=== PATIENT | female | born 1940 | race Caucasian/White ===

== ENCOUNTER 2016-05-30 06:49 | Day surgery (SDC) | payer MEDICARE ==
[~2016-05-30] VITALS: Ht 157.5 cm; Wt 60.9 kg
[2016-05-30] VITALS (8 sets, daily range): BP systolic 18–179; BP diastolic 43–92; PULSE 53–98; RESP 16–20; TEMP 97.6; O2SAT 95–99
[~2016-05-30 06:49] MED LIST: ALBU8I INH; ALPR.25 PO; ASPI81TA11 PO; ATOR20TA PO; CALCCHW25 PO; CLOB-50 TOP; E-20CAP PO; FISH100020 PO; LORTA5 PO; PERF20NE IN; TRIA.1%T TOP; UMEC1INH
[2016-05-30] MEDS ORDERED: MIDAZOLAM HCL 5 MG/5 ML VIAL ONE (07:30)
[2016-05-30] MEDS ORDERED: fentaNYL CITRATE 250 MCG/5 ML AMP ONE (07:30)
[2016-05-30] MEDS ORDERED: ASPI81CH CHEW (07:40)
[2016-05-30] MEDS ORDERED: FISHCAP4 PO (07:40)
[2016-05-30] MEDS ORDERED: CHOL1CHW5 CHEW (07:40)
[2016-05-30] MEDS ORDERED: UMEC1INH INH (07:40)
[2016-05-30] MEDS ORDERED: ATOR20TA15 PO (07:40)
[2016-05-30] MEDS ORDERED: CALC600T25 (07:40)
[2016-05-30] MEDS ORDERED: BUDE0.5S NEB (07:40)
[2016-05-30] MEDS ORDERED: CLOB0.77 TOPICAL (07:40)
[2016-05-30] MEDS ORDERED: TRIAPOW (07:40)
[2016-05-30] MEDS ORDERED: SYMB160A INH (07:40)
[2016-05-30] MEDS ORDERED: VENTAER INH (07:40)
[2016-05-30] MEDS ORDERED: VITA400C2 PO (07:40)
[2016-05-30] MEDS ORDERED: SODIUM CHLOR 0.9% 1000 ML IV SCH (07:45)
[2016-05-30] MEDS ORDERED: LIDOCAINE 1%/EPINEPHrine 1:100,000 SOLN 20 ML VIAL ONE (07:45)
--- NOTE | 2016-05-30 12:49 | RADRPT ---
EXAM DATE/TIME: 05/30/2016 10:56 [facility] COMPARISON: CHEST EXPIRATION ONLY, October 28, 2015, 10:14. INDICATIONS : Evaluate for pneumothorax post mediastinal biopsy MEDICAL HISTORY : Chronic obstructive pulmonary disease. Emphysema. SURGICAL HISTORY : Thoracotomy ENCOUNTER: Initial ACUITY: 1 day PAIN SCORE: 0/10 LOCATION: chest FINDINGS: A single frontal expiratory view of the chest was performed. The lungs are symmetrically aerated and clear. No evidence of pneumothorax. Mediastinal structures are in the midline. The cardio-mediastinal contours and bronchopulmonary markings are unremarkable for an expiratory exam . Osseous structures are intact. CONCLUSION: There is no pneumothorax. Minimal parenchymal changes are present in the left base.. Kenroy Quiñonez MD FACR on May 30, 2016 at 12:47 Board Certified Radiologist. This report was verified electronically.
--- NOTE | 2016-05-30 15:23 | RADRPT ---
EXAM DATE/TIME: 05/30/2016 08:32 [facility] COMPARISON: No previous studies available for comparison. INDICATIONS : Anterior mediastinal mass. SEDATION TIME: 40 minutes BIOPSY SITE: Left anterior chest. MEDICATION(S): 1.) 1 mg midazolam (Versed) IV 2.) 50 mcg fentanyl (Sublimaze) IV DEVICE(S): 1.) 18 gauge Barry blunt needle 2.) 20 gauge Temno core biopsy needle MEDICAL HISTORY : Carcinoma, lung. Chronic obstructive pulmonary disease. SURGICAL HISTORY : Lobectomy. ENCOUNTER: Initial ACUITY: 1 day PAIN SCORE: 0/10 LOCATION: Left anteriorchest. A total of four core specimen(s) were obtained and sent to the laboratory for pathologic evaluation. 1. CT guided mediastinal biopsy. Prior to the procedure informed consent was obtained. Any appropriate prior imaging studies were rev iewed. Using automated exposure control and adjustment of the mA and/or kV according to patient size, radiat ion dose was kept as low as reasonably achievable to obtain optimal diagnostic quality images. The site was prepped in a sterile fashion. Full sterile technique was used, including cap, mask, patti rile gloves and gown and a large sterile sheet. Hand hygiene and 2% chlorhexidine and/or betadine/al cohol prep was utilized per protocol for cutaneous antisepsis. The skin and subcutaneous tissues wer e infiltrated with local anesthetic solution. Under CT guidance an 18 gauge blunt needle was placed into the anterior mediastinal mass and 3 cores obtained and submitted for pathologic evaluation. Follow-up CT scan reveals no hemorrhage. The patient tolerated the procedure well and there were no complications. The patient was returned to the Radiology Outpatient Unit in stable condition. CONCLUSION: Uncomplicated CT guided biopsy. Preliminary pathology interpretation is a cellular specimen. Kenroy Quiñonez MD FACR on May 30, 2016 at 15:21 Board Certified Radiologist. This report was verified electronically.
== END 2016-05-30 13:05 | disposition home or self-care (01) ==
LOC: HRAD 06:49 → HRIP 06:53 → HRAD 13:05
PROVIDERS: ATTEND Internal Medicine Hematology & Oncology
DX: C34.32 Malignant neoplasm of lower lobe, left bronchus or lung (principal); J44.9 Chronic obstructive pulmonary disease, unspecified
CPT/HCPCS: 32405; 71010; 77012; 88305; 88333; J2250; J3010; J7030

== ENCOUNTER 2016-06-13 06:40 | Day surgery (SDC) | payer MEDICARE ==
[~2016-06-13] VITALS: Ht 157.5 cm; Wt 60.0 kg
[2016-06-13] VITALS (7 sets, daily range): BP systolic 120–153; BP diastolic 59–81; PULSE 56–65; RESP 16–20; TEMP 97.5–97.8; O2SAT 94–95
[~2016-06-13 06:40] MED LIST changes: +ASPI81CH CHEW; +ATOR20TA15 PO; +BUDE0.5S NEB; +CALC600T25; -CALCCHW25 PO; +CHOL1CHW5 CHEW; -CLOB-50 TOP; +CLOB0.77 TOPICAL; -E-20CAP PO; -FISH100020 PO; +FISHCAP4 PO; -LORTA5 PO; -PERF20NE IN; +SYMB160A INH; -TRIA.1%T TOP; +TRIAPOW; -UMEC1INH; +UMEC1INH INH; +VENTAER INH; +VITA400C2 PO
[2016-06-13] MEDS ORDERED: POVIDONE IODINE 5% (ANTISEPSIS KIT) 4 APPLICATIONS EACH NARE SCH (08:15)
[2016-06-13] MEDS ORDERED: CHLORHEXIDINE GLUCONATE 2 % 1 PACK (2 CLOTHS) TOPICAL SCH (08:15)
[2016-06-13] MEDS ORDERED: MUPIROCIN 2% OINT 1 APPLIC/GM SYR EACH NARE SCH (08:15)
[2016-06-13] MEDS ORDERED: SODIUM CHLORIDE 0.9% 1000 ML IV SCH (08:15)
[2016-06-13] MEDS ORDERED: ceFAZolin 2 GM PREMIX 50 ML - implanted port/tunneled catheter insertion IV SCH (08:15)
[2016-06-13] MEDS ORDERED: VANCOMYCIN 1000 MG/NS 250 ML - implanted port/tunneled catheter IV SCH ×2 (08:15)
[2016-06-13] MEDS ORDERED: MIDAZOLAM HCL 5 MG/5 ML VIAL ONE (08:23)
[2016-06-13] MEDS ORDERED: fentaNYL CITRATE 250 MCG/5 ML AMP ONE (08:23)
[2016-06-13] MEDS ORDERED: LIDOCAINE 1%/EPINEPHrine 1:100,000 SOLN 20 ML VIAL ONE (08:35)
--- NOTE | 2016-06-13 09:21 | PD.RAD ---
Post Procedure Progress Note Pre Procedure Diagnosis: (1) Lung cancer Post Procedure Diagnosis: (1) Lung cancer Procedure Date: Jun 13, 2016 Supervising Radiologist: Rick Gonzales JR Proceduralist/Assist: Yazmin Webb, RT(R)(), Yehuda Cuevas RT(R)() Anesthesia: Conscious Sedation Plan of Activity Patient to Unit: ROPU Patient Condition: Good See PACS Report for procedural detail/treatment Central Venous Access Device Procedure 1 Right Internal Jugular Infusaport Placement single lumen Greenlandic: 8 Findings: Port in good position and functions well. OK to use. Plan F/U with IR in 10-14 days Jr. Christian,Rick Velez MD Jun 13, 2016 09:21
[2016-06-13] MEDS ORDERED: SODIUM CHLORIDE 0.9% FLUSH 10 ML FLUSH IVF PRN (09:30)
--- NOTE | 2016-06-13 13:47 | RADRPT ---
EXAM DATE/TIME: 06/13/2016 08:17 [facility] COMPARISON: No previous studies available for comparison. INDICATIONS : Patient with lung cancer in need of port placement for treatment. 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 Basal cell carcinoma of the skin COPD/Emphysema Pneumonia 5 or 6 times Hyperlipidemia Former smoker SURGICAL HISTORY : CT guided biopsy of left upper lobe Multiple skin biopsies Robot assisted JAH lobectomy in [address] bx in 2015 Colonoscopy in 2015 Cataract removal in 2009 ENCOUNTER: Subsequent ACUITY: 4-6 months PAIN SCORE: 0/10 FLUORO TIME: 0.4 minutes IMAGE SERIES: 1 SEDATION TIME: 30 minutes ACCESS: Right internal jugular vein SEDATION: 1.) 1 mg midazolam (Versed) IV 2.) 50 mcg fentanyl (Sublimaze) IV Prophylactic antibiotics were administered with appropriate pre-procedure timing. Vancomycin within 2 hours of procedure, Ancef (or alternative) within 1 hour of procedure. DEVICE: 1. 8 Luxembourger single lumen [id number] PROCEDURE : 1. Continuous pulse oximetry and EKG monitoring. 2. Intravenous conscious sedation. 3. Ultrasound guidance for venous access. 4. Fluoroscopic guided implantable central venous port placement. The patient was placed supine. The neck was prepped in sterile fashion. Full sterile technique was u sed, including cap, mask, sterile gloves and gown, and a large sterile sheet. Hand hygiene and 2% ch lorhexidine Betadine was utilized per protocol for cutaneous antisepsis with appropriate dry time for site. The skin and subcutaneous tissues were infiltrated with local anesthetic solution. Under direct ultrasound guidance, central venous access was accomplished in the targeted vessel. The ultrasound images depicting access guidance were stored and saved to PACS for permanent record. A s ubcutaneous pocket was created using blunt dissection. The port was introduced to the pocket. The c atheter tubing was fed through a subcutaneous tunnel to the venotomy site. The catheter tubing was c ut to a suitable length and then was introduced through a valved Peel-Away sheath and positioned with catheter tubing tip at the cavo-atrial junction level. The pocket incision was closed with subcutic ular Vicryl suture. Steri-Strips were applied. The port was flushed and locked with heparin solutio n per protocol. Sterile dressing was applied to the site. The patient tolerated the procedure well. Conscious sedation was performed with the prescribed dosages and duration as above in the presence of an independent trained radiology nurse to assist in the monitoring of the patient. EKG and oximetry remained stable throughout the procedure. The patient tolerated the procedure well and there were no complications. The patient was sent to post anesthesia recovery in stable condition. CONCLUSION: Uncomplicated ultrasound and fluoroscopic guided implanted central venous port catheter placement as described in detail above. An 8 Luxembourger Power port was placed. Rick Gonzales Jr., MD on June 13, 2016 at 13:45 Board Certified Radiologist. This report was verified electronically.
== END 2016-06-13 11:35 | disposition home or self-care (01) ==
LOC: HROP 06:40 → HRIP 06:47 → HROP 11:35
PROVIDERS: ATTEND Internal Medicine Hematology & Oncology
DX: Z45.2 Encounter for adjustment and management of vascular access device (principal); C34.12 Malignant neoplasm of upper lobe, left bronchus or lung; J44.9 Chronic obstructive pulmonary disease, unspecified; E78.5 Hyperlipidemia, unspecified; Z85.828 Personal history of other malignant neoplasm of skin
CPT/HCPCS: 36561; 76937; 77001; 99152; 99153; C1788; J0690; J1642; J2250; J3010; J3370; J7030; J7050

== ENCOUNTER 2016-08-10 11:00 | Inpatient (IN) | payer MEDICARE ==
[~2016-08-10] VITALS: Ht 160 cm; Wt 59.1 kg
[2016-08-10] VITALS (16 sets, daily range): BP systolic 116–162; BP diastolic 62–74; PULSE 100–120; RESP 21–28; TEMP 98.1–100.4; O2SAT 96–100
[~2016-08-10 11:00] MED LIST changes: -ALBU8I INH; -ALPR.25 PO; -ASPI81TA11 PO; -ATOR20TA PO; -ATOR20TA15 PO
[2016-08-10] MEDS ORDERED: SODIUM CHLOR 0.9% 1000 ML INJ 1,000 ML IV ONE (11:13)
--- NOTE | 2016-08-10 11:13 | PD ---
HPI Chief Complaint: AMS Time Seen by Provider: 11:08 Travel History International Travel<30 days: No Contact w/Intl Traveler<30days: No History of Present Illness HPI This report is in ERROR Please disregard this report and all prior copies ! This report is in ERROR Please disregard this report and all prior copies ! This report is in ERROR Please disregard this report and all prior copies ! 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) Neurologic: No Psychiatric: No Reproductive: No Respiratory: Yes (lung ca copd) Immunizations Current: Yes Migraines: No Radiation Therapy: No Renal Failure: No Seizures: No Sleep Apnea: No Thyroid Disease: No Ulcer: No Menopausal: No Past Surgical History Abdominal Surgery: No AICD: No Arteriovenous Shunt: No Cardiac Surgery: No Ear Surgery: No Endocrine Surgery: No Eye Surgery: Yes (CATARACTS) Genitourinary Surgery: No Gynecologic Surgery: No Insulin Pump: No Joint Replacement: No Oral Surgery: No Pacemaker: No Thoracic Surgery: Yes (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) Other Surgery: Yes Social History Alcohol Use: Yes (2 DRINKS PER MONTH, WINE/LIQUOR) Tobacco Use: Yes (quit 09/2012) Substance Use: No Allergies-Medications (Allergen,Severity, Reaction): Coded Allergies: Shellfish (Verified Allergy, Unknown, Hives, 06/13/16) Reported Meds & Prescriptions Reported Meds & Active Scripts Active Reported Atorvastatin (Atorvastatin Calcium) 20 Mg Tab 20 Mg PO MOWE Take 1 tablet (20mg) daily on Saturday,Saturday and Saturday Magic Mouthwash Adult Liq (Multi-Ingredient Mouthwash/Gargle) 120 Ml Susp 5 Ml SWISH-SWAL ACHS Each 5mL contains: Nystatin 200,000units, Diphenhydramine 4.25mg, Viscous Lidocaine 10mg, Cole syrup 0.8 mL Hydrocodone-Acetaminophen Liq 7.5-325 Mg/15 Ml Soln 10 Ml PO QID PRN Cymbalta DR (Duloxetine HCl) 20 Mg Capdr 40 Mg PO DAILY Clobetasol Topical (Clobetasol Propionate) 0.05% Cream 1 Applic TOPICAL BID Aspirin 81 Mg Chew 81 Mg CHEW DAILY Vitamin D3 (Cholecalciferol) 2,000 Unit Chew 2,000 Units CHEW DAILY Fish Oil + D3 (Fish Oil-Cholecalciferol) 1,200-1,000 Mg-Unit Cap 1 Cap PO DAILY Vitamin E 400 Unit Cap 400 Units PO DAILY Ventolin Hfa 18 GM Inh (Albuterol Sulfate) 90 Mcg/Act Aer 2 Puff INH Q4-6H PRN Symbicort Inh (Budesonide/Formoterol Fumarate) 160-4.5 Mcg/Act Aero 1 Puff INH Q12HR Budesonide Neb 0.5 Mg/2 Ml Neb 0.5 Mg NEB DAILY NEB Incruse Ellipta Inh (Umeclidinium La[place]y Inh) 0.0625 Mg/Act Inh 1 Puff INH DAILY Physical Exam Narrative This report is in ERROR Please disregard this report and all prior copies ! This report is in ERROR Please disregard this report and all prior copies ! This report is in ERROR Please disregard this report and all prior copies ! Data Data Last Documented VS Vital Signs Date Time Temp Pulse Resp B/P Pulse Ox O2 Delivery O2 Flow Rate FiO2 08/10/16 12:12 103 24 162/65 100 Nasal Cannula 2 08/10/16 11:14 98.1 Orders Diet Npo (08/10/16 Lunch) Activity Bed Rest (08/10/16 ) Electrocardiogram (08/10/16 ) I-Stat Creatinine (08/10/16 11:13) I-Stat Profile (08/10/16 11:13) Prothrombin Time / Inr (Pt) (08/10/16 11:13) Act Partial Throm Time (Ptt) (08/10/16 11:13) Complete Blood Count With Diff (08/10/16 11:13) Fibrinogen (08/10/16 11:13) Creatine Kinase (Cpk) (08/10/16 11:13) Troponin I (08/10/16 11:13) Ua Includes Microscopic (08/10/16 11:13) Drug Screen, Random Urine (08/10/16 11:13) Type And Screen (08/10/16 11:13) Ct Brain W/O Iv Contrast(Rout) (08/10/16 ) Cta Brain W Iv Contrast W 3d (08/10/16 11:13) Cta Neck W Iv Contrast W 3d (08/10/16 11:13) Beta Hcg (Quant/Titer) (08/10/16 11:13) Consult Neurology (08/10/16 ) Blood Glucose (08/10/16 11:13) Ecg Monitoring (08/10/16 11:13) Neuro Checks Q2HX12,Q4H (08/10/16 11:13) Nursing Bedside Swallow Assess .ONCE (08/10/16 11:13) Iv Access Insert/Monitor (08/10/16 11:13) NPO (08/10/16 11:13) Oximetry (08/10/16 11:13) Oxygen Administration (08/10/16 11:13) Sodium Chlor 0.9% 1000 Ml Inj (Ns 1000 M (08/10/16 11:13) Resp Oxygen [place] C Titrat 1-4 L (08/10/16 11:13) Cath For Specimen (08/10/16 11:13) ^ Call Pharmacy (08/10/16 11:58) Nih Stroke Scale - Nihss .ONCE (08/10/16 11:58) Urinary Catheter Management DENNIS.Q8H (08/10/16 11:58) Urinary Catheter Insert/Apply (08/10/16 11:58) Anticoagulant Alert (08/10/16 11:58) ^ Post Infusion Restrictions (08/10/16 11:58) ^ Medication Alert (08/10/16 11:58) Vital Signs (Adult) .As directed (08/10/16 11:58) Notify Dr: Blood Pressure (08/10/16 11:58) ^ Medication Alert (08/10/16 11:58) Alteplase Bolus (Activase Bolus) (08/10/16 12:00) Alteplase Drip (Activase Drip) (08/10/16 12:00) Sodium Chloride 0.9% Inj (Ns Inj) (08/10/16 12:00) Misc Nursing Information (08/10/16 12:00) Resp Oxygen [place] C Titrat 1-4 L (08/10/16 ) Ct Brain W/O Iv Contrast(Rout) (08/11/16 ) Iohexol 350 Inj (Omnipaque 350 Inj) (08/10/16 12:08) Admit Order (Ed Use Only) (08/10/16 12:11) Thyroid Stimulating Hormone (08/10/16 12:10) Free Thyroxine (T4) (08/10/16 12:10) Vitamin B12 (08/10/16 12:10) Urinalysis - C+S If Indicated (08/10/16 12:10) Mri Brain W&W/O Contrast (08/10/16 12:10) Eeg Study (08/10/16 12:10) Echo 2d Comp With Doppler (08/10/16 12:10) Holter Monitor Recording (08/10/16 12:10) [place] (08/10/16 12:10) Sodium Chlor 0.9% 1000 Ml Inj (Ns 1000 M (08/10/16 13:00) Scd&Teds Bilateral/Knee High DENNIS.QSHIFT (08/10/16 12:10) Labs Laboratory Tests Test 08/10/16 11:20 White Blood Count 3.1 TH/MM3 Red Blood Count 3.92 MIL/MM3 Hemoglobin 11.8 GM/DL Bedside Hemoglobin 10.9 G/DL Hematocrit 33.2 % Bedside Hematocrit 32.0 % Mean Corpuscular Volume 84.6 FL Mean Corpuscular Hemoglobin 30.0 PG Mean Corpuscular Hemoglobin 35.5 % Concent Red Cell Distribution Width 13.1 % Platelet Count 136 TH/MM3 Mean Platelet Volume 8.4 FL Neutrophils (%) (Auto) 84.4 % Lymphocytes (%) (Auto) 7.6 % Monocytes (%) (Auto) 7.2 % Eosinophils (%) (Auto) 0.3 % Basophils (%) (Auto) 0.5 % Neutrophils # (Auto) 2.6 TH/MM3 Lymphocytes # (Auto) 0.2 TH/MM3 Monocytes # (Auto) 0.2 TH/MM3 Eosinophils # (Auto) 0.0 TH/MM3 Basophils # (Auto) 0.0 TH/MM3 CBC Comment DIFF FINAL Differential Comment Prothrombin Time 10.6 SEC Prothromb Time International 1.0 RATIO Ratio Activated Partial 27.4 SEC Thromboplast Time Fibrinogen 486 mg/dL Bedside Sodium 135 MMOL/L Bedside Potassium 3.8 MMOL/L Bedside Chloride 101 MMOL/L Bedside Blood Urea Nitrogen 17 MG/DL Bedside Creatinine 0.7 MG/DL Bedside Glucose 107 MG/DL Total Creatine Kinase 58 U/L Troponin I LESS THAN 0.02 NG/ML Vitamin B12 Level 424 PG/ML Free Thyroxine 1.67 NG/DL Thyroid Stimulating Hormone 1.510 uIU/ML 3rd Gen Human Chorionic Gonadotropin, 5 MIU/ML Quant Blood Type O POSITIVE Antibody Screen NEGATIVE MDM Medical Decision Making Medical Screen Exam Complete: Yes Emergency Medical Condition: Yes Differential Diagnosis This report is in ERROR Please disregard this report and all prior copies ! This report is in ERROR Please disregard this report and all prior copies ! This report is in ERROR Please disregard this report and all prior copies ! Narrative Course This report is in ERROR Please disregard this report and all prior copies ! This report is in ERROR Please disregard this report and all prior copies ! This report is in ERROR Please disregard this report and all prior copies ! Jairo Mendiola MD August 10, 2016 11:13
--- NOTE | 2016-08-10 11:26 | PD ---
HPI Chief Complaint: Respiratory Symptoms Time Seen by Provider: 11:08 Travel History International Travel<30 days: No Contact w/Intl Traveler<30days: No Traveled to known affect area: No History of Present Illness HPI 75-year-old female arrives to the ER following an emergency response team activation at the [facility] where she was undergoing chemotherapy infusion. EMS reports the patient is quite dyspneic on scene and improved with albuterol. No focal neurologic deficit could be observed according to EMS. On my exam the patient is unable to state the date or where she lives. She is unable to name a stethoscope and name her sandals as such. She could repeat tip-top and 50-50. EMS reports sinus tachycardia at approx 110 with BGL of 111 and BP of 113/70. PFSH Past Medical History Arthritis: Yes Asthma: No Autoimmune Disease: No Anxiety: No Depression: No Heart Rhythm Problems: No Cancer: Yes (LUNG CA?) Cardiovascular Problems: No High Cholesterol: No Chemotherapy: Yes Chest Pain: No Congestive Heart Failure: No COPD: Yes Cerebrovascular Accident: No Diabetes: No Diminished Hearing: No Endocrine: No GERD: No Glaucoma: No Genitourinary: No Hepatitis: No Hiatal Hernia: No Hypertension: Yes Immune Disorder: No Kidney Stones: No Musculoskeletal: Yes (OA IN HANDS) Neurologic: No Psychiatric: No Reproductive: No Respiratory: Yes (lung ca copd) Immunizations Current: Yes Migraines: No Radiation Therapy: No Renal Failure: No Seizures: No Sleep Apnea: No Thyroid Disease: No Ulcer: No Menopausal: No Past Surgical History Abdominal Surgery: No AICD: No Arteriovenous Shunt: No Cardiac Surgery: No Ear Surgery: No Endocrine Surgery: No Eye Surgery: Yes (CATARACTS) Genitourinary Surgery: No Gynecologic Surgery: No Insulin Pump: No Joint Replacement: No Oral Surgery: No Pacemaker: No Thoracic Surgery: Yes (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) Other Surgery: Yes Social History Alcohol Use: Yes (2 DRINKS PER MONTH, WINE/LIQUOR) Tobacco Use: Yes (quit 09/2012) Substance Use: No Allergies-Medications (Allergen,Severity, Reaction): Coded Allergies: Shellfish (Verified Allergy, Unknown, Hives, 06/13/16) Reported Meds & Prescriptions Reported Meds & Active Scripts Active Reported Atorvastatin (Atorvastatin Calcium) 20 Mg Tab 20 Mg PO MOWEFR Take 1 tablet (20mg) daily on Saturday,Saturday and Saturday Magic Mouthwash Adult Liq (Multi-Ingredient Mouthwash/Gargle) 120 Ml Susp 5 Ml SWISH-SWAL ACHS Each 5mL contains: Nystatin 200,000units, Diphenhydramine 4.25mg, Viscous Lidocaine 10mg, Cole syrup 0.8 mL Hydrocodone-Acetaminophen Liq 7.5-325 Mg/15 Ml Soln 10 Ml PO QID PRN Cymbalta DR (Duloxetine HCl) 20 Mg Capdr 40 Mg PO DAILY Clobetasol Topical (Clobetasol Propionate) 0.05% Cream 1 Applic TOPICAL BID Aspirin 81 Mg Chew 81 Mg CHEW DAILY Vitamin D3 (Cholecalciferol) 2,000 Unit Chew 2,000 Units CHEW DAILY Fish Oil + D3 (Fish Oil-Cholecalciferol) 1,200-1,000 Mg-Unit Cap 1 Cap PO DAILY Vitamin E 400 Unit Cap 400 Units PO DAILY Ventolin Hfa 18 GM Inh (Albuterol Sulfate) 90 Mcg/Act Aer 2 Puff INH Q4-6H PRN Symbicort Inh (Budesonide/Formoterol Fumarate) 160-4.5 Mcg/Act Aero 1 Puff INH Q12HR Budesonide Neb 0.5 Mg/2 Ml Neb 0.5 Mg NEB DAILY NEB Incruse Ellipta Inh (Umeclidinium Omega Inh) 0.0625 Mg/Act Inh 1 Puff INH DAILY Review of Systems ROS Limitations: Clinical Condition Physical Exam Narrative GENERAL: 75-year-old female, well-nourished well-developed SKIN: Warm and dry. HEAD: Atraumatic. Normocephalic. EYES: Pupils equal and round. No scleral icterus. No injection or drainage. ENT: No nasal bleeding or discharge. Mucous membranes pink and moist. NECK: Trachea midline. No JVD. CARDIOVASCULAR: Regular rate and rhythm. RESPIRATORY: No accessory muscle use. Clear to auscultation. Breath sounds equal bilaterally. GASTROINTESTINAL: Abdomen soft, non-tender, nondistended. Hepatic and splenic margins not palpable. MUSCULOSKELETAL: Extremities without clubbing, cyanosis, or edema. No obvious deformities. NEUROLOGICAL: Alert and oriented times her name. The cranial nerves III through XII appear normal. Motor function of the upper and lower extremities is normal. There is no pronator drift. The patient can repeat single phrases. The patient cannot identify basic objects. PSYCHIATRIC: Appropriate mood and affect; insight and judgment normal. Data Data Last Documented VS Vital Signs Date Time Temp Pulse Resp B/P Pulse Ox O2 Delivery O2 Flow Rate FiO2 08/10/16 12:12 103 24 162/65 100 Nasal Cannula 2 08/10/16 11:14 98.1 VS reviewed Orders Diet Npo (08/10/16 Lunch) Activity Bed Rest (08/10/16 ) Electrocardiogram (08/10/16 ) I-Stat Creatinine (08/10/16 11:13) I-Stat Profile (08/10/16 11:13) Prothrombin Time / Inr (Pt) (08/10/16 11:13) Act Partial Throm Time (Ptt) (08/10/16 11:13) Complete Blood Count With Diff (08/10/16 11:13) Fibrinogen (08/10/16 11:13) Creatine Kinase (Cpk) (08/10/16 11:13) Troponin I (08/10/16 11:13) Ua Includes Microscopic (08/10/16 11:13) Drug Screen, Random Urine (08/10/16 11:13) Type And Screen (08/10/16 11:13) Ct Brain W/O Iv Contrast(Rout) (08/10/16 ) Cta Brain W Iv Contrast W 3d (08/10/16 11:13) Cta Neck W Iv Contrast W 3d (08/10/16 11:13) Beta Hcg (Quant/Titer) (08/10/16 11:13) Consult Neurology (08/10/16 ) Blood Glucose (08/10/16 11:13) Ecg Monitoring (08/10/16 11:13) Neuro Checks Q2HX12,Q4H (08/10/16 11:13) Nursing Bedside Swallow Assess .ONCE (08/10/16 11:13) Iv Access Insert/Monitor (08/10/16 11:13) NPO (08/10/16 11:13) Oximetry (08/10/16 11:13) Oxygen Administration (08/10/16 11:13) Sodium Chlor 0.9% 1000 Ml Inj (Ns 1000 M (08/10/16 11:13) Resp Oxygen [place] C Titrat 1-4 L (08/10/16 11:13) Cath For Specimen (08/10/16 11:13) ^ Call Pharmacy (08/10/16 11:58) Nih Stroke Scale - Nihss .ONCE (08/10/16 11:58) Urinary Catheter Management DENNIS.Q8H (08/10/16 11:58) Urinary Catheter Insert/Apply (08/10/16 11:58) Anticoagulant Alert (08/10/16 11:58) ^ Post Infusion Restrictions (08/10/16 11:58) ^ Medication Alert (08/10/16 11:58) Vital Signs (Adult) .As directed (08/10/16 11:58) Notify Dr: Blood Pressure (08/10/16 11:58) ^ Medication Alert (08/10/16 11:58) Alteplase Bolus (Activase Bolus) (08/10/16 12:00) Alteplase Drip (Activase Drip) (08/10/16 12:00) Sodium Chloride 0.9% Inj (Ns Inj) (08/10/16 12:00) Misc Nursing Information (08/10/16 12:00) Resp Oxygen [place]aan C Titrat 1-4 L (08/10/16 ) Ct Brain W/O Iv Contrast(Rout) (08/11/16 ) Iohexol 350 Inj (Omnipaque 350 Inj) (08/10/16 12:08) Admit Order (Ed Use Only) (08/10/16 12:11) Thyroid Stimulating Hormone (08/10/16 12:10) Free Thyroxine (T4) (08/10/16 12:10) Vitamin B12 (08/10/16 12:10) Urinalysis - C+S If Indicated (08/10/16 12:10) Mri Brain W&W/O Contrast (08/10/16 12:10) Eeg Study (08/10/16 12:10) Echo 2d Comp With Doppler (08/10/16 12:10) Holter Monitor Recording (08/10/16 12:10) [place] (08/10/16 12:10) Sodium Chlor 0.9% 1000 Ml Inj (Ns 1000 M (08/10/16 13:00) Scd&Teds Bilateral/Knee High DENNIS.QSHIFT (08/10/16 12:10) Labs Laboratory Tests Test 08/10/16 11:20 White Blood Count 3.1 TH/MM3 Red Blood Count 3.92 MIL/MM3 Hemoglobin 11.8 GM/DL Bedside Hemoglobin 10.9 G/DL Hematocrit 33.2 % Bedside Hematocrit 32.0 % Mean Corpuscular Volume 84.6 FL Mean Corpuscular Hemoglobin 30.0 PG Mean Corpuscular Hemoglobin 35.5 % Concent Red Cell Distribution Width 13.1 % Platelet Count 136 TH/MM3 Mean Platelet Volume 8.4 FL Neutrophils (%) (Auto) 84.4 % Lymphocytes (%) (Auto) 7.6 % Monocytes (%) (Auto) 7.2 % Eosinophils (%) (Auto) 0.3 % Basophils (%) (Auto) 0.5 % Neutrophils # (Auto) 2.6 TH/MM3 Lymphocytes # (Auto) 0.2 TH/MM3 Monocytes # (Auto) 0.2 TH/MM3 Eosinophils # (Auto) 0.0 TH/MM3 Basophils # (Auto) 0.0 TH/MM3 CBC Comment DIFF FINAL Differential Comment Prothrombin Time 10.6 SEC Prothromb Time International 1.0 RATIO Ratio Activated Partial 27.4 SEC Thromboplast Time Fibrinogen 486 mg/dL Bedside Sodium 135 MMOL/L Bedside Potassium 3.8 MMOL/L Bedside Chloride 101 MMOL/L Bedside Blood Urea Nitrogen 17 MG/DL Bedside Creatinine 0.7 MG/DL Bedside Glucose 107 MG/DL Total Creatine Kinase 58 U/L Troponin I LESS THAN 0.02 NG/ML Human Chorionic Gonadotropin, 5 MIU/ML Quant Blood Type O POSITIVE Antibody Screen NEGATIVE MDM Medical Screen Exam Complete: Yes Emergency Medical Condition: Yes Differential Diagnosis CVA, TIA, altered mental status secondary to infection, altered mental status secondary to metabolic disorder, altered mental status secondary to polypharmacy Narrative Course CBC & BMP Diagram 08/10/16 11:20 Tn < 0.02 Coags normal Fibrinogen 486 Last 24 hours Impressions Head CTA 08/10/16 1113 Signed Impressions: Service Date/Time: Wednesday, August 10, 2016 11:25 - CONCLUSION: 1. No major vessel occlusion. 2. Normal variants as described above. Aubrey Quarles MD Head CT 08/10/16 0000 Signed Impressions: Service Date/Time: Wednesday, August 10, 2016 11:25 - CONCLUSION: 1. No acute findings. Incidental small left basal ganglia calcification. Incidental cavum septum pellucidum. Oziel Rdz MD Pt received Alteplase. discussed with next of kin, pt's niece, Ramon, who stated Alteplase would likely be in keeping with patient's preferences. Please review neurology note by Dr Mariah Cohen d/w Dr Perez Critical Care Narrative Aggregate critical care time was 70 minutes. Time to perform other separately billable procedures was not included in the critical care time. My time did not include minutes spent treating any other patients simultaneously or on activities that did not directly contribute to the patient's treatment. The services I provided to this patient were to treat and/or prevent clinically significant deterioration that could result in: Permanent neurologic injury, intracranial hemorrhage I provided critical care services requiring my management, as noted below: Chart data review, documentation time, medication orders and management, vital sign assessments/reviewing monitor data, ordering and reviewing lab tests, ordering and interpreting/reviewing x-rays and diagnostic studies, care of the patient and discussion of the patient with the admitting physicians. Stroke Alert NIHSS NIH Stroke Scale Result: 6 NIHSS Time Completed: 11:15 Diagnosis Diagnosis: Primary Impression: CVA (cerebral vascular accident) Qualified Code: I63.9 - Cerebrovascular accident (CVA), unspecified mechanism Additional Impression: COPD (chronic obstructive pulmonary disease) Qualified Code: J44.9 - Chronic obstructive pulmonary disease, unspecified COPD type Admitting Physician Requests: Jairo Erazo MD August 10, 2016 11:26
[2016-08-10 11:30] LABS: I-STAT POTASSIUM 3.8 MMOL/L (3.5-4.9); I-STAT SODIUM 135 MMOL/L (138-146)
[2016-08-10 11:31] LABS: AUTOMATED NEUTROPHIL # 2.6 TH/MM3 (1.8-7.7); BASOPHIL % 0.5 % (0.0-2.0); EOSINOPHIL % 0.3 % (0.0-4.0); HEMATOCRIT 33.2 % (35.0-46.0); HEMO FLAGS DIFF FINAL; LYMPH % 7.6 % (9.0-44.0); LYMPHOCYTE # 0.2 TH/MM3 (1.0-4.8); MEAN CELL VOLUME 84.6 FL (80.0-100.0); MEAN CORPUSCULAR HGB CONC 35.5 % (32.0-36.0); MONO % 7.2 % (0.0-8.0); NEUT % 84.4 % (16.0-70.0); PLATELET COUNT 136 TH/MM3 (150-450); RED BLOOD COUNT 3.92 MIL/MM3 (4.00-5.30); RED CELL DISTRIBUTION WIDTH 13.1 % (11.6-17.2); WHITE BLOOD COUNT 3.1 TH/MM3 (4.0-11.0)
--- NOTE | 2016-08-10 11:40 | RADRPT ---
EXAM DATE/TIME: 08/10/2016 11:25 [facility] COMPARISON: No previous studies available for comparison. INDICATIONS : Stroke alert, aphasia. RADIATION DOSE: 29.31 CTDIvol (mGy) This report was called by Dr. Rdz to Dr. Mendiola at 11: 38 AM MEDICAL HISTORY : Non-responsive. SURGICAL HISTORY : Non-responsive. ENCOUNTER: Initial ACUITY: 1 day PAIN SCALE: Non-responsive LOCATION: cranial TECHNIQUE: Multiple contiguous axial images were obtained of the head. Using automated exposure control and adj ustment of the mA and/or kV according to patient size, radiation dose was kept as low as reasonably a chievable to obtain optimal diagnostic quality images. FINDINGS: CEREBRUM: The ventricles are normal for age. No evidence of midline shift, mass lesion, hemorrhage or acute in farction. No extra-axial fluid collections are seen. POSTERIOR FOSSA: The cerebellum and brainstem are intact. The 4th ventricle is midline. The cerebellopontine angle i s unremarkable. EXTRACRANIAL: The visualized portion of the orbits is intact. SKULL: The calvaria is intact. No evidence of skull fracture. CONCLUSION: 1. No acute findings. Incidental small left basal ganglia calcification. Incidental cavum septum lucien ucidum. Oziel Rdz MD on August 10, 2016 at 11:34 Board Certified Radiologist. This report was verified electronically.
[2016-08-10 11:50] LABS: APTT (PATIENT) 27.4 SEC (24.3-30.1); PROTHROMBIN TIME - PATIENT 10.6 SEC (9.8-11.6)
[2016-08-10 11:54] LABS: BETA HCG QUANT 5 MIU/ML (0-5)
[2016-08-10 11:59] LABS: CREATINE KINASE 58 U/L (26-192)
[2016-08-10] MEDS ORDERED: SODIUM CHLORIDE 0.9% 50 ML BAG IVF ONE (12:00)
[2016-08-10] MEDS ORDERED: ALTEPLASE BOLUS 9 MG/9 ML SYR IV ONE (12:00)
[2016-08-10] MEDS ORDERED: MISCELLANEOUS NURSING INFORMATION XX PRN (12:00)
[2016-08-10] MEDS ORDERED: ALTEPLASE DRIP IV ONE (12:00)
[2016-08-10] MEDS ORDERED: IOHEXOL 350 MG/ML 10 ML VIAL (for RAD DIAG) IV ONE (12:08)
[2016-08-10] MEDS ORDERED: HYDR1SOL3 PO (12:31)
[2016-08-10] MEDS ORDERED: DULO20 PO (12:31)
[2016-08-10] MEDS ORDERED: CLOB0.055 TOPICAL (12:31)
[2016-08-10] MEDS ORDERED: MAGICADU2 SWISH-SWAL (12:31)
[2016-08-10] MEDS ORDERED: ATOR20TA15 PO (12:33)
--- NOTE | 2016-08-10 12:47 | MB ---
cc: AUGUSTA BLEVINS DATE OF CONSULTATION 08/10/2016 REASON FOR CONSULTATION The patient is a 75-year-old woman with a history of lung cancer was over getting chemo today when suddenly they thought she was short of breath approximately 70 minutes ago. When she came in the ER, the ER doctor noted that she had difficulty talking and a stroke alert was called. MEDICATIONS Medications at home are: 1. Aspirin 2. Vitamin D 3. Fish oil 4. Vitamin E 5. Ventolin 6. Symbicort 7. Nebulizers REVIEW OF SYSTEMS Unable to obtain. SOCIAL HISTORY Two drinks a month. She quit smoking about four years ago. No substance abuse. PAST MEDICAL HISTORY 1. Lung cancer getting radiation/ 2. She has had chemotherapy in the past. 3. COPD 4. Hypertension 5. Osteoarthritis 6. She had a needle biopsy in May uncomplicated to the lung. 7. 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 December 2015, new soft tissue mass anterior mediastinum. PHYSICAL EXAM On exam, she is sinus rhythm afebrile, blood pressure 118/74, 22, pulse of 109. NECK: There are no carotid bruits. There is a radiated murmur to the left carotid. HEART: Regular rhythm with a 1/6 systolic ejection murmur. NEUROLOGIC: Pupils are equal. It is hard to tell about the visual mackenzie. They appear full, maybe a little bit better threat to the left than the right. Face is symmetric. Moves all her extremities well. Feels discomfort throughout. Toes are downgoing bilaterally. She has an expressive and receptive aphasia hyperventilating slightly. Unable to repeat. She is awake and alert, however. NIH stroke scale of six due to her aphasia. LABS CBC today, white count is 3.1, hematocrit 33, platelet count 136. Basic metabolic profile today normal. CPK and troponin are negative. HCG 5. Coags are normal today. CT scan of the brain incidental small left basal ganglionic calcification, otherwise normal. CTA of the neck and [place] preliminary normal. IMPRESSION Left MCA infarct. She is a tPA candidate. We will go ahead and give tPA. MD JUDY Hamilton/SHIALA /12:08 PM /12:23 PM
--- NOTE | 2016-08-10 12:49 | HHI.HP ---
HPI Service Critical Care Medicine Primary Care Physician Amaya Cabello MD Admission Diagnosis Acute Ischemic CVA Diagnosis: Chief Complaint: aphasia Travel History International Travel<30 Days: No Contact w/Intl Traveler <30 Da: No Traveled to Known Affected Are: No History of Present Illness This is a 8-year-old female who arrived to the emergency department from the infusion clinic where she was undergoing chemotherapy infusion. Her chief complaint was shortness of breath initially. However, when she arrived emergency department, she was unable to speak was found to have both expressive and receptive aphasia. At that time a stat head CT was negative for acute hemorrhage and a stroke alert was called. Last seen normal was approximately 70 minutes prior to arrival in the emergency department her NIH stroke scale was 6. She was given TPA. I evaluated the patient emergency department soon after she was receiving TPA. I again noted her expressive and receptive aphasia , which limits her ability to give a history. 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 Unlikely to be contributory to her acute illness. Social History 2 drinks per month, prior tobacco use quit in 09/2012 Physical Exam Vital Signs Vital Signs Date Time Temp Pulse Resp B/P Pulse Ox O2 Delivery O2 Flow Rate FiO2 08/10/16 12:17 106 22 162/65 100 Nasal Cannula 08/10/16 12:12 103 24 162/65 100 Nasal Cannula 2 08/10/16 11:45 100 22 146/70 100 Nasal Cannula 2 08/10/16 11:18 100 2.00 08/10/16 11:18 100 Nasal Cannula 2.00 08/10/16 11:17 96 Nasal Cannula 2 08/10/16 11:17 22 96 2 08/10/16 11:17 112 22 96 Nasal Cannula 2 08/10/16 11:14 98.1 110 22 118/74 96 Physical Exam GENERAL: Elderly female, lying in best, moderate distress due to her aphasia HEENT: Normocephalic. Atraumatic. Pupils 2 mm, equal, round, reactive. Mucous membranes are moist. NECK: No JVD. Trachea midline. CHEST: Mildly tachypneic. Unlabored. Equal chest rise. CARDIOVASCULAR: Cardiac rate, regular rhythm. Sinus by telemetry. ABDOMEN: Soft, nontender, nondistended. No guarding. MUSCULOSKELETAL: Pulses 2+. No peripheral edema. NEUROLOGICAL: RASS 0. Receptive and expressive aphasia. Moves all 4 extremity spontaneously. Does not follow commands, most likely due to her aphasia. Briskly purposeful. Localizes. Withdrawals. Laboratory Laboratory Tests Test 08/10/16 11:20 White Blood Count 3.1 Red Blood Count 3.92 Hemoglobin 11.8 Bedside Hemoglobin 10.9 Hematocrit 33.2 Bedside Hematocrit 32.0 Mean Corpuscular Volume 84.6 Mean Corpuscular Hemoglobin 30.0 Mean Corpuscular Hemoglobin 35.5 Concent Red Cell Distribution Width 13.1 Platelet Count 136 Mean Platelet Volume 8.4 Neutrophils (%) (Auto) 84.4 Lymphocytes (%) (Auto) 7.6 Monocytes (%) (Auto) 7.2 Eosinophils (%) (Auto) 0.3 Basophils (%) (Auto) 0.5 Neutrophils # (Auto) 2.6 Lymphocytes # (Auto) 0.2 Monocytes # (Auto) 0.2 Eosinophils # (Auto) 0.0 Basophils # (Auto) 0.0 CBC Comment DIFF FINAL Differential Comment Prothrombin Time 10.6 Prothromb Time International 1.0 Ratio Activated Partial 27.4 Thromboplast Time Fibrinogen 486 Bedside Sodium 135 Bedside Potassium 3.8 Bedside Chloride 101 Bedside Blood Urea Nitrogen 17 Bedside Creatinine 0.7 Bedside Glucose 107 Total Creatine Kinase 58 Troponin I LESS THAN 0.02 Human Chorionic Gonadotropin, 5 Quant Blood Type O POSITIVE Antibody Screen NEGATIVE Result Diagram: 08/10/16 1120 Imaging Last Impressions Brain MRI 08/10/16 1210 Signed Impressions: Service Date/Time: Wednesday, August 10, 2016 14:51 - CONCLUSION: 1. No acute infarction. 2. Cortical atrophy. 3. Nonspecific white matter changes. Aubrey Quarles MD Neck CTA 08/10/16 1113 Signed Impressions: Service Date/Time: Wednesday, August 10, 2016 11:25 - CONCLUSION: 50%% left carotid bifurcation stenosis. 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 Larry Salvador MD Head CTA 08/10/16 1113 Signed Impressions: Service Date/Time: Wednesday, August 10, 2016 11:25 - CONCLUSION: 1. No major vessel occlusion. 2. Normal variants as described above. Aubrey Quarles MD Head CT 08/10/16 0000 Signed Impressions: Service Date/Time: Wednesday, August 10, 2016 11:25 - CONCLUSION: 1. No acute findings. Incidental small left basal ganglia calcification. Incidental cavum septum pellucidum. Oziel Rdz MD Assessment and Plan Assessment and Plan Assessment: 75-year-old female with lung cancer and ongoing radiation chemotherapy who presents with acute change in mentation and what appears to be receptive and expressive aphasia. She is now status post TPA. We will admit her to the ICU and watch her she is very high risk for rebleeding decompensation. She remains critically ill. We will plan on repeat interval head CT in 24 hours. Permissive hypertension. Frequent neurochecks. Plan: 1. Cerebrovascular Accident -- f/u MRI -- CT brain 08/10 negative for hemorrhage -- s/p TPA -- frequent neuro checks -- repeat interval head CT -- permissive hypertension, goal SBP < 180 -- nursing bedside swallow eval and advance diet as tolerated -- 2d echo -- lipid panel -- continue home statin -- restart home ASA tomorrow morning (24h after TPA) --continue home meds. -- SCDs. pharmacologic DVT prophylaxis on hold due to TPA today. would plan to restart 24h after TPA. Dispo: admit to ICU. if she remains stable and her interval head CT is unchanged , could transfer to floor tomorrow. This patient remains critically ill with one or more organ systems which are or may become a threat to life. I have spent in excess of 32 minutes discontinuously in the care and management of this patient. This time is exclusive of procedures, and includes, but is not limited to, evaluation of the patient, review of the medical record, discussions with family, consultants, nursing staff, or respiratory therapy, and documentation in the medical record. Code Status Full code Discussed Condition With Dr. Perry, Home Crawley MD August 10, 2016 12:49
[2016-08-10] MEDS ORDERED: POTASSIUM CHLOR 20 MEQ PREMIX 100 ML IV PRN ×2 (13:00)
[2016-08-10] MEDS ORDERED: MAGNESIUM SULFATE INJ 2 GM in SODIUM CHLORIDE 0.9% INJ 96 ML IV PRN (13:00)
[2016-08-10] MEDS ORDERED: MAGNESIUM OXIDE 400 MG TAB PO PRN (13:00)
[2016-08-10] MEDS ORDERED: SODIUM PHOSPHATE INJ 30 MMOL in SODIUM CHLOR 0.9% 250 ML INJ 240 ML IV PRN (13:00)
[2016-08-10] MEDS ORDERED: MAGNESIUM SULFATE INJ 4 GM in SODIUM CHLORIDE 0.9% INJ 92 ML IV PRN (13:00)
[2016-08-10] MEDS ORDERED: POTASSIUM PHOSPHATE MONOBASIC 500 MG TAB PO/TUBE PRN (13:00)
[2016-08-10] MEDS ORDERED: POTASSIUM CHLOR 40 MEQ PREMIX 100 ML IV PRN ×2 (13:00)
[2016-08-10] MEDS ORDERED: POTASSIUM PHOSPHATE MONOBASIC 500 MG TAB PO PRN (13:00)
--- NOTE | 2016-08-10 13:00 | RADRPT ---
EXAM DATE/TIME: 08/10/2016 11:25 [facility] COMPARISON: No previous studies available for comparison. INDICATIONS : Stroke alert, aphasia. IV CONTRAST: 100 cc Omnipaque 350 (iohexol) IV ; Cumulative dose for multiple exams. RADIATION DOSE: 25.52 CTDIvol (mGy) ; Combined studies MEDICAL HISTORY : Non-responsive. SURGICAL HISTORY : Non-responsive. ENCOUNTER: Initial ACUITY: 1 day PAIN SCALE: Non-responsive LOCATION: cranial TECHNIQUE: Volumetric scanning was performed using a multi-row detector CT scanner. The data was post processed with a variety of visualization algorithms including full volume maximum intensity projection, multi -planar sliding thin slab reformation, curved planar reformation, and surface rendering techniques. Using automated exposure control and adjustment of the mA and/or kV according to patient size, radiat ion dose was kept as low as reasonably achievable to obtain optimal diagnostic quality images. FINDINGS: There is excellent visualization of the major intracranial arteries out to the second-order branch ve ssels. There is no evidence for aneurysm, vessel truncation or stenosis, and no evidence for vascula r malformation. Anterior and posterior communicating arteries. No stenosis or aneurysm. No major vessel occlusion. CONCLUSION: 1. No major vessel occlusion. 2. Normal variants as described above. Aubrey Quarles MD on August 10, 2016 at 12:55 Board Certified Radiologist. This report was verified electronically.
[2016-08-10 13:35] LABS: FREE T4 1.67 NG/DL (0.76-1.46)
[2016-08-10] MEDS: SODIUM CHLOR 0.9% 1000 ML INJ 1,000 ML IV SCH (13:43)
--- NOTE | 2016-08-10 13:52 | RADRPT ---
EXAM DATE/TIME: 08/10/2016 11:25 [facility] COMPARISON: No previous studies available for comparison. INDICATIONS : Stroke alert, aphasia. IV CONTRAST: 100 cc Omnipaque 350 (iohexol) IV ; Cumulative dose for multiple exams. RADIATION DOSE: 25.52 CTDIvol (mGy) ; Combined studies MEDICAL HISTORY : Non-responsive. SURGICAL HISTORY : Non-responsive. ENCOUNTER: Initial ACUITY: 1 day PAIN SCALE: Non-responsive LOCATION: neck Elevated flow velocities and ICA/CCA ratios have been found to correlate with increased degrees of vessel stenosis, calculated as percentage of diameter relative to a normal segment of distal ICA/CCA. TECHNIQUE: Volumetric scanning was performed using a multirow detector CT scanner. The data was post processed with a variety of visualization algorithms including full-volume maximum intensity projection, multip lanar sliding thin-slab reformation, curved-planar reformation, and surface-rendering techniques. Us ing automated exposure control and adjustment of the mA and/or kV according to patient size, radiatio n dose was kept as low as reasonably achievable to obtain optimal diagnostic quality images. FINDINGS: AORTIC ARCH: 3 vessel arch anatomy is identified. There is significant calcific plaquing at the origin of the left common carotid artery and the left subclavian artery and significant motion artifact obscured visual ization of the vessel ostia. There is moderate eccentric stenosis of the left subclavian artery a cou ple of centimeters beyond the vessel origin with eccentric plaque producing close to 50% stenotic suleiman rowing. The common carotid vessels appear otherwise widely patent to the bifurcation level RIGHT CAROTID: Mild eccentric calcific plaquing involving the bulb and proximal ICA with a minimal degree of associa ottoniel stenotic narrowing. LEFT CAROTID: Dense concentric and eccentric atherosclerotic plaquing at the bulb and ICA origin with about 50% lum inal narrowing. Beyond this proximal disease, the left ICA regains normal caliber and appearance and is widely patent to the skull base. VERTEBRALS: The vertebral arteries have a symmetric diameter. No stenotic lesions are seen. CONCLUSION: 50% left carotid bifurcation stenosis. 40-50% left subclavian artery stenosis. Larry Salvador MD on August 10, 2016 at 13:44 Board Certified Radiologist. This report was verified electronically.
--- NOTE | 2016-08-10 15:40 | RADRPT ---
EXAM DATE/TIME: 08/10/2016 14:51 [facility] COMPARISON: CT BRAIN W/O CONTRAST, August 10, 2016, 11:25. INDICATIONS : Aphasia. CONTRAST: 10 cc Omniscan (gadodiamide) IV MEDICAL HISTORY : Carcinoma, lung. SURGICAL HISTORY : Breast/Lung biopsies. ENCOUNTER: Initial ACUITY: 1 day PAIN SCORE: 0/10 LOCATION: head TECHNIQUE: Multiplanar, multisequence MRI of the brain was performed both prior to and following the administrat ion of paramagnetic contrast. FINDINGS: CEREBRUM: Cortical atrophy. The ventricles are normal for age. No evidence of midline shift, mass lesion, hemo rrhage or acute infarction. No extraaxial fluid collections are seen. The pituitary gland and supra sellar cistern are normal in configuration. Cavum septum pellucidum. WHITE MATTER: Scattered high T2 signal abnormalities are seen in the white matter. POSTERIOR FOSSA: The cerebellum and brainstem are intact. The 4th ventricle is midline. The cerebellopontine angle is unremarkable. The cerebellar tonsils are normal in position. DIFFUSION IMAGING: No focal areas of restricted diffusion are seen. No evidence of acute infarction. EXTRACRANIAL: The visualized portions of the orbits and paranasal sinuses are unremarkable. POST-CONTRAST: No abnormal areas of parenchymal or dural enhancement. No evidence of blood-brain barrier breakdown. CONCLUSION: 1. No acute infarction. 2. Cortical atrophy. 3. Nonspecific white matter changes. Aubrey Quarles MD on August 10, 2016 at 15:37 Board Certified Radiologist. This report was verified electronically.
[2016-08-10] MEDS ORDERED: GADODIAMIDE PF 287 MG/ML 10 ML VIAL (for RAD MRI) IV ONE (16:11)
--- NOTE | 2016-08-10 17:53 | EC ---
Study Study Date:08/10/2016 STUDY CONCLUSIONS SUMMARY - Procedure narrative: Transthoracic echocardiography. Image quality was fair. Scanning was performed from the parasternal, apical, and subcostal acoustic windows. - Left ventricle: The cavity size was normal. Wall thickness was normal. Systolic function was normal. The estimated ejection fraction was in the range of 55% to 60%. No definite wall motion abnormalities. - Aortic valve: Mild regurgitation. - Mitral valve: Trace to mild regurgitation. - Tricuspid valve: Trace regurgitation. If LV function is below 40, please consider prescribing an ACEI or ARB or document rationale for non-use. PROCEDURE DATA STUDY STATUS: Elective. Procedure: Transthoracic echocardiography. Image quality was fair. Scanning was performed from the parasternal, apical, and subcostal acoustic windows. Study completion: The patient tolerated the procedure well. Transthoracic echocardiography. M-mode, complete 2D, complete spectral Doppler, and color Doppler. Height: Height: 63in. Weight: Weight: 130.7lb. Body mass index: BMI: 23.2kg/m^2. Body surface area: BSA: 1.62m^2. Patient status: Inpatient. CARDIAC ANATOMY LEFT VENTRICLE: The cavity size was normal. Wall thickness was normal. Systolic function was normal. The estimated ejection fraction was in the range of 55% to 60%. No definite wall motion abnormalities. AORTIC VALVE: Trileaflet; normal thickness leaflets. Doppler: Transvalvular velocity was within the normal range. There was no stenosis. Mild regurgitation. Indexed valve area: 0.93cm^2/m^2 (VTI). Indexed valve area: 1.02cm^2/m^2 (Vmax). Mean gradient: 4mm Hg (S). AORTA: Aortic root: The aortic root was normal in size. MITRAL VALVE: Structurally normal valve. Doppler: Transvalvular velocity was within the normal range. There was no evidence for stenosis. Trace to mild regurgitation. Peak gradient: 4mm Hg (D). LEFT ATRIUM: The atrium was normal in size. RIGHT VENTRICLE: The cavity size was normal. Wall thickness was normal. PULMONIC VALVE: Doppler: Transvalvular velocity was within the normal range. There was no evidence for stenosis. No regurgitation. TRICUSPID VALVE: Structurally normal valve. Doppler: Transvalvular velocity was within the normal range. Trace regurgitation. PULMONARY ARTERY: The main pulmonary artery was normal-sized. Systolic pressure was within the normal range. RIGHT ATRIUM: The atrium was normal in size. PERICARDIUM: There was no pericardial effusion. SYSTEMIC VEINS: Inferior vena cava: The vessel was normal in size. Patient weight: 130.7lb _Ejection fraction:_ 65-75% _Fractional shortening:_ 32% up to 5Kg 5-11.5Kg 11.6-22.9Kg 23-45Kg 45-57Kg Aortic Root 7-13 <17 13-22 17-27 17-27 LA diam 6-13 <23 24-38 33-47 37-40 RVID 10-17 7-15 7-15 7-18 8-17 LVIDd 12-22 <32 24-38 33-47 37-40 LVPW 2-4 3-6 5-7 6-8 7-8 IVS 2-4 3-6 5-7 6-8 7-8 BASIC MEASUREMENTS ADULT NORMAL Left ventricle LV internal dimension, ED, chordal *52.6 mm 43-52 level, PLAX LV internal dimension, ES, chordal *40.9 mm 23-38 level, PLAX Fractional shortening, chordal level, *22 % >29 PLAX LV posterior wall thickness, ED 8.63 mm IVS/LVPW ratio, ED 1.01 <1.3 Ventricular septum Septal thickness, ED 8.69 mm Aortic valve Leaflet separation 17 mm 15-26 Aorta Root diameter, ED 25 mm Left atrium Anterior-posterior dimension 27 mm Anterior-posterior dimension index 1.67 cm/m^2 <2.2 BASIC MEASUREMENTS ADULT NORMAL Aortic valve Leaflet separation 17 mm 15-26 DOPPLER MEASUREMENTS ADULT NORMAL Aortic valve Peak velocity, S 139 cm/s Mean velocity, S 91.2 cm/s VTI, S 18.4 cm Mean gradient, S 4 mm Hg Valve area index, VTI 0.93 cm^2/m^2 Valve area index, Vmax 1.02 cm^2/m^2 Regurgitant velocity, ED 423 cm/s Regurgitant deceleration 2980 cm/s^2 Regurgitant pressure half-time 416 ms Regurgitant gradient, ED 72 mm Hg Mitral valve Peak E-wave velocity 95.8 cm/s Peak A-wave velocity 27.6 cm/s Deceleration time *148 ms 150-230 Peak gradient, D 4 mm Hg Peak E/A ratio 3.5 Pulmonic valve Peak velocity, S 76.7 cm/s LEGEND: Mean values are shown as u=mean value. Asterisk (*) sanchez values outside specified normal range. Prepared and signed by Walker Chappell [id number]
[2016-08-10] MEDS ORDERED: CHLORHEXIDINE GLUCONATE 2 % 1 PACK (2 CLOTHS) TOP PRN (20:45)
[2016-08-10] MEDS ORDERED: MISCELLANEOUS NURSING INFORMATION XX SCH (20:45)
[2016-08-10] MEDS ORDERED: ONDANSETRON HCL 4 MG/2 ML VIAL IV PRN (20:45)
[2016-08-10] MEDS ORDERED: ACETAMINOPHEN 325 MG TAB PO PRN (20:45)
[2016-08-10] MEDS ORDERED: RESP: ALBUTEROL 2.5 MG/IPRATROPIUM 0.5 MG NEB (PRN) INH (20:45)
[2016-08-10] MEDS: BUDESONIDE-FORMOTEROL 160/4.5 MCG INHALER INH SCH (21:00)
[2016-08-10] MEDS ORDERED: METOPROLOL TARTRATE 5 MG/5 ML VIAL IV PUSH PRN (21:00)
[2016-08-10] MEDS: ATORVASTATIN 20 MG TAB PO SCH (23:02)
[2016-08-10] MEDS: DOCUSATE SODIUM 50 MG/SENNA 8.6 MG TAB PO SCH (23:03)
[2016-08-11] VITALS (17 sets, daily range): BP systolic 109–147; BP diastolic 57–74; PULSE 73–126; RESP 18–24; TEMP 96.3–100.2; O2SAT 21–100
[2016-08-11] MEDS: SODIUM CHLOR 0.9% 1000 ML INJ 1,000 ML IV SCH ×3 (01:19→23:55)
[2016-08-11] MEDS: CHLORHEXIDINE GLUCONATE 2 % 1 PACK (2 CLOTHS) TOP SCH (03:03)
--- NOTE | 2016-08-11 06:40 | RADRPT ---
EXAM DATE/TIME: 08/11/2016 05:57 [facility] COMPARISON: CT BRAIN W/O CONTRAST, August 10, 2016, 11:25. INDICATIONS : Slurred speach. RADIATION DOSE: 56.35 CTDIvol (mGy) MEDICAL HISTORY : Carcinoma, lung. SURGICAL HISTORY : None. ENCOUNTER: Initial ACUITY: 1 day PAIN SCALE: 0/10 LOCATION: cranial TECHNIQUE: Multiple contiguous axial images were obtained of the head. Using automated exposure control and adj ustment of the mA and/or kV according to patient size, radiation dose was kept as low as reasonably a chievable to obtain optimal diagnostic quality images. FINDINGS: CEREBRUM: The ventricles are normal for age. No evidence of midline shift, mass lesion, hemorrhage or acute in farction. No extra-axial fluid collections are seen. POSTERIOR FOSSA: The cerebellum and brainstem are intact. The 4th ventricle is midline. The cerebellopontine angle i s unremarkable. EXTRACRANIAL: The visualized portion of the orbits is intact. SKULL: The calvaria is intact. No evidence of skull fracture. CONCLUSION: Normal examination. Incidental cavum septum pellucidum. Diffuse atrophy, unchanged. Jimmy Robbins MD on August 11, 2016 at 6:37 Board Certified Radiologist. This report was verified electronically.
[2016-08-11] MEDS: ASPIRIN 81 MG CHEW TAB CHEW SCH (08:10)
[2016-08-11] MEDS: DOCUSATE SODIUM 50 MG/SENNA 8.6 MG TAB PO SCH ×2 (08:10→20:34)
[2016-08-11] MEDS: PANTOPRAZOLE SOD 40 MG DELAYED RELEASE TAB PO SCH (08:10)
[2016-08-11] MEDS: DULoxetine HCl DR 20 MG CAP PO SCH (08:10)
[2016-08-11] MEDS: BUDESONIDE-FORMOTEROL 160/4.5 MCG INHALER INH SCH ×2 (08:10→20:34)
[2016-08-11] MEDS ORDERED: PT:INCRUSE ELLIPTA INH SCH (09:00)
[2016-08-11] MEDS ORDERED: UMECLIDINIUM BROMIDE INH SCH (09:00)
[2016-08-11] MEDS ORDERED: NON-FORMULARY DRUG (Fish Oil-Cholecalciferol (Fish Oil + D3) 1 CAP) PO SCH (09:00)
[2016-08-11] MEDS ORDERED: INFLUENZA VIRUS VACCINE (QUADRIVALENT) 0.5 ML SYR IM ONE (10:00)
[2016-08-11] MEDS ORDERED: PNEUMOCOCCAL POLYVALENT INJ 25 MCG/0.5 ML SYR IM ONE (10:00)
--- NOTE | 2016-08-11 10:44 | HHI.PR ---
Subjective Remarks sr all better Objective Vital Signs Date Time Temp Pulse Resp B/P Pulse Ox O2 Delivery O2 Flow Rate FiO2 08/11/16 08:00 79 08/11/16 08:00 98.4 74 22 139/65 99 08/11/16 07:00 99 Nasal Cannula 2.00 08/11/16 07:00 98.4 74 22 139/65 99 08/11/16 06:00 101 08/11/16 06:00 98.6 101 20 118/63 99 08/11/16 05:00 99.1 91 23 127/67 98 08/11/16 04:00 99.1 75 23 135/64 100 08/11/16 04:00 75 08/11/16 03:00 99.5 76 23 128/64 99 08/11/16 02:00 99.7 84 22 132/65 98 08/11/16 02:00 84 08/11/16 01:00 100.0 120 19 139/74 96 08/11/16 00:00 103 08/11/16 00:00 100.2 103 24 118/65 97 08/10/16 23:00 100.4 120 28 116/66 97 08/10/16 23:00 106 08/10/16 22:00 99.0 103 24 116/62 98 08/10/16 21:25 99 Nasal Cannula 2.00 08/10/16 21:00 99.5 116 21 129/67 98 08/10/16 20:00 99.5 106 26 133/65 100 08/10/16 20:00 106 08/10/16 19:00 98 Nasal Cannula 2.00 08/10/16 18:00 111 08/10/16 16:00 112 08/10/16 16:00 98.6 112 23 162/72 100 08/10/16 15:20 102 08/10/16 15:20 98.6 108 24 146/68 100 08/10/16 13:12 107 24 153/69 100 Nasal Cannula 2 08/10/16 12:17 106 22 162/65 100 Nasal Cannula 08/10/16 12:12 103 24 162/65 100 Nasal Cannula 2 08/10/16 11:45 100 22 146/70 100 Nasal Cannula 2 08/10/16 11:18 100 2.00 08/10/16 11:18 100 Nasal Cannula 2.00 08/10/16 11:17 96 Nasal Cannula 2 08/10/16 11:17 22 96 2 08/10/16 11:17 112 22 96 Nasal Cannula 2 08/10/16 11:14 98.1 110 22 118/74 96 I/O 08/10/16 08/10/16 08/10/16 08/11/16 08/11/16 08/11/16 07:00 15:00 23:00 07:00 15:00 23:00 Intake Total 643 ml 234 ml Output Total 0 ml 750 ml Balance 643 ml -516 ml Intake Oral 0 ml 25 ml IV Total 643 ml 209 ml Output Urine Total 0 ml 750 ml Result Diagram: 08/10/16 1120 Other Results mri neg cva or mets cta neck lot of ca++ 50% cta cow ok echo nl ldl pend Objective Remarks nl speech vff face sym can calc repet name one off yr knows month 07/20 Assessment and Plan Assessment and Plan imp check us carotid for left velocity ldl check oob ok on asa so plavix now fu holter and eeg tia most likely vs sz less likely Arnoldo Lemus MD August 11, 2016 10:44
--- NOTE | 2016-08-11 11:45 | MG ---
cc: AUGUSTA BLEVINS Lab No: [id number] Date: Age: Sex: F Race: Some difficulty with speech. She was a stroke alert. Question seizure. DESCRIPTION OF THE RECORDING: A lot of movement artifact is noted. Photic stimulation was performed without significant posterior driving. At the beginning of the recording, diffuse 5 to 7 Hz rhythm is noted. I do not see any left temporal abnormalities, although sometimes it is obscured somewhat by the muscle artifact. The patient herself was almost continuously hyperventilating at baseline. No focal abnormalities are noted. No seizure activity is seen. IMPRESSION: Diffuse theta slowing consistent with a mild diffuse encephalopathy but no focal abnormalities were noted. No seizure activity was seen. MD JUDY Hamilton/CLAUDIA /11:25 AM /11:42 AM
--- NOTE | 2016-08-11 13:05 | RADRPT ---
EXAM DATE/TIME: 08/11/2016 11:44 [facility] COMPARISON: CTA CAROTID ARTERIES W 3D RECON, August 10, 2016, 11:25. INDICATIONS : Cerebrovascular accident. MEDICAL HISTORY : Carcinoma, lung. Chronic obstructive pulmonary disease. Renal disease. Chemotherapy. Radiation. SURGICAL HISTORY : Right breast surgery. ENCOUNTER: Initial ACUITY: 1 day PAIN SCORE: 0/10 LOCATION: Bilateral neck PEAK SYSTOLIC VELOCITIES (cm/sec): ICA/CCA RATIO: Right: 1.4 Left: 4.48 ICA: Right: 128 Left: 313 CCA: Right: 89 Left: 69.8 ECA: Right: 287 Left: 318 VERTEBRAL: Right: 48 antegrade Left: 74 antegrade Elevated flow velocities and ICA/CCA ratios have been found to correlate with increased degrees of vessel stenosis, calculated as percentage of diameter relative to a normal segment of distal ICA/CCA FINDINGS: RIGHT CAROTID: There is mild to moderate calcified plaque in the distal common carotid artery, carotid bulb, and pro ximal internal carotid artery. LEFT CAROTID: There is moderate distal common carotid artery calcified and noncalcified plaque and severe calcified plaque at the carotid bulb and proximal internal carotid artery. VERTEBRAL ARTERIES: Antegrade flow is seen in both vertebral arteries. MISCELLANEOUS: None. CONCLUSION: 1. Severe left carotid bulb and proximal left internal carotid artery atherosclerotic calcified plaqu e. Velocity measurements on this examination suggest greater than 70% stenosis. However, yesterday's carotid CTA examination demonstrated 65% stenosis of the proximal internal carotid artery based on NA SCET criteria. 2. Mild to moderate atherosclerotic plaque in the right carotid bulb and proximal internal carotid ar terrance. The ostium measurements on this examination suggest between 50-69% stenosis. However, yesterday 's CT examination demonstrated approximately 20% stenosis based on NASCET criteria. The carotid CTA i s the definitive examination. Larry Flores MD on August 11, 2016 at 12:57 Board Certified Radiologist. This report was verified electronically.
[2016-08-11 15:04] LABS: HEMATOCRIT 28.6 % (35.0-46.0); MEAN CELL VOLUME 84.8 FL (80.0-100.0); MEAN CORPUSCULAR HEMOGLOBIN 29.9 PG (27.0-34.0); MEAN CORPUSCULAR HGB CONC 35.2 % (32.0-36.0); PLATELET COUNT 113 TH/MM3 (150-450); RED BLOOD COUNT 3.38 MIL/MM3 (4.00-5.30); RED CELL DISTRIBUTION WIDTH 13.4 % (11.6-17.2); REVIEW FLAG FINAL; WHITE BLOOD COUNT 2.7 TH/MM3 (4.0-11.0)
[2016-08-11 15:31] LABS: BICARBONATE 25.3 MEQ/L (21.0-32.0)
[2016-08-11 15:35] LABS: HDL CHOLESTEROL 50.4 MG/DL (40.0-60.0)
[2016-08-11] MEDS: CLOPIDOGREL 75 MG TAB PO SCH (15:55)
--- NOTE | 2016-08-11 16:00 | HHI.PR ---
Subjective Remarks Presented to the ER with receptive/expressive aphasia. No new complaints. No c/o focal weakness. denies difficulties swallowing. denies difficulties with speech. Objective Vitals Vital Signs Date Time Temp Pulse Resp B/P Pulse Ox O2 Delivery O2 Flow Rate FiO2 08/11/16 12:00 96.3 102 18 147/60 96 08/11/16 10:00 73 08/11/16 08:20 98 Nasal Cannula 2.00 08/11/16 08:00 79 08/11/16 08:00 98.4 74 22 139/65 99 08/11/16 07:00 99 Nasal Cannula 2.00 08/11/16 07:00 98.4 74 22 139/65 99 08/11/16 06:00 101 08/11/16 06:00 98.6 101 20 118/63 99 08/11/16 05:00 99.1 91 23 127/67 98 08/11/16 04:00 99.1 75 23 135/64 100 08/11/16 04:00 75 08/11/16 03:00 99.5 76 23 128/64 99 08/11/16 02:00 99.7 84 22 132/65 98 08/11/16 02:00 84 08/11/16 01:00 100.0 120 19 139/74 96 08/11/16 00:00 103 08/11/16 00:00 100.2 103 24 118/65 97 08/10/16 23:00 100.4 120 28 116/66 97 08/10/16 23:00 106 08/10/16 22:00 99.0 103 24 116/62 98 08/10/16 21:25 99 Nasal Cannula 2.00 08/10/16 21:00 99.5 116 21 129/67 98 08/10/16 20:00 99.5 106 26 133/65 100 08/10/16 20:00 106 08/10/16 19:00 98 Nasal Cannula 2.00 08/10/16 18:00 111 08/10/16 16:00 112 08/10/16 16:00 98.6 112 23 162/72 100 08/10/16 08/10/16 08/11/16 15:00 23:00 07:00 Intake Total 643 ml 234 ml Output Total 0 ml 750 ml Balance 643 ml -516 ml Intake Oral 0 ml 25 ml IV Total 643 ml 209 ml Output Urine Total 0 ml 750 ml Result Diagram: 08/11/16 1446 08/11/16 1446 Imaging Last Impressions Carotid Artery Ultrasound 08/11/16 1035 Signed Impressions: Service Date/Time: Thursday, August 11, 2016 11:44 - CONCLUSION: 1. Severe left carotid bulb and proximal left internal carotid artery atherosclerotic calcified plaque. Velocity measurements on this examination suggest greater than 70%% stenosis. However, yesterday's carotid CTA examination demonstrated 65%% stenosis of the proximal internal carotid artery based on NASCET criteria. 2. Mild to moderate atherosclerotic plaque in the right carotid bulb and proximal internal carotid artery. The ostium measurements on this examination suggest between 50-69%% stenosis. However, yesterday's CT examination demonstrated approximately 20%% stenosis based on NASCET criteria. The carotid CTA is the definitive examination. Larry Flores MD Head CT 08/11/16 0000 Signed Impressions: Service Date/Time: Thursday, August 11, 2016 05:57 - CONCLUSION: Normal examination. Incidental cavum septum pellucidum. Diffuse atrophy, unchanged. Jimmy Robbins MD Brain MRI 08/10/16 1210 Signed Impressions: Service Date/Time: Wednesday, August 10, 2016 14:51 - CONCLUSION: 1. No acute infarction. 2. Cortical atrophy. 3. Nonspecific white matter changes. Aubrey Quarles MD Neck CTA 08/10/16 1113 Signed Impressions: Service Date/Time: Wednesday, August 10, 2016 11:25 - CONCLUSION: 50%% left carotid bifurcation stenosis. 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 Larry Salvador MD Head CTA 08/10/16 1113 Signed Impressions: Service Date/Time: Wednesday, August 10, 2016 11:25 - CONCLUSION: 1. No major vessel occlusion. 2. Normal variants as described above. Aubrey Quarles MD Objective Remarks GENERAL: This is a well-nourished, well-developed patient, in no apparent distress. CARDIOVASCULAR: Regular rate and rhythm without murmurs, gallops, or rubs. RESPIRATORY: Clear to auscultation. Breath sounds equal bilaterally. No wheezes , rales, or rhonchi. GASTROINTESTINAL: Abdomen soft, non-tender, nondistended. Normal active bowel sounds MUSCULOSKELETAL: Extremities without clubbing, cyanosis, or edema. NEURO: Alert & Oriented x4 to person, place, time, situation. Moves all ext x4 A/P Problem List: (1) CVA (cerebral vascular accident) Status: Acute Plan: - comgmt with Neurology, Dr. Lemus - pt received tPA - MRI (08/10/16) does NOT show acute infarction - Carotid CTA (08/10/16) --> 50% left carotid stenosis - ASA, plavix - lipitor - LDL (08/11/16) 52 - observe on telemetry - holter - ST/PT eval (2) COPD (chronic obstructive pulmonary disease) with acute bronchitis Status: Acute Plan: - h/o tobacco use - h/o fibrosis - symibort - duonebs prn (3) Lung cancer Status: Acute Plan: - squamous cell carcinoma - s/p lobectomy, [facility] [address] Mica Perdomo - pt follows with Dr. Bowden Problem Qualifiers (1) CVA (cerebral vascular accident): Qualified Code: I63.9 - Cerebrovascular accident (CVA), unspecified mechanism (2) Lung cancer: Qualified Code: C34.90 - Malignant neoplasm of lung, unspecified laterality, unspecified part of lung Kale Ahumada DO August 11, 2016 16:00
[2016-08-11] MEDS ORDERED: CALCIUM CARBONATE 500 MG CHEWABLE TAB CHEW PRN (16:15)
--- NOTE | 2016-08-11 16:55 | EKG ---
Date Performed: 08/10/2016 Time Performed: 11:53:38 PTAGE: 75 years EKG: SINUS TACHYCARDIA POSSIBLE LEFT ATRIAL ENLARGEMENT INCOMPLETE RIGHT BUNDLE BRANCH BLOCK SIN CE PREVIOUS TRACING , HEART RATE HAS INCREASED FROM 50 TO 108, OTHERWISE NO SIGNIFICANT CALL GE. ABNORMAL RHYTHM ECG INTERPRETATION BASED ON A DEFAULT AGE OF 41 YEARS PREVIOUS TRACIN 6 11.26 DOCTOR: Chase Fan Interpretating Date/Time 08/11/2016 16:54:08
--- NOTE | 2016-08-11 17:01 | EKG ---
Date Performed: 08/10/2016 Time Performed: 17:15:32 PTAGE: 75 years EKG: Sinus tachycardia. Incomplete RBBB Nonspecific ST T wave change. Since previous tracing 07/17, heart rate slightly faster, otherwise no significant change. Abnormal ECG PREVIOUS TRACING : 08/10/2016 11.53 DOCTOR: Chase Fan Interpretating Date/Time 08/11/2016 16:59:52
[2016-08-12] VITALS (8 sets, daily range): BP systolic 115–133; BP diastolic 58–68; PULSE 72–122; RESP 16–20; TEMP 96–98.7; O2SAT 96–98
[2016-08-12] MEDS: CHLORHEXIDINE GLUCONATE 2 % 1 PACK (2 CLOTHS) TOP SCH (04:00)
[2016-08-12] MEDS: DOCUSATE SODIUM 50 MG/SENNA 8.6 MG TAB PO SCH ×2 (08:50→21:00)
[2016-08-12] MEDS: PANTOPRAZOLE SOD 40 MG DELAYED RELEASE TAB PO SCH (08:50)
[2016-08-12] MEDS: DULoxetine HCl DR 20 MG CAP PO SCH (08:50)
[2016-08-12] MEDS: ASPIRIN 81 MG CHEW TAB CHEW SCH (08:50)
[2016-08-12] MEDS: CLOPIDOGREL 75 MG TAB PO SCH (08:50)
[2016-08-12] MEDS: BUDESONIDE-FORMOTEROL 160/4.5 MCG INHALER INH SCH ×2 (08:51→22:43)
--- NOTE | 2016-08-12 09:50 | HHI.PR ---
Subjective Remarks sr all better Objective Vital Signs Date Time Temp Pulse Resp B/P Pulse Ox O2 Delivery O2 Flow Rate FiO2 08/12/16 08:00 96.6 92 16 119/68 98 08/12/16 05:00 96.0 94 18 130/59 97 08/12/16 00:00 98.0 122 20 123/61 97 08/11/16 23:00 82 08/11/16 23:00 Room Air 08/11/16 22:21 98 08/11/16 19:30 97.6 126 20 119/73 95 08/11/16 18:25 98 21 08/11/16 16:00 96.7 94 18 109/57 98 08/11/16 12:00 96.3 102 18 147/60 96 08/11/16 10:00 73 I/O 08/11/16 08/11/16 08/11/16 08/12/16 08/12/16 08/12/16 07:00 15:00 23:00 07:00 15:00 23:00 Intake Total 234 ml 780 ml Output Total 750 ml 750 ml Balance -516 ml 30 ml Intake Oral 25 ml 780 ml IV Total 209 ml Output Urine Total 750 ml 750 ml # Voids 2 Result Diagram: 08/11/16 1446 08/11/16 1446 Objective Remarks nl speech vff face sym 07/20 nl gait Assessment and Plan Assessment and Plan imp check us carotid for left velocity markedly inc ldl nl echo nl on asa so plavix now fu holter eeg nl tia most likely left carotid likley sx needs left cea consult vasular surgery Arnoldo eLmus MD August 12, 2016 09:50
[2016-08-12] MEDS ORDERED: SODIUM CHLOR 0.9% 1000 ML INJ 1,000 ML IV SCH (10:09)
[2016-08-12] MEDS: SODIUM CHLOR 0.9% 1000 ML INJ 1,000 ML IV SCH ×2 (13:11→22:55)
--- NOTE | 2016-08-12 14:13 | PD.CAR.PN ---
CVT Progress Note Subjective/Hospital Course: Patient seen and evaluated Full consult dictated I agree with Dr. Lemus the patient should undergo left carotid endarterectomy at this admission and patient scheduled for surgery tomorrow Risks and benefits have been explained to the patient and family Thanks J Objective: Vital Signs Date Time Temp Pulse Resp B/P Pulse Ox O2 Delivery O2 Flow Rate FiO2 08/12/16 12:00 98.2 109 18 128/66 96 123/61 115/58 08/12/16 10:22 98 08/12/16 08:50 98 Room Air 08/12/16 08:50 72 08/12/16 08:00 96.6 92 16 119/68 98 08/12/16 05:00 96.0 94 18 130/59 97 08/12/16 00:00 98.0 122 20 123/61 97 08/11/16 23:00 82 08/11/16 23:00 Room Air 08/11/16 22:21 98 08/11/16 19:30 97.6 126 20 119/73 95 08/11/16 18:25 98 21 08/11/16 16:00 96.7 94 18 109/57 98 Result Diagram: 08/11/16 1446 08/11/16 1446 Trevon Dye MD August 12, 2016 14:13
[2016-08-12] MEDS ORDERED: ceFAZolin 2 GM PREMIX 50 ML IV SCH (14:15)
--- NOTE | 2016-08-12 15:38 | MB ---
cc: MD SUZE,[facility] DATE OF CONSULTATION: 08/12/2016. REASON FOR CONSULTATION: Acute TIA. Expressive aphasia. Left internal carotid artery stenosis. HISTORY OF PRESENT ILLNESS: This 75-year-old lady presented to the emergency department two days ago with sudden onset of aphasia. The patient was unable to speak and was diagnosed with acute stroke and placed on tPA based on her NIH stroke scale. Further workup did not reveal acute permanent brain damage or acute stroke, yet the expressive aphasia resolved and the patient is now awake and alert. Further workup reveals a CTA with about 70% left internal carotid artery stenosis and a lot of calcifications. An ultrasound was performed, which is consistent with the same; however the velocities would suggest probably an even higher level of stenosis; hence, the consultation. PAST MEDICAL HISTORY: Her past medical history is that of: 1. COPD. 2. Hypertension. 3. Cataracts. 4. 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 The patient is currently on chemotherapy and radiation therapy. PAST SURGICAL HISTORY: 1. Bilateral cataract surgery. 2. Some breast biopsies. MEDICATIONS: Medications can be found on the record. The patient is currently on chemotherapy. She has a right-sided Infusaport. SOCIAL HISTORY: The patient used to be a heavy smoker and quit about four years ago. PHYSICAL EXAMINATION: GENERAL: The physical examination reveals a pleasant 75-year lady awake, alert, oriented. The patient appears to be somewhat weak with some loss of weight but otherwise doing well. HEAD, EYES, EARS, NOSE, THROAT: Normocephalic. No trauma to the head. Pupils equal and reactive. Extraocular muscles are intact. Due to chemotherapy, the patient has lost her hair temporarily. NECK: Bilateral carotid pulses and actually bilateral faint bruits but no difference from side to side. CHEST: Bilateral breath sounds decreased over both lung mackenzie. The patient has a moderate to severe degree of COPD with some pulmonary cachexia chest wall musculature loss. There is a right pectoral Infusaport. HEART: Regular rhythm. ABDOMEN: The abdomen is soft. Active bowel sounds. No rebound or guarding. No masses. EXTREMITIES: The patient has palpable femoral, Dopplerable popliteal and then palpable dorsalis pedis and posterior tibial pulses. No signs of acute vascular insufficiency. BACK: Her back is normal. NEUROLOGIC: Monique Coma Score is 15. The transient aphasia that the patient had has resolved. Motor strength is equal bilaterally. There is no lateralization noted. Deep tendon reflexes are normal. IMPRESSION AND RECOMMENDATIONS: I reviewed laboratory and diagnostic procedures. CT of the brain and MRI of the brain do not reveal an acute stroke. The CTA of the carotids is consistent with about 65% left internal carotid artery stenosis with a lot of calcifications. I discussed this with Dr. Lemus. Ultrasound confirms the same and velocities on the left side in the internal carotid artery extremely high signifying probably an even higher degree of stenosis. Either way, this patient has significant left internal carotid artery stenosis and a recent TIA resulting in aphasia. All things equal, this is attributable to the carotid artery disease and therefore should be treated. I completely agree with Dr. Lemus. The patient requires left internal carotid endarterectomy. The patient will be taken to the operating room tomorrow. I have discussed with the patient and her family the risks and benefits of the same and probably a somewhat increased risk of infection considering her chemotherapy and radiation therapy process; however, the risk of delaying surgery is obviously higher. The patient will be taken to the operating room tomorrow. Thank you very much for the referral. CRITICAL CARE TIME: Forty (40) minutes. Trevon JIMENES /2:05 PM /3:27 PM
--- NOTE | 2016-08-12 16:41 | HM ---
Date Performed: 08/10/2016 Time Performed: 20:09:00 HOOKUP DATE: 08/10/16 08:09:00 PM Fri ANALYSIS START TIME: 08/10/2016 8:14:00 PM ANALYSIS END TIME: 08/11/2016 8:17:59 PM PATIENT AGE: 75 PATIENT HEIGHT PATIENT WEIGHT DRUG LIST PATIENT DIAGNOSIS: poss stroke TEST NARRATIVE: The patient's average heart rate was 92 BPM. Heart rates greater than 120 B PM were noted 13% of the time. No episodes of bradycardia were noted. No pauses exceeding 2.0 se conds were noted. 3079 ventricular ectopics, which represented 2% of the total beat count, were n oted. The highest ventricular ectopic frequency occurred from 07:00 PM to 08:00 PM Sat. During this time 396 VE(s) occurred. Ventricular ectopics were observed as 2807 isolated beat(s) and as 136 cou plet(s). No runs were noted. Some of the ventricular beats occurred in bigeminal cycles. No sup raventricular ectopics were noted. No episodes of ST depression (defined as -1.0 mm or more) were noted in channel 1. No episodes of ST depression (defined as -1.0 mm or more) were noted in channel 2. In channel 3, a single episode of ST depression (defined as -1.0 mm or more) occurred at 06:55:2 6 PM Sat with a maximum depression of -2.6 mm. TEST INTERPRETATION: 24 Hour Holter Monitor - Dr. Chase Fan There was no atrial ectopy seen . Ventricular ectopic beats are infrequent, but present with rare couplets. There were no pauses pres ent. There was no patient diary included. Overall this fairly benign appearing Holter monitor with s ome ventricular ectopy with rare couplets, but no atrial ectopy at all. Signed by : Chase Fan
--- NOTE | 2016-08-12 17:18 | HHI.PR ---
Subjective Remarks No new complaints. Objective Vitals Vital Signs Date Time Temp Pulse Resp B/P Pulse Ox O2 Delivery O2 Flow Rate FiO2 08/12/16 16:00 98.2 113 19 133/59 97 122/65 115/68 08/12/16 12:00 98.2 109 18 128/66 96 123/61 115/58 08/12/16 10:22 98 08/12/16 08:50 98 Room Air 08/12/16 08:50 72 08/12/16 08:00 96.6 92 16 119/68 98 08/12/16 05:00 96.0 94 18 130/59 97 08/12/16 00:00 98.0 122 20 123/61 97 08/11/16 23:00 82 08/11/16 23:00 Room Air 08/11/16 22:21 98 08/11/16 19:30 97.6 126 20 119/73 95 08/11/16 18:25 98 21 08/11/16 08/11/16 08/12/16 15:00 23:00 07:00 Intake Total 780 ml Output Total 750 ml Balance 30 ml Intake Oral 780 ml Output Urine Total 750 ml # Voids 2 Result Diagram: 08/11/16 1446 08/11/16 1446 Imaging Last Impressions Carotid Artery Ultrasound 08/11/16 1035 Signed Impressions: Service Date/Time: Thursday, August 11, 2016 11:44 - CONCLUSION: 1. Severe left carotid bulb and proximal left internal carotid artery atherosclerotic calcified plaque. Velocity measurements on this examination suggest greater than 70%% stenosis. However, yesterday's carotid CTA examination demonstrated 65%% stenosis of the proximal internal carotid artery based on NASCET criteria. 2. Mild to moderate atherosclerotic plaque in the right carotid bulb and proximal internal carotid artery. The ostium measurements on this examination suggest between 50-69%% stenosis. However, yesterday's CT examination demonstrated approximately 20%% stenosis based on NASCET criteria. The carotid CTA is the definitive examination. Larry Flores MD Head CT 08/11/16 0000 Signed Impressions: Service Date/Time: Thursday, August 11, 2016 05:57 - CONCLUSION: Normal examination. Incidental cavum septum pellucidum. Diffuse atrophy, unchanged. Jimmy Robbins MD Brain MRI 08/10/16 1210 Signed Impressions: Service Date/Time: Wednesday, August 10, 2016 14:51 - CONCLUSION: 1. No acute infarction. 2. Cortical atrophy. 3. Nonspecific white matter changes. Aubrey Quarles MD Neck CTA 08/10/16 1113 Signed Impressions: Service Date/Time: Wednesday, August 10, 2016 11:25 - CONCLUSION: 50%% left carotid bifurcation stenosis. 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 Larry Salvador MD Head CTA 08/10/16 1113 Signed Impressions: Service Date/Time: Wednesday, August 10, 2016 11:25 - CONCLUSION: 1. No major vessel occlusion. 2. Normal variants as described above. Aubrey Quarles MD Objective Remarks GENERAL: This is a well-nourished, well-developed patient, in no apparent distress. CARDIOVASCULAR: Regular rate and rhythm without murmurs, gallops, or rubs. RESPIRATORY: Clear to auscultation. Breath sounds equal bilaterally. No wheezes , rales, or rhonchi. GASTROINTESTINAL: Abdomen soft, non-tender, nondistended. Normal active bowel sounds MUSCULOSKELETAL: Extremities without clubbing, cyanosis, or edema. NEURO: Alert & Oriented x4 to person, place, time, situation. Moves all ext x4 A/P Problem List: (1) CVA (cerebral vascular accident) Status: Acute Plan: - comgmt with Neurology, Dr. Lemus, Dr. Dye - pt received tPA - MRI (08/10/16) does NOT show acute infarction - Carotid CTA (08/10/16) --> 50% left carotid stenosis - ASA, plavix - lipitor - LDL (08/11/16) 52 - observe on telemetry - holter --> pending - PT - pt evaluated by Vascular Surgery - Left carotid felt to be source of CVA - Left CEA 08/13 (2) Left-sided carotid artery disease Status: Acute Plan: - see above (3) COPD (chronic obstructive pulmonary disease) with acute bronchitis Status: Acute Plan: - h/o tobacco use - h/o fibrosis - symibort - duonebs prn (4) Lung cancer Status: Acute Plan: - squamous cell carcinoma - s/p lobectomy, [facility] [address] Sohit Leanne - pt follows with Dr. Dennise Problem Qualifiers (1) CVA (cerebral vascular accident): Qualified Code: I63.9 - Cerebrovascular accident (CVA), unspecified mechanism (2) Lung cancer: Qualified Code: C34.90 - Malignant neoplasm of lung, unspecified laterality, unspecified part of lung Kale Ahumada DO August 12, 2016 17:18
[2016-08-13] VITALS (11 sets, daily range): BP systolic 108–147; BP diastolic 56–77; PULSE 75–97; RESP 16–20; TEMP 96–98.4; O2SAT 95–99
[2016-08-13] MEDS: CHLORHEXIDINE GLUCONATE 2 % 1 PACK (2 CLOTHS) TOP SCH (03:30)
[2016-08-13 07:13] LABS: HEMATOCRIT 25.1 % (35.0-46.0); MEAN CELL VOLUME 85.6 FL (80.0-100.0); MEAN CORPUSCULAR HEMOGLOBIN 29.8 PG (27.0-34.0); MEAN CORPUSCULAR HGB CONC 34.8 % (32.0-36.0); PLATELET COUNT 105 TH/MM3 (150-450); RED BLOOD COUNT 2.93 MIL/MM3 (4.00-5.30); WHITE BLOOD COUNT 1.8 TH/MM3 (4.0-11.0)
[2016-08-13 07:15] LABS: REVIEW FLAG FINAL
[2016-08-13] MEDS ORDERED: LIDOCAINE HCL 1% 50 ML VIAL ONE (07:31)
[2016-08-13 07:36] LABS: BICARBONATE 25.6 MEQ/L (21.0-32.0); POTASSIUM 3.6 MEQ/L (3.5-5.1)
[2016-08-13] MEDS ORDERED: HEPARIN SODIUM - IV 10,000 UNITS/10 ML VIAL ONE (08:34)
[2016-08-13] MEDS: DULoxetine HCl DR 20 MG CAP PO SCH (08:34)
[2016-08-13] MEDS: BUDESONIDE-FORMOTEROL 160/4.5 MCG INHALER INH SCH ×2 (08:34→20:59)
[2016-08-13] MEDS: CLOPIDOGREL 75 MG TAB PO SCH (08:35)
[2016-08-13] MEDS ORDERED: PROTAMINE SULFATE 50 MG/5 ML VIAL ONE (08:35)
[2016-08-13] MEDS: DOCUSATE SODIUM 50 MG/SENNA 8.6 MG TAB PO SCH ×2 (08:35→20:59)
[2016-08-13] MEDS: ASPIRIN 81 MG CHEW TAB CHEW SCH (08:35)
[2016-08-13] MEDS: PANTOPRAZOLE SOD 40 MG DELAYED RELEASE TAB PO SCH (08:35)
[2016-08-13] MEDS ORDERED: ACETAMINOPHEN 1000 MG/100 ML VIAL IV ONE (10:01)
[2016-08-13] MEDS ORDERED: HEPARIN SODIUM - IV 10,000 UNITS/10 ML VIAL IV ONE (11:03)
[2016-08-13 11:40] LABS: BICARBONATE 24.7 MEQ/L (21.0-32.0); MAGNESIUM 1.6 MG/DL (1.5-2.5); POTASSIUM 3.6 MEQ/L (3.5-5.1)
[2016-08-13] MEDS ORDERED: MAGNESIUM SULFATE 1 GM PREMIX 100 ML ONE (11:51)
[2016-08-13] MEDS ORDERED: POTASSIUM CHLOR 40 MEQ PREMIX 100 ML ONE (11:51)
[2016-08-13] MEDS ORDERED: PHENYLEPH/NS 1000 MCG/10 ML SYR IV ONE (12:00)
[2016-08-13] MEDS ORDERED: LACTATED RINGER'S 1000 ML INJ 1,000 ML IV ONE (12:00)
[2016-08-13] MEDS ORDERED: PROPOFOL 200 MG/20 ML AMP IV ONE (12:00)
[2016-08-13] MEDS ORDERED: SODIUM CHLORID 0.9% 500 ML INJ 500 ML IV ONE (12:00)
[2016-08-13] MEDS ORDERED: fentaNYL CITRATE 250 MCG/5 ML AMP IV ONE (12:00)
[2016-08-13] MEDS ORDERED: ONDANSETRON HCL 4 MG/2 ML VIAL IV PUSH ONE (12:00)
[2016-08-13] MEDS: SODIUM CHLOR 0.9% 1000 ML INJ 1,000 ML IV SCH (12:45)
[2016-08-13] MEDS ORDERED: DO NOT ADM ANY ANTICOAGULANT DRUGS PRN (13:00)
[2016-08-13] MEDS ORDERED: NITROGLYCERIN/DEXTROSE 5% 250 ML for chest pain IV SCH (13:15)
[2016-08-13] MEDS: MORPHINE SULFATE 4 MG/ML INJ IV PRN (14:07)
[2016-08-13] MEDS: oxyCODONE/ACETAMINOPHEN 5 MG/325 MG TAB PO PRN ×2 (15:09→20:59)
[2016-08-13] MEDS: ATORVASTATIN 20 MG TAB PO SCH (21:00)
--- NOTE | 2016-08-13 21:08 | HHI.PR ---
Subjective Remarks DOING OK POST OP Objective Vitals neck left neck bandaged. lawanda drain heart reg lung cta abd s/nt ext no edema Vital Signs Date Time Temp Pulse Resp B/P Pulse Ox O2 Delivery O2 Flow Rate FiO2 08/13/16 15:11 98 Nasal Cannula 2.00 08/13/16 15:11 96.8 79 16 137/77 98 147/68 08/13/16 15:00 77 08/13/16 13:31 97.7 76 16 123/70 99 135/62 08/13/16 13:31 99 Nasal Cannula 2.00 08/13/16 13:20 76 08/13/16 13:00 98.4 72 14 119/63 96 Nasal Cannula 2 124/60 08/13/16 12:45 74 14 103/78 100 Nasal Cannula 2 115/51 08/13/16 12:39 98.0 73 14 100/53 99 Nasal Cannula 2 107/47 08/13/16 09:10 98.4 88 18 100 08/13/16 09:04 95 Room Air 08/13/16 09:04 75 08/13/16 08:37 97.8 97 18 139/65 95 08/13/16 04:00 96.0 79 20 108/56 98 08/13/16 00:00 97.1 83 20 128/62 95 08/12/16 08/12/16 08/13/16 15:00 23:00 07:00 Intake Total 480 ml 240 ml Balance 480 ml 240 ml Intake Oral 480 ml 240 ml # Voids 4 1 1 # Bowel Movements 1 0 0 Result Diagram: 08/13/16 0640 08/13/16 1110 Imaging Last Impressions Carotid Artery Ultrasound 08/11/16 1035 Signed Impressions: Service Date/Time: Thursday, August 11, 2016 11:44 - CONCLUSION: 1. Severe left carotid bulb and proximal left internal carotid artery atherosclerotic calcified plaque. Velocity measurements on this examination suggest greater than 70%% stenosis. However, yesterday's carotid CTA examination demonstrated 65%% stenosis of the proximal internal carotid artery based on NASCET criteria. 2. Mild to moderate atherosclerotic plaque in the right carotid bulb and proximal internal carotid artery. The ostium measurements on this examination suggest between 50-69%% stenosis. However, yesterday's CT examination demonstrated approximately 20%% stenosis based on NASCET criteria. The carotid CTA is the definitive examination. Larry Flores MD Head CT 08/11/16 0000 Signed Impressions: Service Date/Time: Thursday, August 11, 2016 05:57 - CONCLUSION: Normal examination. Incidental cavum septum pellucidum. Diffuse atrophy, unchanged. Jimmy Robbins MD Brain MRI 08/10/16 1210 Signed Impressions: Service Date/Time: Wednesday, August 10, 2016 14:51 - CONCLUSION: 1. No acute infarction. 2. Cortical atrophy. 3. Nonspecific white matter changes. Aubrey Qurales MD Neck CTA 08/10/16 1113 Signed Impressions: Service Date/Time: Wednesday, August 10, 2016 11:25 - CONCLUSION: 50%% left carotid bifurcation stenosis. 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 Larry Salvador MD Head CTA 08/10/16 1113 Signed Impressions: Service Date/Time: Wednesday, August 10, 2016 11:25 - CONCLUSION: 1. No major vessel occlusion. 2. Normal variants as described above. Aubrey Quarles MD A/P Problem List: (1) CVA (cerebral vascular accident) Status: Acute Plan: s/p tia with aphasia resolved. Left CEA 08/13 Pt s/p chemo with carboplatin/paclitaxel 1 week ago ...now with worsening pancytopenia will discuss with her oncologist Dr Bowden tomorrow - comgmt with Neurology, Dr. Lemus, Dr. Dye - pt received tPA - MRI (08/10/16) does NOT show acute infarction - ASA, plavix, lipitor Pt planning for d/c to home once stable. (2) Left-sided carotid artery disease Status: Acute Plan: - see above (3) COPD (chronic obstructive pulmonary disease) with acute bronchitis Status: Acute Plan: - h/o tobacco use - h/o fibrosis - symibort - duonebs prn (4) Lung cancer Status: Acute Plan: - squamous cell carcinoma. recurrence in mediastinum -last chemo 1 week ago. - s/p lobectomy, [facility] [address] Mica Perdomo - pt follows with Dr. Bowden Problem Qualifiers (1) CVA (cerebral vascular accident): Qualified Code: I63.9 - Cerebrovascular accident (CVA), unspecified mechanism (2) Lung cancer: Qualified Code: C34.90 - Malignant neoplasm of lung, unspecified laterality, unspecified part of lung Chase Chun MD August 13, 2016 21:08
[2016-08-14] VITALS (7 sets, daily range): BP systolic 112–158; BP diastolic 56–75; PULSE 79–109; RESP 16–20; TEMP 97–98.3; O2SAT 96–99
[2016-08-14] MEDS: oxyCODONE/ACETAMINOPHEN 5 MG/325 MG TAB PO PRN ×3 (02:58→22:07)
[2016-08-14] MEDS: MORPHINE SULFATE 4 MG/ML INJ IV PRN (02:59)
[2016-08-14] MEDS: CHLORHEXIDINE GLUCONATE 2 % 1 PACK (2 CLOTHS) TOP SCH (04:00)
[2016-08-14] MEDS: SODIUM CHLOR 0.9% 1000 ML INJ 1,000 ML IV SCH (05:15)
[2016-08-14 05:28] LABS: HEMATOCRIT 21.1 % (35.0-46.0); MEAN CELL VOLUME 85.9 FL (80.0-100.0); MEAN CORPUSCULAR HEMOGLOBIN 30.8 PG (27.0-34.0); MEAN CORPUSCULAR HGB CONC 35.8 % (32.0-36.0); PLATELET COUNT 90 TH/MM3 (150-450); RED BLOOD COUNT 2.45 MIL/MM3 (4.00-5.30); WHITE BLOOD COUNT 1.4 TH/MM3 (4.0-11.0)
[2016-08-14 05:34] LABS: BICARBONATE 26.6 MEQ/L (21.0-32.0); POTASSIUM 4.1 MEQ/L (3.5-5.1)
[2016-08-14 05:38] LABS: REVIEW FLAG FINAL
[2016-08-14] MEDS ORDERED: FILGRASTIM 480 MCG/1.6 ML VIAL SQ ONE (07:45)
--- NOTE | 2016-08-14 08:20 | HHI.PR ---
Subjective Remarks doing ok. Objective Vitals nad left neck wound/lawanda heart reg lungc ta abd s/nt ext no edema Vital Signs Date Time Temp Pulse Resp B/P Pulse Ox O2 Delivery O2 Flow Rate FiO2 08/14/16 07:25 99 Nasal Cannula 2.00 08/14/16 07:00 99 Nasal Cannula 2.00 08/14/16 07:00 98.3 79 16 154/75 98 158/59 08/14/16 07:00 79 08/14/16 03:00 96 08/14/16 03:00 98.1 81 20 144/58 97 08/14/16 03:00 98 Nasal Cannula 2.00 08/13/16 23:00 97.8 77 16 140/70 98 139/56 08/13/16 23:00 98 Nasal Cannula 2.00 08/13/16 23:00 91 08/13/16 22:04 97 2.00 08/13/16 19:00 98 Nasal Cannula 2.00 08/13/16 19:00 81 08/13/16 19:00 98.0 84 16 138/69 98 141/65 08/13/16 15:11 98 Nasal Cannula 2.00 08/13/16 15:11 96.8 79 16 137/77 98 147/68 08/13/16 15:00 77 08/13/16 13:31 97.7 76 16 123/70 99 135/62 08/13/16 13:31 99 Nasal Cannula 2.00 08/13/16 13:20 76 08/13/16 13:00 98.4 72 14 119/63 96 Nasal Cannula 2 124/60 08/13/16 12:45 74 14 103/78 100 Nasal Cannula 2 115/51 08/13/16 12:39 98.0 73 14 100/53 99 Nasal Cannula 2 107/47 08/13/16 09:10 98.4 88 18 100 08/13/16 09:04 95 Room Air 08/13/16 09:04 75 08/13/16 08:37 97.8 97 18 139/65 95 08/13/16 08/13/16 08/14/16 15:00 23:00 07:00 Intake Total 1400 ml 505 ml 1166 ml Output Total 500 ml 795 ml 1400 ml Balance 900 ml -290 ml -234 ml Intake Oral 100 ml 240 ml IV Total 405 ml 926 ml Other 1400 ml Output Urine Total 775 ml 1400 ml Drainage Total 20 ml Estimated Blood Loss 100 ml Other 400 ml # Bowel Movements 0 0 Result Diagram: 08/14/160 08/14/16 0440 Imaging Last Impressions Carotid Artery Ultrasound 08/11/16 1035 Signed Impressions: Service Date/Time: Thursday, August 11, 2016 11:44 - CONCLUSION: 1. Severe left carotid bulb and proximal left internal carotid artery atherosclerotic calcified plaque. Velocity measurements on this examination suggest greater than 70%% stenosis. However, yesterday's carotid CTA examination demonstrated 65%% stenosis of the proximal internal carotid artery based on NASCET criteria. 2. Mild to moderate atherosclerotic plaque in the right carotid bulb and proximal internal carotid artery. The ostium measurements on this examination suggest between 50-69%% stenosis. However, yesterday's CT examination demonstrated approximately 20%% stenosis based on NASCET criteria. The carotid CTA is the definitive examination. Larry Flores MD Head CT 08/11/16 0000 Signed Impressions: Service Date/Time: Thursday, August 11, 2016 05:57 - CONCLUSION: Normal examination. Incidental cavum septum pellucidum. Diffuse atrophy, unchanged. Jimmy Robbins MD Brain MRI 08/10/16 1210 Signed Impressions: Service Date/Time: Wednesday, August 10, 2016 14:51 - CONCLUSION: 1. No acute infarction. 2. Cortical atrophy. 3. Nonspecific white matter changes. Aubrey Quarles MD Neck CTA 08/10/16 1113 Signed Impressions: Service Date/Time: Wednesday, August 10, 2016 11:25 - CONCLUSION: 50%% left carotid bifurcation stenosis. 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 Larry Salvador MD Head CTA 08/10/16 1113 Signed Impressions: Service Date/Time: Wednesday, August 10, 2016 11:25 - CONCLUSION: 1. No major vessel occlusion. 2. Normal variants as described above. Aubrey Quarles MD A/P Problem List: (1) CVA (cerebral vascular accident) Status: Acute Plan: s/p tia with aphasia resolved. Left CEA 08/13 Pt s/p chemo with carboplatin/paclitaxel 1 week ago ...now with worsening pancytopenia - pt received tPA - MRI (08/10/16) does NOT show acute infarction - ASA, plavix, lipitor discussed with Dr Bowden. neupogen now...ok to d/c with labwork at oncology clinic this week. d/c once ok with Dr Robertson (2) Left-sided carotid artery disease Status: Acute Plan: - see above (3) COPD (chronic obstructive pulmonary disease) with acute bronchitis Status: Acute Plan: - h/o tobacco use - h/o fibrosis - symibort - duonebs prn (4) Lung cancer Status: Acute Plan: - squamous cell carcinoma. recurrence in mediastinum -last chemo 1 week ago. - s/p lobectomy, [facility] [address] Mica Perdomo - pt follows with Dr. Bowden Problem Qualifiers (1) CVA (cerebral vascular accident): Qualified Code: I63.9 - Cerebrovascular accident (CVA), unspecified mechanism (2) Lung cancer: Qualified Code: C34.90 - Malignant neoplasm of lung, unspecified laterality, unspecified part of lung Chase Chun MD August 14, 2016 08:20
--- NOTE | 2016-08-14 08:42 | MB ---
cc: SHAHAB PEÑA MD, CARMEN A. M.D. JAZAREVIC, SLOBODAN DATE OF CONSULTATION 08/14/2016 DATE OF 1940 REFERRING PHYSICIAN Hospitalist service PRIMARY CARE PHYSICIAN Dr. 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 CHIEF COMPLAINT The patient had difficulty speaking and loss of consciousness on SaturdayAugust 10. She was at radiation at that time. She was referred to the emergency department and was found to have had a TIA versus ischemic stroke. Subjectively, at the present time Ms. Alberto denies acute complaints. She does report having some discomfort along the left side of her neck where she underwent a carotid endarterectomy on 08/13/2016. HISTORY OF PRESENT ILLNESS Ms. Alberto is a 75-year-old female with a personal history of heavy tobaccoism. Ms. Alberto was diagnosed in October of 2015 with a 2 cm mass involving the left upper lobe of the lung. Her lungs indicated radiographic evidence of pulmonary fibrosis. A needle guided biopsy of the primary lesion indicated findings consistent with squamous cell carcinoma. She underwent a left upper lobectomy with robot assistance in mid December and prior to that did undergo a mediastinoscopy for mediastinal lymph node sampling. She was noted to have a T1b, N0 disease. She was subsequently recommended surveillance. In the early part of 2016, she was noted to have enlarging soft tissue masses involving the left upper mediastinum. She underwent needle biopsy. Pathologic findings were consistent with recurrent squamous cell carcinoma. She was therefore recommended concurrent chemoradiotherapy which was started in late June of 2016 with weekly carboplatin and Taxol. She had received four weeks of radiation up until the time of this dictation. Ms. Alberto developed what was described as difficulty speaking, she also had altered mentation. Upon presentation to the emergency department, she underwent imaging studies of the brain which revealed no acute abnormalities. She did undergo CT angiogram of the neck and head and was noted to have plaque formation involving the left carotid artery with greater than 70% stenosis. She was recommended carotid endarterectomy. Prior to undergoing the carotid endarterectomy, I would like to add she was treated with t-PA infusion at the time of admission to the emergency department. She is recovering well. Her difficulty speaking has completely resolved and she is able to speak as she was at baseline. The hematology service has been asked to see the patient because she now has progressive cytopenias which are thought to be related to her previous chemotherapy infusions. PAST MEDICAL HISTORY 1. Squamous cell carcinoma of the left upper lobe of the lung. 2. Personal history of tobaccoism. 3. Pulmonary fibrosis 4. COPD/emphysema 5. Basal cell carcinomas of the skin. 6. Peripheral arterial disease PAST SURGICAL HISTORY 1. Colonoscopy 2. Cataract surgery 3. CT guided biopsy of left upper lobe lung mass. 4. CT guided biopsy of the anterior mediastinal mass on the left side involving the AP window. 5. Mediastinoscopy with paratracheal lymph node biopsies. 6. Multiple skin biopsies. 7. Robot assisted left upper lobectomy. GYNECOLOGIC HISTORY 0, para 0. FAMILY HISTORY Mother had ovarian cancer at the age of 83. Maternal grandmother had breast cancer. Paternal grandfather had liver cancer. Maternal grandfather had heart disease. At last check, father was alive at 102. ALLERGIES NO KNOWN DRUG ALLERGIES. CURRENT INPATIENT MEDICATIONS 1. Nitroglycerin IV titration per protocol 2. Tylenol 650 mg p.o. q.6 h as needed for fevers 3. DuoNebs one ampule q.2 h as needed for wheezing 4. Atorvastatin 20 mg p.o. three times a week 5. Symbicort 1 puff q.12 h 6. Calcium carbonate 500 mg p.o. q.2 h as needed for dyspepsia 7. Plavix 70 mg p.o. daily. 8. Duloxetine 40 mg p.o. daily 9. Neupogen 480 mcg subcu x1 10. Zofran 4 mg IV q.6 h as needed for nausea and vomiting 11. Oxycodone/acetaminophen 5/225 one tablet p.o. q.4 h needed for pain 12. Pantoprazole 40 mcg p.o. daily REVIEW OF SYSTEMS A 13-point review of systems are obtained the following are the pertinent positives and negatives: CONSTITUTIONAL: The patient reports fatigue, weakness, she denies fevers, chills, night sweats. Her appetite is poor. HEENT: Denies headaches, soreness in the throat, she does report pain along the left side of her neck at the site of her surgery. RESPIRATORY: Reports exertional dyspnea, denies cough or hemoptysis, denies pleuritic chest pain. CARDIOVASCULAR: Denies angina-like chest pain, PND, orthopnea, lower extremities edema. GI: Denies nausea, vomiting, diarrhea, hematochezia or melena. : No complaints. MUSCULOSKELETAL: No complaints other than chronic knee and hip pain. All other review of systems were negative. PHYSICAL EXAMINATION VITAL SIGNS: Temperature 98.1 degrees Fahrenheit, heart rate 96 beats a minute, respiratory rate 16 to 20 breaths per minute, blood pressure is 144/58, as noted on arterial line monitor. O2 saturation: 99% on two liters nasal cannula. GENERAL PHYSICAL APPEARANCE: Ms. Alberto is an elderly lady, she is laying in bed, she appears to be in no acute distress. She has alopecia of chemotherapy. She is awake and alert and responsive. HEENT: Head is atraumatic, normocephalic, conjunctive are pale. Sclerae are anicteric, EOMI, PERRLA, oral exam no pharyngeal erythema. NECK: No palpable cervical or supraclavicular lymphadenopathy on the right side, left side, she has a surgical drain which appears to be clean all the way from the angle of the jaw down to her supraclavicular area. There is a RUPESH drain as well which has a scant amount of serosanguineous liquid. RESPIRATORY: On anterior exam, she has prolonged expiratory phase, good air movement bilaterally, scattered fine crepitus. CARDIOVASCULAR: Regular rate and rhythm, S1-S2. No obvious murmurs, rubs or gallops. ABDOMEN: Thin belly, soft, nontender, nondistended. No palpable organ enlargement. EXTREMITIES: Lower extremities have no pretibial edema or calf tenderness. ROAD BOSS: No focal sensory or motor deficits. LABORATORY FINDINGS Blood work dated 08/14/2016: Sodium 140, potassium 4.1, chloride 106, bicarb 26.6, BUN 6, creatinine 0.5, random glucose 83, calcium 8.3. Hematologic: CBC dated 08/14/2016: WBC count 1.4, hemoglobin 7.6 gm/dl, hematocrit 21.7%, platelet count 90,000. ERS 65. IMAGING STUDIES MRI of the brain dated 08/10/2016. No acute infarction, cortical atrophy, nonspecific white matter changes. CTA of the neck dated 08/10/2016: 50% left carotid bifurcation stenosis, 40-50% left subclavian artery stenosis. Carotid artery ultrasound dated 08/11/2016: Severe left carotid bulb and proximal left internal carotid artery atherosclerotic calcified plaque. Velocity measures on this examination suggest greater than 70% stenosis. Mild to moderate atherosclerotic plaque in the right carotid bulb and the proximal internal carotid artery. However on today's CT examination, there was an approximate 20% stenosis based on the NASCET criteria. The carotid CTA is a definitive examination in this circumstance. ASSESSMENT Ms. Alberto is a 75-year-old female with an extensive past history of tobaccoism, she has advanced COPD with pulmonary fibrosis. In October of 2015, she was diagnosed with a left upper lobe squamous cell carcinoma. The patient was noted on staging imaging to have hypermetabolic mediastinal lymph nodes. Prior to undergoing definitive surgery, she underwent a mediastinoscopy with sampling of mediastinal lymph nodes which were noted to be negative. In mid December, she underwent robot assisted left upper lobectomy and hilar/mediastinal lymph node sampling. She is noted to have T1b, N0, M0 at that time. She subsequently underwent surveillance scans and by April of 2016 she was displaying signs of disease progression with enlarging left AP window soft tissue mass. The patient underwent needle biopsy of the soft tissue mass in the AP window which was found to be consistent with squamous cell carcinoma. She subsequently was initiated on concurrent chemoradiotherapy with carboplatin and radiation. She had completed approximately four weeks of this, two additional weeks were planned. However on 08/10/2016, the patient developed changes in her mentation, slurred speech and this occurred while she was receiving radiation at the oncology center. She was referred to the emergency department and was assessed to have had a stroke. She was treated with tPA, then was started on a heparin drip. She underwent evaluation of her vascular structures in the head and neck region and was noted to have high-grade stenosis in the left carotid bulb. She therefore on 08/13/2016 underwent a carotid endarterectomy on the left side. She is now being prepared for discharge home. From a clinical standpoint, she has recovered her speech, her altered mental status is completely resolved and she has no measurable neurologic or sensory deficits (motor or sensory). From a hematologic issue, her major issue is progressive cytopenias which is likely due to chemotherapy related myelosuppression. From an oncologic standpoint, the question is when to resume radiation and chemotherapy. In my estimation, chemotherapy and radiation will not be resumed until she has fully recovered from her surgery and her incisions are fully healed. RECOMMENDATIONS 1. Locally advanced adenocarcinoma of the lung: Chemotherapy will remain on hold until after she is fully healed from her carotid endarterectomy. 2. Progressive neutropenia: I would like to dose her with Neupogen x1 today. She is okay for discharge from an oncologic standpoint. I have scheduled followup with me on 08/16/2016 with CBC and CMP. I have also request approval for outpatient Neupogen delivery. 3. The patient is presently on Plavix and is mildly thrombocytopenic at this time. In my opinion at this point, Plavix should be safe to continue with the current level of thrombocytopenia. MD GLEN Chand/SHAILA /7:43 AM /8:06 AM MTDEn
--- NOTE | 2016-08-14 09:04 | HHI.PR ---
Subjective Remarks sr all better Objective Vital Signs Date Time Temp Pulse Resp B/P Pulse Ox O2 Delivery O2 Flow Rate FiO2 08/14/16 07:25 99 Nasal Cannula 2.00 08/14/16 07:00 99 Nasal Cannula 2.00 08/14/16 07:00 98.3 79 16 154/75 98 158/59 08/14/16 07:00 79 08/14/16 03:00 96 08/14/16 03:00 98.1 81 20 144/58 97 08/14/16 03:00 98 Nasal Cannula 2.00 08/13/16 23:00 97.8 77 16 140/70 98 139/56 08/13/16 23:00 98 Nasal Cannula 2.00 08/13/16 23:00 91 08/13/16 22:04 97 2.00 08/13/16 19:00 98 Nasal Cannula 2.00 08/13/16 19:00 81 08/13/16 19:00 98.0 84 16 138/69 98 141/65 08/13/16 15:11 98 Nasal Cannula 2.00 08/13/16 15:11 96.8 79 16 137/77 98 147/68 08/13/16 15:00 77 08/13/16 13:31 97.7 76 16 123/70 99 135/62 08/13/16 13:31 99 Nasal Cannula 2.00 08/13/16 13:20 76 08/13/16 13:00 98.4 72 14 119/63 96 Nasal Cannula 2 124/60 08/13/16 12:45 74 14 103/78 100 Nasal Cannula 2 115/51 08/13/16 12:39 98.0 73 14 100/53 99 Nasal Cannula 2 107/47 08/13/16 09:10 98.4 88 18 100 08/13/16 09:04 95 Room Air 08/13/16 09:04 75 I/O 08/13/16 08/13/16 08/13/16 08/14/16 08/14/16 08/14/16 07:00 15:00 23:00 07:00 15:00 23:00 Intake Total 1400 ml 505 ml 1166 ml Output Total 500 ml 795 ml 1400 ml Balance 900 ml -290 ml -234 ml Intake Oral 100 ml 240 ml IV Total 405 ml 926 ml Other 1400 ml Output Urine Total 775 ml 1400 ml Drainage Total 20 ml Estimated Blood Loss 100 ml Other 400 ml # Voids 1 # Bowel Movements 0 0 0 Result Diagram: 08/14/160 08/14/160 Objective Remarks nl speech vff face sym tongue midline 07/20 nl Assessment and Plan Assessment and Plan imp check us carotid for left velocity markedly inc ldl nl echo nl on asa so plavix now fu holter eeg nl tia most likely left carotid likley sx needs left cea consult vasular surgery 08/14/16 looks well post left cea ok dc neurowise on asa vs plavix i defer to vascular surgery holter neg Arnoldo Lemus MD August 14, 2016 09:04
[2016-08-14] MEDS: PANTOPRAZOLE SOD 40 MG DELAYED RELEASE TAB PO SCH (09:09)
[2016-08-14] MEDS: CLOPIDOGREL 75 MG TAB PO SCH (09:09)
[2016-08-14] MEDS: DOCUSATE SODIUM 50 MG/SENNA 8.6 MG TAB PO SCH ×2 (09:09→20:12)
[2016-08-14] MEDS: BUDESONIDE-FORMOTEROL 160/4.5 MCG INHALER INH SCH ×2 (09:11→20:13)
[2016-08-14] MEDS: DULoxetine HCl DR 20 MG CAP PO SCH (09:36)
--- NOTE | 2016-08-14 12:43 | PD.CAR.PN ---
CVT Progress Note Subjective/Hospital Course: Patient seen and evaluated Full consult dictated I agree with Dr. Lemus the patient should undergo left carotid endarterectomy at this admission and patient scheduled for surgery tomorrow Risks and benefits have been explained to the patient and family Thanks J Patient well post LICAE pancytopenia in face of chemo/xrt DC RUPESH Incision clean/dry Neurologically fully intact DC patient tomorow Objective: Vital Signs Date Time Temp Pulse Resp B/P Pulse Ox O2 Delivery O2 Flow Rate FiO2 08/14/16 11:15 99 Nasal Cannula 2.00 08/14/16 11:15 97.9 88 16 112/56 98 Arterial Line 08/14/16 11:15 88 08/14/16 07:25 99 Nasal Cannula 2.00 08/14/16 07:00 99 Nasal Cannula 2.00 08/14/16 07:00 98.3 79 16 154/75 98 158/59 08/14/16 07:00 79 08/14/16 03:00 96 08/14/16 03:00 98.1 81 20 144/58 97 08/14/16 03:00 98 Nasal Cannula 2.00 08/13/16 23:00 97.8 77 16 140/70 98 139/56 08/13/16 23:00 98 Nasal Cannula 2.00 08/13/16 23:00 98 Nasal Cannula 2.00 08/13/16 23:00 91 08/13/16 22:04 97 2.00 08/13/16 19:00 98 Nasal Cannula 2.00 08/13/16 19:00 81 08/13/16 19:00 98.0 84 16 138/69 98 141/65 08/13/16 15:11 98 Nasal Cannula 2.00 08/13/16 15:11 96.8 79 16 137/77 98 147/68 08/13/16 15:00 77 08/13/16 13:31 97.7 76 16 123/70 99 135/62 08/13/16 13:31 98 Nasal Cannula 2.00 08/13/16 13:31 99 Nasal Cannula 2.00 08/13/16 13:20 76 08/13/16 13:00 98.4 72 14 119/63 96 Nasal Cannula 2 124/60 08/13/16 12:45 74 14 103/78 100 Nasal Cannula 2 115/51 Labs: Laboratory Tests Test 08/14/16 04:40 White Blood Count 1.4 TH/MM3 (4.0-11.0) Red Blood Count 2.45 MIL/MM3 (4.00-5.30) Hemoglobin 7.6 GM/DL (11.6-15.3) Hematocrit 21.1 % (35.0-46.0) Mean Corpuscular Volume 85.9 FL (80.0-100.0) Mean Corpuscular Hemoglobin 30.8 PG (27.0-34.0) Mean Corpuscular Hemoglobin 35.8 % Concent (32.0-36.0) Red Cell Distribution Width 13.0 % (11.6-17.2) Platelet Count 90 TH/MM3 (150-450) Mean Platelet Volume 8.2 FL (7.0-11.0) Sodium Level 140 MEQ/L (136-145) Potassium Level 4.1 MEQ/L (3.5-5.1) Chloride Level 106 MEQ/L (98-107) Carbon Dioxide Level 26.6 MEQ/L (21.0-32.0) Anion Gap 7 MEQ/L (5-15) Blood Urea Nitrogen 6 MG/DL (7-18) Creatinine 0.50 MG/DL (0.50-1.00) Estimat Glomerular Filtration 121 ML/MIN Rate (>89) Random Glucose 83 MG/DL (74-106) Calcium Level 8.2 MG/DL (8.5-10.1) Result Diagram: 08/14/16 0440 08/14/16 0440 Trevon Dye MD August 14, 2016 12:43
[2016-08-14] MEDS: CEPHALEXIN MONOHYDRATE 500 MG CAP PO SCH ×2 (15:34→22:07)
--- NOTE | 2016-08-15 00:02 | MP ---
cc: TREVON ARCINIEGA RE-DICTATION DATE OF SURGERY: 08/13/2016 PREOPERATIVE DIAGNOSIS: Tight left internal carotid artery stenosis, TIAs, and aphasia. POSTOPERATIVE DIAGNOSIS: Tight left internal carotid artery stenosis, TIAs, and aphasia. OPERATIVE PROCEDURE Left carotid endarterectomy, patch angioplasty. SURGEON: Dr. Arciniega ANESTHESIA: General. ESTIMATED BLOOD LOSS: 100 cc. DESCRIPTION OF PROCEDURE: The patient was prepped and draped in the usual fashion. A left sternocleidomastoid incision made, deepened down through the platysma to the level of the carotid sheath, common carotid. Internal, external carotid arteries are isolated very carefully with sharp and blunt dissection, and then umbilical tape on the Rumel retractor placed around each respectively. The hypoglossal nerve is carefully identified and preserved. The patient is given 5000 units of heparin and vessels were clamped in the usual fashion. The external carotid is cinched down, the internal carotid is clamped with curved bulldog and common carotid with that the DeBakey clamp. Vessels opened longitudinally using Ba scissors. Immediately argyle shunt is inserted and blood flow reestablished. It is apparent that the patient has a huge plaque which is very calcified and very stuck to the vessel. This plaque starts in the common carotid artery and extends about 1/2 inch into the internal carotid artery. The plaque is very short but it is very bulky and very hard. This one is dissected in media plane using Gooding dissector and removed in one piece, submitted for pathology. The intima is now observed. Heparinized saline with excels are used to peel off the intima pieces and all the debris. The internal carotid artery is now checked. Intima is peeled off fairly okay but there is a slight tendency to elevate it. Therefore, two 7-0 Prolene horizontal mattress sutures are placed to tack down the intima. The proximal and common carotid is checked and this was clear. An 8 millimeter Bovine patch is now chosen and sewn in with running 6-0 Prolene. Prior to completion of the arteriotomy closure, the argyle shunt is removed. Repair completed and blood flow established in the usual order and fashion preventing distal embolization. The area is irrigated with copious amounts of saline. Meticulous hemostasis assured. A 7 flat RUPESH laid over the vessel and incision closed with running 2-0 Vicryl in layers and 4-0 Monocryl. Benzoin and Steri-Strips applied. The patient tolerated the procedure well. At the end of the procedure, the patient is fully neurologically intact, awake and alert, moving all four extremities. Trevon JIMENEZ /3:36 PM /11:53 PM
[2016-08-15 00:11] VITALS: BP 102/47; PULSE 109; RESP 17; TEMP 97.3; O2SAT 97
[2016-08-15] MEDS: CHLORHEXIDINE GLUCONATE 2 % 1 PACK (2 CLOTHS) TOP SCH (03:48)
[2016-08-15 04:20] VITALS: BP 95/53; PULSE 99; RESP 17; TEMP 97.6; O2SAT 97
[2016-08-15] MEDS: oxyCODONE/ACETAMINOPHEN 5 MG/325 MG TAB PO PRN ×2 (05:48→10:12)
[2016-08-15] MEDS: CEPHALEXIN MONOHYDRATE 500 MG CAP PO SCH ×2 (05:48→14:22)
--- NOTE | 2016-08-15 07:43 | HHI.PR ---
Subjective Remarks sr all better Objective Vital Signs Date Time Temp Pulse Resp B/P Pulse Ox O2 Delivery O2 Flow Rate FiO2 08/15/16 04:20 97.6 99 17 95/53 97 08/15/16 00:11 97.3 109 17 102/47 97 08/14/16 20:20 97.0 106 18 126/71 96 08/14/16 20:00 96 Room Air 08/14/16 15:59 97.1 109 18 138/66 96 08/14/16 15:18 97.9 102 18 129/66 98 08/14/16 15:18 102 08/14/16 15:18 97 08/14/16 11:15 99 Nasal Cannula 2.00 08/14/16 11:15 97.9 88 16 112/56 98 Arterial Line 08/14/16 11:15 88 I/O 08/14/16 08/14/16 08/14/16 08/15/16 08/15/16 08/15/16 07:00 15:00 23:00 07:00 15:00 23:00 Intake Total 1166 ml 1480 ml 120 ml Output Total 1400 ml 1250 ml Balance -234 ml 230 ml 120 ml Intake Oral 240 ml 520 ml 120 ml IV Total 926 ml 960 ml Output Urine Total 1400 ml 1250 ml # Voids 1 1 # Bowel Movements 0 0 Result Diagram: 08/14/16 0440 08/14/16 0440 Objective Remarks nl speech vff face sym tongue midline 07/20 nl still Assessment and Plan Assessment and Plan imp check us carotid for left velocity markedly inc ldl nl echo nl on asa so plavix now fu holter eeg nl tia most likely left carotid likley sx needs left cea consult vasular surgery 08/14/16 looks well post left cea ok dc neurowise on asa vs plavix i defer to vascular surgery holter neg 08/15/16 nl exam ok dc neurowise i will sign off on plavix Arnoldo Lemus MD August 15, 2016 07:43
[2016-08-15 08:00] VITALS: BP 111/61; PULSE 104; RESP 17; TEMP 98.2; O2SAT 95
[2016-08-15 08:32] LABS: AUTOMATED NEUTROPHIL # 2.3 TH/MM3 (1.8-7.7); BASOPHIL % 0.3 % (0.0-2.0); EOSINOPHIL % 0.9 % (0.0-4.0); HEMATOCRIT 23.4 % (35.0-46.0); HEMO FLAGS DIFF FINAL; LYMPH % 7.9 % (9.0-44.0); LYMPHOCYTE # 0.2 TH/MM3 (1.0-4.8); MEAN CELL VOLUME 87.3 FL (80.0-100.0); MEAN CORPUSCULAR HEMOGLOBIN 29.7 PG (27.0-34.0); MEAN CORPUSCULAR HGB CONC 34.1 % (32.0-36.0); MONO % 12.4 % (0.0-8.0); NEUT % 78.5 % (16.0-70.0); PLATELET COUNT 104 TH/MM3 (150-450); RED BLOOD COUNT 2.68 MIL/MM3 (4.00-5.30); RED CELL DISTRIBUTION WIDTH 13.2 % (11.6-17.2); WHITE BLOOD COUNT 2.9 TH/MM3 (4.0-11.0)
[2016-08-15] MEDS: BUDESONIDE-FORMOTEROL 160/4.5 MCG INHALER INH SCH (09:00)
--- NOTE | 2016-08-15 10:04 | HHI.PR ---
Subjective Remarks doing well. Objective Vitals heent neg heart reg lung cta abd s/nt ext no edema left cea scar. lawanda out. Vital Signs Date Time Temp Pulse Resp B/P Pulse Ox O2 Delivery O2 Flow Rate FiO2 08/15/16 08:00 98.2 104 17 111/61 95 08/15/16 04:20 97.6 99 17 95/53 97 08/15/16 00:11 97.3 109 17 102/47 97 08/14/16 20:20 97.0 106 18 126/71 96 08/14/16 20:00 96 Room Air 08/14/16 15:59 97.1 109 18 138/66 96 08/14/16 15:18 97.9 102 18 129/66 98 08/14/16 15:18 102 08/14/16 15:18 97 08/14/16 11:15 99 Nasal Cannula 2.00 08/14/16 11:15 97.9 88 16 112/56 98 Arterial Line 08/14/16 11:15 88 08/14/16 08/14/16 08/15/16 15:00 23:00 07:00 Intake Total 1480 ml 120 ml Output Total 1250 ml Balance 230 ml 120 ml Intake Oral 520 ml 120 ml IV Total 960 ml Output Urine Total 1250 ml # Voids 1 1 # Bowel Movements 0 Result Diagram: 08/15/16 0718 08/14/16 0440 Imaging Last Impressions Carotid Artery Ultrasound 08/11/16 1035 Signed Impressions: Service Date/Time: Thursday, August 11, 2016 11:44 - CONCLUSION: 1. Severe left carotid bulb and proximal left internal carotid artery atherosclerotic calcified plaque. Velocity measurements on this examination suggest greater than 70%% stenosis. However, yesterday's carotid CTA examination demonstrated 65%% stenosis of the proximal internal carotid artery based on NASCET criteria. 2. Mild to moderate atherosclerotic plaque in the right carotid bulb and proximal internal carotid artery. The ostium measurements on this examination suggest between 50-69%% stenosis. However, yesterday's CT examination demonstrated approximately 20%% stenosis based on NASCET criteria. The carotid CTA is the definitive examination. Larry Flores MD Head CT 08/11/16 0000 Signed Impressions: Service Date/Time: Thursday, August 11, 2016 05:57 - CONCLUSION: Normal examination. Incidental cavum septum pellucidum. Diffuse atrophy, unchanged. Jimmy Robbins MD Brain MRI 08/10/16 1210 Signed Impressions: Service Date/Time: Wednesday, August 10, 2016 14:51 - CONCLUSION: 1. No acute infarction. 2. Cortical atrophy. 3. Nonspecific white matter changes. Aubrey Quarles MD Neck CTA 08/10/16 1113 Signed Impressions: Service Date/Time: Wednesday, August 10, 2016 11:25 - CONCLUSION: 50%% left carotid bifurcation stenosis. 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 Larry Salvador MD Head CTA 08/10/16 1113 Signed Impressions: Service Date/Time: Wednesday, August 10, 2016 11:25 - CONCLUSION: 1. No major vessel occlusion. 2. Normal variants as described above. Aubrey Quarles MD A/P Problem List: (1) CVA (cerebral vascular accident) Status: Acute Plan: s/p tia with aphasia resolved. Left CEA 08/13 Pt s/p chemo with carboplatin/paclitaxel 1 week ago ...now with worsening pancytopenia - pt received tPA - MRI (08/10/16) does NOT show acute infarction - ASA, plavix, lipitor pancytopenia better. f/u oncology d/c home and f/u vascular. (2) Left-sided carotid artery disease Status: Acute Plan: - see above (3) COPD (chronic obstructive pulmonary disease) with acute bronchitis Status: Acute Plan: - h/o tobacco use - h/o fibrosis - symibort - duonebs prn (4) Lung cancer Status: Acute Plan: - squamous cell carcinoma. recurrence in mediastinum -last chemo 1 week ago. - s/p lobectomy, [facility] [address] Mica Perdomo - pt follows with Dr. Bowden Problem Qualifiers (1) CVA (cerebral vascular accident): Qualified Code: I63.9 - Cerebrovascular accident (CVA), unspecified mechanism (2) Lung cancer: Qualified Code: C34.90 - Malignant neoplasm of lung, unspecified laterality, unspecified part of lung Chase Chun MD August 15, 2016 10:04
[2016-08-15] MEDS: DULoxetine HCl DR 20 MG CAP PO SCH (10:05)
[2016-08-15] MEDS: ATORVASTATIN 20 MG TAB PO SCH (10:05)
[2016-08-15] MEDS: PANTOPRAZOLE SOD 40 MG DELAYED RELEASE TAB PO SCH (10:05)
[2016-08-15] MEDS: CLOPIDOGREL 75 MG TAB PO SCH (10:06)
[2016-08-15] MEDS: DOCUSATE SODIUM 50 MG/SENNA 8.6 MG TAB PO SCH (10:06)
[2016-08-15] MEDS ORDERED: OXYC1TAB63 PO (10:06)
[2016-08-15] MEDS ORDERED: CEPH500C PO (10:08)
--- NOTE | 2016-08-15 10:08 | HHI.DCPOC ---
Discharge Care Plan Diagnosis: (1) Left-sided carotid artery disease (2) TIA (transient ischemic attack) (3) COPD (chronic obstructive pulmonary disease) with acute bronchitis (4) Lung cancer Goals to Promote Your Health * To prevent worsening of your condition and complications * To maintain your health at the optimal level Directions to Meet Your Goals Take your medications as prescribed Follow your dietary instruction Follow activity as directed Keep your appointments as scheduled Take your immunizations and boosters as scheduled If your symptoms worsen call your PCP, if no PCP go to Urgent Care Center or Emergency Room Smoking is Dangerous to Your Health. Avoid second hand smoke Call the 24-hour hour crisis hotline for domestic abuse at Chase Chun MD August 15, 2016 10:08
[2016-08-15] MEDS ORDERED: PLAV75TA29 PO (10:12)
[2016-08-15 10:21] LABS: BICARBONATE 30.1 MEQ/L (21.0-32.0); POTASSIUM 3.7 MEQ/L (3.5-5.1)
[2016-08-15 12:00] VITALS: BP 102/58; PULSE 107; RESP 17; TEMP 97.1; O2SAT 95
--- NOTE | 2016-08-15 13:21 | PD.ONC.PN ---
Subjective Subjective Remarks Afebrile overnight. Patient resting comfortably in bed in nad. Some shortness of breath with exertion, "but that's typical for me." She feels eager and ready to go home. Objective Data Date Time Temp Pulse Resp B/P Pulse Ox O2 Delivery O2 Flow Rate FiO2 08/15/16 12:00 97.1 107 17 102/58 95 08/15/16 08:00 98.2 104 17 111/61 95 08/15/16 04:20 97.6 99 17 95/53 97 08/15/16 00:11 97.3 109 17 102/47 97 08/14/16 20:20 97.0 106 18 126/71 96 08/14/16 20:00 96 Room Air 08/14/16 15:59 97.1 109 18 138/66 96 08/14/16 15:18 97.9 102 18 129/66 98 08/14/16 15:18 102 08/14/16 15:18 97 08/15/16 08/15/16 08/15/16 07:00 15:00 23:00 Intake Total 120 ml Balance 120 ml Result Diagram: 08/15/1618 08/15/1618 Laboratory Results Laboratory Tests Test 08/15/16 07:18 White Blood Count 2.9 TH/MM3 Red Blood Count 2.68 MIL/MM3 Hemoglobin 8.0 GM/DL Hematocrit 23.4 % Mean Corpuscular Volume 87.3 FL Mean Corpuscular Hemoglobin 29.7 PG Mean Corpuscular Hemoglobin 34.1 % Concent Red Cell Distribution Width 13.2 % Platelet Count 104 TH/MM3 Mean Platelet Volume 8.4 FL Neutrophils (%) (Auto) 78.5 % Lymphocytes (%) (Auto) 7.9 % Monocytes (%) (Auto) 12.4 % Eosinophils (%) (Auto) 0.9 % Basophils (%) (Auto) 0.3 % Neutrophils # (Auto) 2.3 TH/MM3 Lymphocytes # (Auto) 0.2 TH/MM3 Monocytes # (Auto) 0.4 TH/MM3 Eosinophils # (Auto) 0.0 TH/MM3 Basophils # (Auto) 0.0 TH/MM3 CBC Comment DIFF FINAL Differential Comment Sodium Level 138 MEQ/L Potassium Level 3.7 MEQ/L Chloride Level 103 MEQ/L Carbon Dioxide Level 30.1 MEQ/L Anion Gap 5 MEQ/L Blood Urea Nitrogen 8 MG/DL Creatinine 0.66 MG/DL Estimat Glomerular Filtration 88 ML/MIN Rate Random Glucose 98 MG/DL Calcium Level 8.4 MG/DL Administered Medications Medications (Trade) Dose Ordered Sig/Yael Route PRN Reason Start Time Stop Time Status Last Admin Dose Admin Acetaminophen (Tylenol) 650 mg Q6H PRN PO PAIN 1-10 AND/OR FEVER >101F 08/10/16 20:45 08/12/16 22:42 Pantoprazole Sodium (Protonix) 40 mg DAILY PO 08/11/16 09:00 08/15/16 10:05 Miscellaneous Information 1 Q361D XX 08/10/16 20:45 08/10/16 20:45 Chlorhexidine Gluconate (Chlorhexidine 2% Cloth) 3 pack Taper DAILY@04 TOP 08/11/16 04:00 08/07/17 03:59 08/14/16 04:00 Senna/Docusate Sodium (Marycruz-Colace) 1 tab BID PO 08/10/16 21:00 08/15/16 10:06 Atorvastatin Calcium (Lipitor) 20 mg MOWEFR PO 08/10/16 21:00 08/15/16 10:05 Budesonide/ Formoterol Fumarate (Symbicort 160-4.5 Inh) 1 puff Q12HR INH 08/10/16 21:00 08/15/16 09:00 Duloxetine HCl (Cymbalta Dr) 40 mg DAILY PO 08/11/16 09:00 08/15/16 10:05 Clopidogrel Bisulfate (Plavix) 75 mg DAILY PO 08/11/16 14:00 08/15/16 10:06 Oxycodone/ Acetaminophen (Percocet 5-325 Mg) 1 tab Q4H PRN PO PAIN 3-5 08/13/16 13:15 08/15/16 10:12 Morphine Sulfate (Morphine Inj) 4 mg Q2H PRN IV PAIN 6-10 08/13/16 13:15 08/14/16 02:59 Cephalexin Monohydrate (Keflex) 500 mg Q8HR PO 08/14/16 14:00 08/16/16 06:00 08/15/16 05:48 Objective Remarks GENERAL: This is a pleasant but chronically ill appearing female, with alopecia , sitting up in bed eating lunch. she appears comfortable. SKIN: Warm and dry. HEAD: Normocephalic. EYES: No injection or drainage. NECK: Supple, trachea midline. CARDIOVASCULAR: +S1/S2 RESPIRATORY: diminished at bases. prolonged expiratory phase. scattered wheeze GASTROINTESTINAL: Abdomen soft, non-tender, nondistended. EXTREMITIES: No cyanosis, or edema. MUSCULOSKELETAL: Adequate muscle tone. NEUROLOGICAL: No obvious focal deficit. Awake, alert, and oriented x3. 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 --on weekly carboplatin and Taxol. --COPD/emphysema --Basal cell carcinomas of the skin. --Peripheral arterial disease Plan 1. pancytopenia: likely d/t chemotherapy. counts improving. s/p Neupogen x1 on 08/14. continue Plavix despite mild thrombocytopenia 2. Lung cancer: follow up in clinic upon discharge (appointment 08/16 @11:45AM [facility] with Dr. Bowden) chemo/XRT To remain on hold until fully recovered from surgery/hospitalization Aicha Kinney August 15, 2016 13:21
--- NOTE | 2016-08-18 13:32 | HHI.DS ---
Discharge Summary Admission Date August 10, 2016 at 12:12 Discharge Date: August 15, 2016 Admitting Diagnosis Acute Ischemic CVA (1) CVA (cerebral vascular accident) Diagnosis: Principal (2) Left-sided carotid artery disease Diagnosis: Principal (3) COPD (chronic obstructive pulmonary disease) with acute bronchitis Diagnosis: Secondary (4) Lung cancer Diagnosis: Secondary CBC/BMP: 08/15/16 0718 08/15/16 0718 Hospital Course s/p tia with aphasia resolved. Pt s/p chemo with carboplatin/paclitaxel 1 week ago ...now with worsening pancytopenia - pt received tPA - MRI (08/10/16) does NOT show acute infarction -Left CEA 08/13 - ASA, plavix, lipitor -pancytopenia better. f/u oncology. Pt seen here by Dr Bowden d/c home and f/u vascular. Pt Condition on Discharge: Stable Discharge Disposition: Discharge Home Discharge Instructions DIET: Follow Instructions for: As Tolerated, No Restrictions Activities you can perform: Regular-No Restrictions Follow up Referrals: Oncology - [address]OWDEN Vascular Surgery - 1 Week with Trevon Dye MD New Medications: Cephalexin (Cephalexin) 500 Mg Cap 500 MG PO Q8HR Infection Days 3 CAP Clopidogrel (Plavix) 75 Mg Tab 75 MG PO DAILY TIA #30 Ref 3 TAB Oxycodone-Acetaminophen (Oxycodone-Acetaminophen) 5-325 mg Tab 1 TAB PO Q4H PRN pain #30 TAB Continued Medications: Albuterol 18 GM Inh (Ventolin Hfa 18 GM Inh) 90 Mcg/Act Aer 2 PUFF INH Q4-6H PRN SHORTNESS OF BREATH #1 Ref 0 INHALER Aspirin (Aspirin) 81 Mg Chew 81 MG CHEW DAILY Ref 0 TAB Atorvastatin (Atorvastatin) 20 Mg Tab 20 MG PO MOWEFR Take 1 tablet (20mg) daily on Saturday,Saturday and Saturday Cholesterol Management #30 Ref 0 TAB Budesonide Neb (Budesonide Neb) 0.5 Mg/2 Ml Neb 0.5 MG NEB DAILY NEB Breathing Treatment #30 Ref 0 NEBULE Budesonide-Formoterol Inh (Symbicort Inh) 160-4.5 Mcg/Act Aero 1 PUFF INH Q12HR #1 Ref 0 INHALER Cholecalciferol (Vitamin D3) 2,000 Unit Chew 2000 UNITS CHEW DAILY #1 BOTTLE Clobetasol Topical (Clobetasol Topical) 0.05% Cream 1 APPLIC TOPICAL BID #[address] (Cymbalta DR) 20 Mg Capdr 40 MG PO DAILY #30 Ref 0 CAP Fish Oil-Cholecalciferol (Fish Oil + D3) 1,200-1,000 Mg-Unit Cap 1 CAP PO DAILY Nutritional Supplement #30 Ref 0 CAP Xffesevc-Xbncohkkxypdiax-Amqazeugf Liq (Magic Mouthwash Adult Liq) 120 Ml Susp 5 ML SWISH-SWAL ACHS Each 5mL contains: Nystatin 200,000units, Diphenhydramine 4.25mg, Viscous Lidocaine 10mg, Cole syrup 0.8 mL Mouth sores #120 Ref 0 ML Umeclidinium [place] Inh (Incruse Ellipta Inh) 0.0625 Mg/Act Inh 1 PUFF INH DAILY Treat COPD #1 Ref 0 INHALER Vitamin E (Vitamin E) 400 Unit Cap 400 UNITS PO DAILY Nutritional Supplement Ref 0 CAP Discontinued Medications: Hydrocodone-Acetaminophen Liq (Hydrocodone-Acetaminophen Liq) 7.5-325 Mg/15 Ml Soln 10 ML PO QID PRN PAIN Ref 0 ML Chase Chun MD Aug 18, 2016 13:32
== END 2016-08-15 15:40 | disposition home or self-care (01) | DRG 37 ==
LOC: NEPE 11:00 → NEDA 12:12 → N03A 15:21 → N03B 20:33 → N05B 08-11 11:39 → HCPC 08-13 10:12 → HCVR 08-13 13:27 → N05A 08-14 15:50
PROVIDERS: ADMIT Internal Medicine Critical Care Medicine; ATTEND Internal Medicine Critical Care Medicine
PROC: 3E03317 Introduction of Other Thrombolytic into Peripheral Vein, Percutaneous Approach (ICD-10-PCS; 2016-08-10)
PROC: 03UL0KZ Supplement Left Internal Carotid Artery with Nonautologous Tissue Substitute, Open Approach (ICD-10-PCS; 2016-08-13)
PROC: 03CL0ZZ Extirpation of Matter from Left Internal Carotid Artery, Open Approach (ICD-10-PCS; principal; 2016-08-13 10:00)
DX: I65.22 Occlusion and stenosis of left carotid artery (principal); D61.810 Antineoplastic chemotherapy induced pancytopenia; C78.1 Secondary malignant neoplasm of mediastinum; J44.0 Chronic obstructive pulmonary disease with (acute) lower respiratory infection; C34.12 Malignant neoplasm of upper lobe, left bronchus or lung; J84.10 Pulmonary fibrosis, unspecified; R47.01 Aphasia; I10 Essential (primary) hypertension; R00.0 Tachycardia, unspecified; I73.9 Peripheral vascular disease, unspecified; I70.8 Atherosclerosis of other arteries; J20.9 Acute bronchitis, unspecified; E78.5 Hyperlipidemia, unspecified; K21.9 Gastro-esophageal reflux disease without esophagitis; M19.90 Unspecified osteoarthritis, unspecified site; T45.1X5A Adverse effect of antineoplastic and immunosuppressive drugs, initial encounter; Z80.0 Family history of malignant neoplasm of digestive organs; Z80.3 Family history of malignant neoplasm of breast; Z80.41 Family history of malignant neoplasm of ovary; Z85.118 Personal history of other malignant neoplasm of bronchus and lung; Z87.891 Personal history of nicotine dependence; Z90.2 Acquired absence of lung [part of]; Z91.013 Allergy to seafood
CPT/HCPCS: 70450; 70496; 70498; 70553; 77014; 77336; 77386; 77427; 80048; 80061; 82435; 82550; 82565; 82607; 82947; 83735; 83921; 84132; 84295; 84425; 84439; 84443; 84484; 84520; 84702; 85025; 85027; 85384; 85610; 85652; 85730; 86038; 86850; 86900; 86901; 86920; 87641; 88304; 88311; 93005; 93225; 93226; 93306; 93880; 94150; 94640; 94667; 95819; A9579; C1768; J0131; J0690; J1442; J1642; J1644; J2270; J2370; J2405; J2720; J2997; J3010; J3475; J3480; J7030; J7040; J7120; Q9967

== ENCOUNTER 2017-04-15 07:52 | Day surgery (SDC) | payer MEDICARE ==
[~2017-04-15 07:52] MED LIST changes: +ASPI-516 CHEW; -ASPI81CH CHEW; +ATOR20TA15 PO; -CALC600T25; +CEPH500C PO; +CLOB0.055 TOPICAL; -CLOB0.77 TOPICAL; +DULO20 PO; +MAGICADU2 SWISH-SWAL; +OXYC1TAB63 PO; +PLAV75TA29 PO; -TRIAPOW
[2017-04-15 08:08] VITALS: BP 110/77; PULSE 90; RESP 20; TEMP 97.7; O2SAT 90
== END 2017-04-15 08:30 | disposition home or self-care (01) ==
LOC: HRAD 07:52 → HRIP 07:56 → HRAD 08:30
PROVIDERS: ATTEND Internal Medicine Hematology & Oncology
DX: R91.8 Other nonspecific abnormal finding of lung field (principal); Z53.09 Procedure and treatment not carried out because of other contraindication

== ENCOUNTER 2017-04-24 06:12 | Day surgery (SDC) | payer MEDICARE ==
[2017-04-24] VITALS (12 sets, daily range): BP systolic 120–145; BP diastolic 61–80; PULSE 78–116; RESP 16–20; TEMP 97.5–98.2; O2SAT 90–99
[~2017-04-24] VITALS: Ht 157.5 cm; Wt 54.1 kg
[2017-04-24] MEDS ORDERED: SODIUM CHLORIDE 2 ML FLUSH PRN IV FLUSH (07:00)
[2017-04-24] MEDS ORDERED: IMPLANTED VASCULAR ACCESS DEVICE/PORT - SODIUM CHLORIDE FLUSH PRN IV FLUSH (07:00)
[2017-04-24] MEDS ORDERED: IMPLANTED VASCULAR ACCESS DEVICE/PORT - SODIUM CHLORIDE FLUSH IV FLUSH SCH (07:00)
[2017-04-24] MEDS ORDERED: SODIUM CHLOR 0.9% 1000 ML IV SCH (07:00)
[2017-04-24 07:32] LABS: PROTHROMBIN TIME - PATIENT 10.6 SEC (9.8-11.6)
[2017-04-24] MEDS ORDERED: LIDOCAINE HCL 1% 20 ML VIAL ONE (08:07)
[2017-04-24] MEDS ORDERED: MIDAZOLAM HCL 2 MG/2 ML VIAL ONE ×2 (08:29→08:30)
[2017-04-24] MEDS ORDERED: SODIUM CHLORIDE 2 ML FLUSH BID IV FLUSH SCH (09:00)
--- NOTE | 2017-04-24 09:23 | RADRPT ---
EXAM DATE/TIME: 04/24/2017 08:39 [facility] COMPARISON: No previous studies available for comparison. INDICATIONS : Right lung mass. SEDATION TIME: 30 minutes BIOPSY SITE: Right MEDICATION(S): 1.) 1.5 mg midazolam (Versed) IV 2.) 75 mcg fentanyl (Sublimaze) IV DEVICE(S): 1.) 20 gauge Temno core biopsy needle MEDICAL HISTORY : Cerebrovascular disease. Chronic obstructive pulmonary disease. SURGICAL HISTORY : Lobectomy. ENCOUNTER: Initial ACUITY: 1 day PAIN SCORE: 0/10 LOCATION: Right chest A total of one core specimen(s) were obtained and sent to the laboratory for pathologic evaluation. PROCEDURE: 1. CT guided lung biopsy. 2. Conscious sedation with continuous EKG and oximetry monitoring. 3. EKG and oximetry remained stable throughout the procedure. Prior to the procedure informed consent was obtained. Any appropriate prior imaging studies were rev iewed. Using automated exposure control and adjustment of the mA and/or kV according to patient size, radiation dose was kept as low as reasonably achievable to obtain optimal diagnostic quality images. DICOM format image data is available electronically for review and comparison. The site was prepped in a sterile fashion. Full sterile technique was used, including cap, mask, patti rile gloves and gown and a large sterile sheet. Hand hygiene and 2% chlorhexidine and/or betadine/al cohol prep was utilized per protocol for cutaneous antisepsis. The skin and subcutaneous tissues wer e infiltrated with local anesthetic solution. With CT guidance the previously identified target was localized. Biopsy was performed using the presc ribed needle as above. Adequate hemostasis was obtained with compression at the puncture site. Follow-up CT scan reveals a tiny pneumothorax. Conscious sedation was performed with the prescribed dosages and duration as above in the presence of an independent trained radiology nurse to assist in the monitoring of the patient. EKG and oximetry remained stable throughout the procedure. The patient tolerated the procedure well and there were no complications. The patient was sent to Radiology Outpatient Unit in stable condition. CONCLUSION: Successful CT guided biopsy with tiny postbiopsy pneumothorax noted. Jorge Saunders MD on April 24, 2017 at 9:19 Board Certified Radiologist. This report was verified electronically.
--- NOTE | 2017-04-24 09:32 | RADRPT ---
EXAM DATE/TIME: 04/24/2017 09:08 [facility] COMPARISON: CT NEEDLE BIOPSY LUNG, RIGHT, April 24, 2017, 8:39. CHEST EXPIRATION ONLY, May 30, 2016, 10:56. INDICATIONS : Post right lung biopsy. MEDICAL HISTORY : Chronic obstructive pulmonary disease. Cerebrovascular disease. Carcinoma, lung. SURGICAL HISTORY : Right breast surgery, lobectomy, infusaport ENCOUNTER: Subsequent ACUITY: 1 day PAIN SCORE: 0/10 LOCATION: Right chest FINDINGS: The tiny right pneumothorax identified on the post biopsy CT scan is not well-visualized on the plain chest x-ray. Left basilar patchiness is noted consistent with infiltrate. Right upper lobe mass is n oted. Right internal jugular Ipahht-t-Pijm has its tip in the superior vena cava. CONCLUSION: 1. Tiny right pneumothorax identified on the post biopsy CT scan is not well-visualized on plain ches t x-ray and is likely insignificant at this time. 2. Left basilar patchiness consistent with infiltrate. 3. Stable right upper lobe mass. Jorge Saunders MD on April 24, 2017 at 9:27 Board Certified Radiologist. This report was verified electronically.
--- NOTE | 2017-04-24 11:24 | RADRPT ---
EXAM DATE/TIME: 04/24/2017 11:03 [facility] COMPARISON: CT NEEDLE BIOPSY LUNG, RIGHT, April 24, 2017, 8:39. CHEST EXPIRATION ONLY, April 24, 2017, 9:0 8. INDICATIONS : Post lung biopsy evaluate for pneumothorax. MEDICAL HISTORY : Carcinoma, lung. SURGICAL HISTORY : Lobectomy. ENCOUNTER: Subsequent ACUITY: 1 day PAIN SCORE: 0/10 LOCATION: Right chest FINDINGS: The tiny pneumothorax identified on the post biopsy scan is difficult to identify on plain chest x-ra y but stable. Patchy consolidation within the left lung base is again noted. Right lung mass is stabl e the heart is stable. CONCLUSION: Tiny right pneumothorax is difficult to visualize but stable. Jorge Saunders MD on April 24, 2017 at 11:20 Board Certified Radiologist. This report was verified electronically.
== END 2017-04-24 13:30 | disposition home or self-care (01) ==
LOC: HRAD 06:12 → HRIP 06:14 → HRAD 13:30
PROVIDERS: ATTEND Internal Medicine Hematology & Oncology
DX: C34.12 Malignant neoplasm of upper lobe, left bronchus or lung (principal); J44.9 Chronic obstructive pulmonary disease, unspecified; Z79.02 Long term (current) use of antithrombotics/antiplatelets
CPT/HCPCS: 32405; 71045; 77012; 85610; 85730; 88305; J2250; J3010

== ENCOUNTER 2017-06-05 13:34 | Observation (INO) | payer MEDICARE ==
[2017-06-05] VITALS (7 sets, daily range): BP systolic 121–168; BP diastolic 63–80; PULSE 98–132; RESP 14–18; TEMP 97.9–98.8; O2SAT 94–100
[~2017-06-05] VITALS: Ht 157.5 cm; Wt 51.8 kg
[~2017-06-05 13:34] MED LIST changes: -ASPI-516 CHEW; -CHOL1CHW5 CHEW; -CLOB0.055 TOPICAL; -FISHCAP4 PO; -MAGICADU2 SWISH-SWAL; -UMEC1INH INH; -VITA400C2 PO
[2017-06-05] MEDS ORDERED: IOHEXOL 350 MG/ML 10 ML VIAL (for RAD DIAG) IVCONTRAST ONE (13:35)
[2017-06-05] MEDS ORDERED: IODIXANOL 320 MG/ML 10 ML VIAL (for Rad CT) IVCONTRAST ONE (13:35)
[2017-06-05] MEDS ORDERED: UMEC1INH INH (14:22)
[2017-06-05] MEDS ORDERED: SYMBICORT (14:22)
[2017-06-05] MEDS ORDERED: HYDR-3580 PO (14:22)
[2017-06-05] MEDS ORDERED: NAPR220C22 PO (14:22)
[2017-06-05] MEDS ORDERED: SODIUM CHLOR 0.9% 1000 ML INJ 1,000 ML IV ONE (14:30)
[2017-06-05 15:04] LABS: AUTOMATED NEUTROPHIL # 8.8 TH/MM3 (1.8-7.7); BASOPHIL % 0.2 % (0.0-2.0); HEMATOCRIT 30.1 % (35.0-46.0); LYMPH % 4.6 % (9.0-44.0); LYMPHOCYTE # 0.5 TH/MM3 (1.0-4.8); MEAN CELL VOLUME 86.6 FL (80.0-100.0); MEAN CORPUSCULAR HEMOGLOBIN 28.7 PG (27.0-34.0); MEAN CORPUSCULAR HGB CONC 33.2 % (32.0-36.0); MONO % 6.9 % (0.0-8.0); MONOCYTE # 0.8 TH/MM3 (0-0.9); NEUT % 79.3 % (16.0-70.0); PLATELET COUNT 377 TH/MM3 (150-450); RED BLOOD COUNT 3.48 MIL/MM3 (4.00-5.30); RED CELL DISTRIBUTION WIDTH 16.2 % (11.6-17.2); WHITE BLOOD COUNT 11.1 TH/MM3 (4.0-11.0)
--- NOTE | 2017-06-05 15:06 | RADRPT ---
EXAM DATE/TIME: 06/05/2017 14:25 [facility] COMPARISON: CHEST EXPIRATION ONLY, April 24, 2017, 11:03. INDICATIONS : Short of breath for a few days. Patient sent to the emergency room for cardiac evaluation. MEDICAL HISTORY : Carcinoma, lung. SURGICAL HISTORY : Left lung lobectomy. Infusaport. ENCOUNTER: Initial ACUITY: 1 day PAIN SCORE: 2/10 LOCATION: Bilateral chest FINDINGS: Patchy coarse bilateral interstitial and alveolar infiltrates are present. There is persistent elevat ion of the left diaphragm. Visualized cardiac contours are grossly unchanged. Right chest port cathet er is present. CONCLUSION: Diffuse infiltrates. Larry Salvador MD on June 05, 2017 at 15:03 Board Certified Radiologist. This report was verified electronically.
--- NOTE | 2017-06-05 15:14 | PD ---
HPI Chief Complaint: Medical Clearance Time Seen by Provider: 14:05 Travel History International Travel<30 days: No Contact w/Intl Traveler<30days: No Traveled to known affect area: No History of Present Illness HPI 76-year-old female that presents to the ED for evaluation of hypotension. Patient has had hypotension today. Per patient she has a significant history of stage IV lung cancer. She is taking chemotherapy every 2 weeks. Per patient she lost her chemotherapy last week. She denies any changes in bowel movement or urinating. She denies any chest pain but she does have some chronic shortness of breath. She denies any injuries or falls. Per patient she went to the pain management today and then noticed that her blood pressure was low in the 80s systolic. She was brought here for evaluation. Per patient she does state that she has some dizziness with standing. She denies any urinary or bowel movement issues. She states that she does take a blood thinner. Allergy to shellfish. Has not seen anybody for this. Follows with her oncologist. Denies any surgeries to her chest. Per patient she's getting the chemotherapy for palliative care to prolong her life more than curative. She denies any other medical issues at this time. 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) Neurologic: No Psychiatric: No Reproductive: No Respiratory: Yes (LUNG CANCER, COPD) Immunizations Current: Yes Migraines: No Radiation Therapy: Yes Renal Failure: No Seizures: No Sleep Apnea: No Thyroid Disease: No Ulcer: No Tetanus Vaccination: > 5 Years Influenza Vaccination: No Menopausal: No Past Surgical History Abdominal Surgery: No AICD: No Arteriovenous Shunt: No Cardiac Surgery: No Ear Surgery: No Endocrine Surgery: No Eye Surgery: Yes (CATARACTS) Genitourinary Surgery: No Gynecologic Surgery: No Insulin Pump: No Joint Replacement: No Oral Surgery: No Pacemaker: No Thoracic Surgery: Yes (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) Other Surgery: Yes (R UPPER CHEST PORT) Social History Alcohol Use: Yes (2 DRINKS PER MONTH, WINE/LIQUOR) Tobacco Use: No (quit 09/2012) Substance Use: No Allergies-Medications (Allergen,Severity, Reaction): Coded Allergies: shellfish derived (Verified Allergy, Unknown, Hives, 04/24/17) Reported Meds & Prescriptions Reported Meds & Active Scripts Active Plavix (Clopidogrel Bisulfate) 75 Mg Tab 75 Mg PO DAILY Reported [Symbicort Neb] 3 Ml NEB BID Formoterol 12mcg/Budesonide 0.5mg/3ml Incruse Ellipta Inh (Umeclidinium [place] Inh) 0.0625 Mg/Act Inh 1 Puff INH DAILY Hydrocodone-Acetaminophen 7.5 Mg-325 Mg Tab 1 Tab PO BID PRN Aleve (Naproxen Sodium) 220 Mg Capsule 220 Mg PO BID Atorvastatin (Atorvastatin Calcium) 20 Mg Tab 20 Mg PO MOWEFR Take 1 tablet (20mg) at bedtime on Saturday,Saturday and Saturday Cymbalta DR (Duloxetine HCl) 20 Mg Capdr 40 Mg PO DAILY Ventolin Hfa 18 GM Inh (Albuterol Sulfate) 90 Mcg/Act Aer 1-2 Puff INH Q4-6H PRN Review of Systems Except as stated in HPI: all other systems reviewed are Neg Physical Exam Narrative GENERAL: SKIN: Warm and dry. Patient has a port noted on the right upper chest HEAD: Atraumatic. Normocephalic. EYES: Pupils equal and round. No scleral icterus. No injection or drainage. ENT: No nasal bleeding or discharge. Mucous membranes pink and moist. Tongue is midline. No uvula deviation. NECK: Trachea midline. No JVD. CARDIOVASCULAR: Regular rate and rhythm. No murmurs, S3, S4. RESPIRATORY: No accessory muscle use. Clear to auscultation. Breath sounds equal bilaterally. GASTROINTESTINAL: Abdomen soft, non-tender, nondistended. Hepatic and splenic margins not palpable. MUSCULOSKELETAL: Extremities without clubbing, cyanosis, or edema. No obvious deformities. Full range of motion of the upper and lower extremity is bilaterally. 2+ pulses bilaterally. NEUROLOGICAL: Awake and alert. No obvious cranial nerve deficits. Motor grossly within normal limits. Five out of 5 muscle strength in the arms and legs. Normal speech. PSYCHIATRIC: Appropriate mood and affect; insight and judgment normal. Data Data Last Documented VS Vital Signs Date Time Temp Pulse Resp B/P (MAP) Pulse Ox O2 Delivery O2 Flow Rate FiO2 06/05/17 17:59 96 Nasal Cannula 2.00 06/05/17 17:57 81 16 101 16 105 18 06/05/17 13:40 97.9 Orders Orders Complete Blood Count With Diff (06/05/17 13:44) Comprehensive Metabolic Panel (06/05/17 13:44) B-Type Natriuretic Peptide (06/05/17 13:44) Act Partial Throm Time (Ptt) (06/05/17 13:44) Prothrombin Time / Inr (Pt) (06/05/17 13:44) Magnesium (Mg) (06/05/17 13:44) Electrocardiogram (06/05/17 13:44) Chest, Pa & Lat (06/05/17 13:44) Troponin I (06/05/17 14:16) Urinalysis - C+S If Indicated (06/05/17 14:16) Thyroid Stimulating Hormone (06/05/17 14:16) Ct Brain W/O Iv Contrast(Rout) (06/05/17 14:16) Sodium Chlor 0.9% 1000 Ml Inj (Ns 1000 M (06/05/17 14:30) Ecg Monitoring (06/05/17 14:16) Oximetry (06/05/17 14:16) Orthostatic Vital Signs (06/05/17 14:19) Ct Pulmonary Angiogram (06/05/17 ) Iodixanol 320 Inj (Rad Ct) (Visipaque 32 (06/05/17 13:35) Furosemide Inj (Lasix Inj) (06/05/17 18:45) Admit Order (Ed Use Only) (06/05/17 18:32) Labs Laboratory Tests Test 06/05/17 14:27 06/05/17 16:40 White Blood Count 11.1 TH/MM3 Red Blood Count 3.48 MIL/MM3 Hemoglobin 10.0 GM/DL Hematocrit 30.1 % Mean Corpuscular Volume 86.6 FL Mean Corpuscular Hemoglobin 28.7 PG Mean Corpuscular Hemoglobin Concent 33.2 % Red Cell Distribution Width 16.2 % Platelet Count 377 TH/MM3 Mean Platelet Volume 8.0 FL Neutrophils (%) (Auto) 79.3 % Lymphocytes (%) (Auto) 4.6 % Monocytes (%) (Auto) 6.9 % Eosinophils (%) (Auto) 9.0 % Basophils (%) (Auto) 0.2 % Neutrophils # (Auto) 8.8 TH/MM3 Lymphocytes # (Auto) 0.5 TH/MM3 Monocytes # (Auto) 0.8 TH/MM3 Eosinophils # (Auto) 1.0 TH/MM3 Basophils # (Auto) 0.0 TH/MM3 CBC Comment DIFF FINAL Differential Comment Prothrombin Time 11.4 SEC Prothromb Time International Ratio 1.1 RATIO Activated Partial Thromboplast Time 29.3 SEC Blood Urea Nitrogen 26 MG/DL Creatinine 1.27 MG/DL Random Glucose 83 MG/DL Total Protein 7.8 GM/DL Albumin 2.9 GM/DL Calcium Level 9.1 MG/DL Magnesium Level 1.7 MG/DL Alkaline Phosphatase 111 U/L Aspartate Amino Transf (AST/SGOT) 19 U/L Alanine Aminotransferase (ALT/SGPT) 19 U/L Total Bilirubin 0.3 MG/DL Sodium Level 136 MEQ/L Potassium Level 4.2 MEQ/L Chloride Level 102 MEQ/L Carbon Dioxide Level 22.6 MEQ/L Anion Gap 11 MEQ/L Estimat Glomerular Filtration Rate 41 ML/MIN Troponin I LESS THAN 0.02 NG/ML B-Type Natriuretic Peptide 123 PG/ML Thyroid Stimulating Hormone 3rd Gen 3.300 uIU/ML Urine Color YELLOW Urine Turbidity CLEAR Urine pH 5.5 Urine Specific [place] 1.015 Urine Protein 30 mg/dL Urine Glucose (UA) NEG mg/dL Urine Ketones NEG mg/dL Urine Occult Blood NEG Urine Nitrite NEG Urine Bilirubin NEG Urine Urobilinogen LESS THAN 2.0 MG/DL Urine Leukocyte Esterase NEG Urine RBC 1 /hpf Urine WBC 1 /hpf Urine Hyaline Casts 10 /lpf Urine Mucus FEW /lpf Microscopic Urinalysis Comment CULT NOT INDICATED MDM Medical Decision Making Medical Screen Exam Complete: Yes Emergency Medical Condition: Yes Medical Record Reviewed: Yes Interpretation(s) CBC & BMP Diagram 06/05/17 14:27 Total Protein 7.8, Albumin 2.9 L, Calcium Level 9.1, Magnesium Level 1.7, Alkaline Phosphatase 111, Aspartate Amino Transf (AST/SGOT) 19, Alanine Aminotransferase (ALT/SGPT) 19, Total Bilirubin 0.[address] 06/05/17 1416 Signed Impressions: Service Date/Time: Monday, June 05, 2017 14:43 - CONCLUSION: Negative for an acute process. Kenroy Quiñonez MD FACR Chest X-Ray 06/05/17 1344 Signed Impressions: Service Date/Time: Monday, June 05, 2017 14:25 - CONCLUSION: Diffuse infiltrates. Larry Salvador MD CT Angiography 06/05/17 0000 Signed Impressions: Service Date/Time: Monday, June 05, 2017 17:12 - CONCLUSION: Coarse interstitial changes both lungs with minimal consolidation on the right. Moderate left pleural effusion. This probably represents congestive failure superimposed over chronic fibrosis. Patient with history of stem cell carcinoma of the lung. Negative for central pulmonary emboli Kenroy Quiñonez MD FACR BNP in the 100s EKG shows sinus rhythm with no sign of acute ischemia or arrythmia read by me and attending. troponin and CKMB negative Differential Diagnosis Hypotension versus sepsis versus lung cancer versus electron normality versus dizziness versus lightheadedness versus ACS versus lung mass versus chronic disease Narrative Course 76-year-old female that presents to the ED for evaluation of hypotension. Patient was properly examined and was found to have signs and symptoms consistent with hypotension. Here her blood pressure has been normal. Unclear if this is just an abnormal reemerges dehydration or something else. She does have significant disease. Labs and imaging were ordered. She was given IV fluids. Labs and imaging showed appears to be left chest pleural effusion. It was unremarkable. Patient's blood pressure here has been fine except she's been found to be very hypoxic on exam. Without oxygen she desatted in the late 80s early 90s. Patient was put on oxygen with improvement of saturation but still feels short of breath. Unclear as to the reason of the hypotension. Likely related to the cancer versus dehydration. Her blood work does not show severe the hydration if anything. He recommended admission for further eval. My attending Dr. Milner evaluated the patient and agrees with plan. Patient was admitted to [facility] after Dr Galicia agreed to admission. Diagnosis Primary Impression: Pulmonary edema Qualified Codes: J81.0 - Acute pulmonary edema Additional Impressions: Hypotension Qualified Codes: I95.9 - Hypotension, unspecified Hypoxia Lung cancer Qualified Codes: C34.80 - Malignant neoplasm of overlapping sites of unspecified bronchus and lung Admitting Information Admitting Physician Requests: Silvestre Ronquillo Jun 05, 2017 15:14
--- NOTE | 2017-06-05 15:21 | RADRPT ---
EXAM DATE/TIME: 06/05/2017 14:43 [facility] COMPARISON: CT BRAIN W/O CONTRAST, August 11, 2016, 5:57. INDICATIONS : Low blood pressure RADIATION DOSE: 56.35 CTDIvol (mGy) MEDICAL HISTORY : Carcinoma, lung. Emphysema. SURGICAL HISTORY : None. ENCOUNTER: Initial ACUITY: 1 day PAIN SCALE: 0/10 LOCATION: cranial TECHNIQUE: Multiple contiguous axial images were obtained of the head. Using automated exposure control and adj ustment of the mA and/or kV according to patient size, radiation dose was kept as low as reasonably a chievable to obtain optimal diagnostic quality images. DICOM format image data is available electro nically for review and comparison. FINDINGS: CEREBRUM: The ventricles are normal for age. No evidence of midline shift, mass lesion, hemorrhage or acute in farction. No extra-axial fluid collections are seen. POSTERIOR FOSSA: The cerebellum and brainstem are intact. The 4th ventricle is midline. The cerebellopontine angle i s unremarkable. EXTRACRANIAL: The visualized portion of the orbits is intact. SKULL: The calvaria is intact. No evidence of skull fracture. CONCLUSION: Negative for an acute process. Kenroy Quiñonez MD FACR on June 05, 2017 at 15:18 Board Certified Radiologist. This report was verified electronically.
[2017-06-05 15:26] LABS: TROPONIN I LESS THAN 0.02 NG/ML (0.02-0.05)
[2017-06-05 15:28] LABS: INTERNATIONAL NORMALIZED RATIO 1.1 RATIO; PROTHROMBIN TIME - PATIENT 11.4 SEC (9.8-11.6)
[2017-06-05 16:49] LABS: ALBUMIN 2.9 GM/DL (3.4-5.0); ALT (GPT) 19 U/L (10-53); AST (GOT) 19 U/L (15-37); BICARBONATE 22.6 MEQ/L (21.0-32.0); BLOOD UREA NITROGEN 26 MG/DL (7-18); CALCIUM 9.1 MG/DL (8.5-10.1); CHLORIDE 102 MEQ/L (98-107); CREATININE 1.27 MG/DL (0.50-1.00); GLOMERULAR FILTRATION RATE 41 ML/MIN (>89); GLUCOSE,RANDOM 83 MG/DL (74-106); MAGNESIUM 1.7 MG/DL (1.5-2.5); SODIUM (NA) 136 MEQ/L (136-145)
[2017-06-05 16:52] LABS: ALKALINE PHOSPHATASE 111 U/L (45-117); TOTAL BILIRUBIN ADULT 0.3 MG/DL (0.2-1.0); TOTAL PROTEIN 7.8 GM/DL (6.4-8.2)
[2017-06-05 17:20] LABS: BILIRUBIN, URINE NEG (NEG); BLOOD, URINE NEG (NEG); GLUCOSE,URINE NEG (NEG); HYALINE CAST, URINE 10 /lpf (RARE); KETONE, URINE NEG (NEG); MUCUS URINE FEW /lpf (OCC); NITRITE,URINE NEG (NEG); PH, URINE 5.5 (5.0-8.5); URINE COLOR YELLOW (YELLW/STRAW); URINE LEUKOCYTE ESTERASE NEG (NEG)
--- NOTE | 2017-06-05 17:37 | RADRPT ---
EXAM DATE/TIME: 06/05/2017 17:12 [place] COMPARISON: No previous studies available for comparison. INDICATIONS : Low blood pressure and cough IV CONTRAST: 65 cc Visipaque (iodixanol) IV RADIATION DOSE: 6.10 CTDIvol (mGy) MEDICAL HISTORY : Chronic obstructive pulmonary disease. Carcinoma, lung. SURGICAL HISTORY : None. ENCOUNTER: Initial ACUITY: 1 day PAIN SCALE: 0/10 LOCATION: chest TECHNIQUE: Volumetric scanning of the chest was performed using a pulmonary embolism protocol MIP images were re constructed. Using automated exposure control and adjustment of the mA and/or kV according to patien t size, radiation dose was kept as low as reasonably achievable to obtain optimal diagnostic quality images. DICOM format image data is available electronically for review and comparison. Follow-up recommendations for detected pulmonary nodules are based at a minimum on nodule size and pa tient risk factors according to Fleischner Society Guidelines. FINDINGS: Course interstitial changes are seen throughout both lungs with moderate left pleural effusion. Ther e is no axillary adenopathy. Moderate mediastinal adenopathy is present. There is no central pulmon isabella emboli. Moderate coronary calcifications are noted. Trace pericardial effusion is evident. Deg enerative changes are present thoracic spine. CONCLUSION: Coarse interstitial changes both lungs with minimal consolidation on the right. Moderate left pleural effusion. This probably represents congestive failure superimposed over chronic fibrosis. Patient with history of stem cell carcinoma of the lung. Negative for central pulmonary emboli Kenroy Quiñonez MD FACR on June 05, 2017 at 17:32 Board Certified Radiologist. This report was verified electronically.
--- NOTE | 2017-06-05 17:57 | PD ---
Physical Exam Narrative I, Dr. Milner, have reviewed the advance practice practitioner's documentation and am in agreement, met with the patient face to face, made the diagnosis, and the medical decision making was done by me. *My assessment and Findings: Patient is a 76 year old female with history of stage IV lung cancer who comes in from pain management due to hypoxia and hypotension. She does not wear oxygen at home, but is requiring it today. She says she is short of breath, but she has been short of breath since being diagnosed with the cancer. She denies any chest pain. Exam shows crackles to the right lung. Data Data Last Documented VS Vital Signs Date Time Temp Pulse Resp B/P (MAP) Pulse Ox O2 Delivery O2 Flow Rate FiO2 06/05/17 16:11 98 18 121/65 (83) 100 Nasal Cannula 3.00 06/05/17 13:40 97.9 Orders Orders Complete Blood Count With Diff (06/05/17 13:44) Comprehensive Metabolic Panel (06/05/17 13:44) B-Type Natriuretic Peptide (06/05/17 13:44) Act Partial Throm Time (Ptt) (06/05/17 13:44) Prothrombin Time / Inr (Pt) (06/05/17 13:44) Magnesium (Mg) (06/05/17 13:44) Electrocardiogram (06/05/17 13:44) Chest, Pa & Lat (06/05/17 13:44) Troponin I (06/05/17 14:16) Urinalysis - C+S If Indicated (06/05/17 14:16) Thyroid Stimulating Hormone (06/05/17 14:16) Ct Brain W/O Iv Contrast(Rout) (06/05/17 14:16) Sodium Chlor 0.9% 1000 Ml Inj (Ns 1000 M (06/05/17 14:30) Ecg Monitoring (06/05/17 14:16) Oximetry (06/05/17 14:16) Orthostatic Vital Signs (06/05/17 14:19) Ct Pulmonary Angiogram (06/05/17 ) Iodixanol 320 Inj (Rad Ct) (Visipaque 32 (06/05/17 13:35) Labs Laboratory Tests Test 06/05/17 14:27 06/05/17 16:40 White Blood Count 11.1 TH/MM3 Red Blood Count 3.48 MIL/MM3 Hemoglobin 10.0 GM/DL Hematocrit 30.1 % Mean Corpuscular Volume 86.6 FL Mean Corpuscular Hemoglobin 28.7 PG Mean Corpuscular Hemoglobin Concent 33.2 % Red Cell Distribution Width 16.2 % Platelet Count 377 TH/MM3 Mean Platelet Volume 8.0 FL Neutrophils (%) (Auto) 79.3 % Lymphocytes (%) (Auto) 4.6 % Monocytes (%) (Auto) 6.9 % Eosinophils (%) (Auto) 9.0 % Basophils (%) (Auto) 0.2 % Neutrophils # (Auto) 8.8 TH/MM3 Lymphocytes # (Auto) 0.5 TH/MM3 Monocytes # (Auto) 0.8 TH/MM3 Eosinophils # (Auto) 1.0 TH/MM3 Basophils # (Auto) 0.0 TH/MM3 CBC Comment DIFF FINAL Differential Comment Prothrombin Time 11.4 SEC Prothromb Time International Ratio 1.1 RATIO Activated Partial Thromboplast Time 29.3 SEC Blood Urea Nitrogen 26 MG/DL Creatinine 1.27 MG/DL Random Glucose 83 MG/DL Total Protein 7.8 GM/DL Albumin 2.9 GM/DL Calcium Level 9.1 MG/DL Magnesium Level 1.7 MG/DL Alkaline Phosphatase 111 U/L Aspartate Amino Transf (AST/SGOT) 19 U/L Alanine Aminotransferase (ALT/SGPT) 19 U/L Total Bilirubin 0.3 MG/DL Sodium Level 136 MEQ/L Potassium Level 4.2 MEQ/L Chloride Level 102 MEQ/L Carbon Dioxide Level 22.6 MEQ/L Anion Gap 11 MEQ/L Estimat Glomerular Filtration Rate 41 ML/MIN Troponin I LESS THAN 0.02 NG/ML B-Type Natriuretic Peptide 123 PG/ML Thyroid Stimulating Hormone 3rd Gen 3.300 uIU/ML Urine Color YELLOW Urine Turbidity CLEAR Urine pH 5.5 Urine Specific [place] 1.015 Urine Protein 30 mg/dL Urine Glucose (UA) NEG mg/dL Urine Ketones NEG mg/dL Urine Occult Blood NEG Urine Nitrite NEG Urine Bilirubin NEG Urine Urobilinogen LESS THAN 2.0 MG/DL Urine Leukocyte Esterase NEG Urine RBC 1 /hpf Urine WBC 1 /hpf Urine Hyaline Casts 10 /lpf Urine Mucus FEW /lpf Microscopic Urinalysis Comment CULT NOT INDICATED MDM Supervised Visit with LAURY: Yes Narrative Course Labs sent show no acute abnormalities. CTA chest shows pulmonary edema, possible CHF. Last [address] 06/05/17 1416 Signed Impressions: Service Date/Time: Monday, June 05, 2017 14:43 - CONCLUSION: Negative for an acute process. Kenroy Quiñonez MD FACR Chest X-Ray 06/05/17 1344 Signed Impressions: Service Date/Time: Monday, June 05, 2017 14:25 - CONCLUSION: Diffuse infiltrates. Larry Salvador MD CT Angiography 06/05/17 0000 Signed Impressions: Service Date/Time: Monday, June 05, 2017 17:12 - CONCLUSION: Coarse interstitial changes both lungs with minimal consolidation on the right. Moderate left pleural effusion. This probably represents congestive failure superimposed over chronic fibrosis. Patient with history of stem cell carcinoma of the lung. Negative for central pulmonary emboli Kenroy Quiñonez MD FACR Patient will be admitted for further management, possible new onset CHF. Diagnosis Primary Impression: Pulmonary edema Qualified Codes: J81.0 - Acute pulmonary edema Admitting Information Admitting Physician Requests: Admit Ophelia Milner MD Jun 05, 2017 17:57
[2017-06-05] MEDS ORDERED: FUROSEMIDE 20 MG/2 ML VIAL IV PUSH ONE (18:45)
--- NOTE | 2017-06-05 19:28 | EKG ---
Date Performed: 06/05/2017 Time Performed: 14:18:13 PTAGE: 76 years EKG: Sinus rhythm POSSIBLE LEFT ATRIAL ENLARGEMENT BORDERLINE LEFT AXIS DEVIATION RIGHT BUNDLE BRANCH BLOCK ABNORMAL E CG No significant change from prior electrocardiogram. PREVIOUS TRACING : 08/10/2016 17.15 DOCTOR: Be Tam Interpretating Date/Time 06/05/2017 19:27:36
--- NOTE | 2017-06-05 21:45 | HHI.HP ---
HPI Service [facility] Hospitalists Primary Care Physician Amaya Cabello MD Admission Diagnosis left pleural effusion, hypoxia, hypotension, CHF? Chief Complaint: Dyspnea, low BP at pain mgmt office Travel History International Travel<30 Days: No Contact w/Intl Traveler <30 Da: No Traveled to Known Affected Are: No History of Present Illness 76-year-old female that presents to the ED for evaluation of hypotension. Patient has had hypotension today as noted at her pain management physicians office. Per patient she has a significant history of stage IV lung cancer. She is taking chemotherapy every 2 weeks. Per patient she lost her chemotherapy last week. She denies any changes in bowel movement or urinating. She denies any chest pain but she does have some chronic shortness of breath which has not significantly changed. She denies any injuries or falls. Per patient she went to the pain management today and then noticed that her blood pressure was low in the 80s systolically. Review of vitals from actual pain management visit demonstrated that her systolic pressure range from 74-94 and diastolic range from 48-69 with a heart rate in the 1 teens and her O2 saturation ranging from 78-93%. She was brought here for evaluation. Per patient she does state that she has some dizziness with standing from seated position. She states that she does take a blood thinner. Allergy to shellfish. Has not seen anybody for this. Follows with her oncologist regularly for her lung cancer. Denies any surgeries to her chest. Per patient she's getting the chemotherapy for palliative care to prolong her life more than curative. She denies any other medical issues at this time. She reports she actually feels better with the treatment she is received in the ER thus far. Review of Systems Constitutional: COMPLAINS OF: Fatigue, Weight loss Eyes: DENIES: Blurred vision, Diplopia, Eye inflammation, Eye pain, Vision loss , Photosensitivity, Double Vision Ears, nose, mouth, throat: DENIES: Tinnitus, Hearing loss, Vertigo, Nasal discharge, Oral lesions, Throat pain, Hoarseness, Ear Pain, Running Nose, Epistaxis, Sinus Pain, Toothache, Odynophagia Respiratory: COMPLAINS OF: Cough, Shortness of breath, DENIES: Apneas, Snoring , Wheezing, Hemoptysis, Sputum production Cardiovascular: DENIES: Chest pain, Palpitations, Syncope, Dyspnea on Exertion , PND, Lower Extremity Edema, Orthopnea, Claudication Gastrointestinal: DENIES: Abdominal pain, Black stools, Bloody stools, BRB per rectum, Constipation, Diarrhea, GERD, Nausea, Reflux, Vomiting, Difficulty Swallowing, Anorexia, See HPI Musculoskeletal: COMPLAINS OF: Joint pain, Back pain, DENIES: Muscle aches, Stiffness, Joint Swelling, Neck pain Hematologic/lymphatic: COMPLAINS OF: Bruising Neurologic: DENIES: Abnormal gait, Headache, Localized weakness, Paresthesias, Seizures, Speech Problems, Tremor, Poor Balance Psychiatric: COMPLAINS OF: Anxiety Past Family Social History Past Medical History Atherosclerosis of aorta Anxiety COPD 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 Hyperlipidemia Orthostatic dizziness Previous CVA Subclavian artery stenosis 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 with recurrence in March 2017 and noted lymphadenopathy and new right sided lung lesion Past Surgical History Fibroid tumor removed from right breast 1983 Left carotid endarterectomy 2017 Cataract surgery Robotic left lung upper lobectomy in 2015 Reported Medications Plavix (Clopidogrel Bisulfate) 75 Mg Tab 75 Mg PO DAILY [Symbicort Neb] 3 Ml NEB BID Formoterol 12mcg/Budesonide 0.5mg/3ml Incruse Ellipta Inh (Umeclidinium [place] Inh) 0.0625 Mg/Act Inh 1 Puff INH DAILY Hydrocodone-Acetaminophen 7.5 Mg-325 Mg Tab 1 Tab PO BID PRN Aleve (Naproxen Sodium) 220 Mg Capsule 220 Mg PO BID Atorvastatin (Atorvastatin Calcium) 20 Mg Tab 20 Mg PO MOWEFR Take 1 tablet (20mg) at bedtime on Saturday,Saturday and Saturday Cymbalta DR (Duloxetine HCl) 20 Mg Capdr 40 Mg PO DAILY Ventolin Hfa 18 GM Inh (Albuterol Sulfate) 90 Mcg/Act Aer 1-2 Puff INH Q4-6H PRN Allergies: Coded Allergies: shellfish derived (Verified Allergy, Unknown, Hives, 04/24/17) Family History nc Social History No tobacco in 1 year but prior to that smoked approximately 1 pack per day years Rarely drinks any alcohol Never and has no biological children Originally from [place] she moved to this area in 1988 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 Physical Exam Vital Signs Vital Signs Date Time Temp Pulse Resp B/P (MAP) Pulse Ox O2 Delivery O2 Flow Rate FiO2 3/21/18 17:59 96 Nasal Cannula 2.00 06/05/17 17:57 81 16 167/74 (105) 101 16 155/63 (93) 105 18 168/73 (104) 06/05/17 16:11 98 18 121/65 (83) 100 Nasal Cannula 3.00 06/05/17 13:40 97.9 107 18 129/69 (89) 94 Physical Exam GENERAL: This is a well-nourished, well-developed patient, in no apparent distress. Alert and oriented. SKIN: Cool and dry. Right upper chest with subcutaneous port noted. HEAD: Atraumatic. Normocephalic. No temporal or scalp tenderness. EYES: Pupils equal round and reactive. Extraocular motions intact. No scleral icterus. No injection or drainage. ENT: Nose without bleeding, purulent drainage or septal hematoma. Airway patent. NECK: Trachea midline. No JVD or lymphadenopathy. Supple, nontender, no meningeal signs. CARDIOVASCULAR: Regular rate and rhythm without murmurs, gallops, or rubs. RESPIRATORY: Slightly increased breath sounds left upper lobe. Diminished breath sounds left lower lobe. No wheezes, rales. Few fine crackles scattered throughout lung mackenzie. GASTROINTESTINAL: Abdomen soft, non-tender, nondistended. No hepato-splenomegaly , or palpable masses. No guarding. MUSCULOSKELETAL: Extremities without clubbing, cyanosis, or edema. No joint tenderness, effusion, or edema noted. No calf tenderness. NEUROLOGICAL: Awake and alert. Cranial nerves II through XII intact. Motor and sensory grossly within normal limits. Five out of 5 muscle strength in all muscle groups. Normal speech. Laboratory Laboratory Tests Test 06/05/17 14:27 06/05/17 16:40 White Blood Count 11.1 Red Blood Count 3.48 Hemoglobin 10.0 Hematocrit 30.1 Mean Corpuscular Volume 86.6 Mean Corpuscular Hemoglobin 28.7 Mean Corpuscular Hemoglobin Concent 33.2 Red Cell Distribution Width 16.2 Platelet Count 377 Mean Platelet Volume 8.0 Neutrophils (%) (Auto) 79.3 Lymphocytes (%) (Auto) 4.6 Monocytes (%) (Auto) 6.9 Eosinophils (%) (Auto) 9.0 Basophils (%) (Auto) 0.2 Neutrophils # (Auto) 8.8 Lymphocytes # (Auto) 0.5 Monocytes # (Auto) 0.8 Eosinophils # (Auto) 1.0 Basophils # (Auto) 0.0 CBC Comment DIFF FINAL Differential Comment Prothrombin Time 11.4 Prothromb Time International Ratio 1.1 Activated Partial Thromboplast Time 29.3 Blood Urea Nitrogen 26 Creatinine 1.27 Random Glucose 83 Total Protein 7.8 Albumin 2.9 Calcium Level 9.1 Magnesium Level 1.7 Alkaline Phosphatase 111 Aspartate Amino Transf (AST/SGOT) 19 Alanine Aminotransferase (ALT/SGPT) 19 Total Bilirubin 0.3 Sodium Level 136 Potassium Level 4.2 Chloride Level 102 Carbon Dioxide Level 22.6 Anion Gap 11 Estimat Glomerular Filtration Rate 41 Troponin I LESS THAN 0.02 B-Type Natriuretic Peptide 123 Thyroid Stimulating Hormone 3rd Gen 3.300 Urine Color YELLOW Urine Turbidity CLEAR Urine pH 5.5 Urine Specific [place] 1.015 Urine Protein 30 Urine Glucose (UA) NEG Urine Ketones NEG Urine Occult Blood NEG Urine Nitrite NEG Urine Bilirubin NEG Urine Urobilinogen LESS THAN 2.0 Urine Leukocyte Esterase NEG Urine RBC 1 Urine WBC 1 Urine Hyaline Casts 10 Urine Mucus FEW Microscopic Urinalysis Comment CULT NOT INDICATED Result Diagram: 06/05/17 1427 06/05/17 1427 Imaging Last [address] 06/05/17 1416 Signed Impressions: Service Date/Time: Monday, June 05, 2017 14:43 - CONCLUSION: Negative for an acute process. Kenroy Quiñonez MD FACR Chest X-Ray 06/05/17 1344 Signed Impressions: Service Date/Time: Monday, June 05, 2017 14:25 - CONCLUSION: Diffuse infiltrates. Larry Salvador MD CT Angiography 06/05/17 0000 Signed Impressions: Service Date/Time: Monday, June 05, 2017 17:12 - CONCLUSION: Coarse interstitial changes both lungs with minimal consolidation on the right. Moderate left pleural effusion. This probably represents congestive failure superimposed over chronic fibrosis. Patient with history of stem cell carcinoma of the lung. Negative for central pulmonary emboli Kenroy Quiñonez MD FACR Caprini VTE Risk Assessment Caprini VTE Risk Assessment: Mod/High Risk (score >= 2) Caprini Risk Assessment Model Point Value = 1 Point Value = 2 Point Value = 3 Point Value = 5 Age 41-60 Minor surgery BMI > 25 kg/m2 Swollen legs Varicose veins or History of unexplained or recurrent spontaneous Oral contraceptives or hormone replacement Sepsis (< 1 month) Serious lung disease, including pneumonia (< 1 month) Abnormal pulmonary function Acute myocardial infarction Congestive heart failure (< 1 month) History of inflammatory bowel disease Medical patient at bed rest Age 61-74 Arthroscopic surgery Major open surgery (> 45 min) Laparoscopic surgery (> 45 min) Malignancy Confined to bed (> 72 hours) Immobilizing plaster cast Central venous access Age >= 75 History of VTE Family history of VTE Factor V Leiden Prothrombin [id number] Lupus anticoagulant Anticardiolipin antibodies Elevated serum homocysteine Heparin-induced thrombocytopenia Other congenital or acquired thrombophilia Stroke (< 1 month) Elective arthroplasty Hip, pelvis, or leg fracture Acute spinal cord injury (< 1 month) Prophylaxis Regimen Total Risk Factor Score Risk Level Prophylaxis Regimen 0-1 Low Early ambulation 2 Moderate Order ONE of the following: *Sequential Compression Device (SCD) *Heparin 5000 units SQ BID 3-4 Higher Order ONE of the following medications: *Heparin 5000 units SQ TID *Enoxaparin/Lovenox 40 mg SQ daily (WT < 150 kg, CrCl > 30 mL/min) *Enoxaparin/Lovenox 30 mg SQ daily (WT < 150 kg, CrCl > 10-29 mL/min) *Enoxaparin/Lovenox 30 mg SQ BID (WT < 150 kg, CrCl > 30 mL/min) AND/OR *Sequential Compression Device (SCD) 5 or more Highest Order ONE of the following medications: *Heparin 5000 units SQ TID (Preferred with Epidurals) *Enoxaparin/Lovenox 40 mg SQ daily (WT < 150 kg, CrCl > 30 mL/min) *Enoxaparin/Lovenox 30 mg SQ daily (WT < 150 kg, CrCl > 10-29 mL/min) *Enoxaparin/Lovenox 30 mg SQ BID (WT < 150 kg, CrCl > 30 mL/min) AND *Sequential Compression Device (SCD) Assessment and Plan Problem List: (1) Pleural effusion ICD Codes: J90 - Pleural effusion, not elsewhere classified Status: Acute Plan: Questionable etiology. She has no other findings of overt congestive heart failure. She has underlying lung cancer and this may represent a malignant effusion. She was somewhat hypoxic at pain management today and on arrival here. Her hypoxia is responded well to supplemental oxygen and she does have underlying COPD. No pulmonary embolus on CTA. We have provided a one -time dose of IV Lasix here to see if this may help with the effusion. If it does not she may need thoracentesis tomorrow. (2) COPD (chronic obstructive pulmonary disease) ICD Codes: J44.9 - Chronic obstructive pulmonary disease, unspecified Status: Chronic Plan: Relatively stable per patient report. We will continue home medications. Supplemental oxygen as needed. (3) Pulmonary edema ICD Codes: J81.1 - Chronic pulmonary edema Status: Acute Plan: As above. Questionable etiology. Echo from July 2016 demonstrates an EF of 55-60% with no wall motion abnormalities and only mild valve regurgitation noted. (4) Lung cancer ICD Codes: C34.90 - Malignant neoplasm of unspecified part of unspecified bronchus or lung Status: Acute Plan: Outpatient management per oncology. Involve them in the case if effusion does not resolve with low-dose Lasix. Code Status Full Discussed Condition With Patient and ER provider. Problem Qualifiers (1) Pulmonary edema: Qualified Codes: J81.0 - Acute pulmonary edema (2) Lung cancer: Qualified Codes: C34.80 - Malignant neoplasm of overlapping sites of unspecified bronchus and lung Pawan Galicia MD PhD Jun 05, 2017 21:45
[2017-06-05] MEDS ORDERED: RESP: ALBUTEROL 2.5 MG/IPRATROPIUM 0.5 MG NEB (PRN) NEB (22:00)
[2017-06-05] MEDS ORDERED: methylPREDNISolone SOD SUCC 40 MG/1 ML VIAL IV PUSH ONE (22:00)
[2017-06-05] MEDS ORDERED: PT:INCRUSE ELLIPTA INH SCH (22:15)
[2017-06-05] MEDS: ATORVASTATIN 20 MG TAB PO SCH (22:49)
[2017-06-05] MEDS: ACETAMINOPHEN/HYDROcodone 325 MG/7.5 MG TAB PO PRN (23:12)
[2017-06-06] VITALS (7 sets, daily range): BP systolic 98–121; BP diastolic 54–69; PULSE 81–101; RESP 16–20; TEMP 97.4–98.2; O2SAT 91–99
[2017-06-06 07:30] LABS: AUTOMATED NEUTROPHIL # 7.4 TH/MM3 (1.8-7.7); BASOPHIL % 0.2 % (0.0-2.0); EOSINOPHIL # 0.1 TH/MM3 (0-0.4); EOSINOPHIL % 0.9 % (0.0-4.0); HEMATOCRIT 28.2 % (35.0-46.0); HEMOGLOBIN 9.4 GM/DL (11.6-15.3); LYMPH % 5.3 % (9.0-44.0); LYMPHOCYTE # 0.4 TH/MM3 (1.0-4.8); MEAN CELL VOLUME 87.1 FL (80.0-100.0); MEAN CORPUSCULAR HGB CONC 33.2 % (32.0-36.0); MEAN PLATELET VOLUME 7.8 FL (7.0-11.0); MONO % 1.4 % (0.0-8.0); MONOCYTE # 0.1 TH/MM3 (0-0.9); NEUT % 92.2 % (16.0-70.0); PLATELET COUNT 320 TH/MM3 (150-450); RED BLOOD COUNT 3.24 MIL/MM3 (4.00-5.30); RED CELL DISTRIBUTION WIDTH 16.1 % (11.6-17.2); WHITE BLOOD COUNT 8.1 TH/MM3 (4.0-11.0)
[2017-06-06] MEDS: DULoxetine HCl DR 20 MG CAP PO SCH (09:53)
--- NOTE | 2017-06-06 10:52 | HHI.PR ---
Subjective Remarks Pt overall feels well today She has been walking to the bathroom without dizziness or difficulty She did urinate quite a bit since the Lasix last night but she is requiring supplemental O2 which she is not usually on at home. CXR for this morning is pending. Pt reports that she has been off her Plavix for 5 days because she often forgets to take it at home. Objective Vitals Vital Signs Date Time Temp Pulse Resp B/P (MAP) Pulse Ox O2 Delivery O2 Flow Rate FiO2 06/06/17 08:06 97.4 82 18 113/69 (84) 99 06/06/17 04:19 97.6 16 121/59 (79) 95 06/05/17 22:29 98.8 132 14 149/63 (91) 94 06/05/17 22:03 97 Nasal Cannula 2.00 06/05/17 21:00 117 18 146/80 (102) 97 Nasal Cannula 2.00 06/05/17 17:59 96 Nasal Cannula 2.00 06/05/17 17:57 81 16 167/74 (105) 101 16 155/63 (93) 105 18 168/73 (104) 06/05/17 16:11 98 18 121/65 (83) 100 Nasal Cannula 3.00 06/05/17 13:40 97.9 107 18 129/69 (89) 94 Result Diagram: 06/06/17 0638 06/05/17 1427 Other Results Laboratory Tests Test 06/05/17 14:27 06/05/17 16:40 06/06/17 06:38 White Blood Count 11.1 TH/MM3 8.1 TH/MM3 Red Blood Count 3.48 MIL/MM3 3.24 MIL/MM3 Hemoglobin 10.0 GM/DL 9.4 GM/DL Hematocrit 30.1 % 28.2 % Mean Corpuscular Volume 86.6 FL 87.1 FL Mean Corpuscular Hemoglobin 28.7 PG 29.0 PG Mean Corpuscular Hemoglobin Concent 33.2 % 33.2 % Red Cell Distribution Width 16.2 % 16.1 % Platelet Count 377 TH/MM3 320 TH/MM3 Mean Platelet Volume 8.0 FL 7.8 FL Neutrophils (%) (Auto) 79.3 % 92.2 % Lymphocytes (%) (Auto) 4.6 % 5.3 % Monocytes (%) (Auto) 6.9 % 1.4 % Eosinophils (%) (Auto) 9.0 % 0.9 % Basophils (%) (Auto) 0.2 % 0.2 % Neutrophils # (Auto) 8.8 TH/MM3 7.4 TH/MM3 Lymphocytes # (Auto) 0.5 TH/MM3 0.4 TH/MM3 Monocytes # (Auto) 0.8 TH/MM3 0.1 TH/MM3 Eosinophils # (Auto) 1.0 TH/MM3 0.1 TH/MM3 Basophils # (Auto) 0.0 TH/MM3 0.0 TH/MM3 CBC Comment DIFF FINAL DIFF FINAL Differential Comment Prothrombin Time 11.4 SEC Prothromb Time International Ratio 1.1 RATIO Activated Partial Thromboplast Time 29.3 SEC Blood Urea Nitrogen 26 MG/DL Creatinine 1.27 MG/DL Random Glucose 83 MG/DL Total Protein 7.8 GM/DL Albumin 2.9 GM/DL Calcium Level 9.1 MG/DL Magnesium Level 1.7 MG/DL Alkaline Phosphatase 111 U/L Aspartate Amino Transf (AST/SGOT) 19 U/L Alanine Aminotransferase (ALT/SGPT) 19 U/L Total Bilirubin 0.3 MG/DL Sodium Level 136 MEQ/L Potassium Level 4.2 MEQ/L Chloride Level 102 MEQ/L Carbon Dioxide Level 22.6 MEQ/L Anion Gap 11 MEQ/L Estimat Glomerular Filtration Rate 41 ML/MIN Troponin I LESS THAN 0.02 NG/ML B-Type Natriuretic Peptide 123 PG/ML Thyroid Stimulating Hormone 3rd Gen 3.300 uIU/ML Urine Color YELLOW Urine Turbidity CLEAR Urine pH 5.5 Urine Specific [place] 1.015 Urine Protein 30 mg/dL Urine Glucose (UA) NEG mg/dL Urine Ketones NEG mg/dL Urine Occult Blood NEG Urine Nitrite NEG Urine Bilirubin NEG Urine Urobilinogen LESS THAN 2.0 MG/DL Urine Leukocyte Esterase NEG Urine RBC 1 /hpf Urine WBC 1 /hpf Urine Hyaline Casts 10 /lpf Urine Mucus FEW /lpf Microscopic Urinalysis Comment CULT NOT INDICATED Imaging Last [address] 06/05/17 1416 Signed Impressions: Service Date/Time: Monday, June 05, 2017 14:43 - CONCLUSION: Negative for an acute process. Kenroy Quiñonez MD FACR Chest X-Ray 06/05/17 1344 Signed Impressions: Service Date/Time: Monday, June 05, 2017 14:25 - CONCLUSION: Diffuse infiltrates. Larry Salvador MD CT Angiography 06/05/17 0000 Signed Impressions: Service Date/Time: Monday, June 05, 2017 17:12 - CONCLUSION: Coarse interstitial changes both lungs with minimal consolidation on the right. Moderate left pleural effusion. This probably represents congestive failure superimposed over chronic fibrosis. Patient with history of stem cell carcinoma of the lung. Negative for central pulmonary emboli Kenroy Quiñonez MD FACR Objective Remarks General: NAD, AAOx3 Chest: Crackle on the right, decreased are movement at the left base Cardiac: Regular Abd: +BS, soft ND/NT Ext: No edema A/P Problem List: (1) Pleural effusion ICD Codes: J90 - Pleural effusion, not elsewhere classified Status: Acute Plan: - Pt is a 76 y/o female with stage IV SCC of the lung who presented to the ED on 06/05 for evaluation of hypotension and hypoxia. - CTA Chest (06/05) --> Coarse interstitial changes both lungs with minimal consolidation on the right. Moderate left pleural effusion. This probably represents congestive failure superimposed over chronic fibrosis. Patient with history of stem cell carcinoma of the lung. Negative for central pulmonary emboli - The exact cause for her pleural effusion is unclear. She has no other findings of overt congestive heart failure. She has underlying lung cancer and this may represent a malignant effusion. - Echo from July 2016 demonstrates an EF of 55-60% with no wall motion abnormalities and only mild valve regurgitation noted. - Her hypoxia is responded well to supplemental oxygen and she does have underlying COPD but is not typically on any supplemental O2 at home. - Pt was given a one-time dose of IV Lasix last night - Repeat CXR is ordered for this morning. - Pt may need thoracentesis. She has been off her Plavix for 5 days (2) COPD (chronic obstructive pulmonary disease) ICD Codes: J44.9 - Chronic obstructive pulmonary disease, unspecified Status: Chronic Plan: - Relatively stable per patient report. - We will continue home medications. - Pt was given a dose of Solu-Medrol in the ED - Supplemental oxygen as needed. (3) Pulmonary edema ICD Codes: J81.1 - Chronic pulmonary edema Status: Acute Plan: - As above. 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 Bowden as an outpt - She previously had JAH lobectomy in 2016, chemo (carboplatin and Taxol) in 2017 for local reoccurrence in the left UL - She was found to have metastatic disease to the right lung and was initiated on palliative immunotherapy with Nivolumab in April 2017, last dose was on 05/27/17 Assessment and Plan Patient examined. Assessment and plan formulated with Kristen Payton PA-C. I agree with the above. stage 4 lung ca. presents with sob/hypoxia felt related to malignant left pleural effusion chronic pulm fibrosis. discussed with her oncologist will proceed with therapeutic tap. if no better will try trial of steroids. Problem Qualifiers (1) Pulmonary edema: Qualified Codes: J81.0 - Acute pulmonary edema (2) Lung cancer: Qualified Codes: C34.80 - Malignant neoplasm of overlapping sites of unspecified bronchus and lung Kristen Payton Jun 06, 2017 10:52 Chase Chun MD Jun 06, 2017 15:42
--- NOTE | 2017-06-06 12:34 | RADRPT ---
EXAM DATE/TIME: 06/06/2017 12:06 [facility] COMPARISON: CT PULMONARY ANGIOGRAM, June 05, 2017, 17:12. INDICATIONS : Short of breath MEDICAL HISTORY : Carcinoma, lung. SURGICAL HISTORY : Lobectomy. Infusaport ENCOUNTER: Subsequent ACUITY: 2 days PAIN SCORE: 0/10 LOCATION: Bilateral chest FINDINGS: Decubitus views of the chest were performed. No layering right-sided pleural effusion is demonstrated . Possible small layering left sided effusion. No significant layering pleural effusions are demonstr ated either on the right or left side. There is scattered interstitial infiltrates bilaterally. There appears to be reduced volume of the left lung. CONCLUSION: 1. No right layering pleural effusion. 2. Possible small left layering effusion. Junior Medina MD on June 06, 2017 at 12:30 Board Certified Radiologist. This report was verified electronically.
[2017-06-06] MEDS: ACETAMINOPHEN/HYDROcodone 325 MG/7.5 MG TAB PO PRN ×2 (12:45→23:03)
[2017-06-07] VITALS (9 sets, daily range): BP systolic 83–115; BP diastolic 54–68; PULSE 68–103; RESP 14–20; TEMP 97.3–98.2; O2SAT 93–100
[2017-06-07] MEDS ORDERED: RESP: ALBUTEROL 2.5 MG/IPRATROPIUM 0.5 MG NEB (PRN) NEB (08:30)
[2017-06-07] MEDS: DULoxetine HCl DR 20 MG CAP PO SCH (08:45)
[2017-06-07] MEDS: ACETAMINOPHEN/HYDROcodone 325 MG/7.5 MG TAB PO PRN ×2 (08:45→22:40)
[2017-06-07] MEDS: RESP: ALBUTEROL 2.5 MG/IPRATROPIUM 0.5 MG NEB (SCH) NEB ×3 (08:55→19:29)
--- NOTE | 2017-06-07 09:06 | HHI.PR ---
Subjective Remarks Pt does not feel that her SOB is any worse. She is having wheezing this morning Pt did not sleep well last night. Objective Vitals Vital Signs Date Time Temp Pulse Resp B/P (MAP) Pulse Ox O2 Delivery O2 Flow Rate FiO2 06/07/17 08:06 97.9 90 20 98/56 (70) 96 06/07/17 03:07 97.4 88 16 109/62 (78) 96 06/06/17 23:47 18 06/06/17 23:06 97.7 101 20 108/65 (79) 91 06/06/17 20:40 95 Nasal Cannula 3.00 06/06/17 20:13 98.1 90 16 106/57 (73) 97 06/06/17 15:33 98.2 81 16 106/55 (72) 95 98/56 (70) 99/61 (74) 06/06/17 11:31 97.5 97 16 98/54 (69) 97 06/07/17 06/07/17 06/08/17 15:00 23:00 07:00 Intake Total 450 ml Balance 450 ml Intake Oral 150 ml IV Total 300 ml Result Diagram: 06/06/17 0638 06/05/17 1427 Other Results Laboratory Tests Test 06/05/17 14:27 06/05/17 16:40 06/06/17 06:38 White Blood Count 11.1 TH/MM3 8.1 TH/MM3 Red Blood Count 3.48 MIL/MM3 3.24 MIL/MM3 Hemoglobin 10.0 GM/DL 9.4 GM/DL Hematocrit 30.1 % 28.2 % Mean Corpuscular Volume 86.6 FL 87.1 FL Mean Corpuscular Hemoglobin 28.7 PG 29.0 PG Mean Corpuscular Hemoglobin Concent 33.2 % 33.2 % Red Cell Distribution Width 16.2 % 16.1 % Platelet Count 377 TH/MM3 320 TH/MM3 Mean Platelet Volume 8.0 FL 7.8 FL Neutrophils (%) (Auto) 79.3 % 92.2 % Lymphocytes (%) (Auto) 4.6 % 5.3 % Monocytes (%) (Auto) 6.9 % 1.4 % Eosinophils (%) (Auto) 9.0 % 0.9 % Basophils (%) (Auto) 0.2 % 0.2 % Neutrophils # (Auto) 8.8 TH/MM3 7.4 TH/MM3 Lymphocytes # (Auto) 0.5 TH/MM3 0.4 TH/MM3 Monocytes # (Auto) 0.8 TH/MM3 0.1 TH/MM3 Eosinophils # (Auto) 1.0 TH/MM3 0.1 TH/MM3 Basophils # (Auto) 0.0 TH/MM3 0.0 TH/MM3 CBC Comment DIFF FINAL DIFF FINAL Differential Comment Prothrombin Time 11.4 SEC Prothromb Time International Ratio 1.1 RATIO Activated Partial Thromboplast Time 29.3 SEC Blood Urea Nitrogen 26 MG/DL Creatinine 1.27 MG/DL Random Glucose 83 MG/DL Total Protein 7.8 GM/DL Albumin 2.9 GM/DL Calcium Level 9.1 MG/DL Magnesium Level 1.7 MG/DL Alkaline Phosphatase 111 U/L Aspartate Amino Transf (AST/SGOT) 19 U/L Alanine Aminotransferase (ALT/SGPT) 19 U/L Total Bilirubin 0.3 MG/DL Sodium Level 136 MEQ/L Potassium Level 4.2 MEQ/L Chloride Level 102 MEQ/L Carbon Dioxide Level 22.6 MEQ/L Anion Gap 11 MEQ/L Estimat Glomerular Filtration Rate 41 ML/MIN Troponin I LESS THAN 0.02 NG/ML B-Type Natriuretic Peptide 123 PG/ML Thyroid Stimulating Hormone 3rd Gen 3.300 uIU/ML Urine Color YELLOW Urine Turbidity CLEAR Urine pH 5.5 Urine Specific [place] 1.015 Urine Protein 30 mg/dL Urine Glucose (UA) NEG mg/dL Urine Ketones NEG mg/dL Urine Occult Blood NEG Urine Nitrite NEG Urine Bilirubin NEG Urine Urobilinogen LESS THAN 2.0 MG/DL Urine Leukocyte Esterase NEG Urine RBC 1 /hpf Urine WBC 1 /hpf Urine Hyaline Casts 10 /lpf Urine Mucus FEW /lpf Microscopic Urinalysis Comment CULT NOT INDICATED Imaging Last Impressions Chest X-Ray 06/06/17 0000 Signed Impressions: Service Date/Time: May 12:06 - CONCLUSION: 1. No right layering pleural effusion. 2. Possible small left layering effusion. Junior Medina MD Head CT 06/05/17 1416 Signed Impressions: Service Date/Time: Monday, June 05, 2017 14:43 - CONCLUSION: Negative for an acute process. Kenroy Quiñonez MD FACR CT Angiography 06/05/17 0000 Signed Impressions: Service Date/Time: Monday, June 05, 2017 17:12 - CONCLUSION: Coarse interstitial changes both lungs with minimal consolidation on the right. Moderate left pleural effusion. This probably represents congestive failure superimposed over chronic fibrosis. Patient with history of stem cell carcinoma of the lung. Negative for central pulmonary emboli Kenroy Quiñonez MD FACR Last [address] 06/05/17 1416 Signed Impressions: Service Date/Time: Monday, June 05, 2017 14:43 - CONCLUSION: Negative for an acute process. Kenroy Quiñonez MD FACR Chest X-Ray 06/05/17 1344 Signed Impressions: Service Date/Time: Monday, June 05, 2017 14:25 - CONCLUSION: Diffuse infiltrates. Larry Salvador MD CT Angiography 06/05/17 0000 Signed Impressions: Service Date/Time: Monday, June 05, 2017 17:12 - CONCLUSION: Coarse interstitial changes both lungs with minimal consolidation on the right. Moderate left pleural effusion. This probably represents congestive failure superimposed over chronic fibrosis. Patient with history of stem cell carcinoma of the lung. Negative for central pulmonary emboli Kenroy Quiñonez MD FACR Objective Remarks General: NAD, AAOx3 Chest: Crackle on the right, decreased are movement at the left base Cardiac: Regular Abd: +BS, soft ND/NT Ext: No edema A/P Problem List: (1) Pleural effusion ICD Codes: J90 - Pleural effusion, not elsewhere classified Status: Acute Plan: - Pt is a 76 y/o female with stage IV SCC of the lung who presented to the ED on 06/05 for evaluation of hypotension and hypoxia. - CTA Chest (06/05) --> Coarse interstitial changes both lungs with minimal consolidation on the right. Moderate left pleural effusion. This probably represents congestive failure superimposed over chronic fibrosis. Patient with history of stem cell carcinoma of the lung. Negative for central pulmonary emboli - The exact cause for her pleural effusion is unclear. She has no other findings of overt congestive heart failure. She has underlying lung cancer and this may represent a malignant effusion. - Echo from July 2016 demonstrates an EF of 55-60% with no wall motion abnormalities and only mild valve regurgitation noted. - Her hypoxia is responded well to supplemental oxygen and she does have underlying COPD but is not typically on any supplemental O2 at home. - Pt was given a one-time dose of IV Lasix last night - Repeat CXR (06/06) --> No right layering pleural effusion. Possible small left layering effusion. - US guided therapeutic thoracentesis is ordered for today. She has been off her Plavix for 5 days. (2) COPD (chronic obstructive pulmonary disease) ICD Codes: J44.9 - Chronic obstructive pulmonary disease, unspecified Status: Chronic Plan: - We will continue home medications. - Pt with some wheezing this morning - Duonebs Q6H WA and Q2H PRN - Pt was given a dose of Solu-Medrol in the ED and we will start some Solu- Medrol 60mg Q6H - Supplemental oxygen as needed. (3) Pulmonary edema ICD Codes: J81.1 - Chronic pulmonary edema Status: Acute Plan: - As above. 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 Bowden as an outpt - She previously had JAH lobectomy in 2015, chemo (carboplatin and Taxol) in 2017 for local reoccurrence in the left UL - She was found to have metastatic disease to the right lung and was initiated on palliative immunotherapy with Nivolumab in April 2017, last dose was on 05/27/17 Assessment and Plan Patient examined. Assessment and plan formulated with Kristen Payton PA-C. I agree with the above. lung ca stage 4. left pleural effusion. 400cc thoracentesis. no studies sent probably malignant copd exacerbation pulmonary fibrosis iv steroids/nebs. walk test in AM and plan for dc tomorrow. Problem Qualifiers (1) Pulmonary edema: Qualified Codes: J81.0 - Acute pulmonary edema (2) Lung cancer: Qualified Codes: C34.80 - Malignant neoplasm of overlapping sites of unspecified bronchus and lung Kristen Payton Jun 07, 2017 09:06 Chase Chun MD Jun 07, 2017 15:14
[2017-06-07] MEDS ORDERED: LIDOCAINE HCL 1% 20 ML VIAL ONE (10:16)
--- NOTE | 2017-06-07 10:47 | RADRPT ---
EXAM DATE/TIME: 06/07/2017 10:17 [facility] COMPARISON: CHEST BILATERAL DECUBITUS, June 06, 2017, 12:06. CHEST EXPIRATION ONLY, May 30, 2016, 10:56. DOUG ST EXPIRATION ONLY, April 24, 2017, 11:03. INDICATIONS : Post left side thoracentesis MEDICAL HISTORY : Carcinoma, lung. SURGICAL HISTORY : Lobectomy. infusport ENCOUNTER: Subsequent ACUITY: 3 days PAIN SCORE: 0/10 LOCATION: Left chest FINDINGS: A single portable frontal view the chest shows bilateral mixed interstitial and intra-alveolar infilt rates. This is most pronounced within the right upper lobe. These are unchanged. Volume loss involvin g the left hemithorax. No pneumothoraces. No effusions. Heart is normal in size. Port-A-Cath overlies the right chest. CONCLUSION: Unchanged bilateral pulmonary infiltrates. No pneumothorax. Rick Gonzales Jr., MD on June 07, 2017 at 10:42 Board Certified Radiologist. This report was verified electronically.
[2017-06-07] MEDS: methylPREDNISolone SOD SUCC 125 MG/2 ML VIAL IV PUSH SCH ×3 (12:21→22:40)
--- NOTE | 2017-06-07 14:36 | RADRPT ---
EXAM DATE/TIME: 06/07/2017 09:44 [facility] COMPARISON: No previous studies available for comparison. EXTERNAL COMPARISON: [facility], PET CT Tumor, Apr [address] Chest, 03/28/17 and 11/28/16. INDICATIONS : Left pleural effusion. MEDICAL HISTORY : Chronic obstructive pulmonary disease. Carcinoma, lung. SURGICAL HISTORY : None. ENCOUNTER: Subsequent ACUITY: 2 days PAIN SCORE: 4/10 LOCATION: Left chest FLUID: Total volume of 400 cc of clear, yellow fluid was removed. Fluid was discarded. Thoracentesis was therapeutic only. Post procedure scanning reveals no hematoma or other complication. TECHNIQUE: 1. Ultrasound guidance for thoracentesis. 2. Thoracentesis. The risks, benefits, and alternatives to ultrasound guided thoracentesis were explained to the patien t in lay simple terms, including the risk of bleeding and infection. Written and verbal informed con sent was obtained. Appropriate area for thoracentesis was marked under ultrasound guidance with the patient in the uprig ht position. Overlying skin was prepped and draped in the usual sterile fashion and with local anest hetic, a dermatotomy was made with an 11 blade scalpel. A 6 [place] thoracentesis catheter was placed in the pleural space and fluid was removed. Catheter was then removed and a sterile dressing applie d. There were no immediate complications. The patient tolerated the procedure well and the left the ultrasound suite in stable condition. Chest radiograph is to be obtained. CONCLUSION: Uncomplicated ultrasound guided thoracentesis. Aubrey Quarles MD on June 07, 2017 at 14:33 Board Certified Radiologist. This report was verified electronically.
[2017-06-07] MEDS: ATORVASTATIN 20 MG TAB PO SCH (22:41)
[2017-06-08] VITALS (7 sets, daily range): BP systolic 92–133; BP diastolic 52–69; PULSE 82–112; RESP 16–24; TEMP 97.9–98.4; O2SAT 90–97
[2017-06-08] MEDS: methylPREDNISolone SOD SUCC 125 MG/2 ML VIAL IV PUSH SCH ×3 (06:52→20:09)
[2017-06-08] MEDS: RESP: ALBUTEROL 2.5 MG/IPRATROPIUM 0.5 MG NEB (SCH) NEB ×3 (07:18→21:20)
[2017-06-08] MEDS ORDERED: ALBU0.08 NEB ×2 (07:55→08:00)
[2017-06-08] MEDS ORDERED: IPRA0.02 NEB ×2 (07:55→08:00)
[2017-06-08] MEDS ORDERED: PRED10 PO (08:00)
--- NOTE | 2017-06-08 08:02 | HHI.DCPOC ---
Discharge Care Plan Diagnosis: (1) Pleural effusion (2) Lung cancer (3) COPD (chronic obstructive pulmonary disease) (4) Hypotension Goals to Promote Your Health * To prevent worsening of your condition and complications * To maintain your health at the optimal level Directions to Meet Your Goals Take your medications as prescribed Follow your dietary instruction Follow activity as directed Keep your appointments as scheduled Take your immunizations and boosters as scheduled If your symptoms worsen call your PCP, if no PCP go to Urgent Care Center or Emergency Room Smoking is Dangerous to Your Health. Avoid second hand smoke Call the 24-hour hour crisis hotline for domestic abuse at Kristen Payton Jun 08, 2017 08:02
--- NOTE | 2017-06-08 08:02 | HHI.FF ---
Face to Face Verification Diagnosis: (1) COPD (chronic obstructive pulmonary disease) (2) Pleural effusion (3) Lung cancer (4) Hypotension (5) Hypoxia Home Health Nursing Order: Oxygen administration education Nursing assessment with vital signs I have seen patient Sowmya Alberto on 06/08/17. My clinical findings support the need for the requested home health care services because: Patient has SOB I certify that my clinical findings support that this patient is homebound because: Hx COPD- exertion dyspnea/weakness Kristen Payton Jun 08, 2017 08:02
--- NOTE | 2017-06-08 08:15 | HHI.DS ---
Discharge Summary Admission Date Jun 05, 2017 at 18:34 Discharge Date: Jun 08, 2017 Admitting Diagnosis left pleural effusion, hypoxia, hypotension, CHF? (1) Pleural effusion Diagnosis: Principal ICD Codes: J90 - Pleural effusion, not elsewhere classified Status: Acute (2) COPD (chronic obstructive pulmonary disease) Diagnosis: Secondary ICD Codes: J44.9 - Chronic obstructive pulmonary disease, unspecified Status: Chronic (3) Pulmonary edema Diagnosis: Principal ICD Codes: J81.1 - Chronic pulmonary edema Status: Acute (4) Lung cancer Diagnosis: Secondary ICD Codes: C34.90 - Malignant neoplasm of unspecified part of unspecified bronchus or lung Status: Chronic Brief History 76-year-old female that presents to the ED for evaluation of hypotension. Patient has had hypotension today as noted at her pain management physicians office. Per patient she has a significant history of stage IV lung cancer. She is taking chemotherapy every 2 weeks. Per patient she lost her chemotherapy last week. She denies any changes in bowel movement or urinating. She denies any chest pain but she does have some chronic shortness of breath which has not significantly changed. She denies any injuries or falls. Per patient she went to the pain management today and then noticed that her blood pressure was low in the 80s systolically. Review of vitals from actual pain management visit demonstrated that her systolic pressure range from 74-94 and diastolic range from 48-69 with a heart rate in the 1 teens and her O2 saturation ranging from 78-93%. She was brought here for evaluation. Per patient she does state that she has some dizziness with standing from seated position. She states that she does take a blood thinner. Allergy to shellfish. Has not seen anybody for this. Follows with her oncologist regularly for her lung cancer. Denies any surgeries to her chest. Per patient she's getting the chemotherapy for palliative care to prolong her life more than curative. She denies any other medical issues at this time. She reports she actually feels better with the treatment she is received in the ER thus far. CBC/BMP: 06/06/17 0638 06/05/17 1427 Significant Findings Laboratory Tests Test 06/05/17 14:27 06/05/17 16:40 06/06/17 06:38 White Blood Count 11.1 TH/MM3 (4.0-11.0) Red Blood Count 3.48 MIL/MM3 (4.00-5.30) 3.24 MIL/MM3 (4.00-5.30) Hemoglobin 10.0 GM/DL (11.6-15.3) 9.4 GM/DL (11.6-15.3) Hematocrit 30.1 % (35.0-46.0) 28.2 % (35.0-46.0) Neutrophils (%) (Auto) 79.3 % (16.0-70.0) 92.2 % (16.0-70.0) Lymphocytes (%) (Auto) 4.6 % (9.0-44.0) 5.3 % (9.0-44.0) Eosinophils (%) (Auto) 9.0 % (0.0-4.0) Neutrophils # (Auto) 8.8 TH/MM3 (1.8-7.7) Lymphocytes # (Auto) 0.5 TH/MM3 (1.0-4.8) 0.4 TH/MM3 (1.0-4.8) Eosinophils # (Auto) 1.0 TH/MM3 (0-0.4) Blood Urea Nitrogen 26 MG/DL (7-18) Creatinine 1.27 MG/DL (0.50-1.00) Albumin 2.9 GM/DL (3.4-5.0) Estimat Glomerular Filtration Rate 41 ML/MIN (>89) Troponin I LESS THAN 0.02 NG/ML B-Type Natriuretic Peptide 123 PG/ML (0-100) Urine Protein 30 mg/dL (NEG-TRACE) Urine Mucus FEW /lpf (OCC) Imaging Last Impressions Thoracentesis Ultrasound 06/07/17 0000 Signed Impressions: Service Date/Time: Wednesday, June 07, 2017 09:44 - CONCLUSION: Uncomplicated ultrasound guided thoracentesis. Aubrey Quarles MD Chest X-Ray 06/07/17 0000 Signed Impressions: Service Date/Time: Wednesday, June 07, 2017 10:17 - CONCLUSION: Unchanged bilateral pulmonary infiltrates. No pneumothorax. Rick Gonzales Jr., MD Head CT 06/05/17 1416 Signed Impressions: Service Date/Time: Monday, June 05, 2017 14:43 - CONCLUSION: Negative for an acute process. Kenroy Quiñonez MD FACR CT Angiography 06/05/17 0000 Signed Impressions: Service Date/Time: Monday, June 05, 2017 17:12 - CONCLUSION: Coarse interstitial changes both lungs with minimal consolidation on the right. Moderate left pleural effusion. This probably represents congestive failure superimposed over chronic fibrosis. Patient with history of stem cell carcinoma of the lung. Negative for central pulmonary emboli Kenroy Quiñonez MD FACR PE at Discharge General: NAD, AAOx3 Chest: Crackle on the right, decreased are movement at the left base Cardiac: Regular Abd: +BS, soft ND/NT Ext: No edema Hospital Course Pleural effusion Metastatic lung cancer Pt is a 76 y/o female with stage IV SCC of the lung who presented to the ED on for evaluation of hypotension and hypoxia. CTA Chest (06/05) --> Coarse interstitial changes both lungs with minimal consolidation on the right. Moderate left pleural effusion. This probably represents congestive failure superimposed over chronic fibrosis. Patient with history of stem cell carcinoma of the lung. Negative for central pulmonary emboli. The exact cause for her pleural effusion is unclear but likely malignant in the setting of her metastatic lung cancer. She has no other findings of overt congestive heart failure. Echo from July 2016 demonstrates an EF of 55-60% with no wall motion abnormalities and only mild valve regurgitation noted. Her hypoxia is responded well to supplemental oxygen and she does have underlying COPD but is not typically on any supplemental O2 at home. Pt was given a one-time dose of IV Lasix at admission. Repeat CXR (06/06) --> No right layering pleural effusion. Possible small left layering effusion. US guided therapeutic thoracentesis was performed on 06/07 with removal of 400mL of fluid, reportedly clear, yellow fluid. She follows with Dr. Bowden as an outpt and the case was discussed with him informally during this admission. He recommended the pt followup as an outpt and she has an appt next week already scheduled per the pt. COPD (chronic obstructive pulmonary disease) Pt was continued on her home medications at admission. She developed some wheezing on 06/07 and she was started on Duonebs Q6H WA and Q2H PRN and pt had been given a dose of Solu-Medrol in the ED and was started on Solu-Medrol 60mg Q6H on 06/07 with symptomatic improvement. Pt was still requiring supplemental O2 prior to discharge but has not needed this prior to this admission at home. We will have respiratory walk test performed this morning and arrange for home O2 if required. We will have the pt continue nebulizer treatements at home TID while awake for the next week and then can decrease back down to her normal BID regiment. We will taper Prednisone 20mg po BID x 2 days --> 20mg once daily x 3 days --> 10mg once daily x 3 days, then stop. She is to followup with her PCP in 1 week. We will arrange for HHC upon discharge. Hypotension Pt has had some longstanding issues with hypotension per the pt. She is not on any antihypertensives at home. Pt is on Plavix for her hx of CVA but reports that she does not take this daily as she forgets. Discussed with the pt transitioning positions slowly with a 10 count in between sitting up to standing. We recommended that she minimize pain medications as this can cause her BP to decrease as well. We will arrange for HHC to monitor her vitals. She will followup with her PCP in 1 week. Pt Condition on Discharge: Stable Discharge Instructions DIET: Follow Instructions for: Heart Healthy Diet Activities you can perform: Regular-No Restrictions Follow up Referrals: Oncology/Hematology - 2 Weeks with Broderick Bowden MD PCP Follow-up - [address] Cabello New Medications: Prednisone (Prednisone) 10 Mg Tab 10 MG PO DIRECTED for COPD, #15 TAB 0 Refills Take 20mg twice daily x 2 days, then decrease to 20mg once daily x 2 days, then decrease to 10mg once daily x 3 days then stop. Changed Medications: Albuterol Neb (Albuterol Neb) 2.5 Mg/3 Ml Neb 2.5 MG NEB TID NEB PRN for SHORTNESS OF BREATH, #60 NEBULE 0 Refills (Changed from: BID NEB) Ipratropium Neb (Ipratropium Neb) 0.5 Mg/2.5 Ml Amp 0.5 MG NEB TID NEB for Breathing Treatment, #60 NEBULE 0 Refills (Changed from: Q12HR NEB) Continued Medications: Albuterol 18 GM Inh (Ventolin Hfa 18 GM Inh) 90 Mcg/Act Aer 1-2 PUFF INH Q4-6H PRN for SHORTNESS OF BREATH, #1 INHALER 0 Refills Atorvastatin (Atorvastatin) 20 Mg Tab 20 MG PO MOWEFR for Cholesterol Management, #30 TAB 0 Refills Take 1 tablet (20mg) at bedtime on Saturday,Saturday and Saturday Clopidogrel (Plavix) 75 Mg Tab 75 MG PO DAILY for TIA, #30 TAB [address] (Cymbalta DR) 20 Mg Capdr 40 MG PO DAILY, #30 CAP 0 Refills Umeclidinium [place] Inh (Incruse Ellipta Inh) 0.0625 Mg/Act Inh 1 PUFF INH DAILY for Treat COPD, #1 INHALER 0 Refills [Symbicort Neb] () 3 ML NEB BID Formoterol 12mcg/Budesonide 0.5mg/3ml Discontinued Medications: Hydrocodone-Acetaminophen (Hydrocodone-Acetaminophen) 7.5 Mg-325 Mg Tab 1 TAB PO BID PRN for PAIN, TAB 0 Refills Naproxen Sodium (Aleve) 220 Mg Capsule 220 MG PO BID Kristen Payton Jun 08, 2017 08:15 Chase Chun MD Jun 08, 2017 12:40
[2017-06-08] MEDS: ACETAMINOPHEN/HYDROcodone 325 MG/7.5 MG TAB PO PRN ×2 (10:27→20:09)
[2017-06-08] MEDS: DULoxetine HCl DR 20 MG CAP PO SCH (10:27)
[2017-06-08] MEDS ORDERED: OXYGENDME NAS.CANULA (11:09)
[2017-06-09] MEDS: methylPREDNISolone SOD SUCC 125 MG/2 ML VIAL IV PUSH SCH ×2 (00:51→06:08)
[2017-06-09 03:34] VITALS: BP 132/64; PULSE 99; RESP 18; TEMP 98.2; O2SAT 96
[2017-06-09 07:32] VITALS: O2SAT 94
[2017-06-09] MEDS: RESP: ALBUTEROL 2.5 MG/IPRATROPIUM 0.5 MG NEB (SCH) NEB (07:32)
[2017-06-09 09:06] VITALS: BP 142/80; PULSE 98; RESP 18; TEMP 97.9; O2SAT 98
--- NOTE | 2017-06-09 09:27 | HHI.PR ---
Subjective Remarks Pt was discharged on 06/08 but O2 was unable to be delivered to her home yesterday so she remained here at [facility] Anticipate d/c home today once O2 is delivered Objective Vitals Vital Signs Date Time Temp Pulse Resp B/P (MAP) Pulse Ox O2 Delivery O2 Flow Rate FiO2 06/09/17 09:06 97.9 98 18 142/80 (100) 98 06/09/17 07:32 94 Nasal Cannula 2.00 06/09/17 03:34 98.2 99 18 132/64 (86) 96 06/08/17 21:22 96 Nasal Cannula 2.00 06/08/17 21:09 14 06/08/17 21:07 98.0 110 18 120/69 (86) 97 06/08/17 14:55 98.4 112 16 92/67 (75) 96 06/08/17 11:24 98.2 96 16 122/59 (80) 91 Result Diagram: 06/06/17 0638 06/05/17 1427 Imaging Last Impressions Chest X-Ray 06/06/17 0000 Signed Impressions: Service Date/Time: May 12:06 - CONCLUSION: 1. No right layering pleural effusion. 2. Possible small left layering effusion. Junior Medina MD Head CT 06/05/17 1416 Signed Impressions: Service Date/Time: Monday, June 05, 2017 14:43 - CONCLUSION: Negative for an acute process. Kenroy Quiñonez MD FACR CT Angiography 06/05/17 0000 Signed Impressions: Service Date/Time: Monday, June 05, 2017 17:12 - CONCLUSION: Coarse interstitial changes both lungs with minimal consolidation on the right. Moderate left pleural effusion. This probably represents congestive failure superimposed over chronic fibrosis. Patient with history of stem cell carcinoma of the lung. Negative for central pulmonary emboli Kenroy Quiñonez MD FACR Last [address] 06/05/17 1416 Signed Impressions: Service Date/Time: Monday, June 05, 2017 14:43 - CONCLUSION: Negative for an acute process. Kenroy Quiñonez MD FACR Chest X-Ray 06/05/17 1344 Signed Impressions: Service Date/Time: Monday, June 05, 2017 14:25 - CONCLUSION: Diffuse infiltrates. Larry Salvador MD CT Angiography 06/05/17 0000 Signed Impressions: Service Date/Time: Monday, June 05, 2017 17:12 - CONCLUSION: Coarse interstitial changes both lungs with minimal consolidation on the right. Moderate left pleural effusion. This probably represents congestive failure superimposed over chronic fibrosis. Patient with history of stem cell carcinoma of the lung. Negative for central pulmonary emboli Kenroy Quiñonez MD FACR A/P Problem List: (1) Pleural effusion ICD Codes: J90 - Pleural effusion, not elsewhere classified Status: Acute Plan: Pleural effusion Metastatic lung cancer Pt is a 76 y/o female with stage IV SCC of the lung who presented to the ED on for evaluation of hypotension and hypoxia. CTA Chest (06/05) --> Coarse interstitial changes both lungs with minimal consolidation on the right. Moderate left pleural effusion. This probably represents congestive failure superimposed over chronic fibrosis. Patient with history of stem cell carcinoma of the lung. Negative for central pulmonary emboli. The exact cause for her pleural effusion is unclear but likely malignant in the setting of her metastatic lung cancer. She has no other findings of overt congestive heart failure. Echo from July 2016 demonstrates an EF of 55-60% with no wall motion abnormalities and only mild valve regurgitation noted. Her hypoxia is responded well to supplemental oxygen and she does have underlying COPD but is not typically on any supplemental O2 at home. Pt was given a one-time dose of IV Lasix at admission. Repeat CXR (06/06) --> No right layering pleural effusion. Possible small left layering effusion. US guided therapeutic thoracentesis was performed on 06/07 with removal of 400mL of fluid, reportedly clear, yellow fluid. She follows with Dr. Bowden as an outpt and the case was discussed with him informally during this admission. He recommended the pt followup as an outpt and she has an appt next week already scheduled per the pt. COPD (chronic obstructive pulmonary disease) Pt was continued on her home medications at admission. She developed some wheezing on 06/07 and she was started on Duonebs Q6H WA and Q2H PRN and pt had been given a dose of Solu-Medrol in the ED and was started on Solu-Medrol 60mg Q6H on 06/07 with symptomatic improvement. Pt was still requiring supplemental O2 prior to discharge but has not needed this prior to this admission at home. We will have respiratory walk test performed this morning and arrange for home O2 if required. We will have the pt continue nebulizer treatements at home TID while awake for the next week and then can decrease back down to her normal BID regiment. We will taper Prednisone 20mg po BID x 2 days --> 20mg once daily x 3 days --> 10mg once daily x 3 days, then stop. She is to followup with her PCP in 1 week. We will arrange for HHC upon discharge. Discharge was held up on 06/08 due to O2 not being delivered to her home. Pt to be discharged once the home O2 is arranged. Hypotension Pt has had some longstanding issues with hypotension per the pt. She is not on any antihypertensives at home. Pt is on Plavix for her hx of CVA but reports that she does not take this daily as she forgets. Discussed with the pt transitioning positions slowly with a 10 count in between sitting up to standing. We recommended that she minimize pain medications as this can cause her BP to decrease as well. We will arrange for HHC to monitor her vitals. She will followup with her PCP in 1 week. (2) COPD (chronic obstructive pulmonary disease) ICD Codes: J44.9 - Chronic obstructive pulmonary disease, unspecified Status: Chronic (3) Pulmonary edema ICD Codes: J81.1 - Chronic pulmonary edema Status: Acute (4) Lung cancer ICD Codes: C34.90 - Malignant neoplasm of unspecified part of unspecified bronchus or lung Status: Chronic Assessment and Plan Patient examined. Assessment and plan formulated with Kristen Payton PA-C. I agree with the above. copd exacerbation acute pleural effusion. likely malignant stage 4 lung ca chronic pulmonary fibrosis her dc was delayed yesterday due to no oxygen delivery. Problem Qualifiers (1) COPD (chronic obstructive pulmonary disease): Qualified Codes: J44.9 - Chronic obstructive pulmonary disease, unspecified (2) Pulmonary edema: Qualified Codes: J81.0 - Acute pulmonary edema (3) Lung cancer: Qualified Codes: C34.80 - Malignant neoplasm of overlapping sites of unspecified bronchus and lung Kristen Payton Jun 09, 2017 09:27 Chase Chun MD Jun 09, 2017 13:24
[2017-06-09] MEDS: DULoxetine HCl DR 20 MG CAP PO SCH (10:24)
== END 2017-06-09 11:52 | disposition home or self-care (01) ==
LOC: NEDAMB 13:34 → NEDA 18:34 → NEDH 22:20 → NEPGCP 22:35
PROVIDERS: ADMIT Hospitalist; ATTEND Hospitalist
DX: J90 Pleural effusion, not elsewhere classified (principal); J44.9 Chronic obstructive pulmonary disease, unspecified; J81.1 Chronic pulmonary edema; J81.0 Acute pulmonary edema; R09.02 Hypoxemia; J84.10 Pulmonary fibrosis, unspecified; C34.80 Malignant neoplasm of overlapping sites of unspecified bronchus and lung; I95.9 Hypotension, unspecified; R42 Dizziness and giddiness; I10 Essential (primary) hypertension; I45.10 Unspecified right bundle-branch block; R94.31 Abnormal electrocardiogram [ECG] [EKG]; E78.5 Hyperlipidemia, unspecified; M50.30 Other cervical disc degeneration, unspecified cervical region; M51.34 Other intervertebral disc degeneration, thoracic region; M51.36 Other intervertebral disc degeneration, lumbar region; F41.9 Anxiety disorder, unspecified; M19.90 Unspecified osteoarthritis, unspecified site; Z86.73 Personal history of transient ischemic attack (TIA), and cerebral infarction without residual deficits; Z79.899 Other long term (current) drug therapy
CPT/HCPCS: 32555; 70450; 71045; 71046; 71275; 80053; 81001; 83735; 83880; 84443; 84484; 85025; 85610; 85730; 93005; 94618; 94640; 94664; 96361; 96374; 96375; 96376; 99285; C1729; G0378; J1940; J2920; J2930; J7030; Q9967

== ENCOUNTER 2017-06-10 13:10 | Inpatient (IN) | payer MEDICARE ==
[~2017-06-10] VITALS: Ht 157.5 cm; Wt 52.1 kg
[~2017-06-10 13:10] MED LIST changes: +ALBU0.08 NEB; -BUDE0.5S NEB; -CEPH500C PO; +IPRA0.02 NEB; -OXYC1TAB63 PO; +OXYGENDME NAS.CANULA; +PRED10 PO; -SYMB160A INH; +SYMBICORT; +UMEC1INH INH
[2017-06-10 13:53] VITALS: BP 104/67; PULSE 81; RESP 14; TEMP 97.6; O2SAT 98
--- NOTE | 2017-06-10 16:10 | RADRPT ---
EXAM DATE/TIME: 06/10/2017 15:39 [place] COMPARISON: CHEST PA & LAT, June 05, 2017, 14:25. INDICATIONS : Short of breath, vertigo today, recent thoracentesis MEDICAL HISTORY : Carcinoma, lung. SURGICAL HISTORY : Lobectomy. infusaport ENCOUNTER: Initial ACUITY: 1 day PAIN SCORE: 0/10 LOCATION: Bilateral chest FINDINGS: AP and lateral views of the chest obtained and again demonstrate elevation of left hemidiaphragm with apparent abnormal dense opacity at the left lung base. Coarse infiltrates remain in both upper lobes right greater than left. The heart size is within normal limits. There is volume loss in the left he mithorax. There are no new confluent infiltrates or effusions. Atherosclerotic changes are present in the aorta. There are postoperative changes with surgical clips in the left hilar region. The bony th orax is intact. CONCLUSION: 1. Surgical changes with volume loss left hemithorax and elevation of the left hemidiaphragm. 2. There is apparent focal denser opacity at the left lung base. 3. . Coarse bilateral infiltrates without significant change. Ramirez Oleary MD on June 10, 2017 at 16:06 Board Certified Radiologist. This report was verified electronically.
[2017-06-10 16:53] LABS: AUTOMATED NEUTROPHIL # 10.4 TH/MM3 (1.8-7.7); BASOPHIL % 0.1 % (0.0-2.0); EOSINOPHIL # 0.3 TH/MM3 (0-0.4); EOSINOPHIL % 2.4 % (0.0-4.0); HEMATOCRIT 30.3 % (35.0-46.0); LYMPH % 5.9 % (9.0-44.0); LYMPHOCYTE # 0.7 TH/MM3 (1.0-4.8); MEAN CELL VOLUME 86.8 FL (80.0-100.0); MEAN CORPUSCULAR HEMOGLOBIN 28.6 PG (27.0-34.0); MEAN PLATELET VOLUME 7.9 FL (7.0-11.0); MONO % 8.4 % (0.0-8.0); MONOCYTE # 1.1 TH/MM3 (0-0.9); NEUT % 83.2 % (16.0-70.0); PLATELET COUNT 347 TH/MM3 (150-450); RED BLOOD COUNT 3.49 MIL/MM3 (4.00-5.30); RED CELL DISTRIBUTION WIDTH 16.7 % (11.6-17.2); WHITE BLOOD COUNT 12.5 TH/MM3 (4.0-11.0)
[2017-06-10 17:22] LABS: ALT (GPT) 44 U/L (10-53); AST (GOT) 20 U/L (15-37); BICARBONATE 31.8 MEQ/L (21.0-32.0); BLOOD UREA NITROGEN 25 MG/DL (7-18); CALCIUM 9.4 MG/DL (8.5-10.1); CHLORIDE 95 MEQ/L (98-107); CREATININE 0.91 MG/DL (0.50-1.00); GLOMERULAR FILTRATION RATE 60 ML/MIN (>89); GLUCOSE,RANDOM 78 MG/DL (74-106); SODIUM (NA) 134 MEQ/L (136-145)
[2017-06-10 17:23] LABS: ALKALINE PHOSPHATASE 112 U/L (45-117); TOTAL BILIRUBIN ADULT 0.3 MG/DL (0.2-1.0); TOTAL PROTEIN 7.5 GM/DL (6.4-8.2)
[2017-06-10] MEDS ORDERED: cefTRIAXone INJ 1,000 MG in SODIUM CHLORIDE 0.9% INJ 100 ML IV ONE (17:45)
[2017-06-10] MEDS ORDERED: AZITHROMYCIN INJ 500 MG in SODIUM CHLOR 0.9% 250 ML INJ 250 ML IV ONE (17:45)
--- NOTE | 2017-06-10 17:54 | PD ---
HPI Chief Complaint: Respiratory Symptoms Time Seen by Provider: 15:20 Travel History International Travel<30 days: No Contact w/Intl Traveler<30days: No Traveled to known affect area: No History of Present Illness HPI Patient is a 76 year old female who comes in from her oncologist office due to shortness of breath. She has history of lung cancer, on chemo. She was discharged from the hospital a few days ago after having some fluid drained from her lung. She wears oxygen at home. She says she noticed her oxygen was off earlier today, but she turned it back on and continued to be hypoxic at the office. She denies fever or chills. She denies chest pain. Severity is mild to moderate. 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) Neurologic: Yes (STROKE 2017) Psychiatric: No Reproductive: No Respiratory: Yes (LUNG CANCER, COPD) Immunizations Current: Yes Migraines: No Radiation Therapy: Yes Renal Failure: No Seizures: No Sleep Apnea: No Thyroid Disease: No Ulcer: No Menopausal: No Past Surgical History Abdominal Surgery: No AICD: No Arteriovenous Shunt: No Cardiac Surgery: No Ear Surgery: No Endocrine Surgery: No Eye Surgery: Yes (CATARACTS) Genitourinary Surgery: No Gynecologic Surgery: No Insulin Pump: No Joint Replacement: No Oral Surgery: No Pacemaker: No Thoracic Surgery: Yes (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) Other Surgery: Yes (R UPPER CHEST PORT) Social History Alcohol Use: Yes (2 DRINKS PER MONTH, WINE/LIQUOR) Tobacco Use: No (quit 09/2012) Substance Use: No Allergies-Medications (Allergen,Severity, Reaction): Coded Allergies: shellfish derived (Verified Allergy, Unknown, Hives, 06/10/17) Reported Meds & Prescriptions Reported Meds & Active Scripts Active Oxygen (O2) Device Liter SD.CANULA CONTINUOUS Oxygen Concentrator Portable Gaseous 2 L/min via Nasal Canula Continuous For 99 months Prednisone 10 Mg Tab 10 Mg PO DIRECTED Take 20mg twice daily x 2 days, then decrease to 20mg once daily x 2 days, then decrease to 10mg once daily x 3 days then stop. Ipratropium Neb (Ipratropium [place]) 0.5 Mg/2.5 Ml Amp 0.5 Mg NEB TID NEB Albuterol Neb (Albuterol Sulfate) 2.5 Mg/3 Ml Neb 2.5 Mg NEB TID NEB PRN Plavix (Clopidogrel Bisulfate) 75 Mg Tab 75 Mg PO DAILY Reported [Symbicort Neb] 3 Ml NEB BID Formoterol 12mcg/Budesonide 0.5mg/3ml Incruse Ellipta Inh (Umeclidinium [place] Inh) 0.0625 Mg/Act Inh 1 Puff INH DAILY Atorvastatin (Atorvastatin Calcium) 20 Mg Tab 20 Mg PO MOWEFR Take 1 tablet (20mg) at bedtime on Saturday,Saturday and Saturday Cymbalta DR (Duloxetine HCl) 20 Mg Capdr 40 Mg PO DAILY Ventolin Hfa 18 GM Inh (Albuterol Sulfate) 90 Mcg/Act Aer 1-2 Puff INH Q4-6H PRN Review of Systems Except as stated in HPI: all other systems reviewed are Neg General / Constitutional: No: Fever, Chills HENT: No: Headaches, Lightheadedness Cardiovascular: No: Chest Pain or Discomfort Respiratory: Positive: Shortness of Breath Gastrointestinal: No: Nausea, Vomiting Musculoskeletal: No: Myalgias, Edema Skin: No Rash, No Change in Pigmentation Neurologic: No: Weakness, Syncope Physical Exam Narrative GENERAL: Awake and alert, in no acute distress. SKIN: Focused skin assessment warm/dry. HEAD: Atraumatic. Normocephalic. EYES: Pupils equal and round. No scleral icterus. ENT: Mucous membranes pink and moist. NECK: Trachea midline. No JVD. CARDIOVASCULAR: Regular rate and rhythm. No murmur appreciated. RESPIRATORY: No accessory muscle use. Decreased breath sounds, left lower lobe. Breath sounds equal bilaterally. GASTROINTESTINAL: Abdomen soft, non-tender, nondistended. MUSCULOSKELETAL: No obvious deformities. No clubbing. No cyanosis. No edema. NEUROLOGICAL: Awake and alert. No obvious cranial nerve deficits. Motor grossly within normal limits. Normal speech. PSYCHIATRIC: Appropriate mood and affect; insight and judgment normal. Data Data Last Documented VS Vital Signs Date Time Temp Pulse Resp B/P (MAP) Pulse Ox O2 Delivery O2 Flow Rate FiO2 06/10/17 13:53 97.6 81 14 104/67 (79) 98 Nasal Cannula 2.00 Orders Orders Complete Blood Count With Diff (06/10/17 15:20) Comprehensive Metabolic Panel (06/10/17 15:20) Chest, Pa & Lat (06/10/17 ) Ceftriaxone Inj (Rocephin Inj) (06/10/17 17:45) Azithromycin Inj (Zithromax Inj) (06/10/17 17:45) Admit Order (Ed Use Only) (06/10/17 ) Labs Laboratory Tests Test 06/10/17 15:50 White Blood Count 12.5 TH/MM3 Red Blood Count 3.49 MIL/MM3 Hemoglobin 10.0 GM/DL Hematocrit 30.3 % Mean Corpuscular Volume 86.8 FL Mean Corpuscular Hemoglobin 28.6 PG Mean Corpuscular Hemoglobin Concent 33.0 % Red Cell Distribution Width 16.7 % Platelet Count 347 TH/MM3 Mean Platelet Volume 7.9 FL Neutrophils (%) (Auto) 83.2 % Lymphocytes (%) (Auto) 5.9 % Monocytes (%) (Auto) 8.4 % Eosinophils (%) (Auto) 2.4 % Basophils (%) (Auto) 0.1 % Neutrophils # (Auto) 10.4 TH/MM3 Lymphocytes # (Auto) 0.7 TH/MM3 Monocytes # (Auto) 1.1 TH/MM3 Eosinophils # (Auto) 0.3 TH/MM3 Basophils # (Auto) 0.0 TH/MM3 CBC Comment DIFF FINAL Differential Comment Blood Urea Nitrogen 25 MG/DL Creatinine 0.91 MG/DL Random Glucose 78 MG/DL Total Protein 7.5 GM/DL Albumin 3.0 GM/DL Calcium Level 9.4 MG/DL Alkaline Phosphatase 112 U/L Aspartate Amino Transf (AST/SGOT) 20 U/L Alanine Aminotransferase (ALT/SGPT) 44 U/L Total Bilirubin 0.3 MG/DL Sodium Level 134 MEQ/L Potassium Level 4.3 MEQ/L Chloride Level 95 MEQ/L Carbon Dioxide Level 31.8 MEQ/L Anion Gap 7 MEQ/L Estimat Glomerular Filtration Rate 60 ML/MIN [facility] Medical Decision Making Medical Screen Exam Complete: Yes Emergency Medical Condition: Yes Medical Record Reviewed: Yes Differential Diagnosis Pneumonia versus pleural effusion versus hypoxia Narrative Course Patient is a 76-year-old female who comes in due to shortness of breath at her oncologist's office. She is resting comfortably now, says she is no longer short of breath. Exam does show some decreased breath sounds on the left. Chest x-ray shows a new opacity. White blood cell count is elevated. She will be given antibiotics and admitted for further management. Diagnosis Primary Impression: Pulmonary infiltrates Admitting Information Admitting Physician Requests: Admit Ophelia Milner MD Jun 10, 2017 17:54
[2017-06-10 19:21] VITALS: BP 137/60; PULSE 102; RESP 22; TEMP 97.7; O2SAT 97
[2017-06-10] MEDS ORDERED: BISACODYL 10 MG SUPP RECTAL PRN (20:15)
[2017-06-10] MEDS ORDERED: LACTULOSE SYRUP 20 GM/30 ML CUP PO PRN (20:15)
[2017-06-10] MEDS ORDERED: ACETAMINOPHEN 325 MG TAB PO PRN (20:15)
[2017-06-10] MEDS ORDERED: RESP: ALBUTEROL 2.5 MG/3 ML NEB (PRN) NEB (20:15)
[2017-06-10] MEDS ORDERED: SODIUM CHLORIDE 0.9% FLUSH 10 ML FLUSH IV FLUSH PRN (20:15)
[2017-06-10] MEDS ORDERED: NALOXONE HCL 0.4 MG/ML AMP IV PUSH PRN (20:15)
[2017-06-10] MEDS ORDERED: SENNOSIDES 8.6 MG TAB PO PRN (20:15)
[2017-06-10] MEDS ORDERED: ALBUTEROL SULFATE 90 MCG/ACT HFA 8 GM INHALER INH PRN (20:15)
[2017-06-10] MEDS ORDERED: MAGNESIUM HYDROXIDE SUSP 30 ML CUP PO PRN (20:15)
--- NOTE | 2017-06-10 20:28 | HHI.HP ---
HPI Service [facility] Hospitalists Primary Care Physician Amaya Cabello MD Admission Diagnosis pneumonia, hypoxia Chief Complaint: sent by oncology for hypoxia Travel History International Travel<30 Days: No Contact w/Intl Traveler <30 Da: No Traveled to Known Affected Are: No History of Present Illness Pt is a 76 y/o female with stage IV SCC of the lung who presented to the ED on for evaluation of hypotension and hypoxia. CTA Chest (06/05) --> Coarse interstitial changes both lungs with minimal consolidation on the right. Moderate left pleural effusion. This probably represents congestive failure superimposed over chronic fibrosis. Patient with history of stem cell carcinoma of the lung. Negative for central pulmonary emboli. The exact cause for her pleural effusion is unclear but likely malignant in the setting of her metastatic lung cancer. She has no other findings of overt congestive heart failure. Echo from July 2016 demonstrates an EF of 55-60% with no wall motion abnormalities and only mild valve regurgitation noted. Her hypoxia is responded well to supplemental oxygen and she does have underlying COPD but is not typically on any supplemental O2 at home. Pt was given a one-time dose of IV Lasix at admission. Repeat CXR (06/06) --> No right layering pleural effusion. Possible small left layering effusion. US guided therapeutic thoracentesis was performed on 06/07 with removal of 400mL of fluid, reportedly clear, yellow fluid. . She developed some wheezing on 06/07 and she was started on Duonebs Q6H WA and Q2H PRN and pt had been given a dose of Solu-Medrol in the ED and was started on Solu-Medrol 60mg Q6H on 06/07 with symptomatic improvement. Pt was still requiring supplemental O2 prior to discharge but has not needed this prior to this admission at home and now on 2 liters. We will have the pt continue nebulizer treatements at home TID while awake for the next week and then can decrease back down to her normal BID regiment. We will taper Prednisone 20mg po BID x 2 days --> 20mg once daily x 3 days --> 10mg once daily x 3 days, then stop. She was taking all meds and was to start chemo today but while ambulating was found to be hypoxic and sent to er chest xray suggest possible pneumonia and will be started on IV rocephin and zithromax. 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 Hyperlipidemia Orthostatic dizziness Previous CVA Subclavian artery stenosis 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 with recurrence in March 2017 and noted lymphadenopathy and new right sided lung lesion Past Surgical History Fibroid tumor removed from right breast 1984 Left carotid endarterectomy 2017 Cataract surgery Robotic left lung upper lobectomy in 2015 Reported Medications Oxygen (O2) Device Liter SD.CANULA CONTINUOUS Oxygen Concentrator Portable Gaseous 2 L/min via Nasal Canula Continuous For 99 months Prednisone 10 Mg Tab 10 Mg PO DIRECTED Take 20mg twice daily x 2 days, then decrease to 20mg once daily x 2 days, then decrease to 10mg once daily x 3 days then stop. Ipratropium Neb (Ipratropium [place]) 0.5 Mg/2.5 Ml Amp 0.5 Mg NEB TID NEB Albuterol Neb (Albuterol Sulfate) 2.5 Mg/3 Ml Neb 2.5 Mg NEB TID NEB PRN Plavix (Clopidogrel Bisulfate) 75 Mg Tab 75 Mg PO DAILY Reported [Symbicort Neb] 3 Ml NEB BID Formoterol 12mcg/Budesonide 0.5mg/3ml Incruse Ellipta Inh (Umeclidinium [place] Inh) 0.0625 Mg/Act Inh 1 Puff INH DAILY Atorvastatin (Atorvastatin Calcium) 20 Mg Tab 20 Mg PO MOWEFR Take 1 tablet (20mg) at bedtime on Saturday,Saturday and Saturday Cymbalta DR (Duloxetine HCl) 20 Mg Capdr 40 Mg PO DAILY Ventolin Hfa 18 GM Inh (Albuterol Sulfate) 90 Mcg/Act Aer 1-2 Puff INH Q4-6H IA Allergies: Coded Allergies: shellfish derived (Verified Allergy, Unknown, Hives, 04/24/17) Social History former smoker Physical Exam Vital Signs Vital Signs Date Time Temp Pulse Resp B/P (MAP) Pulse Ox O2 Delivery O2 Flow Rate FiO2 06/10/17 19:21 97.7 102 22 137/60 (85) 97 Nasal Cannula 2.50 06/10/17 13:53 97.6 81 14 104/67 (79) 98 Nasal Cannula 2.00 06/10/17 13:45 81 14 98 Nasal Cannula 2.00 Physical Exam GENERAL: This is a well-nourished, well-developed patient, in no apparent distress. SKIN: No rashes, ecchymoses or lesions. Cool and dry. HEAD: Atraumatic. Normocephalic. No temporal or scalp tenderness. EYES: Pupils equal round and reactive. Extraocular motions intact. No scleral icterus. No injection or drainage. ENT: Nose without bleeding, purulent drainage or septal hematoma. Throat without erythema, tonsillar hypertrophy or exudate. Uvula midline. Airway patent. NECK: Trachea midline. No JVD or lymphadenopathy. Supple, nontender, no meningeal signs. CARDIOVASCULAR: Regular rate and rhythm without murmurs, gallops, or rubs. RESPIRATORY: Decrease breath sounds bilateral with rhonchi bases GASTROINTESTINAL: Abdomen soft, non-tender, nondistended. No hepato-splenomegaly , or palpable masses. No guarding. MUSCULOSKELETAL: Extremities without clubbing, cyanosis, or edema. No joint tenderness, effusion, or edema noted. No calf tenderness. Negative Homans sign bilaterally. NEUROLOGICAL: Awake and alert. Cranial nerves II through XII intact. Motor and sensory grossly within normal limits. Five out of 5 muscle strength in all muscle groups. Normal speech. Laboratory Laboratory Tests Test 06/10/17 15:50 White Blood Count 12.5 Red Blood Count 3.49 Hemoglobin 10.0 Hematocrit 30.3 Mean Corpuscular Volume 86.8 Mean Corpuscular Hemoglobin 28.6 Mean Corpuscular Hemoglobin Concent 33.0 Red Cell Distribution Width 16.7 Platelet Count 347 Mean Platelet Volume 7.9 Neutrophils (%) (Auto) 83.2 Lymphocytes (%) (Auto) 5.9 Monocytes (%) (Auto) 8.4 Eosinophils (%) (Auto) 2.4 Basophils (%) (Auto) 0.1 Neutrophils # (Auto) 10.4 Lymphocytes # (Auto) 0.7 Monocytes # (Auto) 1.1 Eosinophils # (Auto) 0.3 Basophils # (Auto) 0.0 CBC Comment DIFF FINAL Differential Comment Blood Urea Nitrogen 25 Creatinine 0.91 Random Glucose 78 Total Protein 7.5 Albumin 3.0 Calcium Level 9.4 Alkaline Phosphatase 112 Aspartate Amino Transf (AST/SGOT) 20 Alanine Aminotransferase (ALT/SGPT) 44 Total Bilirubin 0.3 Sodium Level 134 Potassium Level 4.3 Chloride Level 95 Carbon Dioxide Level 31.8 Anion Gap 7 Estimat Glomerular Filtration Rate 60 Result Diagram: 06/10/17 1550 06/10/17 1550 Imaging chest xray bibasilar infiltrates Course in er started on iv rocephin oxygen and zithromax Caprini VTE Risk Assessment Caprini VTE Risk Assessment: Mod/High Risk (score >= 2) Caprini Risk Assessment Model Point Value = 1 Point Value = 2 Point Value = 3 Point Value = 5 Age 41-60 Minor surgery BMI > 25 kg/m2 Swollen legs Varicose veins or History of unexplained or recurrent spontaneous Oral contraceptives or hormone replacement Sepsis (< 1 month) Serious lung disease, including pneumonia (< 1 month) Abnormal pulmonary function Acute myocardial infarction Congestive heart failure (< 1 month) History of inflammatory bowel disease Medical patient at bed rest Age 61-74 Arthroscopic surgery Major open surgery (> 45 min) Laparoscopic surgery (> 45 min) Malignancy Confined to bed (> 72 hours) Immobilizing plaster cast Central venous access Age >= 75 History of VTE Family history of VTE Factor V Leiden Prothrombin [id number] Lupus anticoagulant Anticardiolipin antibodies Elevated serum homocysteine Heparin-induced thrombocytopenia Other congenital or acquired thrombophilia Stroke (< 1 month) Elective arthroplasty Hip, pelvis, or leg fracture Acute spinal cord injury (< 1 month) Prophylaxis Regimen Total Risk Factor Score Risk Level Prophylaxis Regimen 0-1 Low Early ambulation 2 Moderate Order ONE of the following: *Sequential Compression Device (SCD) *Heparin 5000 units SQ BID 3-4 Higher Order ONE of the following medications: *Heparin 5000 units SQ TID *Enoxaparin/Lovenox 40 mg SQ daily (WT < 150 kg, CrCl > 30 mL/min) *Enoxaparin/Lovenox 30 mg SQ daily (WT < 150 kg, CrCl > 10-29 mL/min) *Enoxaparin/Lovenox 30 mg SQ BID (WT < 150 kg, CrCl > 30 mL/min) AND/OR *Sequential Compression Device (SCD) 5 or more Highest Order ONE of the following medications: *Heparin 5000 units SQ TID (Preferred with Epidurals) *Enoxaparin/Lovenox 40 mg SQ daily (WT < 150 kg, CrCl > 30 mL/min) *Enoxaparin/Lovenox 30 mg SQ daily (WT < 150 kg, CrCl > 10-29 mL/min) *Enoxaparin/Lovenox 30 mg SQ BID (WT < 150 kg, CrCl > 30 mL/min) AND *Sequential Compression Device (SCD) Assessment and Plan Problem List: (1) Pulmonary infiltrates ICD Codes: R91.8 - Other nonspecific abnormal finding of lung field Plan: will start on rocephin and zithromax continue oxygen may need CT thorax as did have left pleural effusion last week (2) Lung cancer ICD Codes: C34.90 - Malignant neoplasm of unspecified part of unspecified bronchus or lung Status: Chronic Plan: on pallative chemotherapy (3) Hypoxia ICD Codes: R09.02 - Hypoxemia Status: Acute Plan: doing better on 2-3 liters NC Assessment and Plan further plan as case develops changed to solumedrol from po prednisone Code Status full Discussed Condition With patient Physician Certification 2 Midnight Certification Type: Admission for Inpatient Services Order for Inpatient Services The services are ordered in accordance with Medicare regulations or non- Medicare payer requirements, as applicable. In the case of services not specified as inpatient-only, they are appropriately provided as inpatient services in accordance with the 2-midnight benchmark. Estimated LOS (days): 3 3 days is the estimated time the patient will need to remain in the hospital, assuming treatment plan goals are met and no additional complications. Post-Hospital Plan: Not yet determined Khai Garcia MD Jun 10, 2017 20:28
[2017-06-10 20:30] VITALS: BP 144/66; PULSE 102; RESP 22; TEMP 97.7; O2SAT 100
[2017-06-10] MEDS: ATORVASTATIN 20 MG TAB PO SCH (21:00)
[2017-06-10] MEDS ORDERED: SYMBICORT SCH (21:00)
[2017-06-10] MEDS: DOCUSATE SODIUM 50 MG/SENNA 8.6 MG TAB PO SCH (21:00)
[2017-06-10] MEDS ORDERED: methylPREDNISolone SOD SUCC 40 MG/1 ML VIAL IV PUSH SCH (22:00)
[2017-06-10] MEDS: ACETAMINOPHEN/HYDROcodone 325 MG/7.5 MG TAB PO PRN (22:15)
[2017-06-10] MEDS: SODIUM CHLORIDE 0.9% FLUSH 10 ML FLUSH IV FLUSH SCH (23:00)
[2017-06-10] MEDS: methylPREDNISolone SOD SUCC 125 MG/2 ML VIAL IV PUSH SCH (23:00)
[2017-06-11] VITALS (8 sets, daily range): BP systolic 95–123; BP diastolic 55–70; PULSE 87–108; RESP 17–18; TEMP 96.6–97.5; O2SAT 97–99
[2017-06-11] MEDS: RESP: IPRATROPIUM 0.5 MG/2.5 ML NEB NEB SCH ×3 (07:26→19:28)
--- NOTE | 2017-06-11 08:21 | PD.CONS ---
History of Present Illness Service Medical Oncology Consult Requested By Hospitalist Service Reason for Consult Metastatic Squamous Cell carcinoma of lung primary. Pulmonary fibrosis Hypoxic respiratory failure. Left-sided pleural effusion Presently on palliative immunotherapy with Nivolumab. Primary Care Physician Amaya Cabello MD Diagnoses: (1) Lung cancer (2) Pleural effusion (3) COPD (chronic obstructive pulmonary disease) with acute bronchitis History of Present Illness Chief complaint: Progressive difficulty breathing and dizziness while walking. The patient had a near syncopal episode at my office on 06/10/2017, she was caught by one of our nurses before she fell. History of present illness: Ms. Alberto is a very pleasant 76-year-old female who is well-known to me from my outpatient practice. She was diagnosed in December 2015 with a squamous cell carcinoma of the left upper lobe of the lung, she presented with a left upper lobe peripheral nodule. She underwent initial surgical resection and was found to have stage I disease ([place] cell carcinoma). She was recommended observation. In the spring she was found to have a new AP window mass which was biopsy proven to be squamous cell carcinoma. For this she underwent concurrent chemoradiotherapy and was put on observation. Restaging imaging performed earlier this year indicated bilateral lung metastatic disease, this was biopsied and pathologic confirmation of metastatic squamous cell carcinoma established. She was initiated on palliative immunotherapy with Nivolumab in April 2016 and had thus far received 2 doses at 240 mg IV every 2 weeks. About a week and half ago she developed increasing difficulty breathing and was admitted to [facility], imaging studies revealed a left-sided pleural effusion, she underwent ultrasound-guided left-sided thoracentesis with minimal improvement and was then discharged home. She was scheduled to resume palliative immunotherapy on 06/10/2017 and presented to my clinic with complaints of difficulty breathing. She while walking into the treatment room developed lightheadedness and nearly collapsed. She had to be caught by one of the nurses and was helped to a chair. She was resuscitated with oxygen supplementation and IV fluids and was a valued by myself. I attempted to use have her ambulate with assistance and while ambulating her heart rate increased from 80 bpm at rest up to 155 beats per minute after walking approximately 20 feet. Her O2 saturations were noted to be less than 85% on room air with improvement to over 95% with oxygen supplementation. EMS was called and she was transferred to [facility] for further workup and evaluation. She underwent chest x-ray which revealed findings stable when compared to her previous stitch chest x-ray performed a week ago. I did review her CT angiogram dated 06/05/2017 and noted there to be increased prominence of interstitial markings in conjunction with her baseline pulmonary fibrosis (which is quite severe at baseline). She was initiated on corticosteroid therapy with methylprednisolone and was initiated on empiric IV antibiotics with ceftriaxone and azithromycin. Subjectively, this morning she feels her breathing is stable while she is laying in bed she tells me she becomes very rapidly short of breath when she ambulates even short distances such as going to the bathroom. She denies fevers or chills. Her other major complaint is that of pain involving her upper back. Review of Systems Constitutional: COMPLAINS OF: Fatigue, Weight loss, Dizziness, Change in appetite (decreased appetite), DENIES: Diaphoretic episodes, Fever, Weight gain , Chills, Night Sweats Endocrine: DENIES: Abnorml menstrual pattern, Heat/cold intolerance, Polydipsia , Polyuria, Polyphagia Eyes: DENIES: Blurred vision, Diplopia, Eye inflammation, Eye pain, Vision loss , Photosensitivity, Double Vision Ears, nose, mouth, throat: DENIES: Tinnitus, Hearing loss, Vertigo, Nasal discharge, Oral lesions, Throat pain, Hoarseness, Ear Pain, Running Nose, Epistaxis, Sinus Pain, Toothache, Odynophagia Respiratory: COMPLAINS OF: Cough, Sputum production, Shortness of breath, DENIES: Apneas, Snoring, Wheezing, Hemoptysis Cardiovascular: COMPLAINS OF: Palpitations, Syncope, Dyspnea on Exertion, DENIES: Chest pain, PND, Lower Extremity Edema, Orthopnea, Claudication Gastrointestinal: DENIES: Abdominal pain, Black stools, Bloody stools, Constipation, Diarrhea, Nausea, Vomiting, Difficulty Swallowing, Anorexia Genitourinary: DENIES: Abnormal vaginal bleeding, Dysmenorrhea, Dyspareunia, Sexual dysfunction, Urinary frequency, Urinary incontinence, Urgency, Hematuria , Dysuria, Nocturia, Vaginal discharge Musculoskeletal: DENIES: Joint pain, Muscle aches, Stiffness, Joint Swelling, Back pain, Neck pain Integumentary: DENIES: Abnormal pigmentation, Pruritus, Rash, Nail changes, Breast masses, Breast skin changes, Nipple discharge Hematologic/lymphatic: DENIES: Bruising, Lymphadenopathy Immunologic/allergic: DENIES: Eczema, Urticaria Neurologic: COMPLAINS OF: Poor Balance, DENIES: Abnormal gait, Headache, Localized weakness, Paresthesias, Seizures, Speech Problems, Tremor Psychiatric: COMPLAINS OF: Anxiety, DENIES: Confusion, Mood changes, Depression , Hallucinations, Agitation, Suicidal Ideation, Homicidal Ideation, Delusions Except as stated in HPI: all other systems reviewed are Neg Past Family Social History Allergies: Coded Allergies: shellfish derived (Verified Allergy, Unknown, Hives, 06/10/17) Past Medical History Metastatic squamous cell carcinoma of lung primary Pulmonary fibrosis Personal history of tobaccoism History of ischemic stroke Peripheral vascular disease Hyperlipidemia COPD/emphysema Basal cell carcinoma of the skin. Past Surgical History Past surgical history: CT had lung biopsy Mediastinoscopy with paratracheal lymph node biopsy Multiple skin biopsies Robot-assisted left upper lobectomy Colonoscopy Cataract surgery Carotid endarterectomy CT-guided biopsy of right lung mass Active Ordered Medications Current inpatient medications: Azithromycin 500 mg IV every 24 hours Ceftriaxone 1 g IV every 24 hours Half-normal saline 75 mL/h Hydrocodone/acetaminophen 7.5/325 every 4 hours as needed for pain Acetaminophen 650 mg by mouth every 4 hours needed for temperature greater than 140F Albuterol nebulizers 2.5 mg nebulized 3 times a day Atorvastatin 20 by mouth 3 times a week Dulcolax suppository 10 mg per rectum as needed for severe constipation Symbicort 1 puff every 12 hours Plavix 75 mg by mouth daily The Loxitane 40 MG by mouth daily Ipratropium nebulizer 0.5 mg nebulized every 8 hours Lactulose 30 mL by mouth daily as needed for severe constipation Methylprednisolone 60 MG IV every 12 hours Milk of magnesia 30 mL by mouth every 12 hours for constipation The Levoxyl 0.4 mg IV push as needed for oversedation Family History Family history: Mother had ovarian cancer she is next maternal grandmother had breast cancer Father had liver disease. Gynecologic history: 0 para 0. Postmenopausal. Social History Social history: Patient is single, she lives at home alone, she was a heavy smoker in the past. Approximately smoked half a pack a day for 60 years she quit several years ago. 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 Allergies: No known drug allergies. Physical Exam Vital Signs Vital Signs Date Time Temp Pulse Resp B/P (MAP) Pulse Ox O2 Delivery O2 Flow Rate FiO2 3/27/18 07:29 98 Nasal Cannula 3.00 06/11/17 05:38 97.3 89 17 123/70 (87) 97 06/11/17 00:24 97.5 108 17 95/55 (68) 97 06/10/17 21:56 Nasal Cannula 3.00 06/10/17 21:00 06/10/17 20:30 97.7 102 22 144/66 (92) 100 Nasal Cannula 2.50 06/10/17 19:21 97.7 102 22 137/60 (85) 97 Nasal Cannula 2.50 06/10/17 13:53 97.6 81 14 104/67 (79) 98 Nasal Cannula 2.00 06/10/17 13:45 81 14 98 Nasal Cannula 2.00 Physical Exam GENERAL: Elderly lady, laying in bed, she appears to be no acute distress. She specifically appears to be no respiratory distress. SKIN: No rashes, ecchymoses or lesions. Cool and dry. HEAD: Atraumatic. Normocephalic. No temporal or scalp tenderness. EYES: Pupils equal round and reactive. Extraocular motions intact. No scleral icterus. No injection or drainage. ENT: Nose without bleeding, purulent drainage or septal hematoma. Throat without erythema, tonsillar hypertrophy or exudate. Uvula midline. Airway patent. NECK: Trachea midline. No JVD or lymphadenopathy. Supple, nontender, no meningeal signs. CARDIOVASCULAR: Regular rate and rhythm without murmurs, gallops, or rubs. RESPIRATORY: Good air movement bilaterally for upper and middle lung zones with prolonged expiratory phase, she has decreased bibasilar breath sounds. Fine inspiratory crackles noted these are dispersed. GASTROINTESTINAL: Thin Abdomen soft, non-tender, nondistended. No hepato- splenomegaly, or palpable masses. No guarding. MUSCULOSKELETAL: Generally decreased muscle mass and tone. NEUROLOGICAL: Awake and alert. Cranial nerves II through XII intact. Motor and sensory grossly within normal limits. Five out of 5 muscle strength in all muscle groups. Normal speech. Laboratory Laboratory Tests Test 06/10/17 15:50 06/10/17 20:45 White Blood Count 12.5 Red Blood Count 3.49 Hemoglobin 10.0 Hematocrit 30.3 Mean Corpuscular Volume 86.8 Mean Corpuscular Hemoglobin 28.6 Mean Corpuscular Hemoglobin Concent 33.0 Red Cell Distribution Width 16.7 Platelet Count 347 Mean Platelet Volume 7.9 Neutrophils (%) (Auto) 83.2 Lymphocytes (%) (Auto) 5.9 Monocytes (%) (Auto) 8.4 Eosinophils (%) (Auto) 2.4 Basophils (%) (Auto) 0.1 Neutrophils # (Auto) 10.4 Lymphocytes # (Auto) 0.7 Monocytes # (Auto) 1.1 Eosinophils # (Auto) 0.3 Basophils # (Auto) 0.0 CBC Comment DIFF FINAL Differential Comment Blood Urea Nitrogen 25 Creatinine 0.91 Random Glucose 78 Total Protein 7.5 Albumin 3.0 Calcium Level 9.4 Alkaline Phosphatase 112 Aspartate Amino Transf (AST/SGOT) 20 Alanine Aminotransferase (ALT/SGPT) 44 Total Bilirubin 0.3 Sodium Level 134 Potassium Level 4.3 Chloride Level 95 Carbon Dioxide Level 31.8 Anion Gap 7 Estimat Glomerular Filtration Rate 60 Lactic Acid Level 0.8 Date/Time Source Procedure Growth Status 06/10/17 19:52 Blood Other Aerobic Blood Culture Pending Received 06/10/17 19:52 Blood Other Anaerobic Blood Culture Pending Received Result Diagram: 06/10/17 1550 06/10/17 1550 Imaging Chest x-ray dated 06/10/2017 indicates findings of Surgical changes with volume loss of the left hemithorax with elevation of the left hemidiaphragm. There is apparent focal density at the left base. Coarse bilateral infiltrates without significant changes noted. Assessment and Plan Assessment and Plan Mr. Alberto is a 76-year-old lady with an extensive past history of tobaccoism, she has extensive pulmonary fibrosis and peripheral arterial disease. The patient from an oncologic standpoint has a diagnosis of a squamous cell carcinoma (poorly differentiated) which initially presented as a left upper lobe lung mass in the fall of 2015. Initial staging studies revealed hypermetabolic activity involving mediastinal lymph nodes, she underwent preoperative mediastinoscopy with sampling of the pretracheal mediastinal lymph nodes which were noted to be without evidence of malignancy. She subsequently underwent a left upper lobectomy and was found to have a T1 N0; stage I lung cancer. She was recommended observation. 4 months thereafter she presented with progressive disease with an AP window mass in the left hemithorax, this was biopsied and found to be consistent with recurrent squamous cell carcinoma. Because this lesion was not resectable due to its adherence to the mediastinum she underwent concurrent chemoradiotherapy with weekly carboplatin and Taxol followed by [facility] plus carboplatin. She had good local control however in the early part of 2018 she presented with metastatic disease to the contralateral lung. This was confirmed with a biopsy. She has since then been initiated on palliative immunotherapy with Nivolumab, between late April and now she has received 2 doses, her third dose was scheduled for 06/10/2017. She presented to my clinic complaining of difficulty breathing and dizziness. She was noted to be hypoxic and tachycardic and we were unable to resuscitate her with IV fluids and oxygen supplementation. She was therefore transferred to [facility] for further workup and management. Of note the patient was admitted to this facility about a week and half ago with similar symptoms. Imaging studies including CT angiogram revealed a left- sided pleural effusion and increased prominence of pulmonary fibrosis. Plan: 1. Pulmonary fibrosis with increased prominence of interstitial markings as noted on CT anterior gram dated 06/05/2017 performed at [facility] emergency Department: This may represent an atypical pneumonia versus immunotherapy associated pneumonitis versus lymphangitic progression of disease. I've empirically initiated her on corticosteroid therapy in case she may have immunotherapy mediated pneumonitis. Continue oxygen supplementation. Obtain pulmonology consultation to determine if this patient may benefit from bronchioloalveolar lavage to obtain cytology. 2. Continue empiric antibiotics. 3. Metastatic squamous cell carcinoma of lung primary: Immunotherapy is currently on hold pending results of the workup. Broderick Bowden MD Jun 11, 2017 08:21
[2017-06-11] MEDS ORDERED: PT:INCRUSE ELLIPTA INH SCH (09:00)
[2017-06-11] MEDS ORDERED: UMECLIDINIUM BROMIDE INH SCH (09:00)
[2017-06-11] MEDS: DULoxetine HCl DR 20 MG CAP PO SCH (09:27)
[2017-06-11] MEDS: methylPREDNISolone SOD SUCC 125 MG/2 ML VIAL IV PUSH SCH ×2 (09:27→21:00)
[2017-06-11] MEDS: DOCUSATE SODIUM 50 MG/SENNA 8.6 MG TAB PO SCH ×2 (09:27→21:00)
[2017-06-11] MEDS: CLOPIDOGREL 75 MG TAB PO SCH (09:27)
[2017-06-11 09:29] LABS: AUTOMATED NEUTROPHIL # 9.3 TH/MM3 (1.8-7.7); BASOPHIL % 0.1 % (0.0-2.0); EOSINOPHIL % 0.1 % (0.0-4.0); HEMATOCRIT 29.4 % (35.0-46.0); HEMOGLOBIN 9.7 GM/DL (11.6-15.3); LYMPH % 3.3 % (9.0-44.0); LYMPHOCYTE # 0.3 TH/MM3 (1.0-4.8); MEAN CELL VOLUME 87.3 FL (80.0-100.0); MEAN CORPUSCULAR HEMOGLOBIN 28.8 PG (27.0-34.0); MEAN PLATELET VOLUME 7.8 FL (7.0-11.0); MONO % 1.5 % (0.0-8.0); MONOCYTE # 0.1 TH/MM3 (0-0.9); PLATELET COUNT 302 TH/MM3 (150-450); RED BLOOD COUNT 3.36 MIL/MM3 (4.00-5.30); RED CELL DISTRIBUTION WIDTH 16.7 % (11.6-17.2); WHITE BLOOD COUNT 9.8 TH/MM3 (4.0-11.0)
[2017-06-11] MEDS: SODIUM CHLOR 0.45% 1000 ML INJ 1,000 ML IV SCH ×3 (09:29→23:40)
[2017-06-11] MEDS: SODIUM CHLORIDE 0.9% FLUSH 10 ML FLUSH IV FLUSH SCH ×2 (09:29→21:00)
[2017-06-11] MEDS: ACETAMINOPHEN/HYDROcodone 325 MG/7.5 MG TAB PO PRN ×3 (09:40→21:30)
[2017-06-11] MEDS: BUDESONIDE-FORMOTEROL 160/4.5 MCG INHALER INH SCH ×2 (09:40→21:00)
[2017-06-11 09:53] LABS: ALBUMIN 2.7 GM/DL (3.4-5.0); AST (GOT) 11 U/L (15-37); BICARBONATE 30.7 MEQ/L (21.0-32.0); BLOOD UREA NITROGEN 24 MG/DL (7-18); CALCIUM 9.1 MG/DL (8.5-10.1); CHLORIDE 99 MEQ/L (98-107); CREATININE 0.87 MG/DL (0.50-1.00); GLOMERULAR FILTRATION RATE 63 ML/MIN (>89); GLUCOSE,RANDOM 113 MG/DL (74-106); SODIUM (NA) 136 MEQ/L (136-145)
[2017-06-11 09:55] LABS: ALT (GPT) 34 U/L (10-53)
[2017-06-11 09:56] LABS: ALKALINE PHOSPHATASE 104 U/L (45-117); TOTAL BILIRUBIN ADULT 0.3 MG/DL (0.2-1.0)
--- NOTE | 2017-06-11 18:33 | HHI.PR ---
Subjective Remarks Pt is on 3L of supplemental O2 No new complaints Requesting sleeping pill Objective Vitals Vital Signs Date Time Temp Pulse Resp B/P (MAP) Pulse Ox O2 Delivery O2 Flow Rate FiO2 06/11/17 16:00 97.4 94 18 110/56 (74) 99 06/11/17 12:00 96.7 95 18 106/58 (74) 99 06/11/17 11:00 20 06/11/17 08:00 96.6 87 18 123/67 (85) 98 06/11/17 07:29 98 Nasal Cannula 3.00 06/11/17 05:38 97.3 89 17 123/70 (87) 97 06/11/17 00:24 97.5 108 17 95/55 (68) 97 06/10/17 21:56 Nasal Cannula 3.00 06/10/17 21:00 06/10/17 20:30 97.7 102 22 144/66 (92) 100 Nasal Cannula 2.50 06/10/17 19:21 97.7 102 22 137/60 (85) 97 Nasal Cannula 2.50 Result Diagram: 06/11/17 0830 06/11/17 0830 Other Results Laboratory Tests Test 06/10/17 15:50 06/10/17 20:45 06/11/17 08:30 White Blood Count 12.5 TH/MM3 9.8 TH/MM3 Red Blood Count 3.49 MIL/MM3 3.36 MIL/MM3 Hemoglobin 10.0 GM/DL 9.7 GM/DL Hematocrit 30.3 % 29.4 % Mean Corpuscular Volume 86.8 FL 87.3 FL Mean Corpuscular Hemoglobin 28.6 PG 28.8 PG Mean Corpuscular Hemoglobin Concent 33.0 % 33.0 % Red Cell Distribution Width 16.7 % 16.7 % Platelet Count 347 TH/MM3 302 TH/MM3 Mean Platelet Volume 7.9 FL 7.8 FL Neutrophils (%) (Auto) 83.2 % 95.0 % Lymphocytes (%) (Auto) 5.9 % 3.3 % Monocytes (%) (Auto) 8.4 % 1.5 % Eosinophils (%) (Auto) 2.4 % 0.1 % Basophils (%) (Auto) 0.1 % 0.1 % Neutrophils # (Auto) 10.4 TH/MM3 9.3 TH/MM3 Lymphocytes # (Auto) 0.7 TH/MM3 0.3 TH/MM3 Monocytes # (Auto) 1.1 TH/MM3 0.1 TH/MM3 Eosinophils # (Auto) 0.3 TH/MM3 0.0 TH/MM3 Basophils # (Auto) 0.0 TH/MM3 0.0 TH/MM3 CBC Comment DIFF FINAL DIFF FINAL Differential Comment Blood Urea Nitrogen 25 MG/DL 24 MG/DL Creatinine 0.91 MG/DL 0.87 MG/DL Random Glucose 78 MG/DL 113 MG/DL Total Protein 7.5 GM/DL 7.0 GM/DL Albumin 3.0 GM/DL 2.7 GM/DL Calcium Level 9.4 MG/DL 9.1 MG/DL Alkaline Phosphatase 112 U/L 104 U/L Aspartate Amino Transf (AST/SGOT) 20 U/L 11 U/L Alanine Aminotransferase (ALT/SGPT) 44 U/L 34 U/L Total Bilirubin 0.3 MG/DL 0.3 MG/DL Sodium Level 134 MEQ/L 136 MEQ/L Potassium Level 4.3 MEQ/L 5.1 MEQ/L Chloride Level 95 MEQ/L 99 MEQ/L Carbon Dioxide Level 31.8 MEQ/L 30.7 MEQ/L Anion Gap 7 MEQ/L 6 MEQ/L Estimat Glomerular Filtration Rate 60 ML/MIN 63 ML/MIN Lactic Acid Level 0.8 mmol/L Imaging Last Impressions Chest X-Ray 06/10/17 0000 Signed Impressions: Service Date/Time: Saturday, June 10, 2017 15:39 - CONCLUSION: 1. Surgical changes with volume loss left hemithorax and elevation of the left hemidiaphragm. 2. There is apparent focal denser opacity at the left lung base. 3. . Coarse bilateral infiltrates without significant change. Ramirez Oleary MD Objective Remarks General: NAD, AAOx3 Chest: Diminished at the left base Cardiac: Regular Abd: +BS, soft ND/NT Ext: No edema A/P Problem List: (1) Pulmonary infiltrates ICD Codes: R91.8 - Other nonspecific abnormal finding of lung field Plan: Hypoxia Metastatic lung cancer Hx of pleural effusion COPD (chronic obstructive pulmonary disease) Pulmonary fibrosis - Pt is a 76 y/o female with stage IV SCC of the lung who was previously admitted from 06/05/17 to 06/09/17 for hypotension and hypoxia. - She had a CTA Chest (06/05) --> Coarse interstitial changes both lungs with minimal consolidation on the right. Moderate left pleural effusion. This probably represents congestive failure superimposed over chronic fibrosis. Negative for central pulmonary emboli. - The exact cause for her pleural effusion is unclear but felt to likely be malignant in the setting of her metastatic lung cancer. - There were no other findings at that time overt congestive heart failure. Echo from July 2016 demonstrates an EF of 55-60% with no wall motion abnormalities and only mild valve regurgitation noted. - Pt underwent US guided therapeutic thoracentesis on 06/07 with removal of 400mL of fluid, reportedly clear, yellow fluid. - During her recent admission she developed some wheezing on 06/07 and she was started on Duonebs Q6H WA and Q2H PRN and pt was continued on Solu-Medrol with symptomatic improvement. - She was discharged home on supplemental O2, Duoneb nebulizer treatments TID and a prednisone taper - She presented to Dr. Bowden's office on 06/10 for palliative immunotherapy and with complaints of difficulty breathing and developed lightheadedness and nearly collapsed. Her O2 saturations were noted to be less than 85% on room air with improvement to over 95% with oxygen supplementation. EMS was called and she was transferred to the ED for further workup and evaluation. - CXR (06/10) --> Surgical changes with volume loss left hemithorax and elevation of the left hemidiaphragm, apparent focal dense opacity at the left lung base and coarse bilateral infiltrates without significant change - Her WBC count was 12 at admission. Pt has been afebrile - Pt was started on IV Rocephin and Azithromycin, Atrovent nebs TID, Solu- Medrol 60mg Q6H - She is saturating well on 2-3L of supplemental O2 - Pulmonary medicine has been consulted for possible Bronch/lavage - Repeat Chest CT, may consider repeat thoracentesis depending on results. - Supportive care Hypotension - Pt has had some longstanding issues with hypotension per the pt. She is not on any antihypertensives at home. (2) Lung cancer ICD Codes: C34.90 - Malignant neoplasm of unspecified part of unspecified bronchus or lung Status: Chronic (3) Hypoxia ICD Codes: R09.02 - Hypoxemia Status: Acute Assessment and Plan Patient examined. Assessment and plan formulated with Kristen Fito PA-C. I agree with the above. Obtain repeat CT thorax. Any further drainable pelural effusion Continue IV solumedrol, IV antibiotics. Kristen Payton Jun 11, 2017 18:33 Kale Ahumada DO Jun 12, 2017 02:58
[2017-06-11] MEDS: AZITHROMYCIN INJ 500 MG in SODIUM CHLOR 0.9% 250 ML INJ 250 ML IV SCH (20:00)
[2017-06-11] MEDS: cefTRIAXone INJ 1,000 MG in SODIUM CHLORIDE 0.9% INJ 100 ML IV SCH (20:00)
--- NOTE | 2017-06-11 20:05 | MB ---
cc: Mich Rivas MD DATE: 06/11/2017 REQUESTING PHYSICIAN: Broderick Bowden MD REASON FOR CONSULTATION: Pulmonary evaluation of lung infiltrate. HISTORY OF PRESENT ILLNESS: Ms. Alberto is a pleasant 76-year-old female with history of squamous cell carcinoma of the left upper lobe, status post left upper lobectomy. The patient was found to have cancer in the right lung. The patient was found to have metastatic disease. She was taking immunotherapy . The patient was recently admitted in the hospital with episode of hypotension, feeling weak and dizzy. She was discharged on home oxygen therapy. The patient was at Dr. Bowden's office and she became weak, dizzy and almost passed out. She was also found to be hypoxic. She was given IV fluid and oxygen, and she was sent to the ER for further evaluation. She recently had a CT scan of the chest done, which did not show any pulmonary embolism. It did show that she has coarse interstitial changes in both lungs with minimal consolidation on the right lung. She has moderate left pleural effusion. She had a thoracentesis done on 06/07 and 400 mL of fluid was removed. She feels her breathing is better. Now, she is on supplemental oxygen. She has no cough or sputum. There is no fever, chills. No night sweats. PAST MEDICAL HISTORY: Significant for history of stage IV cancer of the right lung. She also had left lung cancer and status post lobectomy, COPD, basal cell carcinoma of the skin, pulmonary fibrosis, history of carotid endarterectomy. MEDICATIONS: She is currently taking Rocephin 1 gm a day, Zithromax 500 mg, temazepam 7.5 mg at night, Plavix 75 mg a day, duloxetine 40 mg a day, Symbicort 160/4.5 q 12 hours, Lortab for pain, Solu-Medrol 60 mg q. 12 hours, Lipitor 20 mg a day, albuterol sulfate nebulizer treatment. ALLERGIES: SHE IS ALLERGIC TO SHELLFISH. SOCIAL HISTORY: She has a long history of smoking. She quit 1 year ago. Drinks socially. 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 FAMILY HISTORY: She is single, never , no children. REVIEW OF SYSTEMS: Normally, she is up around and active. Weight is stable. No DVT or pulmonary embolism. No seizure or epilepsy. PHYSICAL EXAMINATION: GENERAL: Elderly female, mildly short of breath, not in acute distress. VITAL SIGNS: Blood pressure 110/56, heart rate 94, respirations 18, temperature 97.4, saturation 99%. HEENT: Unremarkable. NECK: Supple. JVD not raised. CHEST: She has inspiratory rales and decreased breath sounds at the left base. CARDIOVASCULAR: S1, S2 normal. ABDOMEN: Benign. EXTREMITIES: No edema. IMPRESSION: 1. Pulmonary fibrosis with increased interstitial marking, possibility of immunotherapy-induced lung disease is not ruled out. 2. Left pleural effusion. 3. Metastatic carcinoma of the lung. 4. Chronic obstructive pulmonary disease. PLAN: I discussed with the patient. She will be given IV Solu-Medrol. Continue antibiotics, supplemental oxygen. I will discuss with Dr. Broderick Bowden for bronchoscopy. If she needs bronchoscopy, she will need to hold her Plavix for 5 days. In the meantime, we will continue antibiotic and supplemental oxygen. After discussion with Dr. Bowden, I will decide about the bronchoscopy. Further treatment will depend on the course in the hospital. Thank you, Dr. Bowden, for this consult. MD JENIFFER Guadarrama/RONNIE , 07:30 PM , 08:04 PM KAROL
[2017-06-11] MEDS: TEMAZEPAM 7.5 MG CAP PO PRN (22:00)
--- NOTE | 2017-06-11 22:26 | RADRPT ---
EXAM DATE/TIME: 06/11/2017 21:48 [facility] COMPARISON: CT PULMONARY ANGIOGRAM, June 05, 2017, 17:12. CHEST PA & LAT, June 10, 2017, 15:39. INDICATIONS : Short of breath. RADIATION DOSE: 3.77 CTDIvol (mGy) MEDICAL HISTORY : Stroke. Cardiovascular disease Carcinoma, lung. SURGICAL HISTORY : None. ENCOUNTER: Initial ACUITY: 1 day PAIN SCALE: 0/10 LOCATION: Bilateral chest TECHNIQUE: Volumetric scanning of the chest was performed. Using automated exposure control and adjustment of t he mA and/or kV according to patient size, radiation dose was kept as low as reasonably achievable to obtain optimal diagnostic quality images. DICOM format image data is available electronically for r eview and comparison. Follow-up recommendations for detected pulmonary nodules are based at a minimum on nodule size and pa tient risk factors according to Fleischner Society Guidelines. FINDINGS: LUNGS: There is emphysematous change being worse in the upper lungs. There is chronic interstitial disease b eing worse in the upper lungs. There several masses seen in the lungs bilaterally. The largest mass m easures 1.8 cm and is in the superior medial left upper lung. There are subcentimeter masses in the r ight middle lobe and right lower lobes. There is a larger focal consolidation or mass seen in the lat eral right upper lobe measuring 3.5 cm. PLEURAE: There is mild left pleural effusion. There is elevation left hemidiaphragm. MEDIASTINUM: There is increased soft tissue density in the prevascular region potentially related to adenopathy. T here appears be a prominent lymph node in the precarinal area measuring 1.9 cm. AXILLAE: Within normal limits. No lymphadenopathy. MUSCULOSKELETAL: Within normal limits for patient age. MISCELLANEOUS: The visualized upper abdominal organs demonstrate no acute abnormality. CONCLUSION: 1. 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 2. Several focal masses including a 1.9 some irregular mass in the superior-medial left upper lung. T here are subcentimeter masses in the right middle lobe and right lower lobe. 3. Chronic area of focal consolidation or mass measuring up to 3.5 cm in the lateral right upper lobe . Neoplasm cannot be excluded in any of these nodules. 4. Mild left pleural effusion. 5. Prominent lymph node in the precarinal region and possibly in the prevascular region. Larry Steele MD on June 11, 2017 at 22:18 Board Certified Radiologist. This report was verified electronically.
[2017-06-12] VITALS (7 sets, daily range): BP systolic 133–155; BP diastolic 63–73; PULSE 83–102; RESP 18–20; TEMP 96.8–98.1; O2SAT 95–99
--- NOTE | 2017-06-12 07:39 | PD.ONC.PN ---
Subjective Subjective Remarks Patient seen and examined, vital signs, labs, medications and regional engagement consultant notes reviewed. Patient reports her breathing is stable, she feels generally weak and tells me she needs help to get up out of bed to go to the bathroom. She tells me overall when she is laying in bed her breathing is stable. She has a cough and scant phlegm is expectorated, she has no hemoptysis or hematemesis. She tells me she has had difficulty sleeping at nighttime due to the constant screaming of one of the patients in one of the neighboring rooms. Objective Data Date Time Temp Pulse Resp B/P (MAP) Pulse Ox O2 Delivery O2 Flow Rate FiO2 06/12/17 04:00 97.5 90 18 144/63 (90) 99 06/12/17 00:00 97.0 88 18 145/72 (96) 99 06/11/17 20:00 97.1 98 18 117/58 (77) 99 06/11/17 19:30 98 Nasal Cannula 3.00 06/11/17 16:00 97.4 94 18 110/56 (74) 99 06/11/17 12:00 96.7 95 18 106/58 (74) 99 06/11/17 11:00 20 06/11/17 08:00 96.6 87 18 123/67 (85) 98 06/12/17 06/12/17 06/12/17 06:59 14:59 22:59 Intake Total 220 ml Output Total 400 ml Balance -180 ml Result Diagram: 06/11/17 0830 06/11/17 0830 Laboratory Results Laboratory Tests Test 06/11/17 08:30 White Blood Count 9.8 TH/MM3 Red Blood Count 3.36 MIL/MM3 Hemoglobin 9.7 GM/DL Hematocrit 29.4 % Mean Corpuscular Volume 87.3 FL Mean Corpuscular Hemoglobin 28.8 PG Mean Corpuscular Hemoglobin Concent 33.0 % Red Cell Distribution Width 16.7 % Platelet Count 302 TH/MM3 Mean Platelet Volume 7.8 FL Neutrophils (%) (Auto) 95.0 % Lymphocytes (%) (Auto) 3.3 % Monocytes (%) (Auto) 1.5 % Eosinophils (%) (Auto) 0.1 % Basophils (%) (Auto) 0.1 % Neutrophils # (Auto) 9.3 TH/MM3 Lymphocytes # (Auto) 0.3 TH/MM3 Monocytes # (Auto) 0.1 TH/MM3 Eosinophils # (Auto) 0.0 TH/MM3 Basophils # (Auto) 0.0 TH/MM3 CBC Comment DIFF FINAL Differential Comment Blood Urea Nitrogen 24 MG/DL Creatinine 0.87 MG/DL Random Glucose 113 MG/DL Total Protein 7.0 GM/DL Albumin 2.7 GM/DL Calcium Level 9.1 MG/DL Alkaline Phosphatase 104 U/L Aspartate Amino Transf (AST/SGOT) 11 U/L Alanine Aminotransferase (ALT/SGPT) 34 U/L Total Bilirubin 0.3 MG/DL Sodium Level 136 MEQ/L Potassium Level 5.1 MEQ/L Chloride Level 99 MEQ/L Carbon Dioxide Level 30.7 MEQ/L Anion Gap 6 MEQ/L Estimat Glomerular Filtration Rate 63 ML/MIN Culture Results Microbiology Date/Time Source Procedure Growth Status 06/10/17 19:52 Blood Other Aerobic Blood Culture - Preliminary NO GROWTH IN 1 DAY Resulted 06/10/17 19:52 Blood Other Anaerobic Blood Culture - Preliminary NO GROWTH IN 1 DAY Resulted 06/10/17 19:46 Blood Other Aerobic Blood Culture - Preliminary NO GROWTH IN 1 DAY Resulted 06/10/17 19:46 Blood Other Anaerobic Blood Culture - Preliminary NO GROWTH IN 1 DAY Resulted Administered Medications Medications (Trade) Dose Ordered Sig/Yael Route PRN Reason Start Time Stop Time Status Last Admin Dose Admin Methylprednisolone Sodium Succinate (SoluMEDROL INJ) 60 mg Q12HR IV PUSH 06/10/17 21:00 06/11/17 21:00 Atorvastatin Calcium (Lipitor) 20 mg MOWEFR PO 06/10/17 21:00 06/10/17 21:00 Clopidogrel Bisulfate (Plavix) 75 mg DAILY PO 06/11/17 09:00 06/11/17 09:27 Duloxetine HCl (Cymbalta Dr) 40 mg DAILY PO 06/11/17 09:00 06/11/17 09:27 Ipratropium [place] (Atrovent Neb) 0.5 mg TID NEB NEB 06/11/17 08:00 06/11/17 19:28 Ceftriaxone Sodium 1000 mg/ Sodium Chloride 100 ml @ 200 mls/hr Q24H IV 06/11/17 20:00 06/11/17 20:00 Azithromycin 500 mg/Sodium Chloride 250 ml @ 250 mls/hr Q24H IV 06/11/17 20:00 06/11/17 20:00 Sodium Chloride 1,000 ml @ 75 mls/hr [id number] IV 06/10/17 21:00 06/11/17 23:40 Sodium Chloride (NS Flush) 2 ml BID IV FLUSH 06/10/17 21:00 06/11/17 21:00 Senna/Docusate Sodium (Marycruz-Colace) 1 tab BID PO 06/10/17 21:00 06/11/17 21:00 Acetaminophen/ Hydrocodone Bitart ([place] 7.5-325 Mg) 2 tab Q4H PRN PO PAIN SCALE 6 TO 10 06/10/17 22:15 06/11/17 21:30 Budesonide/ Formoterol Fumarate (Symbicort 160-4.5 Mcg Inh) 1 puff Q12HR INH 06/11/17 09:00 06/11/17 21:00 Temazepam (Restoril) 7.5 mg HS PRN PO insomnia 06/11/17 19:00 06/11/17 22:00 Objective Remarks GENERAL: Elderly lady, laying in bed, she appears to be no acute distress. She specifically appears to be no respiratory distress. SKIN: No rashes, ecchymoses or lesions. Cool and dry. HEAD: Atraumatic. Normocephalic. No temporal or scalp tenderness. EYES: Pupils equal round and reactive. Extraocular motions intact. No scleral icterus. No injection or drainage. ENT: Nose without bleeding, purulent drainage or septal hematoma. Throat without erythema, tonsillar hypertrophy or exudate. Uvula midline. Airway patent. NECK: Trachea midline. No JVD or lymphadenopathy. Supple, nontender, no meningeal signs. CARDIOVASCULAR: Regular rate and rhythm without murmurs, gallops, or rubs. RESPIRATORY: Good air movement bilaterally for upper and middle lung zones with prolonged expiratory phase, she has decreased bibasilar breath sounds. Fine inspiratory crackles noted these are dispersed. GASTROINTESTINAL: Thin Abdomen soft, non-tender, nondistended. No hepato- splenomegaly, or palpable masses. No guarding. MUSCULOSKELETAL: Generally decreased muscle mass and tone. NEUROLOGICAL: Awake and alert. Cranial nerves II through XII intact. Motor and sensory grossly within normal limits. Five out of 5 muscle strength in all muscle groups. Normal speech. Assessment/Plan Assessment Ms. Alberto is a 76-year-old lady with an extensive past history of tobaccoism, she has extensive pulmonary fibrosis and peripheral arterial disease. The patient from an oncologic standpoint has a diagnosis of a squamous cell carcinoma (poorly differentiated) which initially presented as a left upper lobe lung mass in the fall of 2015. Initial staging studies revealed hypermetabolic activity involving mediastinal lymph nodes, she underwent preoperative mediastinoscopy with sampling of the pretracheal mediastinal lymph nodes which were noted to be without evidence of malignancy. She subsequently underwent a left upper lobectomy and was found to have a T1 N0; stage I lung cancer. She was recommended observation. 4 months thereafter she presented with progressive disease with an AP window mass in the left hemithorax, this was biopsied and found to be consistent with recurrent squamous cell carcinoma. Because this lesion was not resectable due to its adherence to the mediastinum she underwent concurrent chemoradiotherapy with weekly carboplatin and Taxol followed by [facility] plus carboplatin. She had good local control however in the early part of 2017 she presented with metastatic disease to the contralateral lung. This was confirmed with a biopsy. She has since then been initiated on palliative immunotherapy with Nivolumab, between late April and now she has received 2 doses, her third dose was scheduled for 06/10/2017. She presented to my clinic complaining of difficulty breathing and dizziness. She was noted to be hypoxic and tachycardic and we were unable to resuscitate her with IV fluids and oxygen supplementation. She was therefore transferred to [facility] for further workup and management. Of note the patient was admitted to this facility about a week and half ago with similar symptoms. Imaging studies including CT angiogram revealed a left- sided pleural effusion and increased prominence of pulmonary fibrosis. Plan 1. Metastatic squamous cell carcinoma of the lung: She had been on palliative immunotherapy with Nivolumab, her disease had prior to this progressed on carboplatin and Taxol, surgical resection and radiation. Currently systemic therapy is on hold. 2. Pulmonary fibrosis associated with worsening hypoxia. She seems to respond well toxin supplementation, she is on empiric antibiotic therapy and is also on corticosteroid therapy because Nivolumab associated pneumonitis is in the differential diagnosis. 3. History of ischemic stroke secondary to carotid artery plaque formation; status post carotid endarterectomy which was performed in the summer of 2016. She remains on Plavix, this will need to be put on hold if any invasive procedures are planned. Disposition: Overall she does feel somewhat improved. Physical therapy is been ordered. Pulmonology input appreciated, I will try to reach out to Dr. Rivas to discuss the possibility for bronchoscopy at some point today. Broderick Bowden MD Jun 12, 2017 07:39
[2017-06-12] MEDS: ACETAMINOPHEN/HYDROcodone 325 MG/7.5 MG TAB PO PRN ×3 (08:30→20:34)
[2017-06-12] MEDS: CLOPIDOGREL 75 MG TAB PO SCH (08:31)
[2017-06-12] MEDS: DULoxetine HCl DR 20 MG CAP PO SCH (08:31)
[2017-06-12] MEDS: DOCUSATE SODIUM 50 MG/SENNA 8.6 MG TAB PO SCH ×2 (08:31→20:34)
[2017-06-12] MEDS: SODIUM CHLORIDE 0.9% FLUSH 10 ML FLUSH IV FLUSH SCH ×2 (08:32→20:36)
[2017-06-12] MEDS: methylPREDNISolone SOD SUCC 125 MG/2 ML VIAL IV PUSH SCH ×2 (08:32→20:36)
[2017-06-12] MEDS: BUDESONIDE-FORMOTEROL 160/4.5 MCG INHALER INH SCH ×2 (08:32→20:37)
[2017-06-12] MEDS: RESP: IPRATROPIUM 0.5 MG/2.5 ML NEB NEB SCH ×3 (08:47→21:15)
[2017-06-12] MEDS: SODIUM CHLOR 0.45% 1000 ML INJ 1,000 ML IV SCH (13:46)
--- NOTE | 2017-06-12 17:53 | HHI.PR ---
Subjective Remarks No new concerns, reports breathing better today Objective Vitals Vital Signs Date Time Temp Pulse Resp B/P (MAP) Pulse Ox O2 Delivery O2 Flow Rate FiO2 06/12/17 16:00 98.1 89 19 142/67 (92) 96 06/12/17 12:00 96.8 102 19 133/64 (87) 96 06/12/17 08:49 99 Nasal Cannula 3.00 06/12/17 08:00 97.7 83 19 155/71 (99) 95 06/12/17 04:00 97.5 90 18 144/63 (90) 99 06/12/17 00:00 97.0 88 18 145/72 (96) 99 06/11/17 20:00 97.1 98 18 117/58 (77) 99 06/11/17 19:30 98 Nasal Cannula 3.00 Result Diagram: 06/11/17 0830 06/11/17 0830 Other Results Laboratory Tests Test 06/10/17 15:50 06/10/17 20:45 06/11/17 08:30 White Blood Count 12.5 TH/MM3 9.8 TH/MM3 Red Blood Count 3.49 MIL/MM3 3.36 MIL/MM3 Hemoglobin 10.0 GM/DL 9.7 GM/DL Hematocrit 30.3 % 29.4 % Mean Corpuscular Volume 86.8 FL 87.3 FL Mean Corpuscular Hemoglobin 28.6 PG 28.8 PG Mean Corpuscular Hemoglobin Concent 33.0 % 33.0 % Red Cell Distribution Width 16.7 % 16.7 % Platelet Count 347 TH/MM3 302 TH/MM3 Mean Platelet Volume 7.9 FL 7.8 FL Neutrophils (%) (Auto) 83.2 % 95.0 % Lymphocytes (%) (Auto) 5.9 % 3.3 % Monocytes (%) (Auto) 8.4 % 1.5 % Eosinophils (%) (Auto) 2.4 % 0.1 % Basophils (%) (Auto) 0.1 % 0.1 % Neutrophils # (Auto) 10.4 TH/MM3 9.3 TH/MM3 Lymphocytes # (Auto) 0.7 TH/MM3 0.3 TH/MM3 Monocytes # (Auto) 1.1 TH/MM3 0.1 TH/MM3 Eosinophils # (Auto) 0.3 TH/MM3 0.0 TH/MM3 Basophils # (Auto) 0.0 TH/MM3 0.0 TH/MM3 CBC Comment DIFF FINAL DIFF FINAL Differential Comment Blood Urea Nitrogen 25 MG/DL 24 MG/DL Creatinine 0.91 MG/DL 0.87 MG/DL Random Glucose 78 MG/DL 113 MG/DL Total Protein 7.5 GM/DL 7.0 GM/DL Albumin 3.0 GM/DL 2.7 GM/DL Calcium Level 9.4 MG/DL 9.1 MG/DL Alkaline Phosphatase 112 U/L 104 U/L Aspartate Amino Transf (AST/SGOT) 20 U/L 11 U/L Alanine Aminotransferase (ALT/SGPT) 44 U/L 34 U/L Total Bilirubin 0.3 MG/DL 0.3 MG/DL Sodium Level 134 MEQ/L 136 MEQ/L Potassium Level 4.3 MEQ/L 5.1 MEQ/L Chloride Level 95 MEQ/L 99 MEQ/L Carbon Dioxide Level 31.8 MEQ/L 30.7 MEQ/L Anion Gap 7 MEQ/L 6 MEQ/L Estimat Glomerular Filtration Rate 60 ML/MIN 63 ML/MIN Lactic Acid Level 0.8 mmol/L Imaging Last Impressions Chest X-Ray 06/10/17 0000 Signed Impressions: Service Date/Time: Saturday, June 10, 2017 15:39 - CONCLUSION: 1. Surgical changes with volume loss left hemithorax and elevation of the left hemidiaphragm. 2. There is apparent focal denser opacity at the left lung base. 3. . Coarse bilateral infiltrates without significant change. Ramirez Oleary MD Objective Remarks General: NAD, AAOx3 Chest: CTA Cardiac: Regular Abd: +BS, soft ND/NT Ext: No edema A/P Problem List: (1) Pulmonary infiltrates ICD Codes: R91.8 - Other nonspecific abnormal finding of lung field Plan: Hypoxia Metastatic lung cancer Hx of pleural effusion COPD (chronic obstructive pulmonary disease) Pulmonary fibrosis - Pt is a 76 y/o female with stage IV SCC of the lung who was previously admitted from 06/05/17 to 06/09/17 for hypotension and hypoxia. - She had a CTA Chest (06/05) --> Coarse interstitial changes both lungs with minimal consolidation on the right. Moderate left pleural effusion. This probably represents congestive failure superimposed over chronic fibrosis. Negative for central pulmonary emboli. - The exact cause for her pleural effusion is unclear but felt to likely be malignant in the setting of her metastatic lung cancer. - There were no other findings at that time overt congestive heart failure. Echo from July 2016 demonstrates an EF of 55-60% with no wall motion abnormalities and only mild valve regurgitation noted. - Pt underwent US guided therapeutic thoracentesis on 06/07 with removal of 400mL of fluid, reportedly clear, yellow fluid. - During her recent admission she developed some wheezing on 06/07 and she was started on Duonebs Q6H WA and Q2H PRN and pt was continued on Solu-Medrol with symptomatic improvement. - She was discharged home on supplemental O2, Duoneb nebulizer treatments TID and a prednisone taper - She presented to Dr. Bowden's office on 06/10 for palliative immunotherapy and with complaints of difficulty breathing and developed lightheadedness and nearly collapsed. Her O2 saturations were noted to be less than 85% on room air with improvement to over 95% with oxygen supplementation. EMS was called and she was transferred to the ED for further workup and evaluation. - CXR (06/10) --> Surgical changes with volume loss left hemithorax and elevation of the left hemidiaphragm, apparent focal dense opacity at the left lung base and coarse bilateral infiltrates without significant change - Her WBC count was 12 at admission. 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 Several focal masses including a 1.9 irregular mass in the superior-medial left upper lung. There are subcentimeter masses in the right middle lobe and right lower lobe. Chronic area of focal consolidation or mass measuring up to 3.5 cm in the lateral right upper lobe. Neoplasm cannot be excluded in any of these nodules. Mild left pleural effusion. Prominent lymph node in the precarinal region and possibly in the prevascular region. - Pulmonary consulted, Dr. Rivas following. Patient had possible CVA with left CEA 07/[address] Rojas. discussed the case with Dr. Robertson Now that patient is more than 6 months post surgery may DC Plavix. Will DC Plavix in anticipation of Bronchoscopy. - Oncology also following, Dr. Bowden - Supportive care Hypotension - Pt has had some longstanding issues with hypotension per the pt. She is not on any antihypertensives at home. (2) Lung cancer ICD Codes: C34.90 - Malignant neoplasm of unspecified part of unspecified bronchus or lung Status: Chronic (3) Hypoxia ICD Codes: R09.02 - Hypoxemia Status: Acute Assessment and Plan Patient examined. Assessment and plan formulated with Shalini Davey PA-C. I agree with the above. Shalini Davey Jun 12, 2017 17:53 Kale Ahumada DO Jun 18, 2017 13:42
[2017-06-12] MEDS: cefTRIAXone INJ 1,000 MG in SODIUM CHLORIDE 0.9% INJ 100 ML IV SCH (20:38)
[2017-06-12] MEDS: AZITHROMYCIN INJ 500 MG in SODIUM CHLOR 0.9% 250 ML INJ 250 ML IV SCH (20:43)
[2017-06-12] MEDS: ATORVASTATIN 20 MG TAB PO SCH (20:49)
[2017-06-12] MEDS: TEMAZEPAM 7.5 MG CAP PO PRN (20:49)
--- NOTE | 2017-06-12 21:42 | HHI.PR ---
Subjective Remarks 76 YOWF with metastatic ca, PF, bilat lung infilt On Steroids Feels little better Objective Vital Signs Vital Signs Date Time Temp Pulse Resp B/P (MAP) Pulse Ox O2 Delivery O2 Flow Rate FiO2 06/12/17 16:00 98.1 89 19 142/67 (92) 96 06/12/17 12:00 96.8 102 19 133/64 (87) 96 06/12/17 08:49 99 Nasal Cannula 3.00 06/12/17 08:00 97.7 83 19 155/71 (99) 95 06/12/17 04:00 97.5 90 18 144/63 (90) 99 06/12/17 00:00 97.0 88 18 145/72 (96) 99 I/O 06/11/17 06/11/17 06/11/17 06/12/17 06/12/17 06/12/17 07:00 15:00 23:00 07:00 15:00 23:00 Intake Total 120 ml 480 ml 220 ml 1200 ml Output Total 400 ml Balance 120 ml 480 ml -180 ml 1200 ml Intake Oral 120 ml 480 ml 220 ml 1200 ml Output Urine Total 400 ml # Voids 2 2 5 # Bowel Movements 0 Result Diagram: 06/11/17 0830 06/11/17 0830 Objective Remarks GENERAL: MBMN WF, mild sob SKIN: Warm and dry. HEAD: Normocephalic. EYES: No scleral icterus. No injection or drainage. NECK: Supple, trachea midline. No JVD or lymphadenopathy. CARDIOVASCULAR: Regular rate and rhythm without murmurs, gallops, or rubs. RESPIRATORY: Breath sounds equal bilaterally. No accessory muscle use Insp rales GASTROINTESTINAL: Abdomen soft, non-tender, nondistended. MUSCULOSKELETAL: No cyanosis, or edema. BACK: Nontender without obvious deformity. No CVA tenderness. A/P Assessment and Plan IMPRESSION: 1. Pulmonary fibrosis with increased interstitial marking, possibility of immunotherapy-induced lung disease is not ruled out. 2. Left pleural effusion. 3. Metastatic carcinoma of the lung. 4. Chronic obstructive pulmonary disease. PLAN: CURT Bowden Pt on Plavix Will cont steroids and see response If not better, will consider bronch Cont Abx Aerosol nebs Supplement 02 Mich Rivas MD Jun 12, 2017 21:41
[2017-06-13] VITALS (7 sets, daily range): BP systolic 122–151; BP diastolic 58–79; PULSE 83–93; RESP 15–20; TEMP 96.4–98.3; O2SAT 95–99
[2017-06-13] MEDS: ACETAMINOPHEN/HYDROcodone 325 MG/7.5 MG TAB PO PRN ×4 (02:51→23:17)
[2017-06-13] MEDS: RESP: IPRATROPIUM 0.5 MG/2.5 ML NEB NEB SCH ×3 (07:52→20:04)
[2017-06-13 09:00] LABS: BICARBONATE 27.6 MEQ/L (21.0-32.0); CALCIUM 8.8 MG/DL (8.5-10.1); CREATININE 0.74 MG/DL (0.50-1.00)
[2017-06-13] MEDS: DULoxetine HCl DR 20 MG CAP PO SCH (09:32)
[2017-06-13] MEDS: methylPREDNISolone SOD SUCC 125 MG/2 ML VIAL IV PUSH SCH ×2 (09:32→21:31)
[2017-06-13] MEDS: DOCUSATE SODIUM 50 MG/SENNA 8.6 MG TAB PO SCH ×2 (09:32→21:32)
[2017-06-13] MEDS: SODIUM CHLORIDE 0.9% FLUSH 10 ML FLUSH IV FLUSH SCH ×2 (09:33→21:32)
[2017-06-13] MEDS: BUDESONIDE-FORMOTEROL 160/4.5 MCG INHALER INH SCH ×2 (09:33→21:33)
--- NOTE | 2017-06-13 10:19 | HHI.PR ---
Subjective Remarks Patient reports breathing is better does still get SOB with minimal exertion on 2L oxygen via NC saturating b/t 96-99% Objective Vitals Vital Signs Date Time Temp Pulse Resp B/P (MAP) Pulse Ox O2 Delivery O2 Flow Rate FiO2 06/13/17 08:00 97.8 85 20 135/70 (91) 96 06/13/17 07:53 99 Nasal Cannula 3.00 06/13/17 04:00 96.4 83 20 125/58 (80) 99 06/13/17 03:51 18 06/12/17 20:00 96.9 89 20 155/73 (100) 97 06/12/17 16:00 98.1 89 19 142/67 (92) 96 06/12/17 12:00 96.8 102 19 133/64 (87) 96 Result Diagram: 06/11/17 0830 06/13/17 0547 Imaging Last Impressions Chest X-Ray 06/10/17 0000 Signed Impressions: Service Date/Time: Saturday, June 10, 2017 15:39 - CONCLUSION: 1. Surgical changes with volume loss left hemithorax and elevation of the left hemidiaphragm. 2. There is apparent focal denser opacity at the left lung base. 3. . Coarse bilateral infiltrates without significant change. Ramirez Oleary MD Objective Remarks General: NAD, AAOx3 Chest: LLB very diminished Cardiac: Regular Abd: +BS, soft ND/NT Ext: No edema A/P Problem List: (1) Pulmonary infiltrates ICD Codes: R91.8 - Other nonspecific abnormal finding of lung field Plan: Hypoxia Metastatic lung cancer Hx of pleural effusion COPD (chronic obstructive pulmonary disease) Pulmonary fibrosis - Pt is a 76 y/o female with stage IV SCC of the lung who was previously admitted from 06/05/17 to 06/09/17 for hypotension and hypoxia. - She had a CTA Chest (06/05) --> Coarse interstitial changes both lungs with minimal consolidation on the right. Moderate left pleural effusion. This probably represents congestive failure superimposed over chronic fibrosis. Negative for central pulmonary emboli. - The exact cause for her pleural effusion is unclear but felt to likely be malignant in the setting of her metastatic lung cancer. - There were no other findings at that time overt congestive heart failure. Echo from July 2016 demonstrates an EF of 55-60% with no wall motion abnormalities and only mild valve regurgitation noted. - Pt underwent US guided therapeutic thoracentesis on 06/07 with removal of 400mL of fluid, reportedly clear, yellow fluid. - During her recent admission she developed some wheezing on 06/07 and she was started on Duonebs Q6H WA and Q2H PRN and pt was continued on Solu-Medrol with symptomatic improvement. - She was discharged home on supplemental O2, Duoneb nebulizer treatments TID and a prednisone taper - She presented to Dr. Bowden's office on 06/10 for palliative immunotherapy and with complaints of difficulty breathing and developed lightheadedness and nearly collapsed. Her O2 saturations were noted to be less than 85% on room air with improvement to over 95% with oxygen supplementation. EMS was called and she was transferred to the ED for further workup and evaluation. - CXR (06/10) --> Surgical changes with volume loss left hemithorax and elevation of the left hemidiaphragm, apparent focal dense opacity at the left lung base and coarse bilateral infiltrates without significant change - Her WBC count was 12 at admission. 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 Several focal masses including a 1.9 irregular mass in the superior-medial left upper lung. There are subcentimeter masses in the right middle lobe and right lower lobe. Chronic area of focal consolidation or mass measuring up to 3.5 cm in the lateral right upper lobe. Neoplasm cannot be excluded in any of these nodules. Mild left pleural effusion. Prominent lymph node in the precarinal region and possibly in the prevascular region. - Pulmonary consulted, Dr. Rivas following. Patient had possible CVA with left CEA 07/[address] Rojas. discussed the case with Dr. Robertson Now that patient is more than 6 months post surgery may DC Plavix. DC Plavix in anticipation of possible Bronchoscopy. - Oncology also following, Dr. Bowden - Supportive care Hypotension - Pt has had some longstanding issues with hypotension per the pt. She is not on any antihypertensives at home. (2) Lung cancer ICD Codes: C34.90 - Malignant neoplasm of unspecified part of unspecified bronchus or lung Status: Chronic (3) Hypoxia ICD Codes: R09.02 - Hypoxemia Status: Acute Assessment and Plan Patient examined. Assessment and plan formulated with Shalini Davey PA-C. I agree with the above. Shalini Davey Jun 13, 2017 10:19 Kale Ahumada DO Jun 18, 2017 13:42
--- NOTE | 2017-06-13 13:37 | PD.ONC.PN ---
Subjective Subjective Remarks Afebrile overnight. patient resting in bed in nad. No complaints. states she is breathing better today. she still has exertional dyspnea, but states she feels improved at rest. Objective Data Date Time Temp Pulse Resp B/P (MAP) Pulse Ox O2 Delivery O2 Flow Rate FiO2 06/13/17 12:00 97.8 90 16 122/62 (82) 97 06/13/17 08:00 97.8 85 20 135/70 (91) 96 06/13/17 07:53 99 Nasal Cannula 3.00 06/13/17 04:00 96.4 83 20 125/58 (80) 99 06/13/17 03:51 18 06/12/17 20:00 96.9 89 20 155/73 (100) 97 06/12/17 16:00 98.1 89 19 142/67 (92) 96 Result Diagram: 06/11/17 0830 06/13/17 0547 Laboratory Results Laboratory Tests Test 06/13/17 05:47 Blood Urea Nitrogen 24 MG/DL Creatinine 0.74 MG/DL Random Glucose 93 MG/DL Calcium Level 8.8 MG/DL Sodium Level 137 MEQ/L Potassium Level 4.5 MEQ/L Chloride Level 102 MEQ/L Carbon Dioxide Level 27.6 MEQ/L Anion Gap 7 MEQ/L Estimat Glomerular Filtration Rate 77 ML/MIN Culture Results Microbiology Date/Time Source Procedure Growth Status 06/10/17 19:52 Blood Other Aerobic Blood Culture - Preliminary NO GROWTH IN 3 DAYS Resulted 06/10/17 19:52 Blood Other Anaerobic Blood Culture - Preliminary NO GROWTH IN 3 DAYS Resulted 06/10/17 19:46 Blood Other Aerobic Blood Culture - Preliminary NO GROWTH IN 3 DAYS Resulted 06/10/17 19:46 Blood Other Anaerobic Blood Culture - Preliminary NO GROWTH IN 3 DAYS Resulted Administered Medications Medications (Trade) Dose Ordered Sig/Yael Route PRN Reason Start Time Stop Time Status Last Admin Dose Admin Methylprednisolone Sodium Succinate (SoluMEDROL INJ) 60 mg Q12HR IV PUSH 06/10/17 21:00 06/13/17 09:32 Atorvastatin Calcium (Lipitor) 20 mg MOWEFR PO 06/10/17 21:00 06/12/17 20:49 Duloxetine HCl (Cymbalta Dr) 40 mg DAILY PO 06/11/17 09:00 06/13/17 09:32 Ipratropium [place] (Atrovent Neb) 0.5 mg TID NEB NEB 06/11/17 08:00 06/13/17 07:52 Sodium Chloride (NS Flush) 2 ml BID IV FLUSH 06/10/17 21:00 06/13/17 09:33 Senna/Docusate Sodium (Marycruz-Colace) 1 tab BID PO 06/10/17 21:00 06/13/17 09:32 Acetaminophen/ Hydrocodone Bitart ([place] 7.5-325 Mg) 2 tab Q4H PRN PO PAIN SCALE 6 TO 10 06/10/17 22:15 06/13/17 09:32 Budesonide/ Formoterol Fumarate (Symbicort 160-4.5 Mcg Inh) 1 puff Q12HR INH 06/11/17 09:00 06/13/17 09:33 Temazepam (Restoril) 7.5 mg HS PRN PO insomnia 06/11/17 19:00 06/12/17 20:49 Objective Remarks GENERAL: Pleasant elderly female, sitting up in bed, on O2 via NC SKIN: Warm and dry. HEAD: Normocephalic. EYES: No injection or drainage. NECK: Supple, trachea midline. CARDIOVASCULAR: Regular rate and rhythm RESPIRATORY: diminished at left base. scattered rhonchi heard in all lung mackenzie. On 3L O2 via NC GASTROINTESTINAL: Abdomen soft, non-tender, nondistended. EXTREMITIES: No cyanosis NEUROLOGICAL: awake and alert. normal speech. moving extremities. Assessment/Plan Assessment Ms. Alberto is a 76-year-old lady with an extensive past history of tobaccoism, she has extensive pulmonary fibrosis and peripheral arterial disease. The patient from an oncologic standpoint has a diagnosis of a squamous cell carcinoma (poorly differentiated) which initially presented as a left upper lobe lung mass in the fall of 2015. Initial staging studies revealed hypermetabolic activity involving mediastinal lymph nodes, she underwent preoperative mediastinoscopy with sampling of the pretracheal mediastinal lymph nodes which were noted to be without evidence of malignancy. She subsequently underwent a left upper lobectomy and was found to have a T1 N0; stage I lung cancer. She was recommended observation. 4 months thereafter she presented with progressive disease with an AP window mass in the left hemithorax, this was biopsied and found to be consistent with recurrent squamous cell carcinoma. Because this lesion was not resectable due to its adherence to the mediastinum she underwent concurrent chemoradiotherapy with weekly carboplatin and Taxol followed by [facility] plus carboplatin. She had good local control however in the early part of 2018 she presented with metastatic disease to the contralateral lung. This was confirmed with a biopsy. She has since then been initiated on palliative immunotherapy with Nivolumab, between late April and now she has received 2 doses, her third dose was scheduled for 06/10/2017. She presented to my clinic complaining of difficulty breathing and dizziness. She was noted to be hypoxic and tachycardic and we were unable to resuscitate her with IV fluids and oxygen supplementation. She was therefore transferred to [facility] for further workup and management. Of note the patient was admitted to this facility about a week and half ago with similar symptoms. Imaging studies including CT angiogram revealed a left- sided pleural effusion and increased prominence of pulmonary fibrosis. Plan 1. Metastatic squamous cell carcinoma of the lung: s/p surgical resection and xrt. --previously progressed on carbo/taxol. most recent treatment was her second cycle of Nivolumab. 2. Pulmonary fibrosis associated with worsening hypoxia. currently on 3L O2 via NC and maintaining saturations. continue solu-medrol 60mg IV q 12. 3. History of ischemic stroke secondary to carotid artery plaque formation; status post carotid endarterectomy which was performed in the summer of 2016. Plavix is currently on hold for the possibility of bronchoscopy. Aicha Kinney Jun 13, 2017 13:37
--- NOTE | 2017-06-13 20:14 | HHI.PR ---
Subjective Remarks 76 YOWF with metastatic ca, PF, bilat lung infilt On Steroids Feels little better comfortable at Rest Objective Vital Signs Vital Signs Date Time Temp Pulse Resp B/P (MAP) Pulse Ox O2 Delivery O2 Flow Rate FiO2 06/13/17 16:00 98.3 93 15 133/79 (97) 95 06/13/17 12:00 97.8 90 16 122/62 (82) 97 06/13/17 08:00 97.8 85 20 135/70 (91) 96 06/13/17 07:53 99 Nasal Cannula 3.00 06/13/17 04:00 96.4 83 20 125/58 (80) 99 06/13/17 03:51 18 I/O 06/12/17 06/12/17 06/12/17 06/13/17 06/13/17 06/13/17 07:00 15:00 23:00 07:00 15:00 23:00 Intake Total 220 ml 1200 ml 920 ml Output Total 400 ml Balance -180 ml 1200 ml 920 ml Intake Oral 220 ml 1200 ml 920 ml Output Urine Total 400 ml # Voids 5 3 # Bowel Movements 0 Result Diagram: 06/11/17 0830 06/13/17 0547 Objective Remarks GENERAL: MBMN WF, mild sob SKIN: Warm and dry. HEAD: Normocephalic. EYES: No scleral icterus. No injection or drainage. NECK: Supple, trachea midline. No JVD or lymphadenopathy. CARDIOVASCULAR: Regular rate and rhythm without murmurs, gallops, or rubs. RESPIRATORY: Breath sounds equal bilaterally. No accessory muscle use Insp rales GASTROINTESTINAL: Abdomen soft, non-tender, nondistended. MUSCULOSKELETAL: No cyanosis, or edema. BACK: Nontender without obvious deformity. No CVA tenderness. A/P Assessment and Plan IMPRESSION: 1. Pulmonary fibrosis with increased interstitial marking, possibility of immunotherapy-induced lung disease is not ruled out. 2. Left pleural effusion. 3. Metastatic carcinoma of the lung. 4. Chronic obstructive pulmonary disease. PLAN: CURT Melendez Pt on Plavix Will cont steroids and see response If not better, will consider bronch Cont Abx Aerosol nebs Supplement 02 Mich Rivas MD Jun 13, 2017 20:14
[2017-06-13] MEDS: TEMAZEPAM 7.5 MG CAP PO PRN (21:34)
[2017-06-14] VITALS (8 sets, daily range): BP systolic 105–156; BP diastolic 59–77; PULSE 94–111; RESP 16–20; TEMP 96.9–98.4; O2SAT 93–98
[2017-06-14] MEDS: RESP: IPRATROPIUM 0.5 MG/2.5 ML NEB NEB SCH ×3 (07:40→20:22)
[2017-06-14] MEDS: BUDESONIDE-FORMOTEROL 160/4.5 MCG INHALER INH SCH ×2 (09:38→21:57)
[2017-06-14] MEDS: methylPREDNISolone SOD SUCC 125 MG/2 ML VIAL IV PUSH SCH (09:38)
[2017-06-14] MEDS: DULoxetine HCl DR 20 MG CAP PO SCH (09:38)
[2017-06-14] MEDS: DOCUSATE SODIUM 50 MG/SENNA 8.6 MG TAB PO SCH ×2 (09:39→21:00)
[2017-06-14] MEDS: ACETAMINOPHEN/HYDROcodone 325 MG/7.5 MG TAB PO PRN ×3 (09:39→21:58)
[2017-06-14] MEDS: SODIUM CHLORIDE 0.9% FLUSH 10 ML FLUSH IV FLUSH SCH ×2 (09:40→21:57)
--- NOTE | 2017-06-14 13:24 | PD.ONC.PN ---
Subjective Subjective Remarks Ms. Alberto was seen and examined this morning, labs, medications and surgical product sales consultant notes reviewed. Subjectively; the patient reports her breathing is overall improved, she is moving more comfortably in her room. She remains on oxygen supplementation. She rarely has palpitations and tells me she is eating well. Objective Data Date Time Temp Pulse Resp B/P (MAP) Pulse Ox O2 Delivery O2 Flow Rate FiO2 06/14/17 08:00 96.9 94 16 156/77 (103) 94 06/14/17 07:35 96 Nasal Cannula 2.00 06/14/17 00:17 14 06/14/17 00:00 98.0 96 20 143/67 (92) 98 06/13/17 20:07 97.5 91 20 151/68 (95) 97 06/13/17 20:04 98 Nasal Cannula 2.00 06/13/17 16:00 98.3 93 15 133/79 (97) 95 06/14/17 06/14/17 06/14/17 07:00 15:00 23:00 Intake Total 240 ml Balance 240 ml Result Diagram: 06/11/17 0830 06/13/17 0547 Administered Medications Medications (Trade) Dose Ordered Sig/Yael Route PRN Reason Start Time Stop Time Status Last Admin Dose Admin Methylprednisolone Sodium Succinate (SoluMEDROL INJ) 60 mg Q12HR IV PUSH 06/10/17 21:00 06/14/17 09:38 Atorvastatin Calcium (Lipitor) 20 mg MOWEFR PO 06/10/17 21:00 06/12/17 20:49 Duloxetine HCl (Cymbalta Dr) 40 mg DAILY PO 06/11/17 09:00 06/14/17 09:38 Ipratropium [place] (Atrovent Neb) 0.5 mg TID NEB NEB 06/11/17 08:00 06/14/17 07:40 Sodium Chloride (NS Flush) 2 ml BID IV FLUSH 06/10/17 21:00 06/14/17 09:40 Senna/Docusate Sodium (Marycruz-Colace) 1 tab BID PO 06/10/17 21:00 06/14/17 09:39 Sennosides (Senokot) 17.2 mg Q12H PRN PO Moderate constipation 06/10/17 20:15 06/13/17 17:43 Acetaminophen/ Hydrocodone Bitart ([place] 7.5-325 Mg) 2 tab Q4H PRN PO PAIN SCALE 6 TO 10 06/10/17 22:15 06/14/17 09:39 Budesonide/ Formoterol Fumarate (Symbicort 160-4.5 Mcg Inh) 1 puff Q12HR INH 06/11/17 09:00 06/14/17 09:38 Temazepam (Restoril) 7.5 mg HS PRN PO insomnia 06/11/17 19:00 06/13/17 21:34 Objective Remarks GENERAL: Elderly lady, laying in bed, she appears to be no acute distress. She specifically appears to be no respiratory distress. SKIN: No rashes, ecchymoses or lesions. Cool and dry. HEAD: Atraumatic. Normocephalic. No temporal or scalp tenderness. EYES: Pupils equal round and reactive. Extraocular motions intact. No scleral icterus. No injection or drainage. ENT: Nose without bleeding, purulent drainage or septal hematoma. Throat without erythema, tonsillar hypertrophy or exudate. Uvula midline. Airway patent. NECK: Trachea midline. No JVD or lymphadenopathy. Supple, nontender, no meningeal signs. CARDIOVASCULAR: Regular rate and rhythm without murmurs, gallops, or rubs. RESPIRATORY: Good air movement bilaterally for upper and middle lung zones with prolonged expiratory phase, overall air movement is improved when compared to most recent exam 48 hours ago by myself. She has decreased rhonchi and expiratory wheezing. GASTROINTESTINAL: Thin Abdomen soft, non-tender, nondistended. No hepato- splenomegaly, or palpable masses. No guarding. MUSCULOSKELETAL: Generally decreased muscle mass and tone. NEUROLOGICAL: Awake and alert. Cranial nerves II through XII intact. Motor and sensory grossly within normal limits. Five out of 5 muscle strength in all muscle groups. Normal speech. Assessment/Plan Assessment Ms. Alberto is a 76-year-old lady with an extensive past history of tobaccoism, she has extensive pulmonary fibrosis and peripheral arterial disease. The patient from an oncologic standpoint has a diagnosis of a squamous cell carcinoma (poorly differentiated) which initially presented as a left upper lobe lung mass in the fall of 2016. Initial staging studies revealed hypermetabolic activity involving mediastinal lymph nodes, she underwent preoperative mediastinoscopy with sampling of the pretracheal mediastinal lymph nodes which were noted to be without evidence of malignancy. She subsequently underwent a left upper lobectomy and was found to have a T1 N0; stage I lung cancer. She was recommended observation. 4 months thereafter she presented with progressive disease with an AP window mass in the left hemithorax, this was biopsied and found to be consistent with recurrent squamous cell carcinoma. Because this lesion was not resectable due to its adherence to the mediastinum she underwent concurrent chemoradiotherapy with weekly carboplatin and Taxol followed by [facility] plus carboplatin. She had good local control however in the early part of 2017 she presented with metastatic disease to the contralateral lung. This was confirmed with a biopsy. She has since then been initiated on palliative immunotherapy with Nivolumab, between late April and now she has received 2 doses, her third dose was scheduled for 06/10/2017. She presented to my clinic complaining of difficulty breathing and dizziness. She was noted to be hypoxic and tachycardic and we were unable to resuscitate her with IV fluids and oxygen supplementation. She was therefore transferred to [facility] for further workup and management. Of note the patient was admitted to this facility about a week and half ago with similar symptoms. Imaging studies including CT angiogram revealed a left- sided pleural effusion and increased prominence of pulmonary fibrosis. Plan 1. Metastatic squamous cell carcinoma of the lung: s/p surgical resection and xrt. --previously progressed on carbo/taxol. most recent treatment was her second cycle of Nivolumab. 2. Pulmonary fibrosis associated with worsening hypoxia. currently on 3L O2 via NC and maintaining saturations. She seems to have responded well to Solu- Medrol, I will transition her to prednisone 60 MG once daily. I would like her to be discharged home on this dosing as well, I will gradually taper her off over the upcoming weeks. 3. History of ischemic stroke secondary to carotid artery plaque formation; status post carotid endarterectomy which was performed in the summer of 2016. Given her improvement in clinical status, the bronchoscopy may not be needed. She may therefore be resumed on Plavix at the time of discharge. Broderick Bowden MD Jun 14, 2017 13:24
--- NOTE | 2017-06-14 17:15 | HHI.PR ---
Subjective Remarks 76 YOWF with metastatic ca, PF, bilat lung infilt On Steroids Feels little better comfortable at Rest Ambulates Objective Vital Signs Vital Signs Date Time Temp Pulse Resp B/P (MAP) Pulse Ox O2 Delivery O2 Flow Rate FiO2 06/14/17 17:09 98.4 101 19 124/73 (90) 96 06/14/17 12:00 98.0 101 18 125/64 (84) 97 06/14/17 08:00 96.9 94 16 156/77 (103) 94 06/14/17 07:35 96 Nasal Cannula 2.00 06/14/17 00:17 14 06/14/17 00:00 98.0 96 20 143/67 (92) 98 06/13/17 20:07 97.5 91 20 151/68 (95) 97 06/13/17 20:04 98 Nasal Cannula 2.00 I/O 06/13/17 06/13/17 06/13/17 06/14/17 06/14/17 06/14/17 07:00 15:00 23:00 07:00 15:00 23:00 Intake Total 920 ml 240 ml Balance 920 ml 240 ml Intake Oral 920 ml 240 ml # Voids 3 2 Result Diagram: 06/11/17 0830 06/13/17 0547 Objective Remarks GENERAL: MBMN WF, mild sob SKIN: Warm and dry. HEAD: Normocephalic. EYES: No scleral icterus. No injection or drainage. NECK: Supple, trachea midline. No JVD or lymphadenopathy. CARDIOVASCULAR: Regular rate and rhythm without murmurs, gallops, or rubs. RESPIRATORY: Breath sounds equal bilaterally. No accessory muscle use Insp rales GASTROINTESTINAL: Abdomen soft, non-tender, nondistended. MUSCULOSKELETAL: No cyanosis, or edema. BACK: Nontender without obvious deformity. No CVA tenderness. A/P Assessment and Plan IMPRESSION: 1. Pulmonary fibrosis with increased interstitial marking, possibility of immunotherapy-induced lung disease is not ruled out. 2. Left pleural effusion. 3. Metastatic carcinoma of the lung. 4. Chronic obstructive pulmonary disease. PLAN: CURT Melendez Pt on Plavix Will cont steroids and see response Cont Abx Aerosol nebs Supplement 02 Stable from pulm standpoint Available prn over weekend. Mich Rivas MD Jun 14, 2017 17:15
[2017-06-14] MEDS ORDERED: PRED20 PO ×2 (18:28→19:31)
[2017-06-14] MEDS ORDERED: ASPI-516 CHEW (18:28)
--- NOTE | 2017-06-14 18:30 | HHI.DCPOC ---
Discharge Care Plan Diagnosis: (1) Hypotension (2) Hypoxia (3) Lung cancer Goals to Promote Your Health * To prevent worsening of your condition and complications * To maintain your health at the optimal level Directions to Meet Your Goals Take your medications as prescribed Follow your dietary instruction Follow activity as directed Keep your appointments as scheduled Take your immunizations and boosters as scheduled If your symptoms worsen call your PCP, if no PCP go to Urgent Care Center or Emergency Room Smoking is Dangerous to Your Health. Avoid second hand smoke Call the 24-hour hour crisis hotline for domestic abuse at Shalini Davey Jun 14, 2017 18:30 Kale Ahumada DO Jun 18, 2017 13:44
--- NOTE | 2017-06-14 18:34 | HHI.DS ---
Discharge Summary Admission Date Jun 10, 2017 at 17:35 Discharge Date: Jun 16, 2017 Admitting Diagnosis pneumonia, hypoxia (1) Pulmonary infiltrates Diagnosis: Principal ICD Codes: R91.8 - Other nonspecific abnormal finding of lung field (2) Lung cancer Diagnosis: Principal ICD Codes: C34.90 - Malignant neoplasm of unspecified part of unspecified bronchus or lung Status: Chronic (3) Hypoxia Diagnosis: Principal ICD Codes: R09.02 - Hypoxemia Status: Acute Consultants Dr. Bowden, Oncology Dr. Rivas, Pulmonology Procedures none Brief History Pt is a 76 y/o female with stage IV SCC of the lung who presented to the ED on for evaluation of hypotension and hypoxia. CTA Chest (06/05) --> Coarse interstitial changes both lungs with minimal consolidation on the right. Moderate left pleural effusion. This probably represents congestive failure superimposed over chronic fibrosis. Patient with history of stem cell carcinoma of the lung. Negative for central pulmonary emboli. The exact cause for her pleural effusion is unclear but likely malignant in the setting of her metastatic lung cancer. She has no other findings of overt congestive heart failure. Echo from July 2016 demonstrates an EF of 55-60% with no wall motion abnormalities and only mild valve regurgitation noted. Her hypoxia is responded well to supplemental oxygen and she does have underlying COPD but is not typically on any supplemental O2 at home. Pt was given a one-time dose of IV Lasix at admission. Repeat CXR (06/06) --> No right layering pleural effusion. Possible small left layering effusion. US guided therapeutic thoracentesis was performed on 06/07 with removal of 400mL of fluid, reportedly clear, yellow fluid. . She developed some wheezing on 06/07 and she was started on Duonebs Q6H WA and Q2H PRN and pt had been given a dose of Solu-Medrol in the ED and was started on Solu-Medrol 60mg Q6H on 06/07 with symptomatic improvement. Pt was still requiring supplemental O2 prior to discharge but has not needed this prior to this admission at home and now on 2 liters. We will have the pt continue nebulizer treatements at home TID while awake for the next week and then can decrease back down to her normal BID regiment. We will taper Prednisone 20mg po BID x 2 days --> 20mg once daily x 3 days --> 10mg once daily x 3 days, then stop. She was taking all meds and was to start chemo today but while ambulating was found to be hypoxic and sent to er chest xray suggest possible pneumonia and will be started on IV rocephin and zithromax. CBC/BMP: 06/11/17 0830 06/13/17 0547 Significant Findings Laboratory Tests Test 06/13/17 05:47 Blood Urea Nitrogen 24 MG/DL (7-18) Estimat Glomerular Filtration Rate 77 ML/MIN (>89) Imaging Last Impressions Chest CT 06/11/17 0000 Signed Impressions: Service Date/Time: Sunday, June 11, 2017 21:48 - CONCLUSION: 1. 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 2. Several focal masses including a 1.9 some irregular mass in the superior-medial left upper lung. There are subcentimeter masses in the right middle lobe and right lower lobe. 3. Chronic area of focal consolidation or mass measuring up to 3.5 cm in the lateral right upper lobe. Neoplasm cannot be excluded in any of these nodules. 4. Mild left pleural effusion. 5. Prominent lymph node in the precarinal region and possibly in the prevascular region. Larry Steele MD Chest X-Ray 06/10/17 0000 Signed Impressions: Service Date/Time: Saturday, June 10, 2017 15:39 - CONCLUSION: 1. Surgical changes with volume loss left hemithorax and elevation of the left hemidiaphragm. 2. There is apparent focal denser opacity at the left lung base. 3. . Coarse bilateral infiltrates without significant change. Ramirez Oleary MD PE at Discharge General: NAD, AAOx3 Chest: LLB very diminished Cardiac: Regular Abd: +BS, soft ND/NT Ext: No edema Hospital Course Hypoxia Metastatic lung cancer Hx of pleural effusion COPD (chronic obstructive pulmonary disease) Pulmonary fibrosis - Pt is a 76 y/o female with stage IV SCC of the lung who was previously admitted from 06/05/17 to 06/09/17 for hypotension and hypoxia. - She had a CTA Chest (06/05) --> Coarse interstitial changes both lungs with minimal consolidation on the right. Moderate left pleural effusion. This probably represents congestive failure superimposed over chronic fibrosis. Negative for central pulmonary emboli. - The exact cause for her pleural effusion is unclear but felt to likely be malignant in the setting of her metastatic lung cancer. - There were no other findings at that time overt congestive heart failure. Echo from July 2016 demonstrates an EF of 55-60% with no wall motion abnormalities and only mild valve regurgitation noted. - Pt underwent US guided therapeutic thoracentesis on 06/07 with removal of 400mL of fluid, reportedly clear, yellow fluid. - During her recent admission she developed some wheezing on 06/07 and she was started on Duonebs Q6H WA and Q2H PRN and pt was continued on Solu-Medrol with symptomatic improvement. - She was discharged home on supplemental O2, Duoneb nebulizer treatments TID and a prednisone taper - She presented to Dr. Bowden's office on 06/10 for palliative immunotherapy and with complaints of difficulty breathing and developed lightheadedness and nearly collapsed. Her O2 saturations were noted to be less than 85% on room air with improvement to over 95% with oxygen supplementation. EMS was called and she was transferred to the ED for further workup and evaluation. - CXR (06/10) --> Surgical changes with volume loss left hemithorax and elevation of the left hemidiaphragm, apparent focal dense opacity at the left lung base and coarse bilateral infiltrates without significant change - Her WBC count was 12 at admission. 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 Several focal masses including a 1.9 irregular mass in the superior-medial left upper lung. There are subcentimeter masses in the right middle lobe and right lower lobe. Chronic area of focal consolidation or mass measuring up to 3.5 cm in the lateral right upper lobe. Neoplasm cannot be excluded in any of these nodules. Mild left pleural effusion. Prominent lymph node in the precarinal region and possibly in the prevascular region. - Pulmonary consulted, Dr. Rivas following. Patient had possible CVA with left CEA 07/[address] Rojas. discussed the case with Dr. Rojas. Now that patient is more than 6 months post surgery may DC Plavix. DC Plavix in anticipation of possible Bronchoscopy. Patient has improved greatly on steroids. She may not need bronchoscopy. Will start patient on aspirin daily at time of DC for stroke prevention. - Oncology also following, Dr. Bowden - cleared for DC request patient be DC home on prednisone [address] Bowden will taper steroids. - Supportive care Hypotension - Pt has had some longstanding issues with hypotension per the pt. She is not on any antihypertensives at home. Fall - Patient had fall through the night. Patient reports that she tripped over her sock, which was too large. There was no LOC. Patient reports generalized, "aches and pains." offers no specific area of pain. Patient able to ambulate without complications. - BP low after Morphine was given for pain - Patient offered SNF/rehab at time of DC. Patient refused and would like to go home with [facility] - will monitor patient through the night and DC tomorrow AM with [facility] Pt Condition on Discharge: Stable Discharge Disposition: Disch w/ Home Health Serv Discharge Instructions DIET: Follow Instructions for: As Tolerated, No Restrictions Activities you can perform: Regular-No Restrictions Follow up Referrals: Oncology - [address] Hernandez PCP Follow-up - [address] Cabello Pulmonology - 2 Weeks with Mich Rivas MD New Medications: Aspirin (Aspirin) 81 Mg Chew 81 MG CHEW DAILY for Blood Clot Prevention for 30 Days, #30 TAB 0 Refills Prednisone (Prednisone) 20 Mg Tab 60 MG PO DAILY for steroids for 10 Days, #30 TAB Follow up with Dr. Bowden for steroid taper Continued Medications: Albuterol 18 GM Inh (Ventolin Hfa 18 GM Inh) 90 Mcg/Act Aer 1-2 PUFF INH Q4-6H PRN for SHORTNESS OF BREATH, #1 INHALER 0 Refills Albuterol Neb (Albuterol Neb) 2.5 Mg/3 Ml Neb 2.5 MG NEB TID NEB PRN for SHORTNESS OF BREATH, #60 NEBULE 0 Refills Atorvastatin (Atorvastatin) 20 Mg Tab 20 MG PO MOWEFR for Cholesterol Management, #30 TAB 0 Refills Take 1 tablet (20mg) at bedtime on Saturday,Saturday and Saturday Duloxetine DR (Cymbalta DR) 20 Mg Capdr 40 MG PO DAILY, #30 CAP 0 Refills Ipratropium Neb (Ipratropium Neb) 0.5 Mg/2.5 Ml Amp 0.5 MG NEB TID NEB for Breathing Treatment, #60 NEBULE 0 Refills Oxygen (O2) (Oxygen (O2)) Device LITER SD.CANULA CONTINUOUS for Prevent Hypoxemia, #2 Oxygen Concentrator Portable Gaseous 2 L/min via Nasal Canula Continuous For 99 months Umeclidinium [place] Inh (Incruse Ellipta Inh) 0.0625 Mg/Act Inh 1 PUFF INH DAILY for Treat COPD, #1 INHALER 0 Refills [Symbicort Neb] () 3 ML NEB BID Formoterol 12mcg/Budesonide 0.5mg/3ml Discontinued Medications: Clopidogrel (Plavix) 75 Mg Tab 75 MG PO DAILY for TIA, #30 TAB 3 Refills Prednisone (Prednisone) 10 Mg Tab 10 MG PO DIRECTED for COPD, #15 TAB 0 Refills Take 20mg twice daily x 2 days, then decrease to 20mg once daily x 2 days, then decrease to 10mg once daily x 3 days then stop. Additional Information Patient examined. Assessment and plan formulated with Shalini Davey PA-C. I agree with the above. Shalini Davey Jun 14, 2017 18:34 Kale Ahumada DO Jun 18, 2017 13:44
--- NOTE | 2017-06-14 19:33 | HHI.FF ---
Face to Face Verification Diagnosis: (1) Hypoxia (2) Lung cancer (3) COPD (chronic obstructive pulmonary disease) Home Health Nursing Order: Medical education Signs/symptoms of disease process Oxygen administration education Nursing assessment with vital signs I have seen patient Sowmya Alberto on 06/14/17. My clinical findings support the need for the requested home health care services because: Med compliance is questionable Limited ability to care for self I certify that my clinical findings support that this patient is homebound because: Hx COPD- exertion dyspnea/weakness Shalini Davey Jun 14, 2017 19:33 Kale Ahumada DO Jun 14, 2017 19:38
--- NOTE | 2017-06-14 19:35 | HHI.PR ---
Subjective Remarks Patient reports feeling much better no longer SOB Objective Vitals Vital Signs Date Time Temp Pulse Resp B/P (MAP) Pulse Ox O2 Delivery O2 Flow Rate FiO2 06/14/17 17:09 98.4 101 19 124/73 (90) 96 06/14/17 12:00 98.0 101 18 125/64 (84) 97 06/14/17 08:00 96.9 94 16 156/77 (103) 94 06/14/17 07:35 96 Nasal Cannula 2.00 06/14/17 00:17 14 06/14/17 00:00 98.0 96 20 143/67 (92) 98 06/13/17 20:07 97.5 91 20 151/68 (95) 97 06/13/17 20:04 98 Nasal Cannula 2.00 06/14/17 06/14/17 06/15/17 15:00 23:00 07:00 Intake Total 240 ml 720 ml Balance 240 ml 720 ml Intake Oral 240 ml 720 ml # Voids 2 Result Diagram: 06/11/17 0830 06/13/17 0547 Other Results Laboratory Tests Test 06/13/17 05:47 Blood Urea Nitrogen 24 MG/DL Creatinine 0.74 MG/DL Random Glucose 93 MG/DL Calcium Level 8.8 MG/DL Sodium Level 137 MEQ/L Potassium Level 4.5 MEQ/L Chloride Level 102 MEQ/L Carbon Dioxide Level 27.6 MEQ/L Anion Gap 7 MEQ/L Estimat Glomerular Filtration Rate 77 ML/MIN Imaging Last Impressions Chest X-Ray 06/10/17 0000 Signed Impressions: Service Date/Time: Saturday, June 10, 2017 15:39 - CONCLUSION: 1. Surgical changes with volume loss left hemithorax and elevation of the left hemidiaphragm. 2. There is apparent focal denser opacity at the left lung base. 3. . Coarse bilateral infiltrates without significant change. Ramirez Oleary MD Objective Remarks General: NAD, AAOx3 Chest: LLB very diminished Cardiac: Regular Abd: +BS, soft ND/NT Ext: No edema Procedures none A/P Problem List: (1) Pulmonary infiltrates ICD Codes: R91.8 - Other nonspecific abnormal finding of lung field Plan: Hospital Course Hypoxia Metastatic lung cancer Hx of pleural effusion COPD (chronic obstructive pulmonary disease) Pulmonary fibrosis - Pt is a 76 y/o female with stage IV SCC of the lung who was previously admitted from 06/05/17 to 06/09/17 for hypotension and hypoxia. - She had a CTA Chest (06/05) --> Coarse interstitial changes both lungs with minimal consolidation on the right. Moderate left pleural effusion. This probably represents congestive failure superimposed over chronic fibrosis. Negative for central pulmonary emboli. - The exact cause for her pleural effusion is unclear but felt to likely be malignant in the setting of her metastatic lung cancer. - There were no other findings at that time overt congestive heart failure. Echo from July 2016 demonstrates an EF of 55-60% with no wall motion abnormalities and only mild valve regurgitation noted. - Pt underwent US guided therapeutic thoracentesis on 06/07 with removal of 400mL of fluid, reportedly clear, yellow fluid. - During her recent admission she developed some wheezing on 06/07 and she was started on Duonebs Q6H WA and Q2H PRN and pt was continued on Solu-Medrol with symptomatic improvement. - She was discharged home on supplemental O2, Duoneb nebulizer treatments TID and a prednisone taper - She presented to Dr. Bowden's office on 06/10 for palliative immunotherapy and with complaints of difficulty breathing and developed lightheadedness and nearly collapsed. Her O2 saturations were noted to be less than 85% on room air with improvement to over 95% with oxygen supplementation. EMS was called and she was transferred to the ED for further workup and evaluation. - CXR (06/10) --> Surgical changes with volume loss left hemithorax and elevation of the left hemidiaphragm, apparent focal dense opacity at the left lung base and coarse bilateral infiltrates without significant change - Her WBC count was 12 at admission. 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 Several focal masses including a 1.9 irregular mass in the superior-medial left upper lung. There are subcentimeter masses in the right middle lobe and right lower lobe. Chronic area of focal consolidation or mass measuring up to 3.5 cm in the lateral right upper lobe. Neoplasm cannot be excluded in any of these nodules. Mild left pleural effusion. Prominent lymph node in the precarinal region and possibly in the prevascular region. - Pulmonary consulted, Dr. Rivas following. Patient had possible CVA with left CEA 07/[address] Rojas. discussed the case with Dr. Rojas. Now that patient is more than 6 months post surgery may DC Plavix. DC Plavix in anticipation of possible Bronchoscopy. Patient has improved greatly on steroids. She may not need bronchoscopy. Will start patient on aspirin daily at time of DC for stroke prevention. - Oncology also following, Dr. Bowden - cleared for DC request patient be DC home on prednisone [address] Bowden will taper steroids. - Supportive care Hypotension - Pt has had some longstanding issues with hypotension per the pt. She is not on any antihypertensives at home. DC tomorrow with home oxygen (2) Lung cancer ICD Codes: C34.90 - Malignant neoplasm of unspecified part of unspecified bronchus or lung Status: Chronic (3) Hypoxia ICD Codes: R09.02 - Hypoxemia Status: Acute Assessment and Plan Patient examined. Assessment and plan formulated with Shalini Davey PA-C. I agree with the above. Shalini Davey Jun 14, 2017 19:35 Kale Ahumada DO Jun 18, 2017 13:43
[2017-06-14] MEDS: ATORVASTATIN 20 MG TAB PO SCH (21:58)
[2017-06-14] MEDS: TEMAZEPAM 7.5 MG CAP PO PRN (23:42)
[2017-06-15] VITALS (8 sets, daily range): BP systolic 97–123; BP diastolic 53–70; PULSE 92–104; RESP 16–19; TEMP 97.2–98.1; O2SAT 92–98
[2017-06-15] MEDS: ACETAMINOPHEN/HYDROcodone 325 MG/7.5 MG TAB PO PRN ×5 (04:44→22:57)
[2017-06-15] MEDS: predniSONE 20 MG TAB PO SCH (08:31)
[2017-06-15] MEDS: SODIUM CHLORIDE 0.9% FLUSH 10 ML FLUSH IV FLUSH SCH ×2 (08:31→20:08)
[2017-06-15] MEDS: DULoxetine HCl DR 20 MG CAP PO SCH (08:31)
[2017-06-15] MEDS: BUDESONIDE-FORMOTEROL 160/4.5 MCG INHALER INH SCH ×2 (08:32→20:09)
[2017-06-15] MEDS: DOCUSATE SODIUM 50 MG/SENNA 8.6 MG TAB PO SCH ×2 (08:33→20:08)
[2017-06-15] MEDS: RESP: IPRATROPIUM 0.5 MG/2.5 ML NEB NEB SCH ×3 (08:48→20:55)
[2017-06-15] MEDS ORDERED: MORPHINE SULFATE 4 MG/ML INJ IV PUSH ONE (11:30)
--- NOTE | 2017-06-15 15:56 | HHI.PR ---
Subjective Remarks Patient had trip and fall last night, general aches and pain no specific location of pain No other concerns or complaints Objective Vitals Vital Signs Date Time Temp Pulse Resp B/P (MAP) Pulse Ox O2 Delivery O2 Flow Rate FiO2 06/15/17 12:00 98.0 93 17 97/53 (68) 95 06/15/17 08:51 97 Nasal Cannula 2.00 06/15/17 08:00 98.1 98 17 101/63 (76) 97 06/15/17 04:00 97.3 92 19 123/65 (84) 96 06/15/17 00:00 97.2 96 18 117/70 (86) 97 06/14/17 20:30 97.8 111 19 105/66 (79) 93 06/14/17 20:25 98 Nasal Cannula 2.00 06/14/17 20:00 97.4 100 18 120/59 (79) 97 06/14/17 17:09 98.4 101 19 124/73 (90) 96 Result Diagram: 06/11/17 0830 06/13/17 0547 Other Results Laboratory Tests Test 06/13/17 05:47 Blood Urea Nitrogen 24 MG/DL Creatinine 0.74 MG/DL Random Glucose 93 MG/DL Calcium Level 8.8 MG/DL Sodium Level 137 MEQ/L Potassium Level 4.5 MEQ/L Chloride Level 102 MEQ/L Carbon Dioxide Level 27.6 MEQ/L Anion Gap 7 MEQ/L Estimat Glomerular Filtration Rate 77 ML/MIN Imaging Last Impressions Chest X-Ray 06/10/17 0000 Signed Impressions: Service Date/Time: Saturday, June 10, 2017 15:39 - CONCLUSION: 1. Surgical changes with volume loss left hemithorax and elevation of the left hemidiaphragm. 2. There is apparent focal denser opacity at the left lung base. 3. . Coarse bilateral infiltrates without significant change. Ramirez Oleary MD Objective Remarks General: NAD, AAOx3 Chest: LLB very diminished Cardiac: Regular Abd: +BS, soft ND/NT Ext: No edema Procedures none A/P Problem List: (1) Pulmonary infiltrates ICD Codes: R91.8 - Other nonspecific abnormal finding of lung field Plan: Hypoxia Metastatic lung cancer Hx of pleural effusion COPD (chronic obstructive pulmonary disease) Pulmonary fibrosis - Pt is a 76 y/o female with stage IV SCC of the lung who was previously admitted from 06/05/17 to 06/09/17 for hypotension and hypoxia. - She had a CTA Chest (06/05) --> Coarse interstitial changes both lungs with minimal consolidation on the right. Moderate left pleural effusion. This probably represents congestive failure superimposed over chronic fibrosis. Negative for central pulmonary emboli. - The exact cause for her pleural effusion is unclear but felt to likely be malignant in the setting of her metastatic lung cancer. - There were no other findings at that time overt congestive heart failure. Echo from July 2016 demonstrates an EF of 55-60% with no wall motion abnormalities and only mild valve regurgitation noted. - Pt underwent US guided therapeutic thoracentesis on 06/07 with removal of 400mL of fluid, reportedly clear, yellow fluid. - During her recent admission she developed some wheezing on 06/07 and she was started on Duonebs Q6H WA and Q2H PRN and pt was continued on Solu-Medrol with symptomatic improvement. - She was discharged home on supplemental O2, Duoneb nebulizer treatments TID and a prednisone taper - She presented to Dr. Bowden's office on 06/10 for palliative immunotherapy and with complaints of difficulty breathing and developed lightheadedness and nearly collapsed. Her O2 saturations were noted to be less than 85% on room air with improvement to over 95% with oxygen supplementation. EMS was called and she was transferred to the ED for further workup and evaluation. - CXR (06/10) --> Surgical changes with volume loss left hemithorax and elevation of the left hemidiaphragm, apparent focal dense opacity at the left lung base and coarse bilateral infiltrates without significant change - Her WBC count was 12 at admission. 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 Several focal masses including a 1.9 irregular mass in the superior-medial left upper lung. There are subcentimeter masses in the right middle lobe and right lower lobe. Chronic area of focal consolidation or mass measuring up to 3.5 cm in the lateral right upper lobe. Neoplasm cannot be excluded in any of these nodules. Mild left pleural effusion. Prominent lymph node in the precarinal region and possibly in the prevascular region. - Pulmonary consulted, Dr. Rivas following. Patient had possible CVA with left CEA 07/[address] Rojas. discussed the case with Dr. Rojas. Now that patient is more than 6 months post surgery may DC Plavix. DC Plavix in anticipation of possible Bronchoscopy. Patient has improved greatly on steroids. She may not need bronchoscopy. Will start patient on aspirin daily at time of DC for stroke prevention. - Oncology also following, Dr. Bowden - cleared for DC request patient be DC home on prednisone [address] Bowden will taper steroids. - Supportive care Hypotension - Pt has had some longstanding issues with hypotension per the pt. She is not on any antihypertensives at home. Fall - Patient had fall through the night. Patient reports that she tripped over her sock, which was too large. There was no LOC. Patient reports generalized, "aches and pains." offers no specific area of pain. Patient able to ambulate without complications. - BP low after Morphine was given for pain - Patient offered SNF/rehab at time of DC. Patient refused and would like to go home with [facility] - will monitor patient through the night and DC tomorrow AM with [facility] (2) Lung cancer ICD Codes: C34.90 - Malignant neoplasm of unspecified part of unspecified bronchus or lung Status: Chronic (3) Hypoxia ICD Codes: R09.02 - Hypoxemia Status: Acute Assessment and Plan Patient examined. Assessment and plan formulated with Shalini Davey PA-C. I agree with the above. Shalini Davey Jun 15, 2017 15:56 Kale Ahumada DO Jun 18, 2017 13:43
[2017-06-15] MEDS: TEMAZEPAM 7.5 MG CAP PO PRN (22:57)
[2017-06-16] VITALS: BP 114/68; PULSE 101; RESP 16; TEMP 97.9; O2SAT 96
[2017-06-16] MEDS: ACETAMINOPHEN/HYDROcodone 325 MG/7.5 MG TAB PO PRN ×2 (05:13→10:34)
[2017-06-16] MEDS: RESP: IPRATROPIUM 0.5 MG/2.5 ML NEB NEB SCH (07:45)
[2017-06-16 07:47] VITALS: O2SAT 97
[2017-06-16 08:00] VITALS: BP 97/63; PULSE 95; RESP 16; TEMP 97.7; O2SAT 97
[2017-06-16] MEDS: BUDESONIDE-FORMOTEROL 160/4.5 MCG INHALER INH SCH (08:46)
[2017-06-16] MEDS: predniSONE 20 MG TAB PO SCH (08:46)
[2017-06-16] MEDS: DULoxetine HCl DR 20 MG CAP PO SCH (08:46)
[2017-06-16] MEDS: DOCUSATE SODIUM 50 MG/SENNA 8.6 MG TAB PO SCH (08:46)
[2017-06-16] MEDS: SODIUM CHLORIDE 0.9% FLUSH 10 ML FLUSH IV FLUSH SCH (08:47)
== END 2017-06-16 10:38 | disposition home health service (06) | DRG 205 ==
LOC: NEDAMB 13:10 → NEDA 17:35 → HOCA 21:15 → N07B 06-14 16:21
PROVIDERS: ADMIT Hospitalist; ATTEND Hospitalist
DX: J70.4 Drug-induced interstitial lung disorders, unspecified (principal); J96.91 Respiratory failure, unspecified with hypoxia; I11.0 Hypertensive heart disease with heart failure; C78.01 Secondary malignant neoplasm of right lung; I95.9 Hypotension, unspecified; J91.0 Malignant pleural effusion; I50.9 Heart failure, unspecified; C78.1 Secondary malignant neoplasm of mediastinum; C78.02 Secondary malignant neoplasm of left lung; Z99.81 Dependence on supplemental oxygen; M19.90 Unspecified osteoarthritis, unspecified site; N28.89 Other specified disorders of kidney and ureter; M19.042 Primary osteoarthritis, left hand; M19.041 Primary osteoarthritis, right hand; I70.0 Atherosclerosis of aorta; F41.9 Anxiety disorder, unspecified; E78.5 Hyperlipidemia, unspecified; M50.30 Other cervical disc degeneration, unspecified cervical region; M51.34 Other intervertebral disc degeneration, thoracic region; M51.36 Other intervertebral disc degeneration, lumbar region; I73.9 Peripheral vascular disease, unspecified; J43.9 Emphysema, unspecified; R52 Pain, unspecified; T45.1X5A Adverse effect of antineoplastic and immunosuppressive drugs, initial encounter; W01.0XXA Fall on same level from slipping, tripping and stumbling without subsequent striking against object, initial encounter; Y92.239 Unspecified place in hospital as the place of occurrence of the external cause; Z80.3 Family history of malignant neoplasm of breast; Z80.41 Family history of malignant neoplasm of ovary; Z85.828 Personal history of other malignant neoplasm of skin; Z86.73 Personal history of transient ischemic attack (TIA), and cerebral infarction without residual deficits; Z87.891 Personal history of nicotine dependence; Z90.2 Acquired absence of lung [part of]; Z92.3 Personal history of irradiation; Z91.013 Allergy to seafood
CPT/HCPCS: 71046; 71250; 76937; 80048; 80053; 83605; 85025; 87040; 94640; 94664; 94667; 94668; 99285; J0456; J0696; J2270; J2930; J7050; J7512; J7644

== ENCOUNTER 2017-07-24 08:59 | Inpatient (IN) | payer MEDICARE ==
[~2017-07-24] VITALS: Ht 157.5 cm; Wt 51.2 kg
[2017-07-24] VITALS (9 sets, daily range): BP systolic 81–134; BP diastolic 50–76; PULSE 105–127; RESP 19–22; TEMP 96.5–97.8; O2SAT 91–98
[~2017-07-24 08:59] MED LIST changes: +ASPI-516 CHEW; -PLAV75TA29 PO; -PRED10 PO; +PRED20 PO
[2017-07-24] MEDS ORDERED: SODIUM CHLOR 0.9% 1000 ML INJ 1,000 ML IV ONE ×3 (09:27→11:00)
[2017-07-24] MEDS ORDERED: SODIUM CHLORIDE 0.9% FLUSH 10 ML FLUSH IVF PRN (09:30)
--- NOTE | 2017-07-24 09:33 | PD ---
HPI Chief Complaint: General Weakness Time Seen by Provider: 09:15 Travel History International Travel<30 days: No Contact w/Intl Traveler<30days: No Traveled to known affect area: No History of Present Illness HPI 76-year-old female with a history of lung cancer with recent mets presents emergency department complaining of lightheadedness, spinning, weakness for approximately 1 day. Patient states that she was sitting at home she started feeling this way last night. She does not know any inciting events. Says he dizziness is worse with movement and activity. Somewhat decreases with rest but is otherwise constant. She denies fever, chills, chest pain, shortness of breath , abdominal pain, back pain. Says that she feels like she has been dragging her foot but otherwise denies numbness tingling of the extremities. Patient says that she has been complaining of neck pain for about 45 minutes. Says she has a history of neck pain but did not last very long. Says that the pain is worse with movement. Erickson sampson, a friend of hers expressed concern for the inability to take care of herself. He says that she has stage IV lung cancer and is noticed an inability to take care of herself approximately 1 month. Says that he she has had decreased mentation does not understand things that she normally does. There is a question whether or not she is on hospice. Says that yesterday he walked into her house and found that the oxygen tubing was kinked and likely not flowing properly. He says that patient is a DNR. Her primary care physician is Dr. Dominguez and her oncologist is Dr. Bowden. [facility] Past Medical History Arthritis: Yes Asthma: No Autoimmune Disease: No Blood Disorders: Yes (ANEMIA) Anxiety: No Depression: No Heart Rhythm Problems: No Cancer: Yes (LUNG CANCER) Cardiovascular Problems: Yes (CHOL) High Cholesterol: No Chemotherapy: Yes Chest Pain: No Congestive Heart Failure: No COPD: Yes Cerebrovascular Accident: No Diabetes: No Patient Takes Glucophage: No Diminished Hearing: No Endocrine: No Gastrointestinal Disorders: No GERD: No Glaucoma: No Genitourinary: Yes (HAS 3 KIDNEYS) Headaches: No Hepatitis: No Hiatal Hernia: No Hypertension: No Immune Disorder: No Implanted Vascular Access Dvce: Yes Kidney Stones: No Medical other: No Musculoskeletal: Yes (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) Neurologic: Yes (STROKE 2017) Psychiatric: No Reproductive: No Respiratory: Yes (LUNG CANCER, COPD) Immunizations Current: Yes Migraines: No Radiation Therapy: Yes Renal Failure: No Seizures: No Sleep Apnea: No Thyroid Disease: No Ulcer: No Tetanus Vaccination: Unknown ?: Not Menopausal: No Past Surgical History Abdominal Surgery: No AICD: No Arteriovenous Shunt: No Cardiac Surgery: No Ear Surgery: No Endocrine Surgery: No Eye Surgery: Yes (CATARACTS) Genitourinary Surgery: No Gynecologic Surgery: No Insulin Pump: No Joint Replacement: No Neurologic Surgery: No Oral Surgery: No Pacemaker: No Thoracic Surgery: Yes (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) Other Surgery: Yes (R UPPER CHEST PORT) Social History Alcohol Use: Yes (2 DRINKS PER MONTH, WINE/LIQUOR) Tobacco Use: No (quit 09/2012) Substance Use: No Allergies-Medications (Allergen,Severity, Reaction): Coded Allergies: shellfish derived (Verified Allergy, Unknown, Hives, 07/24/17) Reported Meds & Prescriptions Reported Meds & Active Scripts Active Oxygen (O2) Device Liter SD.CANULA CONTINUOUS Oxygen Concentrator Portable Gaseous 2 L/min via Nasal Canula Continuous For 99 months Albuterol Neb (Albuterol Sulfate) 2.5 Mg/3 Ml Neb 2.5 Mg NEB TID NEB PRN Reported Oxycodone (Oxycodone HCl) 15 Mg Tab 15 Mg PO Q4H PRN Morphine ER 24 HR (Morphine Sulfate) 10 Mg Caper 10 Mg PO BID Ventolin Hfa 18 GM Inh (Albuterol Sulfate) 90 Mcg/Act Aer 1-2 Puff INH Q4-6H PRN Review of Systems Except as stated in HPI: all other systems reviewed are Neg Physical Exam Narrative GENERAL: Well developed, well-nourished in no apparent distress SKIN: Focused skin assessment warm/dry. HEAD: Atraumatic. Normocephalic. EYES: Pupils equal and round. No scleral icterus. No injection or drainage. PERRLA ENT: No nasal bleeding or discharge. Mucous membranes pink and moist. NECK: Trachea midline. No JVD. CARDIOVASCULAR: Regular rate and rhythm. No murmur appreciated. RESPIRATORY: No accessory muscle use. Clear to auscultation. Breath sounds equal bilaterally. GASTROINTESTINAL: Abdomen soft, non-tender, nondistended. Hepatic and splenic margins not palpable. MUSCULOSKELETAL: No obvious deformities. No clubbing. No cyanosis. No edema. NEUROLOGICAL: Awake and alert. Cranial nerves II through XII intact. Motor and sensory grossly within normal limits. Five out of 5 muscle strength in all muscle groups. Normal speech. PSYCHIATRIC: Appropriate mood and affect; insight and judgment normal. Data Data Last Documented VS Vital Signs Date Time Temp Pulse Resp B/P (MAP) Pulse Ox O2 Delivery O2 Flow Rate FiO2 07/24/17 10:02 121 20 100/61 (74) 94 Nasal Cannula 3.00 07/24/17 09:14 97.8 Orders Orders Urinalysis - C+S If Indicated (07/24/17 09:03) Sepsis Workup Initiated (07/24/17 ) Electrocardiogram (07/24/17:27) Complete Blood Count With Diff (07/24/17:) Comprehensive Metabolic Panel (07/24/17:) Prothrombin Time / Inr (Pt) (07/24/17:) Act Partial Throm Time (Ptt) (07/24/17:) Lactic Acid Sepsis Protocol (07/24/17 09:27) Magnesium (Mg) (07/24/17:27) Ckmb (Isoenzyme) Profile (07/24/17:) Troponin I (07/24/17:) Blood Culture (07/24/17:) Chest, Single Ap (07/24/17:27) Blood Glucose (07/24/17:27) Ecg Monitoring (07/24/17:) Iv Access Insert/Monitor (07/24/17:) Oximetry (07/24/17:) Oxygen Administration (07/24/17:27) Sodium Chloride 0.9% Flush (Ns Flush) (07/24/17 09:30) Sodium Chlor 0.9% 1000 Ml Inj (Ns 1000 M (07/24/17 09:27) Hospice Consult (07/24/17 10:11) Piperacil-Tazo 4.5 Gm Premix (Zosyn 4.5 (07/24/17 10:34) Cefepime Inj (Maxipime Inj) (07/24/17 10:34) Azithromycin Inj (Zithromax Inj) (07/24/17 10:34) Sodium Chlor 0.9% 1000 Ml Inj (Ns 1000 M (07/24/17 10:45) Admit Order (Ed Use Only) (07/24/17 11:02) Code Status (07/24/17 11:02) Diet Regular Basic (07/24/17 Lunch) Labs Laboratory Tests Test 07/24/17 09:30 White Blood Count 20.0 TH/MM3 Red Blood Count 3.73 MIL/MM3 Hemoglobin 10.9 GM/DL Hematocrit 33.7 % Mean Corpuscular Volume 90.4 FL Mean Corpuscular Hemoglobin 29.3 PG Mean Corpuscular Hemoglobin Concent 32.4 % Red Cell Distribution Width 19.8 % Platelet Count 308 TH/MM3 Mean Platelet Volume 7.6 FL Neutrophils (%) (Auto) 86.8 % Lymphocytes (%) (Auto) 6.5 % Monocytes (%) (Auto) 3.7 % Eosinophils (%) (Auto) 1.2 % Basophils (%) (Auto) 1.8 % Neutrophils # (Auto) 17.4 TH/MM3 Lymphocytes # (Auto) 1.3 TH/MM3 Monocytes # (Auto) 0.7 TH/MM3 Eosinophils # (Auto) 0.2 TH/MM3 Basophils # (Auto) 0.4 TH/MM3 CBC Comment DIFF FINAL Differential Comment Prothrombin Time 11.2 SEC Prothromb Time International Ratio 1.1 RATIO Activated Partial Thromboplast Time 24.8 SEC Blood Urea Nitrogen 15 MG/DL Creatinine 1.20 MG/DL Random Glucose 119 MG/DL Total Protein 7.4 GM/DL Albumin 3.0 GM/DL Calcium Level 9.7 MG/DL Magnesium Level 1.6 MG/DL Alkaline Phosphatase 111 U/L Aspartate Amino Transf (AST/SGOT) 21 U/L Alanine Aminotransferase (ALT/SGPT) 19 U/L Total Bilirubin 1.0 MG/DL Sodium Level 138 MEQ/L Potassium Level 3.8 MEQ/L Chloride Level 99 MEQ/L Carbon Dioxide Level 25.6 MEQ/L Anion Gap 13 MEQ/L Estimat Glomerular Filtration Rate 44 ML/MIN Lactic Acid Level 6.3 mmol/L Total Creatine Kinase 42 U/L Troponin I 0.54 NG/ML MDM Medical Decision Making Medical Screen Exam Complete: Yes Emergency Medical Condition: Yes Differential Diagnosis Dehydration, sepsis, tumor lysis syndrome, generalized deconditioning Narrative Course 76-year-old female with a history of lung cancer with recent mets presents emergency department complaining of lightheadedness, spinning, weakness for approximately 1 day. Patient states that she was sitting at home she started feeling this way last night. She does not know any inciting events. Says he dizziness is worse with movement and activity. Somewhat decreases with rest but is otherwise constant. She denies fever, chills, chest pain, shortness of breath , abdominal pain, back pain. Says that she feels like she has been dragging her foot but otherwise denies numbness tingling of the extremities. Patient says that she has been complaining of neck pain for about 45 minutes. Says she has a history of neck pain but did not last very long. Says that the pain is worse with movement. Erickson sampson, a friend of hers expressed concern for the inability to take care of herself. He says that she has stage IV lung cancer and is noticed an inability to take care of herself approximately 1 month. Says that he she has had decreased mentation does not understand things that she normally does. There is a question whether or not she is on hospice. Says that yesterday he walked into her house and found that the oxygen tubing was kinked and likely not flowing properly. He says that patient is a DNR. Her primary care physician is Dr. Dominguez and her oncologist is Dr. Bowden. After further discussion, patient is actually on hospice with [facility], per her friend, Erickson. He says that Dr. Bowden, her oncologist stated that she has 3-4 months of life left, estimated. Erickson Durbin, her friend, advises me that her healthcare surrogate name is Ramon , the patient's niece. Her phone number is . She is apparently located in [place]. Erickson Durbin offered his number as well for any questions. . EKG shows sinus tachycardia at rate 127 without STEMI changes. Patient is hemodynamically unstable. Initial blood pressure systolic of 80, heart rate 140s. A total of 2 L IV fluid will be administered. There is some improvement in her blood pressure and heart rate after IV fluids were administered Labs and imaging studies ordered. Chest x-ray suggestive of a developing pneumonia on the right. Lactic 6.3. Leukocytosis present. Troponin elevated at 0.54. Fully initiated sepsis protocol. Ordered cefepime and azithromycin for pneumonia. Patient will be admitted for pneumonia, sepsis, elevated troponin. Please see Dr. Michaels's note for further information. Diagnosis Primary Impression: Sepsis Qualified Codes: A41.9 - Sepsis, unspecified organism Additional Impressions: Pneumonia Qualified Codes: J18.1 - Lobar pneumonia, unspecified organism Elevated troponin Admitting Information Admitting Physician Requests: Admit Condition: Stable Alejandrina Goddard July 24, 2017 09:33
[2017-07-24] MEDS ORDERED: MORP1CAP PO (09:34)
[2017-07-24] MEDS ORDERED: OXYC15TA PO (09:34)
[2017-07-24 09:50] LABS: AUTOMATED NEUTROPHIL # 17.4 TH/MM3 (1.8-7.7); BASOPHIL # 0.4 TH/MM3 (0-0.2); BASOPHIL % 1.8 % (0.0-2.0); EOSINOPHIL # 0.2 TH/MM3 (0-0.4); EOSINOPHIL % 1.2 % (0.0-4.0); HEMATOCRIT 33.7 % (35.0-46.0); HEMOGLOBIN 10.9 GM/DL (11.6-15.3); LYMPH % 6.5 % (9.0-44.0); LYMPHOCYTE # 1.3 TH/MM3 (1.0-4.8); MEAN CELL VOLUME 90.4 FL (80.0-100.0); MEAN CORPUSCULAR HEMOGLOBIN 29.3 PG (27.0-34.0); MEAN CORPUSCULAR HGB CONC 32.4 % (32.0-36.0); MEAN PLATELET VOLUME 7.6 FL (7.0-11.0); MONO % 3.7 % (0.0-8.0); MONOCYTE # 0.7 TH/MM3 (0-0.9); NEUT % 86.8 % (16.0-70.0); PLATELET COUNT 308 TH/MM3 (150-450); RED BLOOD COUNT 3.73 MIL/MM3 (4.00-5.30); RED CELL DISTRIBUTION WIDTH 19.8 % (11.6-17.2)
[2017-07-24 09:57] LABS: INTERNATIONAL NORMALIZED RATIO 1.1 RATIO; PROTHROMBIN TIME - PATIENT 11.2 SEC (9.8-11.6)
[2017-07-24 10:00] LABS: BICARBONATE 25.6 MEQ/L (21.0-32.0); CALCIUM 9.7 MG/DL (8.5-10.1)
[2017-07-24 10:01] LABS: CHLORIDE 99 MEQ/L (98-107); GLUCOSE,RANDOM 119 MG/DL (74-106); MAGNESIUM 1.6 MG/DL (1.5-2.5); SODIUM (NA) 138 MEQ/L (136-145)
[2017-07-24 10:03] LABS: ALT (GPT) 19 U/L (10-53); GLOMERULAR FILTRATION RATE 44 ML/MIN (>89)
[2017-07-24 10:04] LABS: BLOOD UREA NITROGEN 15 MG/DL (7-18)
[2017-07-24 10:05] LABS: TOTAL PROTEIN 7.4 GM/DL (6.4-8.2)
[2017-07-24 10:06] LABS: ALKALINE PHOSPHATASE 111 U/L (45-117)
[2017-07-24 10:08] LABS: TROPONIN I 0.54 NG/ML (0.02-0.05)
[2017-07-24 10:12] LABS: AST (GOT) 21 U/L (15-37)
--- NOTE | 2017-07-24 10:16 | RADRPT ---
EXAM DATE/TIME: 07/24/2017 09:54 [facility] COMPARISON: CHEST EXPIRATION ONLY, April 24, 2017, 9:08. CHEST SINGLE AP, January 07, 2016, 4:40. INDICATIONS : Short of breath. MEDICAL HISTORY : Stroke. Cardiovascular disease Carcinoma, lung.Chemotherapy. Radiation SURGICAL HISTORY : Left Lobectomy. infusaport ENCOUNTER: Initial ACUITY: 2 days PAIN SCORE: 0/10 LOCATION: Bilateral chest FINDINGS: [id number] in good position. Increasing interstitial changes right mid lung. Persistent consolidative changes left base Mild cardiomegaly. No pneumothorax. CONCLUSION: Increasing parenchymal changes on the right.. Kenroy Quiñonez MD FACR on July 24, 2017 at 10:12 Board Certified Radiologist. This report was verified electronically.
[2017-07-24 10:32] LABS: LACTIC ACID SEPSIS PROTOCOL 6.3 mmol/L (0.4-2.0)
[2017-07-24] MEDS ORDERED: CEFEPIME INJ 2,000 MG in SODIUM CHLORIDE 0.9% INJ 100 ML IV STA (10:34)
[2017-07-24] MEDS ORDERED: AZITHROMYCIN INJ 500 MG in SODIUM CHLOR 0.9% 250 ML INJ 250 ML IV STA (10:34)
[2017-07-24] MEDS ORDERED: PIPERACIL-TAZO 4.5 GM PREMIX 100 ML IV STA (10:34)
[2017-07-24] MEDS: SODIUM CHLOR 0.9% 1000 ML INJ 1,000 ML IV SCH ×2 (12:45→19:20)
--- NOTE | 2017-07-24 14:17 | MH ---
cc: Toby Martell MD DATE OF ADMISSION: 07/24/2017 ADMISSION DIAGNOSES: 1. Increased pulmonary interstitial infiltrate, right mid lung with persistent consolidation, left base, possible pneumonia. 2. Chronic obstructive pulmonary disease, on chronic oxygen therapy. 3. Metastatic squamous cell carcinoma of the lung, has been recently on immunotherapy. 4. Hypoxia, on chronic oxygen therapy. 5. History of prior left upper lobectomy for her initial squamous cell carcinoma of the lung in 2015. 6. Left subclavian artery stenosis. 7. Hyperlipidemia. 8. Degenerative disc disease of lumbar spine. 9. Atherosclerosis, aorta. 10. Elevated troponin level of questionable significance. PERTINENT HISTORY: This is a 76-year-old white female with history of squamous cell carcinoma of the lung, initially diagnosed around 2015 involving the left upper lobe. She underwent robotic-assisted left upper lobectomy at that time for what was initially determined as a stage I disease. In spring, she was found to have a new AP window mass, which was proven by biopsy to be again squamous cell carcinoma. For this, she underwent concurrent chemotherapy and radiation therapy. Restaging performed in 2017 classified her as bilateral lung metastatic disease with confirmed metastatic squamous cell carcinoma. She was initiated on palliative immunotherapy with nivolumab in April. She has been followed by Dr. Bowden. In May, she was at her physician's office and was noted to have increased breathing and lightheadedness and nearly collapsed in the office when she was in the clinic with her oncologist. She was sent to the emergency room and admitted then. She had a CT angiogram on 06/05/2017, that noted to have increased prominence of interstitial markings in conjunction with her baseline pulmonary fibrosis, which reportedly was quite severe. She has a history of COPD as well and has been on oxygen here, 2 liters, continuously. When she was hospitalized in late May with increased pulmonary infiltrates, she was put on IV antibiotics and steroids and then sent home on a tapering dose of prednisone, which she completed not real long ago. She was seen in the hospital by marketing programs specialist, Dr. Rivas, when she was in in May. She comes in today with increased cough over the last few days. She has been having some intermittent sensation of herself moving back and forth with positional changes and getting up and down also. She has been maybe a little more short of breath. There is question by her caretakers as to whether she has been a little bit confused as well at times, and she is gradually declining and not able to quite care of herself as good as she has been. She has been a little more forgetful as well. In the ED, her lactic acid level was high today. She had worsening interstitial changes on x-ray as mentioned in the right mid lung. Her white count was elevated as well. She is being admitted for some empiric IV antibiotic therapy and possible steroid therapy. She has determined that she does not want to be resuscitated as per discussion with Dr. Michaels, the ER physician. She also requested hospices. At the time I was seeing her, just at lunchtime, the hospice community development director was there. That particular individual states that they had met with her previously within the last month, but at that time, she had not decided whether she wanted to go on hospice services. She is leaning more toward that now because she realizes that she will need it. PAST MEDICAL HISTORY: As mentioned, she has been diagnosed with metastatic squamous cell carcinoma of both lungs and initially diagnosed with squamous cell carcinoma in the left upper lobe in 2016. She sees Dr. Bowden and has been on palliative immunotherapy. She has COPD and apparently has some pulmonary fibrosis. She has hyperlipidemia, but she has not been taking any cholesterol medication. She has had history of a TIA and has had prior left carotid endarterectomy in 2016. She was on Plavix, but she states she stopped that because she was having the tendency to fall. She denies any history of heart attack, angina, heart failure, hypertension, diabetes. Denies any prior liver or kidney disease. 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 She has had pneumonia in the past as mentioned. She denies thyroid disease. She has had some colon polyps in the past, but her last couple colonoscopies, most recently on 06/08/2015, showed normal colon. She was noted to have a 50% left subclavian artery stenosis on her prior CTA in 2012. PAST SURGICAL HISTORY: Left carotid endarterectomy, bilateral cataract extraction and lens implant, left upper lobe robotic lobectomy in 2016, had normal colonoscopy 04/25/2010, 06/08/2015. ALLERGIES: NONE. MEDICATIONS AT HOME: Includes Ellipta 62.5 one puff daily. She has a Ventolin inhaler as needed. She has a nebulizer solution with formoterol 12 mcg/budesonide 0.5 mg that she uses a vial twice a day. She has also recently been put on oxycodone immediate release 15 mg that she uses 4 times a day for pain, along with morphine extended release 10 mg twice a day. FAMILY HISTORY: Her mother of ovarian cancer at 83. She also had hypertension. Father at 102 of old age. She had a maternal grandmother who at 66 of breast and bone cancer, had an aunt who had breast cancer. Her paternal grandmother of heart disease. SOCIAL HISTORY: She has never . She has a friend that lives with her. She only occasionally drinks alcohol. She started smoking at age 13 and states she smokes 3/4 pack a day and quit around 2017. Other than that, she states she will have only an occasional cigarette. 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 REVIEW OF SYSTEMS: GENERAL: No fever or chills. HEENT: No runny nose. She has had just slight sore throat. PULMONARY: As mentioned. CARDIOVASCULAR: No chest pain. She denies any feeling of palpitations. GASTROINTESTINAL: No abdominal pain, nausea, vomiting. Last bowel movement was about 2-3 days ago. No rectal bleeding. GENITOURINARY: No dysuria, hematuria, incontinence. MUSCULOSKELETAL: She gets some low back pain intermittently. EXTREMITIES: Denies any swelling. NEUROLOGIC: She has no focal weakness or numbness. Has forgetfulness. PHYSICAL EXAMINATION: GENERAL: Pleasant white female in no distress. VITAL SIGNS: Her pulse is around 105-116, occasional irregular beat. BP 110/68, pulse oximetry 95% on 3 liters. HEENT: Pupils equal. Sclerae nonicteric. Nose is without lesion. Mouth has full upper denture, partial lower denture. NECK: Without JVD. Has a left carotid endarterectomy scar. HEART: Regular rhythm with occasional irregular beat. No murmur. LUNGS: She has decreased breath sounds in the left base. No wheezes or rhonchi. ABDOMEN: Soft, nontender, no masses. EXTREMITIES: Diminished pulses in both feet. No edema. No calf tenderness. SKIN: She just has some minimal purpura on both forearms. NEUROLOGIC: Motor strength symmetrical bilaterally. Sensation intact. Cranial nerves intact. Seems fairly alert and oriented. LABORATORY DATA: Her white count was 20,000, hemoglobin 10.9, platelet count 308,000. INR was normal. Lactic acid level was elevated at 6.3. AST, ALT were normal. BUN 15, creatinine 1.2, GFR 44, random glucose 119, magnesium 1.6, bilirubin normal, calcium 9.7. Total CK was 42, albumin 3.0, total protein 7.4. Her troponin was high at 0.54 of questionable significance. On recall, she denied any history of chest pain and has had no diagnosis of heart disease. ASSESSMENT: As noted. PLAN: We will give her some IV fluids with normal saline. We will consult Dr Rivas, who has seen her in the past from a pulmonary perspective. We will put her on Solu-Medrol 40 mg q. 6. We will cover her with cefepime and Zithromax in case there is underlying pneumonia. She has decided to be a DO NOT RESUSCITATE. We have asked hospice to see her. We will not be overly aggressive in any workup at this time. I will repeat her troponin level and order an EKG. We will put her on Lovenox 40 mg daily for DVT prophylaxis. She will be maintained on her pain medication. We will put her on dual nebulizer treatments as well. She is on supplemental oxygen, which she has been on as an outpatient as well. MD APRIL Sung/RONNIE , 01:31 PM , 02:16 PM
[2017-07-24] MEDS: RESP: ALBUTEROL 2.5 MG/IPRATROPIUM 0.5 MG NEB (SCH) NEB ×2 (14:20→20:36)
[2017-07-24] MEDS: methylPREDNISolone SOD SUCC 40 MG/1 ML VIAL IV PUSH SCH ×3 (14:31→23:37)
[2017-07-24] MEDS: ENOXAPARIN SODIUM 40 MG/0.4 ML SYRINGE SQ SCH (14:31)
--- NOTE | 2017-07-24 19:45 | MB ---
cc: Mich Rivas MD DATE: 07/24/2017 REQUESTING PHYSICIAN: Reg Martell MD REASON FOR CONSULTATION: Pulmonary management. HISTORY OF PRESENT ILLNESS: Ms. Alberto is a pleasant 76-year-old female who has squamous cell carcinoma of the lung, status post robotic-assisted left upper lobectomy and then she was found to have disease in the AP window and then in the right lung. She has received 2 concurrent chemotherapy and radiation therapy. She was following with Dr. Broderick Bowden, and she has taken palliative immunotherapy. She came to the hospital with increasing shortness of breath, feeling weak and tired, at times confused. She denied any fevers or chills. No night sweats, no chest pain. Appetite has been poor. Because of worsening of her symptoms, she came to the hospital. She had a workup done. Her chest x-ray shows increasing parenchymal changes in the right lung. Her WBC count is 20,000, hemoglobin 10.9, hematocrit 33.7, MCV 90, platelet count 308. Sodium 130, potassium 3.8, chloride 99, CO2 of 25, BUN 15, creatinine 1.20. Initial lactic acid 6.3, repeat one is 1.3. INR is 1.1. Her blood culture so far is negative. PAST MEDICAL HISTORY: Significant for history of squamous cell carcinoma of the lung, status post robotic left lung surgery, concurrent chemoradiation therapy and now immunotherapy. History of COPD, pulmonary fibrosis, basal cell carcinoma of the skin, history of carotid endarterectomy. MEDICATIONS: She is currently taking Zithromax 500 mg a day, cefepime 1 gram q. 12 hours, morphine 30 mg twice a day, oxycodone p.r.n., Lovenox 40 mg a day, Solu-Medrol 40 mg q. 6 hours. ALLERGIES: SHE IS ALLERGIC TO SHELLFISH. SOCIAL HISTORY: She is single, never . She has a history of smoking, which she quit 1 year ago. Drinks socially. 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 FAMILY HISTORY: She has never , has no children. Has a brother and nieces up [place], and her niece is her healthcare surrogate. She lives with a roommate. REVIEW OF SYSTEMS: Has been feeling weak, has lost weight. No DVT or pulmonary embolism. No seizures, stoke or epilepsy. PHYSICAL EXAMINATION: GENERAL: Elderly female, mildly short of breath, not in acute distress. VITAL SIGNS: Blood pressure 124/70, heart rate 120, respirations 20, temperature 97.4. HEENT: Pupils are equal and reactive to light. She has bilateral cataract surgery done. Oral mucosa and nasal mucosa normal. NECK: Supple. JVD noted. CHEST: Bilateral inspiratory rales. CARDIOVASCULAR: S1, S2 normal. ABDOMEN: Benign. EXTREMITIES: No edema. CENTRAL NERVOUS SYSTEM: She is alert and oriented x 3. No focal deficit. IMPRESSION: 1. Metastatic squamous cell carcinoma of the lung, status post left lung robotic surgery, concurrent chemoradiation therapy and immunotherapy. 2. Pulmonary fibrosis. 3. Chronic obstructive pulmonary disease. 4. History of carotid endarterectomy. PLAN: The patient is DNR. She does not want to have anything aggressive done and requested for a hospice consult, and she desires to spend her last moments and at her own home. We will continue the antibiotic, aerosol treatment. Supplement her oxygen. Encourage her to ambulate, and we will wait for hospice eval and make arrangements for home with hospice. Further treatment will depend on the course in the hospital. Thank you, Dr. Toby Martell, for this consult. MD JENIFFER Guadarrama/RONNIE , 06:58 PM , 07:44 PM
[2017-07-24] MEDS: MORPHINE SULFATE 30 MG CONTROLLED RELEASE TAB PO SCH (21:58)
[2017-07-24] MEDS: CEFEPIME INJ 1,000 MG in SODIUM CHLORIDE 0.9% INJ 100 ML IV SCH (21:58)
[2017-07-25] VITALS (9 sets, daily range): BP systolic 102–148; BP diastolic 66–81; PULSE 108–119; RESP 20–22; TEMP 96.1–98.9; O2SAT 91–98
[2017-07-25] MEDS: methylPREDNISolone SOD SUCC 40 MG/1 ML VIAL IV PUSH SCH ×4 (05:28→23:29)
[2017-07-25] MEDS: RESP: ALBUTEROL 2.5 MG/IPRATROPIUM 0.5 MG NEB (SCH) NEB ×4 (05:59→19:20)
[2017-07-25 06:53] LABS: AUTOMATED NEUTROPHIL # 10.4 TH/MM3 (1.8-7.7); BASOPHIL # 0.1 TH/MM3 (0-0.2); BASOPHIL % 0.8 % (0.0-2.0); EOSINOPHIL % 0.1 % (0.0-4.0); HEMATOCRIT 27.8 % (35.0-46.0); LYMPH % 2.1 % (9.0-44.0); LYMPHOCYTE # 0.2 TH/MM3 (1.0-4.8); MEAN CELL VOLUME 90.3 FL (80.0-100.0); MEAN CORPUSCULAR HEMOGLOBIN 29.2 PG (27.0-34.0); MEAN CORPUSCULAR HGB CONC 32.4 % (32.0-36.0); MEAN PLATELET VOLUME 7.7 FL (7.0-11.0); MONO % 0.5 % (0.0-8.0); MONOCYTE # 0.1 TH/MM3 (0-0.9); NEUT % 96.5 % (16.0-70.0); PLATELET COUNT 218 TH/MM3 (150-450); RED BLOOD COUNT 3.08 MIL/MM3 (4.00-5.30); RED CELL DISTRIBUTION WIDTH 19.2 % (11.6-17.2); WHITE BLOOD COUNT 10.8 TH/MM3 (4.0-11.0)
[2017-07-25 07:11] LABS: CALCIUM 8.3 MG/DL (8.5-10.1); CREATININE 0.68 MG/DL (0.50-1.00)
--- NOTE | 2017-07-25 07:36 | HHI.PR ---
Subjective Remarks No increased shortness of breath. Is wheezing some today. No chest pain or abdominal pain. Objective Vitals Vital Signs Date Time Temp Pulse Resp B/P (MAP) Pulse Ox O2 Delivery O2 Flow Rate FiO2 07/25/17 05:59 98 Nasal Cannula 3.00 07/25/17 00:00 96.1 108 20 102/70 (81) 93 07/24/17 20:36 98 Nasal Cannula 3.00 07/24/17 20:00 96.5 106 22 134/71 (92) 95 07/24/17 16:00 97.4 127 20 125/70 (88) 93 07/24/17 14:23 93 Nasal Cannula 3.00 07/24/17 12:00 97.0 121 19 134/76 (95) 95 07/24/17 11:35 116 18 110/68 (82) 95 Nasal Cannula 3.00 07/24/17 10:02 121 20 100/61 (74) 94 Nasal Cannula 3.00 07/24/17 09:44 20 91 Nasal Cannula 2.00 07/24/17 09:44 91 Nasal Cannula 2.00 07/24/17 09:14 93 Nasal Cannula 2.00 07/24/17 09:14 97.8 105 20 81/50 (60) 93 Result Diagram: 07/25/17 0610 07/25/17 0610 Other Results Laboratory Tests Test 07/24/17 09:30 07/24/17 15:00 07/24/17 15:50 07/25/17 06:10 White Blood Count 20.0 TH/MM3 10.8 TH/MM3 Red Blood Count 3.73 MIL/MM3 3.08 MIL/MM3 Hemoglobin 10.9 GM/DL 9.0 GM/DL Hematocrit 33.7 % 27.8 % Mean Corpuscular Volume 90.4 FL 90.3 FL Mean Corpuscular Hemoglobin 29.3 PG 29.2 PG Mean Corpuscular Hemoglobin Concent 32.4 % 32.4 % Red Cell Distribution Width 19.8 % 19.2 % Platelet Count 308 TH/MM3 218 TH/MM3 Mean Platelet Volume 7.6 FL 7.7 FL Neutrophils (%) (Auto) 86.8 % 96.5 % Lymphocytes (%) (Auto) 6.5 % 2.1 % Monocytes (%) (Auto) 3.7 % 0.5 % Eosinophils (%) (Auto) 1.2 % 0.1 % Basophils (%) (Auto) 1.8 % 0.8 % Neutrophils # (Auto) 17.4 TH/MM3 10.4 TH/MM3 Lymphocytes # (Auto) 1.3 TH/MM3 0.2 TH/MM3 Monocytes # (Auto) 0.7 TH/MM3 0.1 TH/MM3 Eosinophils # (Auto) 0.2 TH/MM3 0.0 TH/MM3 Basophils # (Auto) 0.4 TH/MM3 0.1 TH/MM3 CBC Comment DIFF FINAL DIFF FINAL Differential Comment Prothrombin Time 11.2 SEC Prothromb Time International Ratio 1.1 RATIO Activated Partial Thromboplast Time 24.8 SEC Blood Urea Nitrogen 15 MG/DL 16 MG/DL Creatinine 1.20 MG/DL 0.68 MG/DL Random Glucose 119 MG/DL 141 MG/DL Total Protein 7.4 GM/DL Albumin 3.0 GM/DL Calcium Level 9.7 MG/DL 8.3 MG/DL Magnesium Level 1.6 MG/DL Alkaline Phosphatase 111 U/L Aspartate Amino Transf (AST/SGOT) 21 U/L Alanine Aminotransferase (ALT/SGPT) 19 U/L Total Bilirubin 1.0 MG/DL Sodium Level 138 MEQ/L 139 MEQ/L Potassium Level 3.8 MEQ/L 3.7 MEQ/L Chloride Level 99 MEQ/L 106 MEQ/L Carbon Dioxide Level 25.6 MEQ/L 24.0 MEQ/L Anion Gap 13 MEQ/L 9 MEQ/L Estimat Glomerular Filtration Rate 44 ML/MIN 84 ML/MIN Lactic Acid Level 6.3 mmol/L 1.7 mmol/L Total Creatine Kinase 42 U/L Troponin I 0.54 NG/ML 0.31 NG/ML Imaging Last Impressions Chest X-Ray 07/24/1755 Signed Impressions: Service Date/Time: Monday, July 24, 2017 09:54 - CONCLUSION: Increasing parenchymal changes on the right.. Kenroy Quiñonez MD FACR Objective Remarks Exam: Pleasant white female in no distress. HEENT: Pupils equal, no scleral icterus, mouth without lesions Neck: No JVD Heart: RRR Lungs: scattered wheezing Abdomen: soft, nontender Extremities: No edema Neuro: moves all extremities A/P Assessment and Plan Assessment: --Increased pulmonary interstitial infiltrate right mid lung with persistent consolidation left base --Metastatic squamous cell carcinoma of the lung --COPD on chronic oxygen therapy --Hx of prior left upper lobectomy in 2016 for her initial squamous cell carcinoma --Left subclavian artery stenosis (50% on prior CTA) --Hyperlipidemia --Atherosclerosis of the aorta --Elevated Troponin on admission that went down on repeat Plan: Continue IV antibiotics, oxygen and steroids and nebulizer treatments. Hospice has been consulted and still awaiting patients final decision on that. She is a DNR. Continue Lovenox for DVT prophylaxis. Toby Martell MD July 25, 2017 07:36
[2017-07-25] MEDS: MORPHINE SULFATE 30 MG CONTROLLED RELEASE TAB PO SCH ×2 (08:29→21:43)
[2017-07-25] MEDS: CEFEPIME INJ 1,000 MG in SODIUM CHLORIDE 0.9% INJ 100 ML IV SCH ×2 (09:53→21:43)
[2017-07-25] MEDS ORDERED: AZITHROMYCIN INJ 500 MG in SODIUM CHLOR 0.9% 250 ML INJ 250 ML IV SCH (11:00)
[2017-07-25] MEDS: SODIUM CHLOR 0.9% 1000 ML INJ 1,000 ML IV SCH (12:35)
[2017-07-25] MEDS: ENOXAPARIN SODIUM 40 MG/0.4 ML SYRINGE SQ SCH (14:39)
--- NOTE | 2017-07-25 18:01 | HHI.PR ---
Subjective Remarks 76 YOWF with metaststic lung CA,COPD exac,PF has worsening sob and wheezing had desaturation Increased 02 4LNC HR high, no palpitation or CP Seen by Hospice. Objective Vital Signs Vital Signs Date Time Temp Pulse Resp B/P (MAP) Pulse Ox O2 Delivery O2 Flow Rate FiO2 07/25/17 17:19 91 Nasal Cannula 4.00 07/25/17 16:59 20 07/25/17 16:45 96.7 118 22 103/66 (78) 07/25/17 13:49 94 Nasal Cannula 2.50 07/25/17 12:28 96.7 118 22 103/66 (78) 92 07/25/17 09:29 20 07/25/17 08:36 96.1 119 22 148/80 (102) 93 07/25/17 05:59 98 Nasal Cannula 3.00 07/25/17 00:00 96.1 108 20 102/70 (81) 93 07/24/17 20:36 98 Nasal Cannula 3.00 07/24/17 20:00 96.5 106 22 134/71 (92) 95 I/O 07/24/17 07/24/17 07/24/17 07/25/17 07/25/17 07/25/17 07:00 15:00 23:00 07:00 15:00 23:00 Intake Total 1100 ml 750 ml 1140 ml 720 ml Output Total 400 ml 200 ml Balance 1100 ml 350 ml 940 ml 720 ml Intake Oral 750 ml 240 ml 720 ml IV Total 1100 ml 900 ml Output Urine Total 400 ml 200 ml # Voids 4 6 # Bowel Movements 1 0 Result Diagram: 07/25/17 0610 07/25/17 0610 Objective Remarks GENERAL: Elderly WF, sob SKIN: Warm and dry. HEAD: Normocephalic. EYES: No scleral icterus. No injection or drainage. NECK: Supple, trachea midline. No JVD or lymphadenopathy. CARDIOVASCULAR: Regular rate and rhythm without murmurs, gallops, or rubs. RESPIRATORY: Breath sounds equal bilaterally. No accessory muscle use. Exp rhonchi GASTROINTESTINAL: Abdomen soft, non-tender, nondistended. MUSCULOSKELETAL: No cyanosis, or edema. BACK: Nontender without obvious deformity. No CVA tenderness. A/P Assessment and Plan IMPRESSION: 1. Metastatic squamous cell carcinoma of the lung, status post left lung robotic surgery, concurrent chemoradiation therapy and immunotherapy. 2. Pulmonary fibrosis. 3. Chronic obstructive pulmonary disease. 4. History of carotid endarterectomy. 5. DNR PLAN: Increase Solumedrol 125 mg q 6 hrs Aerosol nebs Supplement 02 Cont Abx Tele to monitor HR DNR Mich Rivas MD July 25, 2017 18:01
--- NOTE | 2017-07-25 19:47 | EKG ---
Date Performed: 07/24/2017 Time Performed: 09:33:34 PTAGE: 76 years EKG: SINUS TACHYCARDIA WITH SHORT [place] INTERVAL WITH OCCASIONAL VENTRICULAR PREMATURE COMPLEXES IN COMPLETE RIGHT BUNDLE BRANCH BLOCK ABNORMAL RHYTHM ECG Since the PREVIOUS TRACING , no significant change noted PREVIOUS TRACIN06/05/2017 14.18 DOCTOR: Dave Nj Interpretating Date/Time 07/25/2017 19:47:10
--- NOTE | 2017-07-25 19:48 | EKG ---
Date Performed: 07/24/2017 Time Performed: 15:44:17 PTAGE: 76 years EKG: SINUS TACHYCARDIA WITH OCCASIONAL ECTOPIC PREMATURE COMPLEXES LOW QRS VOLTAGE IN PRECORDIAL LEADS INCOMPLETE RIGHT BUNDLE BRANCH BLOCK POSSIBLE ANTERIOR MYOCARDIAL INFARCTION ABNORMAL RHYTHM E CG Since the PREVIOUS TRACING , no significant change noted PREVIOUS TRACIN07/24/2017 09.33 DOCTOR: Dave Nj Interpretating Date/Time 07/25/2017 19:47:31
[2017-07-25] MEDS ORDERED: ZOLPIDEM TARTRATE 5 MG TAB PO PRN (23:15)
[2017-07-25] MEDS: ZOLPIDEM TARTRATE 10 MG TAB PO PRN (23:36)
[2017-07-26] VITALS (10 sets, daily range): BP systolic 131–162; BP diastolic 78–101; PULSE 82–124; RESP 20–24; TEMP 95.4–98.7; O2SAT 78–99
[2017-07-26] MEDS: methylPREDNISolone SOD SUCC 40 MG/1 ML VIAL IV PUSH SCH ×4 (05:23→23:32)
[2017-07-26] MEDS: SODIUM CHLOR 0.9% 1000 ML INJ 1,000 ML IV SCH (06:33)
--- NOTE | 2017-07-26 06:42 | HHI.PR ---
Subjective Remarks Still occasional wheezing. Objective Vitals Vital Signs Date Time Temp Pulse Resp B/P (MAP) Pulse Ox O2 Delivery O2 Flow Rate FiO2 07/26/17 04:51 98.7 116 20 131/94 (106) 90 07/26/17 02:08 116 20 90 07/26/17 01:03 96.7 118 20 137/78 (97) 89 07/25/17 20:00 98.9 117 21 108/81 (90) 92 07/25/17 19:20 96 Nasal Cannula 4.00 07/25/17 17:19 91 Nasal Cannula 4.00 07/25/17 16:59 20 07/25/17 16:45 96.7 118 22 103/66 (78) 07/25/17 13:49 94 Nasal Cannula 2.50 07/25/17 12:28 96.7 118 22 103/66 (78) 92 07/25/17 09:29 20 07/25/17 08:36 96.1 119 22 148/80 (102) 93 Result Diagram: 07/25/17 0610 07/25/17 0610 Other Results Laboratory Tests Test 07/24/17 09:30 07/24/17 15:00 07/24/17 15:50 07/25/17 06:10 White Blood Count 20.0 TH/MM3 10.8 TH/MM3 Red Blood Count 3.73 MIL/MM3 3.08 MIL/MM3 Hemoglobin 10.9 GM/DL 9.0 GM/DL Hematocrit 33.7 % 27.8 % Mean Corpuscular Volume 90.4 FL 90.3 FL Mean Corpuscular Hemoglobin 29.3 PG 29.2 PG Mean Corpuscular Hemoglobin Concent 32.4 % 32.4 % Red Cell Distribution Width 19.8 % 19.2 % Platelet Count 308 TH/MM3 218 TH/MM3 Mean Platelet Volume 7.6 FL 7.7 FL Neutrophils (%) (Auto) 86.8 % 96.5 % Lymphocytes (%) (Auto) 6.5 % 2.1 % Monocytes (%) (Auto) 3.7 % 0.5 % Eosinophils (%) (Auto) 1.2 % 0.1 % Basophils (%) (Auto) 1.8 % 0.8 % Neutrophils # (Auto) 17.4 TH/MM3 10.4 TH/MM3 Lymphocytes # (Auto) 1.3 TH/MM3 0.2 TH/MM3 Monocytes # (Auto) 0.7 TH/MM3 0.1 TH/MM3 Eosinophils # (Auto) 0.2 TH/MM3 0.0 TH/MM3 Basophils # (Auto) 0.4 TH/MM3 0.1 TH/MM3 CBC Comment DIFF FINAL DIFF FINAL Differential Comment Prothrombin Time 11.2 SEC Prothromb Time International Ratio 1.1 RATIO Activated Partial Thromboplast Time 24.8 SEC Blood Urea Nitrogen 15 MG/DL 16 MG/DL Creatinine 1.20 MG/DL 0.68 MG/DL Random Glucose 119 MG/DL 141 MG/DL Total Protein 7.4 GM/DL Albumin 3.0 GM/DL Calcium Level 9.7 MG/DL 8.3 MG/DL Magnesium Level 1.6 MG/DL Alkaline Phosphatase 111 U/L Aspartate Amino Transf (AST/SGOT) 21 U/L Alanine Aminotransferase (ALT/SGPT) 19 U/L Total Bilirubin 1.0 MG/DL Sodium Level 138 MEQ/L 139 MEQ/L Potassium Level 3.8 MEQ/L 3.7 MEQ/L Chloride Level 99 MEQ/L 106 MEQ/L Carbon Dioxide Level 25.6 MEQ/L 24.0 MEQ/L Anion Gap 13 MEQ/L 9 MEQ/L Estimat Glomerular Filtration Rate 44 ML/MIN 84 ML/MIN Lactic Acid Level 6.3 mmol/L 1.7 mmol/L Total Creatine Kinase 42 U/L Troponin I 0.54 NG/ML 0.31 NG/ML Imaging Last Impressions Chest X-Ray 07/24/17 0927 Signed Impressions: Service Date/Time: Monday, July 24, 2017 09:54 - CONCLUSION: Increasing parenchymal changes on the right.. Kenroy Quiñonez MD FACR Objective Remarks Exam: Pleasant white female in no distress. HEENT: Pupils equal, no scleral icterus, mouth without lesions Neck: No JVD Heart: RRR Lungs: occasional wheeze Abdomen: soft, nontender Extremities: No edema Neuro: moves all extremities A/P Assessment and Plan Assessment: --Increased pulmonary interstitial infiltrate right mid lung with persistent consolidation left base --Metastatic squamous cell carcinoma of the lung --Pulmonary fibrosis --COPD on chronic oxygen therapy --Hx of prior left upper lobectomy in 2016 for her initial squamous cell carcinoma --Left subclavian artery stenosis (50% on prior CTA) --Hyperlipidemia --Atherosclerosis of the aorta --Elevated Troponin on admission that went down on repeat Plan: Continue oxygen and steroids and nebulizer treatments. I will change her antibiotics to oral Levaquin 500mg daily. Hospice has been consulted and patient states she and her power of supervisor assembly think it is a good idea for her to go on Hospice. on that. She is a DNR. Continue Lovenox for DVT prophylaxis. Toby Martell MD July 26, 2017 06:42
[2017-07-26 06:54] LABS: BASOPHIL % 0.1 % (0.0-2.0); EOSINOPHIL % 0.1 % (0.0-4.0); HEMATOCRIT 30.1 % (35.0-46.0); HEMOGLOBIN 9.8 GM/DL (11.6-15.3); LYMPH % 1.9 % (9.0-44.0); LYMPHOCYTE # 0.4 TH/MM3 (1.0-4.8); MEAN CELL VOLUME 90.9 FL (80.0-100.0); MEAN CORPUSCULAR HEMOGLOBIN 29.5 PG (27.0-34.0); MEAN CORPUSCULAR HGB CONC 32.4 % (32.0-36.0); MEAN PLATELET VOLUME 7.8 FL (7.0-11.0); MONO % 1.6 % (0.0-8.0); MONOCYTE # 0.3 TH/MM3 (0-0.9); NEUT % 96.3 % (16.0-70.0); PLATELET COUNT 338 TH/MM3 (150-450); RED BLOOD COUNT 3.31 MIL/MM3 (4.00-5.30); RED CELL DISTRIBUTION WIDTH 18.9 % (11.6-17.2); WHITE BLOOD COUNT 20.7 TH/MM3 (4.0-11.0)
[2017-07-26 07:05] LABS: BICARBONATE 25.8 MEQ/L (21.0-32.0); CALCIUM 8.4 MG/DL (8.5-10.1)
[2017-07-26 07:09] LABS: CREATININE 0.83 MG/DL (0.50-1.00)
[2017-07-26] MEDS: RESP: ALBUTEROL 2.5 MG/IPRATROPIUM 0.5 MG NEB (SCH) NEB ×4 (07:21→19:54)
[2017-07-26] MEDS ORDERED: LEVOFLOXACIN 500 MG TAB PO SCH (08:00)
[2017-07-26] MEDS: MORPHINE SULFATE 30 MG CONTROLLED RELEASE TAB PO SCH ×2 (08:29→20:25)
[2017-07-26] MEDS: ENOXAPARIN SODIUM 40 MG/0.4 ML SYRINGE SQ SCH (13:24)
[2017-07-26 13:30] LABS: BILIRUBIN, URINE NEG (NEG); BLOOD, URINE TRACE (NEG); GLUCOSE,URINE NEG (NEG); KETONE, URINE NEG (NEG); NITRITE,URINE NEG (NEG); URINE COLOR YELLOW (YELLW/STRAW); URINE LEUKOCYTE ESTERASE NEG (NEG)
[2017-07-26 13:38] LABS: AMORPHOUS SEDIMENT, URINE MOD; RBC, URINE 0-3 /hpf (0-3); SQUAMOUS EPITHELIAL CELL URINE 0-5 /hpf (0-5); WBC, URINE 0-2 /hpf (0-5)
--- NOTE | 2017-07-26 14:39 | RADRPT ---
EXAM DATE/TIME: 07/26/2017 13:05 [facility] COMPARISON: CHEST SINGLE AP, July 24, 2017, 9:54. INDICATIONS : Short of breath MEDICAL HISTORY : Stroke. Cardiovascular disease Carcinoma, lung.Chemotherapy. Radiation SURGICAL HISTORY : Left Lobectomy. infusaport ENCOUNTER: Subsequent ACUITY: 3 days PAIN SCORE: 0/10 LOCATION: Bilateral chest FINDINGS: Marked elevation of the left hemidiaphragm with colon on the knees left diaphragm filling most of the left chest. Infiltrate laterally right lung. Right suprahilar mass. [id number] in good positio n. CONCLUSION: Gaseous distention of colon in the left hemidiaphragm. Otherwise stable Kenroy Quiñonez MD FACR on July 26, 2017 at 14:36 Board Certified Radiologist. This report was verified electronically.
--- NOTE | 2017-07-26 19:48 | HHI.PR ---
Subjective Remarks 76 YOWF with metaststic lung CA,COPD exac,PF has worsening sob and wheezing had desaturation Increased 02 4LNC Feels weak, sob with any activity. Seen by Hospice. Objective Vital Signs Vital Signs Date Time Temp Pulse Resp B/P (MAP) Pulse Ox O2 Delivery O2 Flow Rate FiO2 07/26/17 16:00 97.8 124 20 136/95 (109) 95 07/26/17 15:46 18 07/26/17 12:00 97.6 94 24 153/86 (108) 99 07/26/17 08:00 97.6 112 24 162/91 (114) 90 07/26/17 07:30 92 Nasal Cannula 6.00 07/26/17 07:20 78 Nasal Cannula 3.00 07/26/17 04:51 98.7 116 20 131/94 (106) 90 07/26/17 02:08 116 20 90 07/26/17 01:03 96.7 118 20 137/78 (97) 89 07/25/17 20:00 98.9 117 21 108/81 (90) 92 I/O 07/25/17 07/25/17 07/25/17 07/26/17 07/26/17 07/26/17 07:00 15:00 23:00 07:00 15:00 23:00 Intake Total 1140 ml 720 ml 720 ml 240 ml 480 ml Output Total 200 ml 200 ml 300 ml Balance 940 ml 720 ml 520 ml 240 ml 180 ml Intake Oral 240 ml 720 ml 120 ml 240 ml 480 ml IV Total 900 ml 600 ml Output Urine Total 200 ml 200 ml 300 ml # Voids 4 1 4 # Bowel Movements 1 0 Result Diagram: 07/26/17 0533 07/26/17 0533 Objective Remarks GENERAL: Elderly WF, sob SKIN: Warm and dry. HEAD: Normocephalic. EYES: No scleral icterus. No injection or drainage. NECK: Supple, trachea midline. No JVD or lymphadenopathy. CARDIOVASCULAR: Regular rate and rhythm without murmurs, gallops, or rubs. RESPIRATORY: Breath sounds equal bilaterally. No accessory muscle use. Exp rhonchi GASTROINTESTINAL: Abdomen soft, non-tender, nondistended. MUSCULOSKELETAL: No cyanosis, or edema. BACK: Nontender without obvious deformity. No CVA tenderness. A/P Assessment and Plan IMPRESSION: 1. Metastatic squamous cell carcinoma of the lung, status post left lung robotic surgery, concurrent chemoradiation therapy and immunotherapy. 2. Pulmonary fibrosis. 3. Chronic obstructive pulmonary disease. 4. History of carotid endarterectomy. 5. DNR PLAN: Solumedrol 125 mg q 6 hrs Aerosol nebs Supplement 02 Cont Abx Tele to monitor HR DNR DW pt at [facility] Rivas MD July 26, 2017 19:48
[2017-07-26] MEDS: ZOLPIDEM TARTRATE 10 MG TAB PO PRN (23:32)
[2017-07-26] MEDS ORDERED: RESP: ALBUTEROL 2.5 MG/3 ML NEB (PRN) INH (23:45)
[2017-07-27] MEDS: SODIUM CHLOR 0.9% 1000 ML INJ 1,000 ML IV SCH (00:47)
[2017-07-27 01:24] VITALS: BP_SYST 130; PULSE 108; RESP 22; TEMP 95.1; O2SAT 92
[2017-07-27] MEDS: methylPREDNISolone SOD SUCC 40 MG/1 ML VIAL IV PUSH SCH ×2 (05:18→07:15)
[2017-07-27] MEDS: RESP: ALBUTEROL 2.5 MG/IPRATROPIUM 0.5 MG NEB (SCH) NEB (07:57)
[2017-07-27 08:00] VITALS: BP 138/95; PULSE 123; RESP 25; TEMP 98.2; O2SAT 90; O2SAT 95
[2017-07-27] MEDS: MORPHINE SULFATE 30 MG CONTROLLED RELEASE TAB PO SCH (08:43)
--- NOTE | 2017-07-27 10:25 | HHI.DS ---
Discharge Summary Admission Date July 24, 2017 at 11:04 Discharge Date: July 27, 2017 Admitting Diagnosis Metastatic lung cancer/Pulmonary infiltrates/COPD with chronic respiratory failure (1) Pulmonary infiltrates Diagnosis: Principal ICD Codes: R91.8 - Other nonspecific abnormal finding of lung field (2) COPD (chronic obstructive pulmonary disease) Diagnosis: Principal ICD Codes: J44.9 - Chronic obstructive pulmonary disease, unspecified Status: Chronic (3) Metastatic lung carcinoma Diagnosis: Principal ICD Codes: C78.00 - Secondary malignant neoplasm of unspecified lung (4) Chronic respiratory failure Diagnosis: Principal ICD Codes: J96.10 - Chronic respiratory failure, unspecified whether with hypoxia or hypercapnia (5) Pulmonary fibrosis Diagnosis: Principal ICD Codes: J84.10 - Pulmonary fibrosis, unspecified (6) Lung cancer Diagnosis: Secondary ICD Codes: C34.90 - Malignant neoplasm of unspecified part of unspecified bronchus or lung Status: Chronic (7) Hypoxia Diagnosis: Principal ICD Codes: R09.02 - Hypoxemia Status: Acute (8) Elevated troponin Diagnosis: Secondary ICD Codes: R74.8 - Abnormal levels of other serum enzymes Status: Acute (9) Hyperlipidemia Diagnosis: Secondary ICD Codes: E78.5 - Hyperlipidemia, unspecified (10) S/P lobectomy of lung Diagnosis: Secondary ICD Codes: Z90.2 - Acquired absence of lung [part of] Status: Acute Consultants Pulmonary: Dr Rivas Brief History 76 year old white female with history of squamous cell carcinoma of the lung initially diagnosed in 2015 and she then underwent a left upper lobectomy and has been followed by oncology (Dr Marcus) who presented to the ER on 07-24-17 with increasing shortness of breath, increased cough, slight vertigo or dizziness. She had been declining over the last month with increased weakness and forgetfulness as well. In the ED her lactic acid level was slightly elevated. It should be noted that in 2017 she was found to have a new mass in the AP window and a biopsy then showed presence of squamous cell carcinoma and she went on chemotherapy and radiation therapy. She was restaged earlier this year with bilateral lung metastatic disease. She has been receiving palliative immunotherapy with Nivolumab. She was hospitalized in May and a CT pulmonary angiogram then showed increase prominence of interstitial markings in conjunction with her baseline pulmonary fibrosis which reported was quite severe. She was seen in the hospital then by Dr Rivas and put on steroids. She has increased infiltrates then also. Her chest x-ray in the ER on 07-24-17 showed worsening interstitial changes in the right mid lung. Her WBC count was high and she was admitted for steroid therapy, increased oxygen and antibiotic therapy. The patient was a DNR from admission and did not want BIPAP or a ventilator. She also was interested in talking to Hospice. CBC/BMP: 07/26/17 0533 07/26/17 0533 Significant Findings Laboratory Tests Test 07/26/17 05:33 07/26/17 13:25 White Blood Count 20.7 TH/MM3 Red Blood Count 3.31 MIL/MM3 Hemoglobin 9.8 GM/DL Hematocrit 30.1 % Mean Corpuscular Volume 90.9 FL Mean Corpuscular Hemoglobin 29.5 PG Mean Corpuscular Hemoglobin Concent 32.4 % Red Cell Distribution Width 18.9 % Platelet Count 338 TH/MM3 Mean Platelet Volume 7.8 FL Neutrophils (%) (Auto) 96.3 % Lymphocytes (%) (Auto) 1.9 % Monocytes (%) (Auto) 1.6 % Eosinophils (%) (Auto) 0.1 % Basophils (%) (Auto) 0.1 % Neutrophils # (Auto) 20.0 TH/MM3 Lymphocytes # (Auto) 0.4 TH/MM3 Monocytes # (Auto) 0.3 TH/MM3 Eosinophils # (Auto) 0.0 TH/MM3 Basophils # (Auto) 0.0 TH/MM3 CBC Comment DIFF FINAL Differential Comment Blood Urea Nitrogen 12 MG/DL Creatinine 0.83 MG/DL Random Glucose 134 MG/DL Calcium Level 8.4 MG/DL Sodium Level 137 MEQ/L Potassium Level 3.6 MEQ/L Chloride Level 104 MEQ/L Carbon Dioxide Level 25.8 MEQ/L Anion Gap 7 MEQ/L Estimat Glomerular Filtration Rate 67 ML/MIN Urine Collection Type CLEAN CATCH Urine Color YELLOW Urine Turbidity CLEAR Urine pH 6.0 Urine Specific [place] 1.020 Urine Protein TRACE mg/dL Urine Glucose (UA) NEG mg/dL Urine Ketones NEG mg/dL Urine Occult Blood TRACE Urine Nitrite NEG Urine Bilirubin NEG Urine Urobilinogen 0.2 MG/DL Urine Leukocyte Esterase NEG Urine RBC 0-3 /hpf Urine WBC 0-2 /hpf Urine Squamous Epithelial Cells 0-5 /hpf Urine Amorphous Sediment MOD Microscopic Urinalysis Comment CULT NOT INDICATED Urine Collection Time 1325 Laboratory Tests Test 07/24/17 15:00 5/9/18 15:50 07/25/17 06:10 07/26/17 05:33 Troponin I 0.31 NG/ML (0.02-0.05) Red Blood Count 3.08 MIL/MM3 (4.00-5.30) 3.31 MIL/MM3 (4.00-5.30) Hemoglobin 9.0 GM/DL (11.6-15.3) 9.8 GM/DL (11.6-15.3) Hematocrit 27.8 % (35.0-46.0) 30.1 % (35.0-46.0) Red Cell Distribution Width 19.2 % (11.6-17.2) 18.9 % (11.6-17.2) Neutrophils (%) (Auto) 96.5 % (16.0-70.0) 96.3 % (16.0-70.0) Lymphocytes (%) (Auto) 2.1 % (9.0-44.0) 1.9 % (9.0-44.0) Neutrophils # (Auto) 10.4 TH/MM3 (1.8-7.7) 20.0 TH/MM3 (1.8-7.7) Lymphocytes # (Auto) 0.2 TH/MM3 (1.0-4.8) 0.4 TH/MM3 (1.0-4.8) Random Glucose 141 MG/DL (74-106) 134 MG/DL (74-106) Calcium Level 8.3 MG/DL (8.5-10.1) 8.4 MG/DL (8.5-10.1) Estimat Glomerular Filtration Rate 84 ML/MIN (>89) 67 ML/MIN (>89) White Blood Count 20.7 TH/MM3 (4.0-11.0) Test 07/26/17 13:25 Imaging Last Impressions Chest X-Ray 07/26/17 0000 Signed Impressions: Service Date/Time: Wednesday, July 26, 2017 13:05 - CONCLUSION: Gaseous distention of colon in the left hemidiaphragm. Otherwise stable Kenroy Quiñonez MD FACR PE at Discharge Exam: Pleasant white female in slight distress. Her oxygen dose has been gradually increased. HEENT: Pupils equal, no scleral icterus, mouth without lesions Neck: No JVD Heart: Regular tachycardia Lungs: worsening wheezing Abdomen: soft, nontender Extremities: No edema Neuro: moves all extremities Hospital Course Patient was admitted and begun on IV antibiotic therapy for possible pulmonary infection because of increased lung markings. A consult was placed with a surgical training specialist (Dr Rivas) who was familiar with her case having seen her in May. She was given Duoneb treatments and IV steroids. A request for her to be seen by Hospice was placed and they saw her and she initially could not make up her mind as to when she wanted to go to the Hospice Care center. Over the last 24-36 hours her oxygen levels have declined requiring more liters of oxygen. Her IV steroid dose was increased by Dr Rivas. This morning when I saw her early she was noted to have increased wheezing and slight respiratory distress even on her oxygen. I talked with her then about going to the Hospice Care center and she was agreeable to this so I asked the nurse to contact Hospice and begin the process with them of potentially transferring her to the Hospice care center. However her condition seemed to decline quickly over the next 2 hours and became more unresponsive with more labored breathing and because she was a No Code no further intervention was done and she peacefully according to the nurse shortly before 10:00AM this morning. Pt Condition on Discharge: Deteriorating Toby Martell MD July 27, 2017 10:25
== END 2017-07-27 13:30 | disposition expired | DRG 180 ==
LOC: PHED 08:59 → PHEDA 11:04 → PH3A 11:44
PROVIDERS: ADMIT Family Medicine; ATTEND Family Medicine
DX: C78.00 Secondary malignant neoplasm of unspecified lung (principal); J18.9 Pneumonia, unspecified organism; J96.11 Chronic respiratory failure with hypoxia; J84.10 Pulmonary fibrosis, unspecified; Z99.81 Dependence on supplemental oxygen; D64.9 Anemia, unspecified; J44.0 Chronic obstructive pulmonary disease with (acute) lower respiratory infection; J44.1 Chronic obstructive pulmonary disease with (acute) exacerbation; F17.210 Nicotine dependence, cigarettes, uncomplicated; M19.90 Unspecified osteoarthritis, unspecified site; M54.2 Cervicalgia; R00.0 Tachycardia, unspecified; R42 Dizziness and giddiness; I70.8 Atherosclerosis of other arteries; E78.5 Hyperlipidemia, unspecified; M51.36 Other intervertebral disc degeneration, lumbar region; I70.0 Atherosclerosis of aorta; Z85.118 Personal history of other malignant neoplasm of bronchus and lung; Z87.01 Personal history of pneumonia (recurrent); Z86.010 Personal history of colon polyps; Z86.73 Personal history of transient ischemic attack (TIA), and cerebral infarction without residual deficits; Z90.2 Acquired absence of lung [part of]; Z92.21 Personal history of antineoplastic chemotherapy; Z92.3 Personal history of irradiation; Z85.828 Personal history of other malignant neoplasm of skin; Z66 Do not resuscitate; R74.8 Abnormal levels of other serum enzymes; Z51.5 Encounter for palliative care
CPT/HCPCS: 71045; 80048; 80053; 81001; 82550; 83605; 83735; 84484; 85025; 85610; 85730; 87040; 93005; 94640; 94664; 96361; 96365; J0456; J0692; J1650; J2920; J7030; J7050; J7613